=== PATIENT | male | born 1960 | race Caucasian/White ===

== ENCOUNTER 2021-06-09 07:08 | Inpatient (IN) | payer MEDICAID, SELFPAY ==
[2021-06-09] VITALS (34 sets, daily range): BP systolic 72–125; BP diastolic 47–75; PULSE 75–133; RESP 9–24; TEMP 36.6–37.2; O2SAT 88–100
--- NOTE | 2021-06-09 07:25 | ED_ITS ---
HPI - Neuro Symptoms/Deficit General: Chief Complaint: Fall Stated Complaint: FALL/ WEAKNESS Time Seen by Provider: 06/09/21 07:10 History of Present Illness: HPI Narrative: 61-year-old male presents emergency room with complaints of having fallen and having slurred speech. He has a history of a previous stroke with left-sided paralysis with contractures. states she thinks he fell off the couch around 3 AM was not found until 6 this morning and EMS was called. That report is from EMS there is no family at the bedside at this time the monitor is reading heart rate in 130s and 40s however appears to be doubling the actual heart rate on EKG initially arrived his heart rate is actually 67. He is difficult to get any specific history from him. He does have slurred speech. Onset (ago): unknown History of same: Yes Severity: moderate Quality: weak Relieving factors: none Exacerbating factors: none Associated symptoms: Deny chest pain, cough, diaphoresis, fevers/chills, headache(s), anorexia, malaise, nausea, seizures, short of breath, syncope, tingling, vertigo, vomiting or weakness Treatments Prior to Arrival: none Review of Systems Const: Denies: malaise or diaphoresis ENMT: Denies: throat pain, ear or mastoid pain, nasal discharge or nasal congestion Card: Denies: chest pain or syncope Resp: Denies: dyspnea, productive cough or non-productive cough GI: Denies: nausea or vomiting : Denies: flank pain, dysuria, urinary frequency or urinary urgency Skin/Breast: Denies: rash or pruritus Neuro: Denies: headache(s) or vertigo PFS ED PFSH: Medical History (Updated 06/10/21 @ 06:55 by Jordan Pardo DO) Chronic kidney disease Chronic pain History of CVA (cerebrovascular accident) History of seizure History of upper gastrointestinal bleeding Hyperlipidemia Hypertension Neuropathy Type 2 diabetes mellitus Social History (Updated 06/09/21 @ 11:41 by Trung Velasquez MD) Smoking and tobacco status: current every day smoker Alcohol intake: never Physical Exam HENMT: COMMON NORMALS: normocephalic and atraumatic HEAD & SCALP: normocephalic and atraumatic Neck/C-Spine: COMMON NORMALS: full ROM, no lymphadenopathy and supple Resp: COMMON NORMALS: normal respiratory effort, No retractions, No use of accessory muscles and clear to auscultation bilaterally AUSCULTATION: clear to auscultation bilaterally Cardio: COMMON NORMALS: regular rate, regular rhythm and No murmurs present (Cardio) RATE: regular rate RHYTHM: regular rhythm GI: COMMON NORMALS: Soft to palpation and No hepatosplenomegaly present AUSCULTATION: Yes normoactive bowel sounds PALPATION: Yes Soft to palpation, No Tenderness to palpation present (GI), No Guarding due to palpation present (GI) and Yes No hepatosplenomegaly present Extremity: COMMON NORMALS: normal to inspection, capillary refill normal, no clubbing, cyanosis or edema, no calf tenderness and no pedal edema NARRATIVE EXTREMITY EXAM: Contractures on the left arm and leg from previous stroke. Skin: COMMON NORMALS: no rashes or lesions noted GENERAL SKIN EXAM: no rashes or lesions noted Procedures Central Line Placement Right SC: Time Out Performed: Yes Patient Placed on Monitor/Pulse Ox: Yes MD Prep: mask, gown and gloves Central Line Prep: Chlorhexidine scrub Local Anesthetic: lidocaine 1% Amount of anesthesia used (mL): 3 Ultrasound Used for Placement: Yes Central Line Lumen Inserted: triple Post Procedure: sutured in place, good blood return, all ports aspirated, flushed, capped and sterile dressing applied Post Procedure X-Ray: tip of catheter in good position and no pneumothorax seen Patient Tolerated Procedure: well and no complications Complications: none Course Vital Signs: Vital signs: Vital Signs Temperature 101.7 F H 06/10/21 04:00 Pulse Rate 84 06/10/21 06:15 Respiratory Rate 18 06/10/21 06:15 Blood Pressure 99/60 06/10/21 06:15 Pulse Oximetry 95 06/10/21 06:15 MDM - Neuro Symptoms/Deficit MDM Narrative: Medical decision making narrative: Patient is septic. Started on antibiotics we placed a Millan and has significant urinary output. Treated his acute hypokalemia with calcium gluconate sodium bicarb and insulin. Central line placed for access because of difficulty with poor access. Discussed with hospitalist and with nephrology. Orders are written. Also discussed with the family they want patient to be a no code this common-law and the son agreed no CPR no intubation but they were okay with medical resuscitation and they were okay with placement of central line and dialysis I relayed that to the hospitalist and nephrology. Lab Data: Labs: Lab Results 06/09/21 06/09/21 06/09/21 07:28 07:45 08:02 WBC RBC Hgb Hct MCV MCH MCHC RDW Plt Count MPV Neut % (Auto) Lymph % (Auto) [place] % (Auto) Eos % (Auto) Baso % (Auto) Neut # (Auto) Lymph # (Auto) [place] # (Auto) Eos # (Auto) Baso # (Auto) Nucleated RBC % (a uto) Nucleated RBCs # PT INR APTT Specimen Type Arterial Sample Site Brachial, right ABG pH 7.24 L (7.35-7.45) ABG pCO2 26.4 mmHg L mmHg (35-45) ABG pO2 108.0 mmHg H mmHg (80.0-100.0) ABG HCO3 11.4 mmol/L L mmo l/L (22-26) ABG O2 Saturation 97.7 ABG Base Excess -14.5 mmol/L L mm ol/L (-2.0-2.0) Saad Test Pos A-a O2 Gradient Not Reportable Hematocrit 30.4 % L % (42-52) Hgb O2 Saturation 95.3 % % (95-100) Carboxyhemoglobin 1.1 %THgb %THgb (0.4-20.1) Methemoglobin 1.3 % % (0.4-1.5) Total Hemoglobin 9.9 g/dL L g/dL (14-18) Sodium 129.0 mmol/L L mm ol/L (131-143) Potassium 7.9 mmol/L H mmol /L (3.5-5.0) Glucose 223.0 mg/dL H mg/ dL (70-115) Ionized Calcium 1.1 mmol/L mmol/L (1.1-1.4) O2 Delivery Device Nc FiO2 40.0 % % Senior Process Control Tech ID [place] Chloride Carbon Dioxide Anion Gap BUN Creatinine GFR Calculation POC Glucose 195 mg/dL H mg/dL (70-110) Calculated Osmolal ity Lactic Acid Calcium Total Bilirubin AST ALT Alkaline Phosphata se Creatine Kinase CK-MB (CK-2) CK-MB (CK-2) Rel I ndex Troponin T Baselin e Total Protein Albumin Globulin Urine Color Urine Appearance Urine pH Ur Specific Gravit y Urine Protein Urine Glucose (UA) Urine Ketones Urine Blood Urine Nitrate Urine Bilirubin Urine Urobilinogen Ur Leukocyte Krisitn ase Urine RBC Urine WBC Ur Squamous Epith Cells Amorphous Sediment Urine Bacteria Urine Mucus Ur Random Sodium Ur Random Potassiu m Ur Random Chloride Urine Opiates Scre en Ur Barbiturates Sc reen Ur Phencyclidine S crn Ur Amphetamines Sc reen U Benzodiazepines Scrn Urine Cocaine Scre en U Marijuana (THC) Screen Hep Bs Antigen Hep Bs Antibody Hepatitis C Antibo dy SARS-CoV-2 Ag (Rap id) Negative (Negative) 06/09/21 06/09/21 06/09/21 09:02 09:02 09:02 WBC 25.7 10^3/uL H 10 ^3/uL (4.0-10.0) RBC 3.52 10^6/uL L 10 ^6/uL (4.1-5.3) Hgb 10.4 g/dL L g/dL (11.7-16.6) Hct 31.8 % L % (42.0-52.0) MCV 90.3 fl fl (80-94) MCH 29.5 pg pg (28.0-34.0) MCHC 32.7 g/dL g/dL (30.0-36.0) RDW 16.7 % H % (12.1-15.1) Plt Count 336 10^3/cmm 10^3 /cmm (130-400) MPV 11.6 fL H fL (7.4-10.4) Neut % (Auto) 82.3 % % Lymph % (Auto) 6.1 % % [place] % (Auto) 7.9 % % Eos % (Auto) 0.7 % % Baso % (Auto) 0.5 % % Neut # (Auto) 21.18 10^3/uL H 1 0^3/uL (1.8-7.7) Lymph # (Auto) 1.6 10^3/uL 10^3/ uL (0.8-4.8) [place] # (Auto) 2.0 10^3/uL H 10^ 3/uL (0.2-0.9) Eos # (Auto) 0.2 10^3/uL 10^3/ uL (0.0-0.8) Baso # (Auto) 0.1 10^3/uL 10^3/ uL (0.0-0.1) Nucleated RBC % (a uto) 0 % % Nucleated RBCs # 0.0 /100WBC /100W BC PT 16.90 SECONDS H S ECONDS (12.1-14.9) INR 1.33 H (0.8-1.2) APTT 31.9 SECONDS SECO NDS (23.9-36.7) Specimen Type Sample Site ABG pH ABG pCO2 ABG pO2 ABG HCO3 ABG O2 Saturation ABG Base Excess Saad Test A-a O2 Gradient Hematocrit Hgb O2 Saturation Carboxyhemoglobin Methemoglobin Total Hemoglobin Sodium 129 mmol/L L mmol /L (136-145) Potassium 8.2 mmol/L H* mmo l/L (3.5-5.1) Glucose 223 mg/dL H mg/dL (65-115) Ionized Calcium O2 Delivery Device FiO2 Senior Process Control Tech ID Chloride 98 mmol/L mmol/L (98-107) Carbon Dioxide 10 mmol/L L mmol/ L (22-29) Anion Gap 29.2 H (5-19) BUN 81 mg/dL H mg/dL (8-23) Creatinine 5.8 mg/dL H* mg/d L (0.7-1.2) GFR Calculation 10.0 mL/min L mL/ min (90-130) POC Glucose Calculated Osmolal ity 299 mOsm/kg H mOs m/kg (285-295) Lactic Acid Calcium 7.5 mg/dL L mg/dL (8.5-10.5) Total Bilirubin 0.3 mg/dL mg/dL (0.15-1.2) AST 13 U/L U/L (0-40) ALT 12 U/L U/L (0-41) Alkaline Phosphata se 86 IU/L IU/L (40-130) Creatine Kinase 1064 U/L H* U/L (39-308) CK-MB (CK-2) 19.9 ng/mL H ng/m L (0-10.4) CK-MB (CK-2) Rel I ndex 1.8 % % (0.0-5.3) Troponin T Baselin e Total Protein 5.7 g/dL L g/dL (6.6-8.7) Albumin 3.3 g/dL L g/dL (3.5-5.2) Globulin 2.4 g/dL g/dL (1.3-4.6) Urine Color Urine Appearance Urine pH Ur Specific Gravit y Urine Protein Urine Glucose (UA) Urine Ketones Urine Blood Urine Nitrate Urine Bilirubin Urine Urobilinogen Ur Leukocyte Kristin ase Urine RBC Urine WBC Ur Squamous Epith Cells Amorphous Sediment Urine Bacteria Urine Mucus Ur Random Sodium Ur Random Potassiu m Ur Random Chloride Urine Opiates Scre en Ur Barbiturates Sc reen Ur Phencyclidine S crn Ur Amphetamines Sc reen U Benzodiazepines Scrn Urine Cocaine Scre en U Marijuana (THC) Screen Hep Bs Antigen Hep Bs Antibody Hepatitis C Antibo dy SARS-CoV-2 Ag (Rap id) 06/09/21 06/09/21 06/09/21 09:02 09:02 09:05 WBC RBC Hgb Hct MCV MCH MCHC RDW Plt Count MPV Neut % (Auto) Lymph % (Auto) [place] % (Auto) Eos % (Auto) Baso % (Auto) Neut # (Auto) Lymph # (Auto) [place] # (Auto) Eos # (Auto) Baso # (Auto) Nucleated RBC % (a uto) Nucleated RBCs # PT INR APTT Specimen Type Sample Site ABG pH ABG pCO2 ABG pO2 ABG HCO3 ABG O2 Saturation ABG Base Excess Saad Test A-a O2 Gradient Hematocrit Hgb O2 Saturation Carboxyhemoglobin Methemoglobin Total Hemoglobin Sodium Potassium Glucose Ionized Calcium O2 Delivery Device FiO2 Senior Process Control Tech ID Chloride Carbon Dioxide Anion Gap BUN Creatinine GFR Calculation POC Glucose Calculated Osmolal ity Lactic Acid 2.1 mmol/L mmol/L (0.5-2.2) Calcium Total Bilirubin AST ALT Alkaline Phosphata se Creatine Kinase CK-MB (CK-2) CK-MB (CK-2) Rel I ndex Troponin T Baselin e 113 ng/L H* ng/L (0-15) Total Protein Albumin Globulin Urine Color Urine Appearance Urine pH Ur Specific Gravit y Urine Protein Urine Glucose (UA) Urine Ketones Urine Blood Urine Nitrate Urine Bilirubin Urine Urobilinogen Ur Leukocyte Kristin ase Urine RBC Urine WBC Ur Squamous Epith Cells Amorphous Sediment Urine Bacteria Urine Mucus Ur Random Sodium Ur Random Potassiu m Ur Random Chloride Urine Opiates Scre en Ur Barbiturates Sc reen Ur Phencyclidine S crn Ur Amphetamines Sc reen U Benzodiazepines Scrn Urine Cocaine Scre en U Marijuana (THC) Screen Hep Bs Antigen Non-reactive (Nonreactive) Hep Bs Antibody 3.5 L (11.5-1000) Hepatitis C Antibo dy Non-reactive (Nonreactive) SARS-CoV-2 Ag (Rap id) 06/09/21 06/09/21 06/09/21 10:02 10:05 10:05 WBC RBC Hgb Hct MCV MCH MCHC RDW Plt Count MPV Neut % (Auto) Lymph % (Auto) [place] % (Auto) Eos % (Auto) Baso % (Auto) Neut # (Auto) Lymph # (Auto) [place] # (Auto) Eos # (Auto) Baso # (Auto) Nucleated RBC % (a uto) Nucleated RBCs # PT INR APTT Specimen Type Sample Site ABG pH ABG pCO2 ABG pO2 ABG HCO3 ABG O2 Saturation ABG Base Excess Saad Test A-a O2 Gradient Hematocrit Hgb O2 Saturation Carboxyhemoglobin Methemoglobin Total Hemoglobin Sodium Potassium Glucose Ionized Calcium O2 Delivery Device FiO2 Senior Process Control Tech ID Chloride Carbon Dioxide Anion Gap BUN Creatinine GFR Calculation POC Glucose 211 mg/dL H mg/dL (70-110) Calculated Osmolal ity Lactic Acid Calcium Total Bilirubin AST ALT Alkaline Phosphata se Creatine Kinase CK-MB (CK-2) CK-MB (CK-2) Rel I ndex Troponin T Baselin e Total Protein Albumin Globulin Urine Color Yellow (Yellow) Urine Appearance Hazy A (CLEAR) Urine pH 5 (5-7) Ur Specific Gravit y 1.015 (1.005-1.030) Urine Protein Trace (Negative) Urine Glucose (UA) 2+ H (Normal) Urine Ketones Negative (Negative) Urine Blood 3+ H (Negative) Urine Nitrate Negative (Negative) Urine Bilirubin Neg (Negative) Urine Urobilinogen Norm mg/dL mg/dL (Negative) Ur Leukocyte Kristin ase Negative (Negative) Urine RBC 0-4 /hpf H /hpf (0-2) Urine WBC 0-4 /hpf H /hpf (0-5) Ur Squamous Epith Cells 0-4 /hpf H /hpf (0-5) Amorphous Sediment Not Reportable Urine Bacteria Trace /hpf /hpf (NONE) Urine Mucus 1+ /hpf /hpf Ur Random Sodium Ur Random Potassiu m Ur Random Chloride Urine Opiates Scre en Positive ng/mL H ng/mL (Negative) Ur Barbiturates Sc reen Negative ng/mL ng /mL (Negative) Ur Phencyclidine S crn Negative ng/mL ng /mL (Negative) Ur Amphetamines Sc reen Negative ng/mL ng /mL (Negative) U Benzodiazepines Scrn Positive ng/mL H ng/mL (Negative) Urine Cocaine Scre en Negative ng/mL ng /mL (Negative) U Marijuana (THC) Screen Negative ng/mL ng /mL (Negative) Hep Bs Antigen Hep Bs Antibody Hepatitis C Antibo dy SARS-CoV-2 Ag (Rap id) 06/09/21 10:05 WBC RBC Hgb Hct MCV MCH MCHC RDW Plt Count MPV Neut % (Auto) Lymph % (Auto) [place] % (Auto) Eos % (Auto) Baso % (Auto) Neut # (Auto) Lymph # (Auto) [place] # (Auto) Eos # (Auto) Baso # (Auto) Nucleated RBC % (a uto) Nucleated RBCs # PT INR APTT Specimen Type Sample Site ABG pH ABG pCO2 ABG pO2 ABG HCO3 ABG O2 Saturation ABG Base Excess Saad Test A-a O2 Gradient Hematocrit Hgb O2 Saturation Carboxyhemoglobin Methemoglobin Total Hemoglobin Sodium Potassium Glucose Ionized Calcium O2 Delivery Device FiO2 Senior Process Control Tech ID Chloride Carbon Dioxide Anion Gap BUN Creatinine GFR Calculation POC Glucose Calculated Osmolal ity Lactic Acid Calcium Total Bilirubin AST ALT Alkaline Phosphata se Creatine Kinase CK-MB (CK-2) CK-MB (CK-2) Rel I ndex Troponin T Baselin e Total Protein Albumin Globulin Urine Color Urine Appearance Urine pH Ur Specific Gravit y Urine Protein Urine Glucose (UA) Urine Ketones Urine Blood Urine Nitrate Urine Bilirubin Urine Urobilinogen Ur Leukocyte Kristin ase Urine RBC Urine WBC Ur Squamous Epith Cells Amorphous Sediment Urine Bacteria Urine Mucus Ur Random Sodium 89 mmol/L mmol/L Ur Random Potassiu m 34 mmol/L mmol/L Ur Random Chloride 58 mmol/L mmol/L Urine Opiates Scre en Ur Barbiturates Sc reen Ur Phencyclidine S crn Ur Amphetamines Sc reen U Benzodiazepines Scrn Urine Cocaine Scre en U Marijuana (THC) Screen Hep Bs Antigen Hep Bs Antibody Hepatitis C Antibo dy SARS-CoV-2 Ag (Rap id) Critical Care Time Critical Care Time: Critical Care Time: Yes Total Critical Care Time: 30 Attestation: This case had a high probability of a clinically significant, sudden, or life threatening deterioration of this patient's condition which required my full and direct attention, intervention and personal management. Does not include other documented procedures Discharge Plan Discharge Patient Disposition: Admitted As Inpatient Admit Provider: Trung Velasquez Clinical Impression: Sepsis, Acute kidney injury, Hyperkalemia, Hypotension, Rhabdomyolysis, Anemia, Metabolic acidosis, Elevated troponin, Urinary retention, Type 2 diabetes mellitus, History of CVA (cerebrovascular accident) Condition: Stable Coding Level of Care Code ED Abnormal Psychology Teacher for Chg Fwd Exam Detailed
--- NOTE | 2021-06-09 07:26 | XR_ITS ---
WS: [id number] Exam: XR chest 1V portable [id number] Date/Time of Exam: 06/09/2021 7:35 AM Reason For Exam: dyspnea No priors. The lungs are clear and fully expanded. Normal-appearing cardiomediastinal silhouette and regional [place] elements. A right subclavian central line is in place ending in the region of the right atrium. No pleural effusions. XR/XR chest 1V portable [id number] IMPRESSION: 1. No acute cardiopulmonary finding.
--- NOTE | 2021-06-09 07:26 | CT_ITS ---
WS: [id number] CT HEAD NONCONTRAST HISTORY: Symptoms of Acute Stroke TECHNIQUE: Contiguous axial imaging performed through the brain in 2.5 mm imaging. Bone and soft tiss ue windows. Sagittal and coronal reformats reviewed. All CT scans at [facility] use at least one of these dose optimization techniques: automated exposure control; mA and/or kV adjustment per pa tient size (includes targeted exams where dose is matched to clinical indication); or iterative recon struction. DLP: 1138.63 mGy.cm COMPARISON: None available. Severe prior RIGHT middle cerebral artery territory infarct. There is ex vacuole dilatation of the RI GHT lateral ventricle due to the volume loss in the RIGHT MCA territory. No acute hemorrhage. No acut e area of sulcal effacement or edema evident. Moderate atrophy within the LEFT cerebrum. Ventricles: Extensive dilatation of the RIGHT lateral ventricle. Mild dilatation of the LEFT ventric le due to atrophy. Paranasal sinuses: As visualized are clear. Mastoid air cells: Well pneumatized. Calvarium and scalp: Moderate atherosclerotic plaque within the intracranial carotid arteries. CT/CT head wo con* [id number] IMPRESSION: 1. No acute intracranial hemorrhage or edema. 2. Large remote RIGHT MCA territory infarct with encephalomalacia.
--- NOTE | 2021-06-09 07:26 | ECG_ITS ---
[facility] Test Date: 2021-06-09 Pat Name: Tucker Tyler Department: Room: Gender: Male Lead Front Desk Agent: : 1960 Requested By: Jordan Perez Order Number: [id number] Brittany MD: LORRAINE HERNANDEZ Measurements Intervals [place] Rate: 67 P: [place]: QRS: 72 QRSD: 148 T: 19 QT: 405 QTc: 429 Interpretive Statements SINUS RHYTHM RIGHT BUNDLE BRANCH BLOCK [120+ ms QRS DURATION, UPRIGHT V1, 40+ ms S IN I/aVL/V4/V5/V6] No previous ECG available for comparison Electronically Signed On 06-09-2021 20:01:16 MANAGER DRILLING by LORRAINE HERNANDEZ [id number] f
--- NOTE | 2021-06-09 07:27 | ECG_ITS ---
[facility] Test Date: 2021-06-09 Pat Name: Tucker Tyler Department: Room: Gender: Male Bulldozer Press Operator: : 1960 Requested By: Jordan Perez Order Number: [id number] Reading MD: LORRAINE HERNANDEZ Measurements Intervals [place] Rate: 66 P: [place]: QRS: 59 QRSD: 154 T: 8 QT: 415 QTc: 437 Interpretive Statements JUNCTIONAL RHYTHM RIGHT BUNDLE BRANCH BLOCK [120+ ms QRS DURATION, UPRIGHT V1, 40+ ms S IN I/aVL/V4/V5/V6] No previous ECG available for comparison Electronically Signed On 06-09-2021 20:00:05 CONTRACT ENGINEER by LORRAINE HERNANDEZ [id number] f
--- NOTE | 2021-06-09 07:27 | XR_ITS ---
WS: [id number] Exam: XR hip LT 2-3V wo/w pel* [id number] Date/Time of Exam: 06/09/2021 7:35 AM Reason For Exam: pain No fracture or dislocation. Mild to moderate DJD. Normal soft tissues. XR/XR hip LT 2-3V wo/w pel* [id number] IMPRESSION: 1. Degenerative change. No fracture or dislocation.
[2021-06-09 07:31] LABS: Glucose Point of Care 195 mg/dL (70-110)
--- NOTE | 2021-06-09 07:38 | PC.NURSE ---
Attempted to notify HUGO Pardo of pt's BP, not in office. it consulting manager Ashley at bedside.
--- NOTE | 2021-06-09 07:39 | PC.NURSE ---
HUGO Pardo notified of pt's BP at this time.
[2021-06-09] MEDS: sodium chloride 0.9% 1,000 ML 999 ML IV ×2 (07:57→09:27)
[2021-06-09 08:16] LABS: ABG PCO2 26.4 mmHg (35-45); ABG PH Result 7.24 (7.35-7.45); HCO3 ABG 11.4 mmol/L (22-26)
[2021-06-09 08:17] LABS: Base Excess ABG -14.5 mmol/L (-2.0-2.0); Blood Gas Allen Test POS; Blood Gas Operator Identificat MONRO; Oxygen Device NC; Oxygen Saturation ABG 97.7; Potassium Level - ABG 7.9 mmol/L (3.5-5.0)
[2021-06-09 08:18] LABS: Arterial Blood Gas Hematocrit 30.4 % (42-52); Blood Gas Sample Type ARTERIAL; Carboxyhemoglobin 1.1 %THgb (0.4-20.1); HGB O2 Sat 95.3 % (95-100); Ionized Calcium Level - ABG 1.1 mmol/L (1.1-1.4); Methemoglobin 1.3 % (0.4-1.5); Total Hemoglobin 9.9 g/dL (14-18)
[2021-06-09] MEDS: calcium gluconate 0.1 gm/mL 10% SDV 10mL 2 GM IVP (08:56)
[2021-06-09] MEDS: levofloxacin-dextrose 5 % 750 MG/150 ML PREMIX 100 MG IV (08:57)
[2021-06-09] MEDS: sodium bicarbonate 8.4% 1 mEq/mL 50mL Syr 100 MEQ IVP (08:57)
[2021-06-09 09:13] LABS: Basophils # 0.1 10^3/uL (0.0-0.1); Basophils % 0.5 %; Eosinophils # 0.2 10^3/uL (0.0-0.8); Eosinophils % 0.7 %; Hematocrit 31.8 % (42.0-52.0); Hemoglobin 10.4 g/dL (11.7-16.6); Lymphocytes # 1.6 10^3/uL (0.8-4.8); Lymphocytes % 6.1 %; Mean Corpuscular HGB Conc 32.7 g/dL (30.0-36.0); Mean Corpuscular Hemoglobin 29.5 pg (28.0-34.0); Mean Corpuscular Volume 90.3 fl (80-94); Mean Platelet Volume 11.6 fL (7.4-10.4); Monocytes % 7.9 %; Neutrophils # 21.18 10^3/uL (1.8-7.7); Neutrophils % 82.3 %; Nucleated Red Blood Cells % 0 %; Platelet Count 336 10^3/cmm (130-400); Red Blood Count 3.52 10^6/uL (4.1-5.3); Red Cell Distribution Width 16.7 % (12.1-15.1); White Blood Count 25.7 10^3/uL (4.0-10.0)
[2021-06-09] MEDS: insulin regular-human 100 units/1 mL 10 UNIT IVP (09:18)
[2021-06-09 09:27] LABS: INR 1.33 (0.8-1.2)
--- NOTE | 2021-06-09 09:27 | ECG_ITS ---
[facility] Test Date: 2021-06-09 Pat Name: Tucker Tyler Department: Room: Gender: Male Claim Manager: : 1960 Requested By: Jordan Perez Order Number: [id number] Reading MD: LORRAINE HERNANDEZ Measurements Intervals [place] Rate: 97 P: 43 MA: 183 QRS: 21 QRSD: 93 T: 64 QT: 342 QTc: 436 Interpretive Statements SINUS RHYTHM NONSPECIFIC ST & T-WAVE ABNORMALITY Compared to ECG 06/09/2021 07:24:19 T-wave abnormality now present Right bundle-branch block no longer present Electronically Signed On 06-09-2021 20:09:49 MEDICAL GENETICS DIRECTOR by LORRAINE HERNANDEZ [id number]
[2021-06-09 09:28] LABS: Partial Thromboplastin Time 31.9 SECONDS (23.9-36.7)
[2021-06-09 09:31] LABS: Alanine Aminotransferase 12 U/L (0-41); Albumin Level 3.3 g/dL (3.5-5.2); Alkaline Phosphatase 86 IU/L (40-130); Anion Gap 29.2 (5-19); Aspartate Amino Transferase 13 U/L (0-40); Calcium 7.5 mg/dL (8.5-10.5); Carbon Dioxide 10 mmol/L (22-29); Chloride 98 mmol/L (98-107); Globulin 2.4 g/dL (1.3-4.6); Glucose 223 mg/dL (65-115); Osmolality Calculated 299 mOsm/kg (285-295); Sodium 129 mmol/L (136-145); Total Bilirubin 0.3 mg/dL (0.15-1.2); Total Protein 5.7 g/dL (6.6-8.7)
--- NOTE | 2021-06-09 09:31 | PC.NURSE ---
Pt alert and oriented to name and birthday only. States that current year is 1959 and unable to state who the president of the [place] is.
--- NOTE | 2021-06-09 09:33 | PC.NURSE ---
Pt has left sided deficits from a previous stroke stated by EMS.
[2021-06-09 09:38] LABS: Lactic Sepsis W/Reflex 2.1 mmol/L (0.5-2.2)
[2021-06-09 09:41] LABS: Blood Urea Nitrogen 81 mg/dL (8-23); Potassium 8.2 mmol/L (3.5-5.1); Troponin(5th) Baseline 113 ng/L (0-15)
[2021-06-09 09:42] LABS: Creatine Phosphokinase 1064 U/L (39-308)
[2021-06-09 09:42] LABS: SARS Covid-2 Antigen Negative (Negative)
[2021-06-09 09:58] LABS: CKMB 19.9 ng/mL (0-10.4); CKMB Relative Index 1.8 % (0.0-5.3)
[2021-06-09 10:05] LABS: Glucose Point of Care 211 mg/dL (70-110)
--- NOTE | 2021-06-09 10:25 | PC.PHAR ---
PT UNABLE TO VERIFY MEDICATIONS-PTS LIFE PARTNER AUNG VERIFIED THE PTS MEDICATIONS-STATES SHE GIVES THE PT HIS INSULIN STATES THE PT WONT LET HER TEST HIS BLOOD ALL THE TIME SO SHE JUST GIVES HIM A SHOT STATES SHE GIVES 20 UNITS TID PRN-RX FILLED ON 05/15/21 25D/S FOR 20 UNITS BID MAX OF 40 UNITS A DAY-NOTES ARE MADE IN THE PHARMACY COMMENTS
[2021-06-09] MEDS: piperacillin-tazobactam 3.375 GM in sodium chloride 0.9% (plus) 50 ML IV ×2 (10:28→21:52)
[2021-06-09] MEDS: vancomycin 1,000 MG in sodium chloride 0.9% 250 ML 250 MG IV (10:51)
--- NOTE | 2021-06-09 10:57 | PM.CONSULT ---
Providers/Reason For Consult Consulting Physician/Specialty*: олег nunez md/ telenephrology Reason for Consult*: GINA, hyperkalemia, met acidosis Requesting Physician: Dr. Colette Velasquez Primary Care Provider: Leonel Jolley History of Present Illness History of Present Illness Tucker Tyler is a 61 year old male h/o tob use, CVA. pt here w/ AMS and fall. found him down, unsure for how long- she though that he had a CVA and brought him to ER. Pt had wide complex QRS on admission, k 8.2, bicarb 10, cr 5.8, trop 113, pH 7.24, pco2 26, ic8=436. pt given abx, ivf, ca, d50. shea placed- is urinating. renal called for emergency consult. Review of Systems General: Reports: ROS unobtainable due to mental status Meds/Allergies Home Medications and Allergies Home Medications Medication Instructions Recorded Confirmed Last Taken Type acetaminophen [Tylenol] 650 mg PO Q4H PRN 06/09/21 06/09/21 Unknown History atorvastatin 80 mg PO DAILY 06/09/21 06/09/21 Unknown History calcium carbonate [Tums] 500 mg PO PRN 06/09/21 06/09/21 Unknown History citalopram 20 mg PO DAILY 06/09/21 06/09/21 Unknown History clonazepam 0.5 mg PO BID PRN 06/09/21 06/09/21 Unknown History cyclobenzaprine 10 mg PO TID PRN 06/09/21 06/09/21 Unknown History diphenhydramine HCl [Benadryl] 50 mg PO BID PRN 06/09/21 06/09/21 Unknown History gabapentin 400 mg PO TID 06/09/21 06/09/21 Unknown History hydrocodone-acetaminophen 1 tab PO Q6H PRN 06/09/21 06/09/21 Unknown History ibuprofen 400 - 800 mg PO Q6H 06/09/21 06/09/21 Unknown History insulin NPH and regular human 20 unit SUBCUT TID PRN 06/09/21 06/09/21 Unknown History [Novolin 70/30 U-100 Insulin] lisinopril 20 mg PO DAILY 06/09/21 06/09/21 Unknown History Allergies Allergy/AdvReac Type Severity Reaction Status Date / Time Unable to Assess Allergy Unverified 06/09/21 09:35 Current Medications Current Medications Generic Name Dose Route Start Last Admin Trade Name Aby PRN Reason Stop Dose Admin Norepinephrine Bitartrate 4 mg 254 mls @ 0 mls/hr 06/09/21 07:45 06/09/21 07:56 / Dextrose IV 8 mcg/min .Q0M KEN 30.48 mls/hr Administration Protocol Per Protocol Vitals/I&O/Wt Last Vital Signs Temp 99.0 F 06/09/21 07:10 Pulse 105 H 06/09/21 09:28 Resp 22 H 06/09/21 09:28 BP 125/69 06/09/21 09:28 Pulse Ox 98 06/09/21 09:28 06/08/21 06/09/21 06/09/21 22:59 06:59 14:59 Intake Total 1000 / 1000 Balance 1000 / 1000 Weight last 48 hrs Weight 99.79 kg Physical Exam Narrative: EXAM NARRATIVE: exam by RN- telehealth visit weak in bed, saturating well vs noted heent- nc/at, eomi, anicteric neck- no jvp lung wheezing b/l heart- reg, no rub abd soft, nt, nd, + bs ext no edema neuro- moans, confused Data Micro: Micro: Microbiology 06/09/21 09:02 Blood Culture - Pr eliminary Blood SPECIMEN [facility] A&P Additional A&P Information 61 yr old man 1. Sepsis- as per medicine- pressers requirement improving 2. GINA- please get old labs -pt was on nsaid, lisinopril at home- risk for GINA -u/a pending -check urine lytes -check renal us -had 1200 ml uop w/ shea -monitor labs q 4 hrs- if no improvement may need dialysis soon 2b. pt on miko-i and has DM, htn- Q if has CKD 3. hyponatremia- likely dry- check ur na -check tsh and cortisol levles -monitor w/ ivf 4. hyperkalemia- rx medically -from GINA -if no improvement then HD 5. inc AGMA- likely renal failure -normal lactate -Q from a toxin -check ethylene glycol -good resp compensation 6. ck 1064- likely from fall 7. likely dm- Q if CKD seen and examined w/ RN- telehealth visit time spent 55 min discussed w/ Dr. Maggie Velasquez Consult Attestations Medical Necessity Statement: gina, septic shock, met acidosis, hyperkalemia- critical condition Time Spent in Patient Care: Greater than 35 minutes (>than 50% of time spent in counselling and/or direct pt care on unit). Coding Level of Care Code Acute Casualty Insurance Claim Adjuster for Paty Mancia
[2021-06-09 11:06] LABS: Reflex Lactate Order REFLEX LACTIC ORDERD
--- NOTE | 2021-06-09 11:16 | PM.HP ---
Providers/Chief Complaint Primary Care Provider: Leonel Jolley Chief Complaint: FALL/ WEAKNESS History of Present Illness Tucker Tyler is a 61 year old male with history of CVA who was brought into the emergency department with history of fall, slurred speech. From the emergency department records believes he fell off the couch around 3 AM and was not found till 6 AM this morning. It was initially hard to get any response from him at all. In my discussion with the patient's he has been doing okay. He does have some chronic urinary issues, and from her understanding some chronic renal failure. He occasionally has difficulty starting a stream or urinating even though he feels the need to. He has been taking some anti-inflammatories lately. He is also been fairly depressed lately, with his chronic pain and chronic disability. She reports a lot of pills were around the area where he was on the couch. She reports there was no alcohol or any other substances. He has not been ill lately with any fever, cough. He is not vaccinated for Covid, nor has he had the disease. No known exposures. In the emergency department he received some insulin and glucose, calcium gluconate, bicarbonate, norepinephrine, Levaquin, Zosyn, and vancomycin. Review of Systems General: Reports: ROS unobtainable due to mental status (Patient lethargic currently) Medications/Allergies Home Medications Medication Instructions Recorded Confirmed Last Taken Type acetaminophen [Tylenol] 650 mg PO Q4H PRN 06/09/21 06/09/21 Unknown History atorvastatin 80 mg PO DAILY 06/09/21 06/09/21 Unknown History calcium carbonate [Tums] 500 mg PO PRN 06/09/21 06/09/21 Unknown History citalopram 20 mg PO DAILY 06/09/21 06/09/21 Unknown History clonazepam 0.5 mg PO BID PRN 06/09/21 06/09/21 Unknown History cyclobenzaprine 10 mg PO TID PRN 06/09/21 06/09/21 Unknown History diphenhydramine HCl [Benadryl] 50 mg PO BID PRN 06/09/21 06/09/21 Unknown History gabapentin 400 mg PO TID 06/09/21 06/09/21 Unknown History hydrocodone-acetaminophen 1 tab PO Q6H PRN 06/09/21 06/09/21 Unknown History ibuprofen 400 - 800 mg PO Q6H PRN 06/09/21 06/09/21 Unknown History insulin NPH and regular human 20 unit SUBCUT TID PRN 06/09/21 06/09/21 Unknown History [Novolin 70/30 U-100 Insulin] lisinopril 20 mg PO DAILY 06/09/21 06/09/21 Unknown History Allergies Allergy/AdvReac Type Severity Reaction Status Date / Time Unable to Assess Allergy Unverified 06/09/21 09:35 PFSH Acute PFSH: Medical History (Updated 06/09/21 @ 11:47 by Trung Velasquez MD) Chronic kidney disease Chronic pain History of CVA (cerebrovascular accident) History of seizure History of upper gastrointestinal bleeding Hyperlipidemia Hypertension Neuropathy Type 2 diabetes mellitus Social History (Updated 06/09/21 @ 11:41 by Trung Velasquez MD) Smoking and tobacco status: current every day smoker Alcohol intake: never Supplemental PFSH Information: Family history of pulmonary embolism Vitals/I&O/Wt Last Vital Signs Temp 99.0 F 06/09/21 07:10 Pulse 97 06/09/21 11:00 Resp 20 H 06/09/21 11:00 BP 99/65 06/09/21 11:00 Pulse Ox 95 06/09/21 11:00 06/08/21 06/09/21 06/09/21 22:59 06:59 14:59 Intake Total 1000 / 1000 Balance 1000 / 1000 Weight last 48 hrs Weight 99.79 kg Physical Exam Narrative: EXAM NARRATIVE: General exam is a lethargic white male, slurring some of his words but becoming more more alert. He asked for chocolate pudding. HEENT: Atraumatic, normocephalic. Pupils equally round. Oropharynx clear. Mucous membranes dry. Neck is supple no lymphadenopathy or thyromegaly Cardiovascular regular rate and rhythm, no murmur Lungs clear no wheezing or crackles Abdomen is soft nontender with positive bowel sounds. No obvious organomegaly Back demonstrates no obvious lesions or sores exam demonstrates Millan with 1200 cc of urine noted Extremities no cyanosis clubbing or edema, cap refill around 2 seconds. Extremities cool. Skin no rash Neuro: Somewhat sleepy. Left hemiparesis noted. From my understanding this is chronic. Urinary Catheter Management^: Millan: Cath Placed During This Visit: yes Urinary Catheter Date of Insertion: 06/09/21 Data : 06/09/21 09:02 06/09/21 11:22 Micro: Microbiology 06/09/21 09:02 Blood Culture - Preliminary Blood SPECIMEN COLLECTED Other data: INR 1.33 ABG demonstrates pH 7.24, PCO2 26, PO2 108 Calcium 7.5 CK 1064 Troponin I 13 Lactic acid 2.1 LFTs normal Urinalysis 0-4 red blood cells, 0-4 white blood cells Urine drug screen positive for benzodiazepines and opiates Rapid Covid negative, PCR pending I have ordered Tylenol and salicylate levels CT head demonstrates remote large right MCA territory CVA. No acute changes. Chest x-ray no infiltrate Hip and pelvis no fracture Abdominal pelvis CT demonstrates a lobulated soft tissue mass left upper abdomen, difficult to delineate. Mucosal thickening moderate a sending and transverse colon A&P Assessment and plan (1) Sepsis: Etiology unknown. Blood cultures were obtained Broad-spectrum antibiotics currently consisting of vancomycin and Zosyn Received a large amount of IV antibiotics Although lactate was not elevated he had marked hypotension requiring pressors, encephalopathy, tachycardia, elevated lactic acid on second check, etc. He has received appropriate fluid in the emergency department. Status: Acute (2) Acute kidney injury: Severe acute kidney injury with marked hyperkalemia. He received calcium gluconate, insulin and glucose Potassium appears to be improving. Continue hydration. Note that patient was taking anti-inflammatories at home, and had significant residual amount of urine consistent with bladder outlet obstruction after Millan was placed. Has underlying chronic kidney disease with a baseline creatinine of 1.47. Status: Acute (3) Hyperkalemia: Improving, see treatment above Bicarbonate drip was initiated by nephrology. Status: Acute (4) Hypotension: Currently on norepinephrine. Titrate as tolerated Status: Acute (5) Anemia: Continue to follow closely. Pepcid IV for GI prophylaxis. No evidence of current bleeding Status: Acute (6) Rhabdomyolysis: Mild, check CK tomorrow. Continue hydration Status: Acute (7) Metabolic acidosis: Severe. Presumably secondary to renal failure. Bicarbonate drip was initiated by nephrology. Status: Acute (8) Elevated troponin: Type II elevation Status: Acute (9) Urinary retention: Continue Millan, suspect bladder outlet obstruction CT abdomen and pelvis demonstrated no obvious hydronephrosis Status: Acute (10) History of CVA (cerebrovascular accident): Status: Acute (11) Type 2 diabetes mellitus: Sliding scale insulin Status: Acute Additional A&P Information Acute metabolic encephalopathy, secondary to renal failure, sepsis. Monitor closely for improvement. Depression. Will discuss with patient once he becomes more alert. Multiple other medical problems as outlined in past medical history Limited code. No CPR or intubation per . Would allow and or other interventions, possibly including dialysis, and certainly ICU treatment. Heparin for DVT prophylaxis Attestations Medical Necessity Statement*: 2 midnight stay secondary to sepsis, hypotension, renal failure Critical Care Time: Critical Care Time (min): 57 Other Attestations: The high probability of a clinically significant, sudden or life threatening deterioration of the patient's [renal, vascular, infectious disease] system(s) required my full and direct attention, intervention and personal management. The critical care time is as shown. This time is in addition to time spent performing any reported procedures but includes the following: [x] Data and vital sign review and interpretation [x] Patient assessment, examination and intervention [x] Documentation [x] Medication orders and management Coding Level of Care Code Acute Peach Grower for [facility] Fwd Diagnoses Sepsis A41.9 Acute kidney injury N17.9 Hyperkalemia E87.5 Hypotension I95.9 Anemia D64.9 Rhabdomyolysis M62.82 Metabolic acidosis E87.2 Elevated troponin R77.8 Urinary retention R33.9 History of CVA (cerebrovascular accident) Z86.73 Type 2 diabetes mellitus E11.9
[2021-06-09 11:22] LABS: Add Urine Microscopic? YES; Bilirubin Urine Neg (Negative); Blood Urine 3+ (Negative); Glucose Urine UA 2+ (Normal); Ketones Urine Negative (Negative); Leukocyte Esterase Urine Negative (Negative); Nitrate Urine Negative (Negative); Protein Urine Trace (Negative); RBC Urine 0-4 /hpf (0-2); Specific Gravity, Urine 1.015 (1.005-1.030); Squamous Epithelial Cell Urine 0-4 /hpf (0-5); Urine Appearance Hazy (CLEAR); Urine Color Yellow (Yellow); Urobilinogen Urine Norm (Negative); WBC Urine 0-4 /hpf (0-5); pH Urine 5 (5-7)
[2021-06-09 11:23] LABS: Add Urine Culture? No; Bacteria Urine TRACE /hpf; Mucus Urine 1+ /hpf
[2021-06-09 11:24] LABS: Amphetamines Screen Urine Negative (Negative); Barbiturates Screen Urine Negative (Negative); Benzodiazepines Screen Urine Positive (Negative); Cocaine Screen Urine Negative (Negative); Opiate Screen Urine Positive (Negative); PCP Screen Urine Negative (Negative); THC Screen Urine Negative (Negative)
--- NOTE | 2021-06-09 11:48 | CT_ITS ---
WS: [id number] CT ABDOMEN AND PELVIS NONCONTRAST HISTORY: renal failure, sepsis TECHNIQUE: Imaging performed through the abdomen and pelvis. Coronal and sagittal reformats are submi tted. All CT scans at [facility] use at least one of these dose optimization techniques: auto mated exposure control; mA and/or kV adjustment per patient size (includes targeted exams where dose is matched to clinical indication); or iterative reconstruction. DLP: 1719.24 mGy.cm COMPARISON: None available. Lower thorax: Dependent changes at the lung bases. No pneumonia. Normal size heart. Liver: Diffuse low attenuation within the liver from hepatic steatosis. There are multiple low-attenu ation areas within the liver which are probably cysts. The largest in the LEFT lobe measures 3.2 x 3. 2 cm. There are additional smaller hypodensities which are too small to characterize. No bile duct di latation. Gallbladder: Mildly contracted gallbladder. No adjacent inflammation. Pancreas: Pancreas is normal size for age. No bile duct dilatation. There is a lobulated soft tissue mass inseparable from the pancreatic tail and near the splenic hilum. Mass extends over length of 4.4 cm x 4.5 x 3.2 cm. Mass is also inseparable from the lateral limb of the LEFT adrenal gland, posteri or stomach and from the LEFT kidney. Mass is of variable density and the center may be necrotic. Spleen: Normal. Adrenal glands: Normal RIGHT adrenal gland. Mildly lobulated LEFT adrenal gland. Lateral images insep arable from the mass in the LEFT upper quadrant. Right kidney: Perinephric stranding. No obstruction. Left kidney: Perinephric stranding with no obstruction. Mass in the LEFT upper abdomen is inseparable from the superior kidney. Aorta: Extensive atherosclerosis. No aneurysm. There is a very small amount of fluid along the RIGHT paracolic gutter. GI tract: Stomach is distended with air and fluid. There is increased density within the dependent po rtion of the stomach. Favor this is probably mid distal internal and less likely acute blood. No GI t ract obstruction. There is moderate thickening involving majority of the colon but greatest involving the ascending and transverse colon. No mass identified. There is some increased density also within the distal colon probably from prior mid additional ingestion. No small bowel dilatation. Normal appe ndix. Abdominal wall: Fat-containing umbilical hernia. Pelvis: Millan catheter in a nondistended urinary bladder. Osseous structures: Osteopenia and degenerative changes. No osteoblastic or osteolytic process identi fied. CT/CT kidney stone [id number] IMPRESSION: 1. Moderate mucosal thickening involving the ascending and transverse colon an d to a lesser extent the descending colon and sigmoid. Consider etiologies of i schemia or infection. No obstruction. 2. No free air or pneumatosis. 3. Lobulated soft tissue mass in the LEFT upper abdomen measures 4.4 x 4.5 x 3 .2 cm. Due to its large size this mass is inseparable from multiple organs of t he LEFT upper abdomen including the tail of the pancreas, posterior stomach, LE FT adrenal gland, superior kidney and spleen. Differential includes pancreatic neoplasm, GIST tumor, exophytic renal neoplasm and lymphoma/mesenteric deposits . For further evaluation CT evaluation with IV and oral contrast will be necess joselyn. This can be performed on an outpatient basis. 4. Low-attenuation lesions within the liver probably cysts cysts. Some of thes e are too small to characterize.
[2021-06-09 11:49] LABS: Lactic Acid level (Lactate) 3.3 mmol/L (0.5-2.2)
[2021-06-09] MEDS: sodium bicarbonate 150 MEQ in dextrose 5% 1,000 ML 125 MEQ IV ×2 (11:55→21:06)
[2021-06-09] MEDS: sodium polystyrene sulfonate 15 gm/60 mL Btl 30 GM PO (11:56)
[2021-06-09 12:03] LABS: Troponin 5 2HR 111.8 ng/L (0-15); Troponin 5 2HR Delta -1.2 ABS# (0-10)
[2021-06-09 12:12] LABS: Acetaminophen 8.2 ug/mL (10-30); Alanine Aminotransferase 17 U/L (0-41); Alkaline Phosphatase 86 IU/L (40-130); Anion Gap 26.9 (5-19); Aspartate Amino Transferase 18 U/L (0-40); Blood Urea Nitrogen 68 mg/dL (8-23); Calcium 7.9 mg/dL (8.5-10.5); Carbon Dioxide 12 mmol/L (22-29); Chloride 100 mmol/L (98-107); Globulin 2.3 g/dL (1.3-4.6); Glomerular Filtration Rate 11.3 mL/min (90-130); Glucose 183 mg/dL (65-115); Osmolality Calculated 300 mOsm/kg (285-295); Potassium 5.9 mmol/L (3.5-5.1); Sodium 133 mmol/L (136-145); Total Bilirubin 0.2 mg/dL (0.15-1.2); Total Protein 5.3 g/dL (6.6-8.7); Uric Acid 6.8 mg/dL (3.4-7.0)
[2021-06-09 12:14] LABS: Salicylate < 0.3 mg/dL (3-10)
[2021-06-09 12:46] LABS: Hepatitis B Surface AB 3.5 (11.5-1000); Hepatitis B Surface Antigen Non-Reactive (Nonreactive); Hepatitis C Virus Antibody Non-Reactive (Nonreactive)
--- NOTE | 2021-06-09 13:27 | ECG_ITS ---
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
--- NOTE | 2021-06-09 13:57 | PC.NURSE ---
Pneumatic compression not available in the ER
[2021-06-09] MEDS: heparin 5,000 unit/mL INJ 1 mL 5000 UNIT SUBCUT (14:01)
[2021-06-09] MEDS: famotidine 20 mg/2 mL INJ IVP (14:02)
[2021-06-09 14:26] LABS: Potassium, Radom Urine 34 mmol/L; Urine Random Chloride 58 mmol/L; Urine Random Sodium 89 mmol/L
[2021-06-09 16:00] LABS: Troponin 5 6HR Delta 3.8 ng/L (0-12)
--- NOTE | 2021-06-09 16:00 | PC.NURSE ---
Report given to DAYANNA Brown.
[2021-06-09 16:04] LABS: Troponin 5 6HR 116.8 ng/L (0-15)
--- NOTE | 2021-06-09 16:07 | PC.NURSE ---
ICU now refusing pt stating that they need to reassign room.
[2021-06-09] MEDS: morphine 4 mg/mL SDV 1 mL 2 MG IVP (17:46)
--- NOTE | 2021-06-09 18:13 | PC.NURSE ---
No belongings with patient.
[2021-06-09 18:45] LABS: Glucose Point of Care 261 mg/dL (70-110)
[2021-06-09] MEDS: insulin lispro 100 unit/1 mL SUBCUT ×2 (18:45→21:52)
--- NOTE | 2021-06-09 18:56 | PC.NURSE ---
Admit Note Patient admitted to ICU 7 from ER via bed at 1728. Covering service notified. Patient does not have belongings with him. Orders reviewed. Patient and/or premium representative oriented to environment, equipment, and informed of the following as found in the admission booklet: patient rights & responsibilities, visitor policy, hand and respiratory hygiene practice. Other education includes: room orientation, reason for admin, care plan, diet order, medications, and lab results. Patient verbalized understanding. Patient oriented to person and situation. Patient unable to orient to time and place. Nurse educated patient to time and place. Patient has left side weakness. Patient states that within the last 30 days he was hospitalized at [facility] for falling and weakness. Patient expresses a desire to eat. Patient rates pain at a 10, see MAR for pain management. Report given to night nurse.
[2021-06-09 19:05] LABS: Anion Gap 22.4 (5-19); Blood Urea Nitrogen 66 mg/dL (8-23); Calcium 7.5 mg/dL (8.5-10.5); Carbon Dioxide 17 mmol/L (22-29); Chloride 100 mmol/L (98-107); Glomerular Filtration Rate 13.3 mL/min (90-130); Glucose 254 mg/dL (65-115); Osmolality Calculated 306 mOsm/kg (285-295); Potassium 5.4 mmol/L (3.5-5.1); Sodium 134 mmol/L (136-145)
--- NOTE | 2021-06-09 19:14 | PC.NURSE ---
Patient had IV fluids going when admin from ER. Levophed going at 4 mcg/min. Sodium bicarbonate at 125 mls/hr.
[2021-06-09 21:57] LABS: Glucose Point of Care 197 mg/dL (70-110)
[2021-06-10] VITALS (54 sets, daily range): BP systolic 88–163; BP diastolic 46–80; PULSE 81–102; RESP 8–26; TEMP 36.9–38.7; O2SAT 86–98
[2021-06-10] MEDS: heparin 5,000 unit/mL INJ 1 mL 5000 UNIT SUBCUT ×3 (00:03→23:56)
[2021-06-10] MEDS: famotidine 20 mg/2 mL INJ IVP ×3 (00:03→23:57)
[2021-06-10] MEDS: lactated ringers 1,000 ML 100 ML IV ×3 (01:25→21:27)
[2021-06-10] MEDS: acetaminophen 650 mg Supp PR (04:39)
[2021-06-10 05:13] LABS: Basophils % 0.5 %; Eosinophils # 0.1 10^3/uL (0.0-0.8); Eosinophils % 1.3 %; Hematocrit 26.7 % (42.0-52.0); Hemoglobin 8.8 g/dL (11.7-16.6); Lymphocytes # 0.7 10^3/uL (0.8-4.8); Lymphocytes % 7.7 %; Mean Corpuscular Hemoglobin 28.9 pg (28.0-34.0); Mean Corpuscular Volume 87.5 fl (80-94); Mean Platelet Volume 11.7 fL (7.4-10.4); Monocytes # 0.8 10^3/uL (0.2-0.9); Monocytes % 9.3 %; Neutrophils # 6.46 10^3/uL (1.8-7.7); Neutrophils % 76.7 %; Nucleated Red Blood Cells % 0 %; Platelet Count 176 10^3/cmm (130-400); Red Blood Count 3.05 10^6/uL (4.1-5.3); White Blood Count 8.4 10^3/uL (4.0-10.0)
--- NOTE | 2021-06-10 05:15 | NUR.SHIFT ---
Shift Summary: Patient hallucinating through the shift- waving bats away, talking to Homero , states pass me that pot roast, give me my chocolate milk thats right there Patient pointing at sink. Patient confused, can only tell me his name in orientation questions. Patient can follow commands. Levophed titrated down to 2mcg/min. Patient attempting to get out of bed, pulling at shea, pulled IV out, taking nasal cannula off. Patient reoriented and reassured of safety. Had 2 bowel movements this AM. Spoke to Dewayneoff-patient updates and current Potassium level, urine output.
[2021-06-10 05:40] LABS: Alanine Aminotransferase 14 U/L (0-41); Albumin Level 2.6 g/dL (3.5-5.2); Alkaline Phosphatase 70 IU/L (40-130); Anion Gap 21.6 (5-19); Aspartate Amino Transferase 12 U/L (0-40); Blood Urea Nitrogen 56 mg/dL (8-23); Calcium 7.6 mg/dL (8.5-10.5); Carbon Dioxide 18 mmol/L (22-29); Chloride 104 mmol/L (98-107); Creatine Phosphokinase 717 U/L (39-308); Globulin 2.6 g/dL (1.3-4.6); Glomerular Filtration Rate 17.8 mL/min (90-130); Glucose 166 mg/dL (65-115); Osmolality Calculated 307 mOsm/kg (285-295); Potassium 4.6 mmol/L (3.5-5.1); Sodium 139 mmol/L (136-145); Total Bilirubin 0.2 mg/dL (0.15-1.2); Total Protein 5.2 g/dL (6.6-8.7)
[2021-06-10 05:41] LABS: Calcium 7.6 mg/dL (8.5-10.5); Magnesium 1.5 mg/dL (1.7-2.3)
[2021-06-10 05:42] LABS: Parathyroid Hormone 184.7 pg/mL (15-65)
[2021-06-10 05:59] LABS: Slide Review Slide Review Perform
--- NOTE | 2021-06-10 07:40 | PM.PN ---
Subjective Subjective: Interval history: confused in bed, NARD, no sob or cp Medications: Reviewed: Yes Medication Review Details: Current Medications Acetaminophen (Acetaminophen 650 Mg Supp) 650 mg MD Q6H PRN PRN Reason: FEVER Last Admin: 06/10/21 04:39 Dose: 650 mg Documented by: Dextrose (Dextrose 50% Syringe 50 Ml) 25 ml IVP ONCE PRN; Protocol PRN Reason: hypoglycemia protocol Dextrose (Dextrose 50% Syringe 50 Ml) 50 ml IVP PRN PRN; Protocol PRN Reason: hypoglycemia protocol Famotidine (Famotidine 20 Mg/2 Ml Inj) 20 mg IVP Q12H KEN Last Admin: 06/10/21 00:03 Dose: 20 mg Documented by: Glucagon (Glucagon 1 Mg/Ml Inj 1 Ml) 1 mg IM ONCE PRN; Protocol PRN Reason: Adult Acute Hypoglycemia Prot. Heparin Sodium (Porcine) (Heparin 5,000 Unit/Ml Inj 1 Ml) 5,000 unit SUBCUT Q12H KEN Last Admin: 06/10/21 00:03 Dose: 5,000 unit Documented by: Norepinephrine Bitartrate 4 mg (/ Dextrose) 254 mls @ 0 mls/hr IV .Q0M KEN; Protocol Last Titration: 06/10/21 05:30 Dose: 2 mcg/min, 7.62 mls/hr Documented by: Piperacillin Sod/Tazobactam (Sod 3.375 gm/ Sodium Chloride) 50 mls @ 12.5 mls/hr IV Q12H KEN; Protocol Last Infusion: 06/10/21 01:53 Dose: Infused Documented by: Vancomycin/PEG/NADA/Lysine/Water (Vancocin) 1,500 mg in 300 mls @ 200 mls/hr IV Q48H KEN Dextrose (D5w) 500 mls @ 100 mls/hr IV ONCE PRN; Protocol PRN Reason: Adult Acute Hypoglycemia Prot Lactated Ringer's (Lactated Ringers) 1,000 mls @ 100 mls/hr IV .Q10H KEN Last Admin: 06/10/21 01:25 Dose: 100 mls/hr Documented by: Magnesium Sulfate (Magnesium Sulfate Premix) 2 gm in 50 mls @ 50 mls/hr IV ONCE ONE Stop: 06/10/21 08:31 Insulin Human Lispro (Insulin Lispro 100 Unit/1 Ml) 0 unit SUBCUT WM&BEDTIME KEN; Protocol Last Admin: 06/09/21 21:52 Dose: 4 unit Documented by: Lorazepam (Lorazepam 2 Mg/Ml Inj 1 Ml) 0.5 mg IVP Q6H PRN PRN Reason: ANXIETY Morphine Sulfate (Morphine 4 Mg/Ml Sdv 1 Ml) 2 mg IVP Q4H PRN PRN Reason: SEVERE PAIN Last Admin: 06/09/21 17:46 Dose: 2 mg Documented by: Ondansetron HCl (Ondansetron 2 Mg/Ml Sdv 2 Ml) 4 mg IVP Q6H PRN PRN Reason: NAUSEA AND VOMITING Vitals/I&O/Wt Last Vital Signs Temp 101.7 F H 06/10/21 04:00 Pulse 84 06/10/21 06:15 Resp 18 06/10/21 06:15 BP 99/60 06/10/21 06:15 Pulse Ox 95 06/10/21 06:15 06/09/21 06/10/21 06/10/21 22:59 06:59 14:59 Intake Total 5854 / 6854 665.437 / 7519.437 Output Total 725 / 725 1100 / 1825 Balance 5129 / 6129 -434.563 / 5694.437 Weight last 48 hrs Weight 79.435 kg Weight 99.79 kg Weight 99.79 kg Physical Exam Narrative: EXAM NARRATIVE: exam by RN- telehealth visit In bed, levo @2, 2 l nc02 vs noted heent- nc/at, eomi, anicteric neck- no jvp lung CTA b/l heart- reg, no rub abd soft, nt, nd, + bs ext no edema neuro- more awake, a, o x 1-2 Urinary Catheter Management^: Millan: Cath Placed During This Visit: yes Reason for Continuing Indwelling Catheter: Accurate Measurement of Urinary Output in Critically Ill Patients Urinary Catheter Date of Insertion: 06/09/21 Data : 06/10/21 04:15 06/10/21 04:15 Micro: Microbiology 06/09/21 11:22 Blood Culture - Preliminary Blood SPECIMEN COLLECTED 06/09/21 09:02 Blood Culture - Preliminary Blood SPECIMEN COLLECTED A&P Additional A&P Information 61 yr old man 1. Sepsis- as per medicine- pressers requirement improving -wbc improving 2. GINA- please get old labs. Q if has CKD -pt was on nsaid, lisinopril at home- risk for GINA -u/a w/ gluc and blood -high ur na noted -abd ct Right kidney: Perinephric stranding. No obstruction. Left kidney: Perinephric stranding with no obstruction. Mass in the LEFT upper abdomen is inseparable from the superior kidney -perinephric stranding- Q UTI- but ua not c/w UTI -monitor labs daily -dec ivf as recieved 7.5 l 3. abd mass on ct scan- mass as per emdicine There is a lobulated soft tissue mass inseparable from the pancreatic tail and near the splenic hilum. Mass extends over length of 4.4 cm x 4.5 x 3.2 cm. Mass is also inseparable from the lateral limb of the LEFT adrenal gland, posterior stomach and from the LEFT kidney. Mass is of variable density and the center may be necrotic. 4. hyperkalemia- improved 5. inc AGMA- likely renal failure -normal lactate -improving 6. ck slowly improving 1064- likely from fall 7. likely dm- Q if CKD 8. anemia per medicine 9. replace magnesium 10. pth 185- repeat in 4 weeks. await vit d levels seen and examined w/ RN- telehealth visit time spent 30 min discussed w/ RN Attestations Medical Necessity Statement*: gina, sepsis Time Spent in Patient Care: 16 - 35 minutes (>than 50% of time spent in counselling and/or direct pt care on unit). Coding Level of Care Code Acute Auto Rental Clerk for Paty Mancia
[2021-06-10 08:17] LABS: Glucose Point of Care 203 mg/dL (70-110)
[2021-06-10] MEDS: insulin lispro 100 unit/1 mL SUBCUT ×3 (09:20→20:27)
[2021-06-10] MEDS: magnesium sulfate premix 2 GM/50 ML PIGGYBACK IV (09:20)
--- NOTE | 2021-06-10 10:28 | PM.PN ---
Subjective Subjective: Interval history: Tucker is alert, and reports he is doing okay but tired. He denies any headache, or neck pain. Denies any overdose, suicide attempt or anything of that nature. Medications: Reviewed: Yes Vitals/I&O/Wt Last Vital Signs Temp 98.5 F 06/10/21 08:00 Pulse 86 06/10/21 09:30 Resp 13 06/10/21 08:30 BP 126/64 06/10/21 09:30 Pulse Ox 90 06/10/21 09:30 06/09/21 06/10/21 06/10/21 22:59 06:59 14:59 Intake Total 5854 / 6854 665.437 / 7519.437 0 / 0 Output Total 725 / 725 1100 / 1825 Balance 5129 / 6129 -434.563 / 5694.437 0 / 0 Weight last 48 hrs Weight 79.435 kg Weight 99.79 kg Weight 99.79 kg Physical Exam Narrative: EXAM NARRATIVE: General exam is a white male who comes alert quickly. Some slurring of words which she reports this is baseline. HEENT: Extremely poor dentition noted Neck is supple no lymphadenopathy or thyromegaly Cardiovascular regular rate and rhythm, no murmur Lungs clear no wheezing or crackles Abdomen is soft nontender with positive bowel sounds. No obvious organomegaly. I Back demonstrates no obvious lesions or sores exam demonstrates Millan Extremities no cyanosis clubbing or edema, cap refill brisk. Neuro: Somewhat sleepy. Left hemiparesis noted. This is chronic. Patient reports no new neurologic symptoms Urinary Catheter Management^: Millan: Cath Placed During This Visit: yes Reason for Continuing Indwelling Catheter: Accurate Measurement of Urinary Output in Critically Ill Patients Urinary Catheter Date of Insertion: 06/09/21 Data : 06/10/21 04:15 06/10/21 04:15 Micro: Microbiology 06/09/21 09:02 Blood Culture - Preliminary Blood NEGATIVE TO DATE 06/09/21 11:22 Blood Culture - Preliminary Blood SPECIMEN COLLECTED A&P Assessment and plan (1) Sepsis: Etiology unknown. Blood cultures were obtained Broad-spectrum antibiotics currently consisting of vancomycin and Zosyn Although lactate was not elevated he had marked hypotension requiring pressors, encephalopathy, tachycardia, elevated lactic acid on second check, etc. He has received appropriate fluid in the emergency department. Cultures are negative to date Abdominal pelvis CT did not demonstrate any obvious infection although a mass was present on the left abdomen that will need to be explored further during this hospital stay or as an outpatient. Status: Acute (2) Acute kidney injury: Severe acute kidney injury with marked hyperkalemia. This is improving significantly He received calcium gluconate, insulin and glucose Continue hydration. Currently on low LR Note that patient was taking anti-inflammatories at home, and had significant residual amount of urine consistent with bladder outlet obstruction after Millan was placed. Has underlying chronic kidney disease with a baseline creatinine of 1.47, as noted on his last laboratory by his primary care provider Status: Acute (3) Hyperkalemia: Improving, see treatment above Bicarbonate drip was initiated by nephrology. Status: Acute (4) Hypotension: Currently on norepinephrine. Titrate norepinephrine off Status: Acute (5) Anemia: Continue to follow closely. Pepcid IV for GI prophylaxis. No evidence of current bleeding Status: Acute (6) Rhabdomyolysis: Mild, CK on recheck improved Status: Acute (7) Metabolic acidosis: Severe. Presumably secondary to renal failure. Today this is improved significantly Status: Acute (8) Elevated troponin: Type II elevation Status: Acute (9) Urinary retention: Continue Millan, suspect bladder outlet obstruction CT abdomen and pelvis demonstrated no obvious hydronephrosis Probably start Flomax tomorrow. Will need to keep Millan in at discharge and follow-up with urology as an outpatient Status: Acute (10) History of CVA (cerebrovascular accident): Status: Acute (11) Type 2 diabetes mellitus: Sliding scale insulin Status: Acute Additional A&P Information Acute metabolic encephalopathy, secondary to renal failure, sepsis. Improved but still present. Low magnesium. Supplement. Depression. Will discuss with patient once he becomes more alert. Multiple other medical problems as outlined in past medical history Limited code. No CPR or intubation per . Would allow and or other interventions, possibly including dialysis, and certainly ICU treatment. Heparin for DVT prophylaxis Attestations Medical Necessity Statement*: Needs continued hospitalization secondary to severe renal failure and acidosis Critical Care Time: The high probability of a clinically significant, sudden or life threatening deterioration of the patient's [neurologic, renal, metabolic] system(s) required my full and direct attention, intervention and personal management. The critical care time is as shown. This time is in addition to time spent performing any reported procedures but includes the following: [x] Data and vital sign review and interpretation [x] Patient assessment, examination and intervention [x] Documentation [x] Medication orders and management Critical Care Time (min): 31 Coding Level of Care Code Acute Campus Recruiting Intern for g Fwd Diagnoses Sepsis A41.9 Acute kidney injury N17.9 Hyperkalemia E87.5 Hypotension I95.9 Anemia D64.9 Rhabdomyolysis M62.82 Metabolic acidosis E87.2 Elevated troponin R77.8 Urinary retention R33.9 History of CVA (cerebrovascular accident) Z86.73 Type 2 diabetes mellitus E11.9
--- NOTE | 2021-06-10 10:38 | PC.CHAP ---
Pastoral Care Encounter/Spiritual Assessment Type of Contact [] Declined aquarium specialist visit [] Patient/Family/Request visit [] Outpatient visit [] Follow-up visit [] Physician referral [] Code/Alert [x] Routine visit [] Staff referral [] Actively dying [] Patient sleeping [] Family support [] [] Out of room [] Palliative care [] [] Receiving care in room [] Pre-surgical visit [] Trauma [] Long length of stay [x] ICU visit [] Other: Relational/Emotional Strength [] Patient feels connected with others/family/visitors/staff [] Distress [] Loneliness/isolation [] Abandonment Spirituality of Patient [] Person of Belen [] Attends Gnosticist of their Belen [] Believes in Prayer [] Reads Bible or Hindu materials [] There are Spiritual issues to be addressed High Rigger Interventions [x] Prayer [] Active listening [] Non-anxious presence [] Spiritual/emotional support [] Crisis/trauma care [] Spiritual counseling [] Bereavement support [] Provided bereavement packet [] Provided Bible/devotional materials [] Provided toy/stuffed animal, coloring book to patient or family member [] Provided Communion [] Anointing/[place] [] Salvation [x] Completed spiritual assessment [] Other: Impact on Illness or Injury [] Angry [] Fearful [] Anxious [] Often cries [] Exhaustion [] Unable to work [] Unable to attend yazdanism [] Unable to walk/stand [] Unable to read [] Unable to drive [] Unable to eat/drink [] Unable to sleep [] Unable to be with family [] Patient intubated [] Other: Summary Time spent with patient
[2021-06-10] MEDS: piperacillin-tazobactam 3.375 GM in sodium chloride 0.9% (plus) 50 ML IV ×2 (11:00→18:22)
[2021-06-10 11:55] LABS: Glucose Point of Care 169 mg/dL (70-110)
[2021-06-10 15:12] LABS: Coronavirus Test Green County Not Detected
--- NOTE | 2021-06-10 15:25 | PC.NURSE ---
Attempted to contact and notified son of negative COVID results. Voicemail left.
[2021-06-10 17:25] LABS: Glucose Point of Care 129 mg/dL (70-110)
[2021-06-10 20:09] LABS: Glucose Point of Care 299 mg/dL (70-110)
[2021-06-10] MEDS: morphine 4 mg/mL SDV 1 mL 2 MG IVP (20:29)
[2021-06-11] VITALS (14 sets, daily range): BP systolic 112–173; BP diastolic 71–105; PULSE 82–94; RESP 14–23; TEMP 36.6–36.8; O2SAT 94–100
[2021-06-11] MEDS: morphine 4 mg/mL SDV 1 mL 2 MG IVP (02:25)
[2021-06-11] MEDS: piperacillin-tazobactam 3.375 GM in sodium chloride 0.9% (plus) 50 ML IV ×3 (02:27→18:01)
[2021-06-11] MEDS: vancomycin 1,500 MG/300 ML PIGGYBACK 200 MG IV (04:35)
--- NOTE | 2021-06-11 04:46 | PC.NURSE ---
Patient refused second shea catheter care.
[2021-06-11 05:02] LABS: Basophils % 0.3 %; Eosinophils # 0.2 10^3/uL (0.0-0.8); Eosinophils % 1.7 %; Hematocrit 26.4 % (42.0-52.0); Hemoglobin 8.5 g/dL (11.7-16.6); Lymphocytes # 0.9 10^3/uL (0.8-4.8); Lymphocytes % 8.8 %; Mean Corpuscular HGB Conc 32.2 g/dL (30.0-36.0); Mean Corpuscular Hemoglobin 29.1 pg (28.0-34.0); Mean Corpuscular Volume 90.4 fl (80-94); Mean Platelet Volume 11.1 fL (7.4-10.4); Monocytes # 0.7 10^3/uL (0.2-0.9); Monocytes % 7.4 %; Neutrophils # 8.09 10^3/uL (1.8-7.7); Neutrophils % 81.3 %; Nucleated Red Blood Cells % 0 %; Platelet Count 154 10^3/cmm (130-400); Red Blood Count 2.92 10^6/uL (4.1-5.3); Red Cell Distribution Width 16.1 % (12.1-15.1)
[2021-06-11 05:29] LABS: Alanine Aminotransferase 10 U/L (0-41); Albumin Level 2.8 g/dL (3.5-5.2); Alkaline Phosphatase 84 IU/L (40-130); Anion Gap 17.5 (5-19); Aspartate Amino Transferase 9 U/L (0-40); Blood Urea Nitrogen 32 mg/dL (8-23); Calcium 7.9 mg/dL (8.5-10.5); Carbon Dioxide 18 mmol/L (22-29); Chloride 109 mmol/L (98-107); Globulin 2.4 g/dL (1.3-4.6); Glomerular Filtration Rate 32.2 mL/min (90-130); Glucose 152 mg/dL (65-115); Osmolality Calculated 300 mOsm/kg (285-295); Potassium 4.5 mmol/L (3.5-5.1); Sodium 140 mmol/L (136-145); Total Bilirubin 0.2 mg/dL (0.15-1.2); Total Protein 5.2 g/dL (6.6-8.7)
[2021-06-11 05:34] LABS: Magnesium 1.6 mg/dL (1.7-2.3); Phosphorus 1.9 mg/dL (2.5-4.5)
--- NOTE | 2021-06-11 06:45 | PC.NURSE ---
Meter Maker at bedside via telemed. Updated on patient condition, no new orders at this time. Patient has no questions at this time.
--- NOTE | 2021-06-11 06:52 | PM.PN ---
Subjective Subjective: Interval history: more awake, feels better. no n/v/f/d/huitron/cp/sob. MS improved Medications: Reviewed: Yes Medication Review Details: Current Medications Acetaminophen (Acetaminophen 650 Mg Supp) 650 mg GA Q6H PRN PRN Reason: FEVER Last Admin: 06/10/21 04:39 Dose: 650 mg Documented by: Aspirin (Aspirin 81 Mg Ec Tablet) 81 mg PO DAILY KEN Citalopram Hydrobromide (Citalopram 20 Mg Tablet) 20 mg PO DAILY KEN Dextrose (Dextrose 50% Syringe 50 Ml) 25 ml IVP ONCE PRN; Protocol PRN Reason: hypoglycemia protocol Dextrose (Dextrose 50% Syringe 50 Ml) 50 ml IVP PRN PRN; Protocol PRN Reason: hypoglycemia protocol Famotidine (Famotidine 20 Mg/2 Ml Inj) 20 mg IVP Q12H [facility] Last Admin: 06/10/21 23:57 Dose: 20 mg Documented by: Glucagon (Glucagon 1 Mg/Ml Inj 1 Ml) 1 mg IM ONCE PRN; Protocol PRN Reason: Adult Acute Hypoglycemia Prot. Heparin Sodium (Porcine) (Heparin 5,000 Unit/Ml Inj 1 Ml) 5,000 unit SUBCUT Q12H [facility] Last Admin: 06/10/21 23:56 Dose: 5,000 unit Documented by: Vancomycin/PEG/NADA/Lysine/Water (Vancocin) 1,500 mg in 300 mls @ 200 mls/hr IV Q48H [facility] Last Admin: 06/11/21 04:35 Dose: 200 mls/hr Documented by: Dextrose (D5w) 500 mls @ 100 mls/hr IV ONCE PRN; Protocol PRN Reason: Adult Acute Hypoglycemia Prot Lactated Ringer's (Lactated Ringers) 1,000 mls @ 50 mls/hr IV .Q20H KEN Last Admin: 06/10/21 21:27 Dose: 100 mls/hr Documented by: Piperacillin Sod/Tazobactam (Sod 3.375 gm/ Sodium Chloride) 50 mls @ 12.5 mls/hr IV Q8H [facility]; Protocol Last Admin: 06/11/21 02:27 Dose: 12.5 mls/hr Documented by: Insulin Human Lispro (Insulin Lispro 100 Unit/1 Ml) 0 unit SUBCUT WM&BEDTIME KEN; Protocol Last Admin: 06/10/21 20:27 Dose: 6 unit Documented by: Lorazepam (Lorazepam 2 Mg/Ml Inj 1 Ml) 0.5 mg IVP Q6H PRN PRN Reason: ANXIETY Morphine Sulfate (Morphine 4 Mg/Ml Sdv 1 Ml) 2 mg IVP Q4H PRN PRN Reason: SEVERE PAIN Last Admin: 06/11/21 02:25 Dose: 2 mg Documented by: Ondansetron HCl (Ondansetron 2 Mg/Ml Sdv 2 Ml) 4 mg IVP Q6H PRN PRN Reason: NAUSEA AND VOMITING Vitals/I&O/Wt Last Vital Signs Temp 98.2 F 06/11/21 00:00 Pulse 82 06/11/21 06:00 Resp 16 06/11/21 04:00 BP 156/88 06/11/21 04:00 Pulse Ox 100 06/11/21 04:00 06/10/21 06/10/21 06/11/21 14:59 22:59 06:59 Intake Total 1104.737 / 8202.920 0521.667 / 2431.404 Output Total 1200 / 1200 1625 / 2825 Balance 1104.737 / 1104.737 126.667 / 1231.404 -1625 / -393.596 Weight last 48 hrs Weight 79.6 kg Weight 79.435 kg Weight 99.79 kg Weight 99.79 kg Physical Exam Narrative: EXAM NARRATIVE: exam by RN- telehealth visit In bed comfortable, NARD, no pressers vs noted heent- nc/at, eomi, anicteric neck- no jvp lung CTA b/l heart- reg, no rub abd soft, nt, nd, + bs ext no edema neuro- more awake, a, o x 3 Urinary Catheter Management^: Shea: Cath Placed During This Visit: yes Reason for Continuing Indwelling Catheter: Acute Urinary Retention or Obstruction Urinary Catheter Date of Insertion: 06/09/21 Data : 06/10/21 04:15 06/11/21 04:32 Micro: Microbiology 06/09/21 11:22 Blood Culture - Preliminary Blood NEGATIVE TO DATE 06/09/21 09:02 Blood Culture - Preliminary Blood NEGATIVE TO DATE A&P Additional A&P Information 61 yr old man 1. Sepsis- as per medicine- pressers requirement improving -wbc improving 2. GINA- please get old labs. Q if has CKD -renal fxn improving -pt was on nsaid, lisinopril at home- risk for GINA -u/a w/ gluc and blood -high ur na noted -abd ct Right kidney: Perinephric stranding. No obstruction. Left kidney: Perinephric stranding with no obstruction. Mass in the LEFT upper abdomen is inseparable from the superior kidney -perinephric stranding- Q UTI- but ua not c/w UTI -monitor labs daily -dc ivf -if remove shea, monitor uop and PVR. i am concerned that he had some degree of urinary obstruction on admission 3. abd mass on ct scan- mass as per emdicine There is a lobulated soft tissue mass inseparable from the pancreatic tail and near the splenic hilum. Mass extends over length of 4.4 cm x 4.5 x 3.2 cm. Mass is also inseparable from the lateral limb of the LEFT adrenal gland, posterior stomach and from the LEFT kidney. Mass is of variable density and the center may be necrotic. 4. hyperkalemia- improved 5. inc AGMA- likely renal failure -normal lactate -stable 6.he denies underlying known dm and CKD 7. replace k and magnesium 8. anemia per medicine 9. pth 185- repeat in 4 weeks. await vit d levels seen and examined w/ RN- telehealth visit time spent 30 min discussed w/ recyclable products sorter will see prn Attestations Medical Necessity Statement*: per medicine Time Spent in Patient Care: 16 - 35 minutes (>than 50% of time spent in counselling and/or direct pt care on unit). Coding Level of Care Code Acute Rental Clerk for Paty Mancia
[2021-06-11 07:06] LABS: Slide Review Slide Review Perform
[2021-06-11 07:51] LABS: Glucose Point of Care 159 mg/dL (70-110)
[2021-06-11] MEDS: aspirin 81 mg EC Tablet PO (08:01)
[2021-06-11] MEDS: citalopram 20 mg Tablet PO (08:01)
[2021-06-11] MEDS: insulin lispro 100 unit/1 mL SUBCUT ×4 (08:01→20:29)
[2021-06-11] MEDS: tamsulosin 0.4 mg Capsule PO (08:02)
[2021-06-11] MEDS: famotidine 20 mg Tablet PO ×2 (08:02→17:21)
[2021-06-11 08:45] LABS: Vancomycin Random 40.1 ug/mL (20.0-40.0)
[2021-06-11] MEDS: CLONazepam 0.5 mg Tablet PO ×2 (10:34→20:30)
[2021-06-11 11:11] LABS: Glucose Point of Care 222 mg/dL (70-110)
[2021-06-11] MEDS: heparin 5,000 unit/mL INJ 1 mL 5000 UNIT SUBCUT (11:27)
--- NOTE | 2021-06-11 12:18 | P.PN_ITS ---
Subjective Subjective: Interval history: Tucker reports he is doing okay today. He was wondering if he can have some of that IV medicine that helped with pain. He then wanted to talk about Amor Mascorro, which she could extensively. Medications: Reviewed: Yes Vitals/I&O/Wt Last Vital Signs Temp 98.2 F 06/11/21 00:00 Pulse 82 06/11/21 06:00 Resp 16 06/11/21 04:00 BP 156/88 06/11/21 04:00 Pulse Ox 100 06/11/21 04:00 06/10/21 06/11/21 06/11/21 22:59 06:59 14:59 Intake Total 1326.667 / 2431.404 1627 / 1627 Output Total 1200 / 1200 1625 / 2825 Balance 126.667 / 1231.404 -1625 / -522.579 4632 / 1627 Weight last 48 hrs Weight 79.6 kg Weight 79.435 kg Weight 99.79 kg Physical Exam Narrative: EXAM NARRATIVE: General exam conversant and alert with mild slurring HEENT: Extremely poor dentition noted Neck is supple no lymphadenopathy or thyromegaly Cardiovascular regular rate and rhythm, no murmur Lungs clear no wheezing or crackles Abdomen is soft nontender with positive bowel sounds. No obvious organomegaly. I Back demonstrates no obvious lesions or sores exam demonstrates Millan Extremities no cyanosis clubbing or edema, cap refill brisk. Urinary Catheter Management^: Millan: Cath Placed During This Visit: yes Reason for Continuing Indwelling Catheter: Acute Urinary Retention or Obstruction Urinary Catheter Date of Insertion: 06/09/21 Data : 06/11/21 04:32 06/11/21 04:32 Micro: Microbiology 06/09/21 11:22 Blood Culture - Preliminary Blood NEGATIVE TO DATE 06/09/21 09:02 Blood Culture - Preliminary Blood NEGATIVE TO DATE A&P Assessment and plan (1) Sepsis: Etiology unknown. Blood cultures were obtained Broad-spectrum antibiotics currently consisting of vancomycin and Zosyn. His cultures are still negative at 48 hours we'll discontinue vancomycin first. Although lactate was not elevated he had marked hypotension requiring pressors, encephalopathy, tachycardia, elevated lactic acid on second check, etc. Cultures are negative to date Abdominal pelvis CT did not demonstrate any obvious infection although a mass was present on the left abdomen that will need to be explored further during this hospital stay or as an outpatient. Status: Acute (2) Acute kidney injury: Severe acute kidney injury with marked hyperkalemia. This is improving significantly He received calcium gluconate, insulin and glucose Continue hydration. Currently on low LR Note that patient was taking anti-inflammatories at home, and had significant residual amount of urine consistent with bladder outlet obstruction after Millan was placed. Has underlying chronic kidney disease with a baseline creatinine of 1.47, as noted on his last laboratory by his primary care provider Considering history obtained from family regarding his difficulty with urinating, will initiate Flomax and would like to leave Millan in at discharge and have him follow-up with urology regarding its removal. Status: Acute (3) Hyperkalemia: Resolved Status: Acute (4) Hypotension: Resolved Status: Acute (5) Anemia: Stable. No evidence of active bleeding. Pepcid changed to p.o. Status: Acute (6) Rhabdomyolysis: Mild, CK on recheck improved Status: Acute (7) Metabolic acidosis: Resolved Status: Acute (8) Elevated troponin: Type II elevation Status: Acute (9) Urinary retention: Continue Millan, initiate Flomax, outpatient follow-up CT abdomen and pelvis demonstrated no obvious hydronephrosis Status: Acute (10) History of CVA (cerebrovascular accident): Status: Acute (11) Type 2 diabetes mellitus: Sliding scale insulin Status: Acute Additional A&P Information Acute metabolic encephalopathy, secondary to renal failure, sepsis. Resolved Low magnesium. Supplement. Depression. Will discuss with patient once he becomes more alert. Multiple other medical problems as outlined in past medical history Limited code. No CPR or intubation per . Would allow and or other interventions, possibly including dialysis, and certainly ICU treatment. Heparin for DVT prophylaxis Attestations Medical Necessity Statement*: Needs continued hospitalization for close follo w-up of acute renal failure. Coding Level of Care Code Acute Neuro Psych Sales Specialist for Chg Fwd Diagnoses Sepsis A41.9 Acute kidney injury N17.9 Hyperkalemia E87.5 Hypotension I95.9 Anemia D64.9 Rhabdomyolysis M62.82 Metabolic acidosis E87.2 Elevated troponin R77.8 Urinary retention R33.9 History of CVA (cerebrovascular accident) Z86.73 Type 2 diabetes mellitus E11.9
[2021-06-11] MEDS: HYDROcodone-acetaminophen 5-325 mg Tablet 1 TAB PO ×2 (13:52→20:30)
[2021-06-11 17:10] LABS: Glucose Point of Care 176 mg/dL (70-110)
--- NOTE | 2021-06-11 17:53 | PC.NURSE ---
Shift Note Frequent safety and comfort rounds continue. Orders and nursing care completed as indicated. Patient received two bed bath and linen changes today due to incontinence. Pt noted to be A&OX1 (SELF). Family visited today and included on plan of care for patient. Patient participated in physical therapy today- walked with walker and currently sitting up in chair for dinner. Patient monitored for response to intervention and treatments. Education provided includes new medications, importance of position changes, and plans for discharge later in the week (possibly tomorrow). Patient and family verbalized understanding. Will continue to monitor.
[2021-06-11 20:26] LABS: Glucose Point of Care 211 mg/dL (70-110)
--- NOTE | 2021-06-11 21:41 | PC.NURSE ---
Gave report to Lovely ALAN.
[2021-06-12] MEDS: heparin 5,000 unit/mL INJ 1 mL 5000 UNIT SUBCUT (00:29)
[2021-06-12 02:00] VITALS: BP 161/78; PULSE 88; RESP 20; TEMP 36.8; O2SAT 93
[2021-06-12] MEDS: piperacillin-tazobactam 3.375 GM in sodium chloride 0.9% (plus) 50 ML IV (03:09)
[2021-06-12 04:00] VITALS: BP 157/79; PULSE 84; RESP 19; TEMP 36.6; O2SAT 93
[2021-06-12 06:45] LABS: Basophils % 0.4 %; Eosinophils # 0.2 10^3/uL (0.0-0.8); Eosinophils % 2.5 %; Hematocrit 28.4 % (42.0-52.0); Hemoglobin 8.9 g/dL (11.7-16.6); Lymphocytes % 13.4 %; Mean Corpuscular HGB Conc 31.3 g/dL (30.0-36.0); Mean Corpuscular Hemoglobin 29.2 pg (28.0-34.0); Mean Corpuscular Volume 93.1 fl (80-94); Mean Platelet Volume 11.1 fL (7.4-10.4); Monocytes # 0.6 10^3/uL (0.2-0.9); Monocytes % 7.6 %; Neutrophils # 5.53 10^3/uL (1.8-7.7); Neutrophils % 75.4 %; Nucleated Red Blood Cells % 0 %; Platelet Count 169 10^3/cmm (130-400); Red Blood Count 3.05 10^6/uL (4.1-5.3); Red Cell Distribution Width 16.2 % (12.1-15.1); White Blood Count 7.3 10^3/uL (4.0-10.0)
[2021-06-12 07:08] LABS: Glucose Point of Care 189 mg/dL (70-110)
[2021-06-12 07:11] LABS: Magnesium 1.6 mg/dL (1.7-2.3)
[2021-06-12 07:43] LABS: Ethylene Glycol <10.0 mg/L (***)
[2021-06-12 07:49] LABS: Anion Gap 14.5 (5-19); Blood Urea Nitrogen 22 mg/dL (8-23); Calcium 8.3 mg/dL (8.5-10.5); Carbon Dioxide 18 mmol/L (22-29); Chloride 108 mmol/L (98-107); Glomerular Filtration Rate 51.4 mL/min (90-130); Glucose 151 mg/dL (65-115); Osmolality Calculated 288 mOsm/kg (285-295); Potassium 4.5 mmol/L (3.5-5.1); Sodium 136 mmol/L (136-145)
[2021-06-12 08:00] VITALS: PULSE 84; RESP 18; TEMP 36.9; O2SAT 96
[2021-06-12] MEDS: insulin lispro 100 unit/1 mL SUBCUT (09:00)
[2021-06-12] MEDS: aspirin 81 mg EC Tablet PO (09:00)
[2021-06-12] MEDS: citalopram 20 mg Tablet PO (09:00)
[2021-06-12] MEDS: famotidine 20 mg Tablet PO (09:00)
[2021-06-12] MEDS: tamsulosin 0.4 mg Capsule PO (09:00)
--- NOTE | 2021-06-12 10:17 | P.DS_ITS ---
Discharge Providers Date of Admission: 06/09/21 11:05 Date of Discharge: June 12, 2021 Attending Provider at Admission: Trung Velasquez MD Attending Provider at Discharge: Trung Velasquez MD Primary Care Provider: Leonel Jolley Diagnoses at Discharge Discharge Diagnosis (1) Sepsis: Status: Acute (2) Acute kidney injury: Status: Acute (3) Hyperkalemia: Status: Acute (4) Hypotension: Status: Acute (5) Anemia: Status: Acute (6) Rhabdomyolysis: Status: Acute (7) Metabolic acidosis: Status: Acute (8) Elevated troponin: Status: Acute (9) Urinary retention: Status: Acute (10) History of CVA (cerebrovascular accident): Status: Acute (11) Type 2 diabetes mellitus: Status: Acute Reason for Visit Reason for Visit: FALL/ WEAKNESS Hospital Course Hospital Course Mr. Tyler is a 61-year-old male who presented to the hospital on June 09 encephalopathic. He was found to be in severe renal failure, with severe hyperkalemia, acidosis. There was concern of sepsis. He was placed on broad- spectrum antibiotics, and a Millan catheter was placed. Nephrology was consulted, and a bicarbonate drip was initiated. Past history was significant for taking anti-inflammatories at home as well as being on an ANSHUL inhibitor. Fo sarah was placed and patient had [id number] cc of urine drained. These were both held, and he was transferred to the ICU for further care. In the ICU setting renal function and electrolytes were monitored closely and he had gradual reduction in potassium as well as improvement in his kidney function. Throughout his hospital stay his blood cultures remain negative. There was no source of infection ever found. He did have 1 elevated temperature of approximately 102 ?F. Chest x-ray did not show pneumonia, CT abdomen and pelvis did demonstrate possible mass left side involving adrenal gland, kidney, stomach and will need to be followed up with an outpatient oral and IV contrast CT if renal function continues to improve. By June 12 he had improved significantly and it was thought he could be discharged home, with close follow- up with his primary care provider as well as urology. Millan will be left in at discharge secondary to urinary retention. Flomax was started. He should return for any concerns. Discharge instructions, concerns on CT were addressed to patient as well as . Psychiatry saw the patient as well for depression, and medication changes were made based on their recommendations. Physical Exam Narrative: EXAM NARRATIVE: General exam no distress Neck is supple no lymphadenopathy or thyromegaly Cardiovascular regular rate and rhythm without murmur Lungs clear Abdomen is soft, positive bowel sounds Extremities no cyanosis clubbing or edema Urinary Catheter Management^: Millan: Cath Placed During This Visit: yes Reason for Continuing Indwelling Catheter: Other Urinary Catheter Date of Insertion: 06/09/21 Discharge Data Data Completed and Pending: Completed Studies During Hospitalization Category Date Time Status CT head wo con* 7 0450 Stat Cat Scan 06/09/21 07:[address] kidney stone 7 4176 Urgent Cat Scan 06/09/21 11:48 Completed XR chest 1V kimberly ble [id number] Stat Exams 06/09/21 07:26 Completed XR hip LT 2-3V wo /w pel* [id number] Stat Exams 06/09/21 07:27 Completed Pending at discharge Category Date Time Status Blood Culture Sta t Lab 06/09/21 11:22 Results Osmolality Serum Stat Lab 06/09/21 09:02 Received Osmolality Urine Stat Lab 06/09/21 10:05 Received Phosphorus AM LAB S Lab 06/13/21 04:00 Ordered Vitamin D 1,25 Di hydroxy Routine Lab 06/09/21 09:02 Received Labs from last 24 hours 06/12/21 06/12/21 06/12/21 06:56 05:24 05:24 WBC RBC Hgb Hct MCV MCH MCHC RDW Plt Count MPV Neut % (Auto) Lymph % (Auto) [place] % (Auto) Eos % (Auto) Baso % (Auto) Neut # (Auto) Lymph # (Auto) [place] # (Auto) Eos # (Auto) Baso # (Auto) Nucleated RBC % (a uto) Nucleated RBCs # Sodium 136 Potassium 4.5 Chloride 108 H Carbon Dioxide 18 L Anion Gap 14.5 BUN 22 Creatinine 1.4 H GFR Calculation 51.4 L Glucose 151 H POC Glucose 189 H Calculated Osmolal ity 288 Calcium 8.3 L Phosphorus 2.0 L Magnesium 1.6 L Ethylene Glycol 06/12/21 06/11/21 06/11/21 05:24 20:11 17:07 WBC 7.3 RBC 3.05 L Hgb 8.9 L Hct 28.4 L MCV 93.1 MCH 29.2 MCHC 31.3 RDW 16.2 H Plt Count 169 MPV 11.1 H Neut % (Auto) 75.4 Lymph % (Auto) 13.4 [place] % (Auto) 7.6 Eos % (Auto) 2.5 Baso % (Auto) 0.4 Neut # (Auto) 5.53 Lymph # (Auto) 1.0 [place] # (Auto) 0.6 Eos # (Auto) 0.2 Baso # (Auto) 0.0 Nucleated RBC % (a uto) 0 Nucleated RBCs # 0.0 Sodium Potassium Chloride Carbon Dioxide Anion Gap BUN Creatinine GFR Calculation Glucose POC Glucose 211 H 176 H Calculated Osmolal ity Calcium Phosphorus Magnesium Ethylene Glycol 06/11/21 06/09/21 11:09 09:02 WBC RBC Hgb Hct MCV MCH MCHC RDW Plt Count MPV Neut % (Auto) Lymph % (Auto) [place] % (Auto) Eos % (Auto) Baso % (Auto) Neut # (Auto) Lymph # (Auto) [place] # (Auto) Eos # (Auto) Baso # (Auto) Nucleated RBC % (a uto) Nucleated RBCs # Sodium Potassium Chloride Carbon Dioxide Anion Gap BUN Creatinine GFR Calculation Glucose POC Glucose 222 H Calculated Osmolal ity Calcium Phosphorus Magnesium Ethylene Glycol <10.0 Vitals: Last Vital Signs Temp 98.5 F 06/12/21 08:00 Pulse 84 06/12/21 08:00 Resp 18 06/12/21 08:00 BP 157/79 06/12/21 04:00 Pulse Ox 96 06/12/21 08:00 Discharge Plan Discharge Patient Disposition: Home Condition: Stable Prescriptions: New aspirin 81 mg Tablet,Delayed Release (Dr/Ec) 81 mg PO DAILY Qty: 30 RF: 0 citalopram 20 mg Tablet 40 mg PO DAILY Qty: 60 RF: 0 tamsulosin 0.4 mg Capsule 0.4 mg PO DAILY Qty: 30 RF: 0 buspirone 10 mg Tablet 15 mg PO BID Qty: 90 RF: 0 Augmentin 875-125 mg tablet 1 tab PO BID Qty: 14 RF: 0 Continued cyclobenzaprine 10 mg tablet 10 mg PO TID PRN (Reason: Muscle Spasm) RF: 0 atorvastatin 80 mg tablet 80 mg PO DAILY RF: 0 Tylenol 325 mg Tablet 650 mg PO Q4H PRN (Reason: Pain) RF: 0 clonazepam 0.5 mg tablet 0.5 mg PO BID PRN (Reason: Anxiety) RF: 0 gabapentin 400 mg capsule 400 mg PO TID RF: 0 Novolin 70/30 U-100 Insulin 100 unit/mL (70-30) suspension 20 unit SUBCUT TID PRN (Reason: RX FILLED FOR 20 UNITS BID MAX OF 40 U ON 05/15/21) RF: 0 hydrocodone-acetaminophen 10-325 mg tablet 1 tab PO Q6H PRN (Reason: Pain) RF: 0 Tums 200 mg calcium (500 mg) Tablet,Chewable 500 mg PO PRN RF: 0 Discontinued lisinopril 20 mg tablet 20 mg PO DAILY RF: 0 citalopram 20 mg tablet 20 mg PO DAILY RF: 0 diphenhydramine HCl [Benadryl] 25 mg Capsule 50 mg PO BID PRN (Reason: Allergy Symptoms) RF: 0 ibuprofen 200 mg Tablet 400 - 800 mg PO Q6H PRN (Reason: Pain) RF: 0 Discharge Orders: Discharge Order (Routine); Ordered 06/12/21 Ordered By: Trung Velasquez Referrals: Hong Hua MD [Physician] - 7-10 days (Urinary retention, Millan Left in) Leonel Jolley [Primary Care Provider] - 4-7 days (BMP, CBC on follow-up Consider obtaining CT of abdomen and pelvis on follow-up secondary to abnormality seen at hospital.) Discharge Diet: Diabetic Discharge Activity: Increase activity as tolerated Patient Instructions: Buspirone (By mouth), Aspirin (By mouth), Amoxicillin/Clavulanate Potassium (By mouth), Tamsulosin (By mouth), Citalopram (By mouth), Opioid Safety Activity Restrictions/Additional Instructions: Discharged with Millan. Instruct on appropriate emptying with this. Follow-up with urology next week Return for any concerns Discussed with your primary evaluation of left abdominal mass with contrast, oral and IV CT abdomen and pelvis if renal function continues to improve. Discharge Attestations Time Spent in Discharge Care*: greater than 30 min Quality Metrics Clinical Quality Measures During this hospital stay, did patient experience: None Coding Level of Care Code Acute g [facility] note Diagnoses Sepsis A41.9 Acute kidney injury N17.9 Hyperkalemia E87.5 Hypotension I95.9 Anemia D64.9 Rhabdomyolysis M62.82 Metabolic acidosis E87.2 Elevated troponin R77.8 Urinary retention R33.9 History of CVA (cerebrovascular accident) Z86.73 Type 2 diabetes mellitus E11.9
[2021-06-12 12:15] LABS: Glucose Point of Care 190 mg/dL (70-110)
[2021-06-12] MEDS: magnesium sulfate premix 2 GM/50 ML PIGGYBACK IV (13:28)
--- NOTE | 2021-06-12 13:59 | PC.CHAP ---
Pastoral Care Encounter/Spiritual Assessment Type of Contact [] Declined diesel electrician visit [] Patient/Family/Request visit [] Outpatient visit [] Follow-up visit [] Physician referral [] Code/Alert [] Routine visit [] Staff referral [] Actively dying [] Patient sleeping [] Family support [] [] Out of room [] Palliative care [] [] Receiving care in room [] Pre-surgical visit [] Trauma [] Long length of stay [] ICU visit [xx] Other: Isolated Relational/Emotional Strength [] Patient feels connected with others/family/visitors/staff [] Distress [] Loneliness/isolation [] Abandonment Spirituality of Patient [] Person of Belen [] Attends Orthodoxy of their Belen [] Believes in Prayer [] Reads Bible or Nondenominational materials [] There are Spiritual issues to be addressed Flatbed Stitcher Interventions [] Prayer [] Active listening [] Non-anxious presence [] Spiritual/emotional support [] Crisis/trauma care [] Spiritual counseling [] Bereavement support [] Provided bereavement packet [] Provided Bible/devotional materials [] Provided toy/stuffed animal, coloring book to patient or family member [] Provided Communion [] Anointing/[place] [] Salvation [] Completed spiritual assessment [] Other: Impact on Illness or Injury [] Angry [] Fearful [] Anxious [] Often cries [] Exhaustion [] Unable to work [] Unable to attend tenriism [] Unable to walk/stand [] Unable to read [] Unable to drive [] Unable to eat/drink [] Unable to sleep [] Unable to be with family [] Patient intubated [] Other: Summary Time spent with patient
[2021-06-12] MEDS: HYDROcodone-acetaminophen 5-325 mg Tablet 1 TAB PO (15:31)
[2021-06-12 15:32] LABS: Osmolality Serum 319 mOsm/kg (278-305)
--- NOTE | 2021-06-12 17:12 | PC.NURSE ---
subclavian central line removed, occuclusive dressing placed, pt tolerated well
[2021-06-13 12:17] LABS: Osmolality Urine 355 mOsm/kg (50-1200)
[2021-06-16 08:51] LABS: Vit D 1,25 (Oh)2, Total <8 pg/mL (18-72); Vit D2 1,25 (Oh)2 <8 pg/mL; Vit D3 1,25 (Oh)2 <8 pg/mL
== END 2021-06-12 18:17 | disposition home or self-care (01) | DRG 871 ==
LOC: ER 14:18 → ICU 14:48 → MEDSURG 06-11 22:07
PROVIDERS: Internal Medicine Nephrology; Admitting Provider Internal Medicine; Emergency Provider Family Medicine; PCP Family Medicine; Visit Provider Internal Medicine
DX: A41.9 Sepsis, unspecified organism (principal); G93.41 Metabolic encephalopathy; N17.9 Acute kidney failure, unspecified; M62.82 Rhabdomyolysis; E87.2 Acidosis; E87.1 Hypo-osmolality and hyponatremia; E87.5 Hyperkalemia; I95.9 Hypotension, unspecified; G89.29 Other chronic pain; F32.A Depression, unspecified; R77.8 Other specified abnormalities of plasma proteins; R33.9 Retention of urine, unspecified; E11.22 Type 2 diabetes mellitus with diabetic chronic kidney disease; I12.9 Hypertensive chronic kidney disease with stage 1 through stage 4 chronic kidney disease, or unspecified chronic kidney disease; N18.9 Chronic kidney disease, unspecified; D63.1 Anemia in chronic kidney disease; E11.40 Type 2 diabetes mellitus with diabetic neuropathy, unspecified; R47.81 Slurred speech; E78.5 Hyperlipidemia, unspecified; R19.02 Left upper quadrant abdominal swelling, mass and lump; R39.198 Other difficulties with micturition; F17.200 Nicotine dependence, unspecified, uncomplicated; Z86.73 Personal history of transient ischemic attack (TIA), and cerebral infarction without residual deficits; Z91.81 History of falling; Z79.891 Long term (current) use of opiate analgesic; Z79.4 Long term (current) use of insulin; Z87.19 Personal history of other diseases of the digestive system
CPT/HCPCS: 36415; 36416; 36556; 36592; 36600; 51702; 70450; 71045; 73502; 74176; 80048; 80051; 80053; 80202; 80306; 80307; 81001; 82310; 82330; 82436; 82550; 82553; 82652; 82693; 82805; 82962; 83605; 83735; 83930; 83935; 83970; 84100; 84133; 84300; 84484; 84550; 85025; 85610; 85730; 86706; 86803; 87040; 87340; 87426; 87635; 93005; 96365; 96366; 96367; 96372; 96375; 97110; 97161; 97530; 99285; 99291; 99292; J0610; J1644; J1815; J1956; J2270; J2543; J3370; J3475; J3490; J7030; J7050; Q3014

== ENCOUNTER 2021-07-02 14:23 | Inpatient (IN) | payer BC, MEDICAID, SELFPAY ==
[2021-07-02 14:25] VITALS: BP 145/89; PULSE 112; RESP 22; TEMP 36.8; O2SAT 85; BMI 25.0
--- NOTE | 2021-07-02 14:31 | XR_ITS ---
WS: [id number] Portable AP upright chest, 07/02/2021 Clinical Data: dyspnea/cough Comparison: Portable chest, 06/09/2021. Findings: No nodules, masses or effusions are seen. The heart is normal. The pulmonary vascularity is not increased. No pneumonia or pneumothorax is seen. XR/XR chest 1V portable [id number] Impression: Negative chest.
--- NOTE | 2021-07-02 14:31 | CT_ITS ---
WS: [id number] CT HEAD TECHNIQUE: Noncontrast CT of the head obtained from the skullbase to the vertex. CLINICAL INFORMATION: AMS COMPARISON: CT June 09, 2021 DLP: 901.[address] scans at [facility] use at least one of these dose optimization techniques: automated e xposure control; mA and/or kV adjustment per patient size (includes targeted exams where dose is matc hed to clinical indication); or iterative reconstruction. FINDINGS: No evidence of intracranial hemorrhage or mass effect. Ventricular system and basal cisterns are stark nt. Moderate small vessel changes with moderate parenchymal volume loss. Chronic encephalomalacia inv olving the right MCA territory compatible with prior large right MCA territory infarct. Ex vacuo dila tation right lateral ventricle. This is unchanged in appearance since the prior examination. No extra -axial fluid collections. Intracranial vascular calcification. 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 Mild mucosal thickening in the ethmoid air cells. Mastoid air cells are well aera alessio. CT/CT head wo con* [id number] IMPRESSION: 1. No evidence of intracranial hemorrhage or mass effect. 2. Chronic large right MCA territory infarct with encephalomalacia unchanged f rom previous. 3. Moderate small vessel changes with moderate parenchymal volume loss. 4. No new intracranial findings.
--- NOTE | 2021-07-02 14:32 | ECG_ITS ---
[facility] Test Date: 2021-07-02 Pat Name: Tucker Tyler Department: Room: Gender: Male Order Dispatcher Chief: : [id number] Requested By: Jordan Perez Order Number: [id number] Brittany MD: Vicente Monroy M.D. Measurements Intervals [place] Rate: 106 P: 39 ND: 144 QRS: 38 QRSD: 97 T: 74 QT: 348 QTc: 464 Interpretive Statements SINUS TACHYCARDIA NONSPECIFIC T-WAVE ABNORMALITY ABNORMAL RHYTHM ECG Compared to ECG 06/09/2021 15:31:34 Sinus rhythm no longer present T-wave abnormality still present Electronically Signed On 07-02-2021 21:59:31 MANAGER BILINGUAL by Vicente Monroy M.D. [id number] f
--- NOTE | 2021-07-02 14:36 | W.ED.ABDPA2 ---
HPI - Abdominal Pain General: Chief Complaint: Shortness of Breath/Dyspnea Stated Complaint: ABD PAIN, SOB Time Seen by Provider: 07/02/21 14:30 History of Present Illness: HPI narrative: 61-year-old male presents to the emergency room complaining of abdominal pain. Patient has altered mental status he is requesting Dr. Zurita (evidently from [facility]) and keeps referring to a nurse Loren. He pulls his oxygen off he is refusing blood draws initially stating that IV starts make him have seizures. He is able to converse with me he has very discolored urine and a Millan that is been present for evidently over a month urine is reddish bile-like color he has been taking large doses of Azo's recently. He states he is has a bladder infection and feels like he has bladder spasms but the Azo's has not been helping. No nausea or vomiting he has previously had a CVA has contractures of his left side particularly his left upper extremity. Patient has a history of diabetes mellitus, seizure disorder hypertension and chronic kidney disease. Is difficult to get him to focus on a particular complaint but when I do he references suprapubic cramping as his main reason for coming in. MD elicited complaint: abdominal pain Pertinent past history: none Onset (ago): unknown Location: Suprapubic Quality: cramping Radiation: none Migration to: no migration Exacerbating factors: nothing Relieving factors: nothing Associated Symptoms: Reports GI cramping, nausea and poor appetite; Denies anorexia, belching, bloating, change in bowel habits, change in stool character, chills, coffee ground emesis, constipation, diarrhea, dyspepsia, dysuria, excessive flatus, fever(s), heartburn, hematochezia, hematuria, hematemesis, fecal incontinence, loose stools, melena, syncope and vomiting Review of Systems Const: Denies: fever(s) or chills ENMT: Denies: throat pain, ear or mastoid pain, nasal discharge or nasal congestion Card: Denies: syncope Resp: Denies: dyspnea, productive cough or non-productive cough GI: Reports: nausea and GI cramping; Denies: vomiting, hematemesis, coffee ground emesis, heartburn, diarrhea, constipation, bloating, belching, excessive flatus, fecal incontinence, change in bowel habits, change in stool character, hematochezia or melena : Denies: dysuria or hematuria Skin/Breast: Denies: rash or pruritus PFSH ED PFSH: Medical History Acute kidney injury Chronic kidney disease Chronic pain History of CVA (cerebrovascular accident) History of seizure History of upper gastrointestinal bleeding Hyperlipidemia Hypertension Left upper quadrant abdominal mass Neuropathy Type 2 diabetes mellitus Family History Father , AT AGE 66 Aneurysm Mother , AT AGE 84 Natural Social History Smoking and tobacco status: current every day smoker Alcohol intake: never Marital status: Life Partner Current occupational status: disabled History of recent travel: No Physical Exam Const: GENERAL APPEARANCE: cooperative and comfortable HENMT: COMMON NORMALS: normocephalic, atraumatic and hearing grossly normal bilaterally HEAD & SCALP: normocephalic and atraumatic Neck/C-Spine: COMMON NORMALS: no JVD Resp: AUSCULTATION: rhonchi, wheezes and diminished lung sounds Cardio: COMMON NORMALS: no JVD, regular rate, regular rhythm and No murmurs present (Cardio) RATE: regular rate RHYTHM: regular rhythm GI: COMMON NORMALS: Soft to palpation and No hepatosplenomegaly present AUSCULTATION: Yes normoactive bowel sounds PALPATION: Yes Soft to palpation, No Tenderness to palpation present (GI), No Guarding due to palpation present (GI) and Yes No hepatosplenomegaly present Extremity: COMMON NORMALS: normal to inspection, capillary refill normal, no clubbing, cyanosis or edema, no calf tenderness and no pedal edema Skin: COMMON NORMALS: no rashes or lesions noted GENERAL SKIN EXAM: no rashes or lesions noted Course Vital Signs: Vital signs: Vital Signs Temperature 98.2 F 07/02/21 15:00 Pulse Rate 108 H 07/02/21 15:00 Respiratory Rate 26 H 07/02/21 15:58 Blood Pressure 102/52 07/02/21 15:00 Pulse Oximetry 91 07/02/21 15:58 MDM - Abdominal Pain MDM Narrative: Medical decision making narrative: Patient's been quite difficult. He is having delirium due to his acute infection. He has an elevated white count and is septic with lactic acidosis that is initially 4 and then increase. He is getting antibiotics unfortunately we are not able to get a new urine sample from him he has significant discoloration of his urine from the Azo as he is been taking the Millan had been changed out in over a month when we took it out we are unable to get the Millan back in even though we tried to replace it immediately after removing it multiple nurses tried then we contacted Dr. Hua but the patient refuses to let Dr. Hua place it. We will culture the original urine that was in the Millan bag when he came in he is got blood cultures we started him on IV antibiotics have discussed with the hospitalist orders are written. Lab Data: Labs: Lab Results 07/02/21 07/02/21 07/02/21 14:33 14:40 14:40 WBC 16.7 10^3/uL H 10 ^3/uL (4.0-10.0) RBC 3.81 10^6/uL L 10 ^6/uL (4.1-5.3) Hgb 10.7 g/dL L g/dL (11.7-16.6) Hct 34.6 % L % (42.0-52.0) MCV 90.8 fl fl (80-94) MCH 28.1 pg pg (28.0-34.0) MCHC 30.9 g/dL g/dL (30.0-36.0) RDW 16.1 % H % (12.1-15.1) Plt Count 572 10^3/cmm H 10 ^3/cmm (130-400) MPV 10.1 fL fL (7.4-10.4) Neut % (Auto) 69.5 % % Lymph % (Auto) 16.8 % % [place] % (Auto) 9.9 % % Eos % (Auto) 1.3 % % Baso % (Auto) 1.1 % % Neut # (Auto) 11.61 10^3/uL H 1 0^3/uL (1.8-7.7) Lymph # (Auto) 2.8 10^3/uL 10^3/ uL (0.8-4.8) [place] # (Auto) 1.7 10^3/uL H 10^ 3/uL (0.2-0.9) Eos # (Auto) 0.2 10^3/uL 10^3/ uL (0.0-0.8) Baso # (Auto) 0.2 10^3/uL H 10^ 3/uL (0.0-0.1) Nucleated RBC % (a uto) 0 % % Nucleated RBCs # 0.0 /100WBC /100W BC Specimen Type Arterial Sample Site Radial, right ABG pH 7.34 L (7.35-7.45) ABG pCO2 26.6 mmHg L mmHg (35-45) ABG pO2 128.0 mmHg H mmHg (80.0-100.0) ABG HCO3 14.5 mmol/L L mmo l/L (22-26) ABG O2 Saturation 95.9 ABG Base Excess -9.9 mmol/L L mmo l/L (-2.0-2.0) Saad Test Pos A-a O2 Gradient 4.4 mmHg L mmHg (5-10) Hematocrit 32.7 % L % (42-52) Hgb O2 Saturation 77.9 % L % (95-100) Carboxyhemoglobin 0.6 %THgb %THgb (0.4-20.1) Methemoglobin 18.2 % H % (0.4-1.5) Total Hemoglobin 10.7 g/dL L g/dL (14-18) Sodium 135.0 mmol/L mmol /L 135 mmol/L L mmol /L (131-143) (136-145) Potassium 4.2 mmol/L mmol/L 4.8 mmol/L mmol/L (3.5-5.0) (3.5-5.1) Glucose 176.0 mg/dL H mg/ dL 166 mg/dL H mg/dL (70-115) (65-115) Ionized Calcium 1.4 mmol/L mmol/L (1.1-1.4) O2 Delivery Device Nc O2 Liters/Min 2.0 % % FiO2 28.0 % % Breakfast Manager ID Amh Chloride 103 mmol/L mmol/L (98-107) Carbon Dioxide 14 mmol/L L mmol/ L (22-29) Anion Gap 22.8 H (5-19) BUN 26 mg/dL H mg/dL (8-23) Creatinine 1.5 mg/dL H mg/dL (0.7-1.2) GFR Calculation 47.4 mL/min L mL/ min (90-130) Calculated Osmolal ity 289 mOsm/kg mOsm/ kg (285-295) Lactic Acid Lactic Acid (Sepsi s) Calcium 9.6 mg/dL mg/dL (8.5-10.5) Magnesium 1.6 mg/dL L mg/dL (1.7-2.3) Total Bilirubin 0.2 mg/dL mg/dL (0.15-1.2) AST 7 U/L U/L (0-40) ALT < 5 U/L U/L (0-41) Alkaline Phosphata se 88 IU/L IU/L (40-130) Creatine Kinase 41 U/L U/L (39-308) Troponin T Baselin e Troponin T 120 Min [place] Delta Troponin T Total Protein 6.9 g/dL g/dL (6.6-8.7) Albumin 4.0 g/dL g/dL (3.5-5.2) Globulin 2.9 g/dL g/dL (1.3-4.6) Lipase 48 U/L U/L (13-60) Serum Ketones 07/02/21 07/02/21 07/02/21 14:40 14:40 14:40 WBC RBC Hgb Hct MCV MCH MCHC RDW Plt Count MPV Neut % (Auto) Lymph % (Auto) [place] % (Auto) Eos % (Auto) Baso % (Auto) Neut # (Auto) Lymph # (Auto) [place] # (Auto) Eos # (Auto) Baso # (Auto) Nucleated RBC % (a uto) Nucleated RBCs # Specimen Type Sample Site ABG pH ABG pCO2 ABG pO2 ABG HCO3 ABG O2 Saturation ABG Base Excess Saad Test A-a O2 Gradient Hematocrit Hgb O2 Saturation Carboxyhemoglobin Methemoglobin Total Hemoglobin Sodium Potassium Glucose Ionized Calcium O2 Delivery Device O2 Liters/Min FiO2 Breakfast Manager ID Chloride Carbon Dioxide Anion Gap BUN Creatinine GFR Calculation Calculated Osmolal ity Lactic Acid 4.1 mmol/L H* mmo l/L (0.5-2.2) Lactic Acid (Sepsi s) Calcium Magnesium Total Bilirubin AST ALT Alkaline Phosphata se Creatine Kinase Troponin T Baselin e 41 ng/L H ng/L (0-15) Troponin T 120 Min [place] Delta Troponin T Total Protein Albumin Globulin Lipase Serum Ketones Negative (Negative) 07/02/21 07/02/21 07/02/21 16:10 17:30 17:30 WBC RBC Hgb Hct MCV MCH MCHC RDW Plt Count MPV Neut % (Auto) Lymph % (Auto) [place] % (Auto) Eos % (Auto) Baso % (Auto) Neut # (Auto) Lymph # (Auto) [place] # (Auto) Eos # (Auto) Baso # (Auto) Nucleated RBC % (a uto) Nucleated RBCs # Specimen Type Arterial Sample Site Radial, right ABG pH 7.34 L (7.35-7.45) ABG pCO2 28.4 mmHg L mmHg (35-45) ABG pO2 294.0 mmHg H mmHg (80.0-100.0) ABG HCO3 15.3 mmol/L L mmo l/L (22-26) ABG O2 Saturation 97.7 ABG Base Excess -9.4 mmol/L L mmo l/L (-2.0-2.0) Saad Test Pos A-a O2 Gradient 48.0 mmHg H mmHg (5-10) Hematocrit 28.0 % L % (42-52) Hgb O2 Saturation 83.0 % L % (95-100) Carboxyhemoglobin < 0.0 %THgb L %TH gb (0.4-20.1) Methemoglobin 15.7 % H % (0.4-1.5) Total Hemoglobin 9.1 g/dL L g/dL (14-18) Sodium 137.0 mmol/L mmol /L (131-143) Potassium 4.2 mmol/L mmol/L (3.5-5.0) Glucose 149.0 mg/dL H mg/ dL (70-115) Ionized Calcium 1.3 mmol/L mmol/L (1.1-1.4) O2 Delivery Device Nrb O2 Liters/Min 15.0 % % FiO2 100.0 % % Breakfast Manager ID Gd Chloride Carbon Dioxide Anion Gap BUN Creatinine GFR Calculation Calculated Osmolal ity Lactic Acid Lactic Acid (Sepsi s) 7.0 mmol/L H* mmo l/L (0.5-2.2) Calcium Magnesium Total Bilirubin AST ALT Alkaline Phosphata se Creatine Kinase Troponin T Baselin e Troponin T 120 Min [place] 41.61 ng/L H ng/L (0-15) Delta Troponin T 0.61 ABS# ABS# (0-10) Total Protein Albumin Globulin Lipase Serum Ketones Discharge Plan Discharge Patient Disposition: Admitted As Inpatient Clinical Impression: Sepsis, Cystitis, Urinary retention, Acute exacerbation of chronic obstructive airways disease, Hypoxia Condition: Stable Coding Level of Care Code ED Licensed Aircraft Maintenance Engineer for Chg Fwd Exam Comprehensive
[2021-07-02 14:53] LABS: Basophils # 0.2 10^3/uL (0.0-0.1); Basophils % 1.1 %; Eosinophils # 0.2 10^3/uL (0.0-0.8); Eosinophils % 1.3 %; Hematocrit 34.6 % (42.0-52.0); Hemoglobin 10.7 g/dL (11.7-16.6); Lymphocytes # 2.8 10^3/uL (0.8-4.8); Lymphocytes % 16.8 %; Mean Corpuscular HGB Conc 30.9 g/dL (30.0-36.0); Mean Corpuscular Hemoglobin 28.1 pg (28.0-34.0); Mean Corpuscular Volume 90.8 fl (80-94); Mean Platelet Volume 10.1 fL (7.4-10.4); Monocytes # 1.7 10^3/uL (0.2-0.9); Monocytes % 9.9 %; Neutrophils # 11.61 10^3/uL (1.8-7.7); Neutrophils % 69.5 %; Nucleated Red Blood Cells % 0 %; Platelet Count 572 10^3/cmm (130-400); Red Blood Count 3.81 10^6/uL (4.1-5.3); Red Cell Distribution Width 16.1 % (12.1-15.1); White Blood Count 16.7 10^3/uL (4.0-10.0)
[2021-07-02 15:00] VITALS: BP 102/52; PULSE 104; PULSE 108; RESP 25; TEMP 36.8; O2SAT 88
[2021-07-02 15:04] LABS: Ketone (Acetest) Serum Negative (Negative)
--- NOTE | 2021-07-02 15:14 | PC.PHAR ---
pts sonam verified the pts medications and sent some of the pts medication bottles-
[2021-07-02 15:15] LABS: Troponin(5th) Baseline 41 ng/L (0-15)
[2021-07-02 15:19] LABS: Alanine Aminotransferase < 5 U/L (0-41); Alkaline Phosphatase 88 IU/L (40-130); Anion Gap 22.8 (5-19); Aspartate Amino Transferase 7 U/L (0-40); Blood Urea Nitrogen 26 mg/dL (8-23); Calcium 9.6 mg/dL (8.5-10.5); Carbon Dioxide 14 mmol/L (22-29); Chloride 103 mmol/L (98-107); Creatine Phosphokinase 41 U/L (39-308); Globulin 2.9 g/dL (1.3-4.6); Glomerular Filtration Rate 47.4 mL/min (90-130); Glucose 166 mg/dL (65-115); Lipase 48 U/L (13-60); Magnesium 1.6 mg/dL (1.7-2.3); Osmolality Calculated 289 mOsm/kg (285-295); Potassium 4.8 mmol/L (3.5-5.1); Sodium 135 mmol/L (136-145); Total Bilirubin 0.2 mg/dL (0.15-1.2); Total Protein 6.9 g/dL (6.6-8.7)
[2021-07-02] MEDS: sodium chloride 0.9% 1,000 ML 999 ML IV (15:19)
[2021-07-02] MEDS: ondansetron 2 mg/ML SDV 2 mL 4 MG IVP (15:19)
[2021-07-02 15:22] LABS: Lactic Sepsis W/Reflex 4.1 mmol/L (0.5-2.2)
--- NOTE | 2021-07-02 15:37 | CTR_ITS ---
PROCEDURE INFORMATION: Exam: CTA Chest With Contrast Exam date and time: 07/02/2021 3:37 PM Age: 61 years old Clinical indication: Shortness of breath; Additional info: Hypoxia TECHNIQUE: Imaging protocol: Computed tomographic angiography of the chest with contrast. 3D rendering (Not supervised by radiologist): MIP and/or 3D reconstructed images were created by the technologist. Radiation optimization: All CT scans at this facility use at least one of these dose optimization techniques: automated exposure control; mA and/or kV adjustment per patient size (includes targeted exams where dose is matched to clinical indication); or iterative reconstruction. Contrast material: VISI 320; Contrast volume: 83 ml; Contrast route: INTRAVENOUS (IV); COMPARISON: 1. CR XR chest 1V portable [id number] 07/02/2021 2:[address] kidney stone [id number] 1:04 PM RADIATION DOSE METRICS: Total DLP (mGy-cm): 552.93 FINDINGS: Pulmonary arteries: The pulmonary arteries are adequately opacified for evaluation to the subsegmental level. There is no filling defect to suggest embolism. Aorta: There is mild aortic atherosclerotic disease. 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 The contrast filled portion of the aneurysm sac measures 4.1 x 2.8 cm. Lungs: There is subsegmental atelectasis in the lung bases. There is no consolidation. Pleural spaces: Unremarkable. No pneumothorax. No pleural effusion. Heart: Heart size is normal. There is no pericardial effusion. There is moderate coronary artery calcification. Lymph nodes: There is no mediastinal or hilar lymphadenopathy. Liver: Simple liver cysts are present. Bones/joints: Bones are unremarkable. Soft tissues: The extrathoracic soft tissues are unremarkable. CT/CT angio chest PE protcl [id number] IMPRESSION: 1. No pulmonary embolism. 2. 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 This finding corresponds to a mass described on the prior noncontrast CT.
[2021-07-02 15:51] LABS: ABG PCO2 26.6 mmHg (35-45); ABG PH Result 7.34 (7.35-7.45); Alveolar-Arterial Oxygen Gradi 4.4 mmHg (5-10); Arterial Blood Gas Hematocrit 32.7 % (42-52); Base Excess ABG -9.9 mmol/L (-2.0-2.0); Blood Gas Allen Test Pos; Blood Gas Operator Identificat AMH; Blood Gas Sample Site Radial, right; Blood Gas Sample Type Arterial; Carboxyhemoglobin 0.6 %THgb (0.4-20.1); HCO3 ABG 14.5 mmol/L (22-26); HGB O2 Sat 77.9 % (95-100); Ionized Calcium Level - ABG 1.4 mmol/L (1.1-1.4); Methemoglobin 18.2 % (0.4-1.5); Oxygen Device NC; Oxygen Saturation ABG 95.9; Potassium Level - ABG 4.2 mmol/L (3.5-5.0); Total Hemoglobin 10.7 g/dL (14-18)
--- NOTE | 2021-07-02 15:52 | PC.NURSE ---
Pt refusing to allow this RN to remove current shea cath and replace a new shea cath x4. Dr. Pardo advised and has spoken to pt.
[2021-07-02 15:58] VITALS: RESP 26; O2SAT 91
[2021-07-02] MEDS: morphine 4 mg/mL SDV 1 mL 2 MG IVP (15:58)
[2021-07-02] MEDS: LORazepam 2 mg/mL INJ 1 mL IVP (15:59)
[2021-07-02] MEDS: levofloxacin-dextrose 5 % 750 MG/150 ML PREMIX 100 MG IV (16:02)
--- NOTE | 2021-07-02 16:13 | PC.NURSE ---
Pt arrived from home via EMS where he lives with his . EMS states pt had a shea cath placed 2 weeks ago and had issues with the removal of the last shea . Pt c/o bladder spasms and abdominal pain with a burning sensation and hallucinations over the past few days. EMS reports pt is refusing all cares, including any breathing treatments or IV start. Pt requesting shea be changed because it is causing all these issues , pt is repeatedly refusing to allow this RN to remove the shea and replace a new shea cath. Pt A/O x3, vs taken, pt arrived on Non Rebreather @ 15L, per EMS pt SATs at 84% RA when they arrived on scene. Blood glucose 198.
[2021-07-02 16:30] LABS: ABG PCO2 28.4 mmHg (35-45); ABG PH Result 7.34 (7.35-7.45); Base Excess ABG -9.4 mmol/L (-2.0-2.0); Blood Gas Allen Test Pos; Blood Gas Sample Type Arterial; Carboxyhemoglobin < 0.0 %THgb (0.4-20.1); HCO3 ABG 15.3 mmol/L (22-26); Ionized Calcium Level - ABG 1.3 mmol/L (1.1-1.4); Methemoglobin 15.7 % (0.4-1.5); Oxygen Saturation ABG 97.7; Potassium Level - ABG 4.2 mmol/L (3.5-5.0); Total Hemoglobin 9.1 g/dL (14-18)
[2021-07-02 16:31] LABS: Blood Gas Operator Identificat GD; Blood Gas Sample Site Radial, right; Oxygen Device NRB
[2021-07-02] MEDS: iodixanol 320 mg/mL 100mL Btl IV (16:31)
--- NOTE | 2021-07-02 16:32 | ECG_ITS ---
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 Measurements Intervals [place] Rate: 111 P: 46 AL: 136 QRS: 54 QRSD: 101 T: 76 QT: 341 QTc: 464 Interpretive Statements SINUS TACHYCARDIA NONSPECIFIC T-WAVE ABNORMALITY Compared to ECG 07/02/2021 15:05:09 No significant changes Electronically Signed On 07-02-2021 22:05:52 WIRE BOUND BOX MACHINE HELPER by Vicente Monroy M.D. [id number]
[2021-07-02 16:34] LABS: Reflex Lactate Order REFLEX LACTIC ORDERD
--- NOTE | 2021-07-02 16:51 | PM.HP ---
Providers/Chief Complaint Primary Care Provider: Leonel Jolley Chief Complaint: ABD PAIN, SOB History of Present Illness Tucker Tyler is a 61 year old male with past medical history of urinary retention, indwelling Millan catheter, BPH, diabetes, CVA with left-sided weakness, dyslipidemia, hypertension who presents with complaints of nausea vomiting, weakness, urine discoloration. He was in the hospital to 3 weeks ago for acute kidney injury. At that time he was found to have left abdominal large mass suspicious for cancer probably attached to left kidney/adrenal mass, stomach and pancreas. Since the discharge the patient reports not doing very well, reports increasing nausea and vomiting, reports abdominal cramps, urine discoloration, possible fever, dehydration. In emergency room he is found to have acute kidney injury with acute anion gap metabolic acidosis. Urine is cloudy and very dark. Possibly having hematuria as well. The patient also was found to have hypoxia. He was started on nonrebreather. His oxygenation improved and currently he is switched to nasal cannula oxygen. He denies any shortness of breath, chest pain, palpitations. Denies diarrhea or rectal blood. No hemoptysis. No hematemesis. Denies any similar episodes in the past. Review of Systems General: Reports: 10 or more systems reviewed and unremarkable except in HPI and below Medications/Allergies Home Medications Medication Instructions Recorded Confirmed Last Taken Type Novolin 70/30 U-100 Insulin 20 - 25 unit SUBCUT .BID BEFORE 06/09/21 07/02/21 07/02/21 11:00 History MEALS 25 units atorvastatin 80 mg PO DAILY 06/09/21 07/02/21 Unknown History calcium carbonate [Tums] 500 mg PO PRN 06/09/21 07/02/21 Unknown History clonazepam 0.5 mg PO BID PRN 06/09/21 07/02/21 Unknown History cyclobenzaprine 10 mg PO TID PRN 06/09/21 07/02/21 Unknown History gabapentin 400 mg PO TID 06/09/21 07/02/21 Unknown History hydrocodone-acetaminophen 1 tab PO Q6H PRN 06/09/21 07/02/21 Unknown History aspirin 81 mg PO DAILY #30 tab 06/12/21 07/02/21 Unknown Rx buspirone 15 mg PO BID #90 tab 06/12/21 07/02/21 Unknown Rx citalopram 40 mg PO DAILY #60 tab 06/12/21 07/02/21 Unknown Rx tamsulosin 0.4 mg PO DAILY #30 cap 06/12/21 07/02/21 Unknown Rx phenazopyridine 99.5 mg tablet 99.5 mg PO TID PRN 06/22/21 07/02/21 07/02/21 11:00 History acetaminophen [Tylenol Ex Str 500 - 1,000 mg PO Q4H PRN 07/02/21 07/02/21 Unknown History Rapid Release] Allergies Allergy/AdvReac Type Severity Reaction Status Date / Time No Known Allergies Allergy Verified 06/22/21 07:46 PFSH Acute PFSH: Medical History Acute kidney injury Chronic kidney disease Chronic pain History of CVA (cerebrovascular accident) History of seizure History of upper gastrointestinal bleeding Hyperlipidemia Hypertension Left upper quadrant abdominal mass Neuropathy Type 2 diabetes mellitus Family History Father , AT AGE 66 Aneurysm Mother , AT AGE 84 Natural Social History Smoking and tobacco status: current every day smoker Alcohol intake: never Marital status: Life Partner Current occupational status: disabled History of recent travel: No Vitals/I&O/Wt Last Vital Signs Temp 98.2 F 07/02/21 15:00 Pulse 108 H 07/02/21 15:00 Resp 26 H 07/02/21 15:58 BP 102/52 07/02/21 15:00 Pulse Ox 91 07/02/21 15:58 Weight last 48 hrs Weight 72.575 kg Physical Exam Narrative: EXAM NARRATIVE: The patient is awake alert and oriented. No acute distress. Mood and affect are appropriate. Responses are adequate. Skin is warm and dry. Dry mucous membranes. Eyes PERRL, extraocular muscles are intact Neck supple. No JVD Lungs are clear bilaterally. No wheezes or crackles. No respiratory distress Heart S1, S2, regular Abdomen soft, nontender, bowel sounds are present Extremities bilateral pedal edema. No cyanosis or calf tenderness bilaterally. Normal speech. Cranial nerves II through XII are grossly intact. Contractures and left upper extremity weakness. Data : 07/02/21 14:40 07/02/21 14:40 Other Labs: Laboratory Results WBC 16.7 10^3/uL (4.0-10.0) H 07/02/21 14:40 RBC 3.81 10^6/uL (4.1-5.3) L 07/02/21 14:40 Hgb 10.7 g/dL (11.7-16.6) L 07/02/21 14:40 Hct 34.6 % (42.0-52.0) L 07/02/21 14:40 MCV 90.8 fl (80-94) 07/02/21 14:40 MCH 28.1 pg (28.0-34.0) 07/02/21 14:40 MCHC 30.9 g/dL (30.0-36.0) 07/02/21 14:40 RDW 16.1 % (12.1-15.1) H 07/02/21 14:40 Plt Count 572 10^3/cmm (130-400) H 07/02/21 14:40 MPV 10.1 fL (7.4-10.4) 07/02/21 14:40 Neut % (Auto) 69.5 % 07/02/21 14:40 Lymph % (Auto) 16.8 % 07/02/21 14:40 Dickens % (Auto) 9.9 % 07/02/21 14:40 Eos % (Auto) 1.3 % 07/02/21 14:40 Baso % (Auto) 1.1 % 07/02/21 14:40 Neut # (Auto) 11.61 10^3/uL (1.8-7.7) H 07/02/21 14:40 Lymph # (Auto) 2.8 10^3/uL (0.8-4.8) 07/02/21 14:40 Dickens # (Auto) 1.7 10^3/uL (0.2-0.9) H 07/02/21 14:40 Eos # (Auto) 0.2 10^3/uL (0.0-0.8) 07/02/21 14:40 Baso # (Auto) 0.2 10^3/uL (0.0-0.1) H 07/02/21 14:40 Nucleated RBC % (auto) 0 % 07/02/21 14:40 Nucleated RBCs # 0.0 /100WBC 07/02/21 14:40 Specimen Type Arterial 07/02/21 16:10 Sample Site Radial, right 07/02/21 16:10 ABG pH 7.34 (7.35-7.45) L 07/02/21 16:10 ABG pCO2 28.4 mmHg (35-45) L 07/02/21 16:10 ABG pO2 294.0 mmHg (80.0-100.0) H 07/02/21 16:10 ABG HCO3 15.3 mmol/L (22-26) L 07/02/21 16:10 ABG O2 Saturation 97.7 07/02/21 16:10 ABG Base Excess -9.4 mmol/L (-2.0-2.0) L 07/02/21 16:10 Saad Test Pos 07/02/21 16:10 A-a O2 Gradient 48.0 mmHg (5-10) H 07/02/21 16:10 Hematocrit 28.0 % (42-52) L 07/02/21 16:10 Hgb O2 Saturation 83.0 % (95-100) L 07/02/21 16:10 Carboxyhemoglobin < 0.0 %THgb (0.4-20.1) L 07/02/21 16:10 Methemoglobin 15.7 % (0.4-1.5) H 07/02/21 16:10 Total Hemoglobin 9.1 g/dL (14-18) L 07/02/21 16:10 Sodium 137.0 mmol/L (131-143) 07/02/21 16:10 Potassium 4.2 mmol/L (3.5-5.0) 07/02/21 16:10 Glucose 149.0 mg/dL (70-115) H 07/02/21 16:10 Ionized Calcium 1.3 mmol/L (1.1-1.4) 07/02/21 16:10 O2 Delivery Device Nrb 07/02/21 16:10 O2 Liters/Min 15.0 % 07/02/21 16:10 FiO2 100.0 % 07/02/21 16:10 Land Management Forester ID Gd 07/02/21 16:10 Sodium 135 mmol/L (136-145) L 07/02/21 14:40 Potassium 4.8 mmol/L (3.5-5.1) 07/02/21 14:40 Chloride 103 mmol/L (98-107) 07/02/21 14:40 Carbon Dioxide 14 mmol/L (22-29) L 07/02/21 14:40 Anion Gap 22.8 (5-19) H 07/02/21 14:40 BUN 26 mg/dL (8-23) H 07/02/21 14:40 Creatinine 1.5 mg/dL (0.7-1.2) H 07/02/21 14:40 GFR Calculation 47.4 mL/min (90-130) L 07/02/21 14:40 Glucose 166 mg/dL (65-115) H 07/02/21 14:40 Calculated Osmolality 289 mOsm/kg (285-295) 07/02/21 14:40 Lactic Acid 4.1 mmol/L (0.5-2.2) H* 07/02/21 14:40 Calcium 9.6 mg/dL (8.5-10.5) 07/02/21 14:40 Magnesium 1.6 mg/dL (1.7-2.3) L 07/02/21 14:40 Total Bilirubin 0.2 mg/dL (0.15-1.2) 07/02/21 14:40 AST 7 U/L (0-40) 07/02/21 14:40 ALT < 5 U/L (0-41) 07/02/21 14:40 Alkaline Phosphatase 88 IU/L (40-130) 07/02/21 14:40 Creatine Kinase 41 U/L (39-308) 07/02/21 14:40 Troponin T Baseline 41 ng/L (0-15) H 07/02/21 14:40 Total Protein 6.9 g/dL (6.6-8.7) 07/02/21 14:40 Albumin 4.0 g/dL (3.5-5.2) 07/02/21 14:40 Globulin 2.9 g/dL (1.3-4.6) 07/02/21 14:40 Lipase 48 U/L (13-60) 07/02/21 14:40 Serum Ketones Negative (Negative) 07/02/21 14:40 Impressions Chest X-Ray 07/02/21 14:31 Impression: Negative chest. Head CT 07/02/21 14:31 IMPRESSION: 1. No evidence of intracranial hemorrhage or mass effect. 2. Chronic large right MCA territory infarct with encephalomalacia unchanged from previous. 3. Moderate small vessel changes with moderate parenchymal volume loss. 4. No new intracranial findings. Micro: Microbiology 07/02/21 14:40 Blood Culture - Preliminary Blood SPECIMEN COLLECTED A&P Additional A&P Information Tucker Tyler is a 61 year old male with past medical history of urinary retention, indwelling Millan catheter, BPH, diabetes, CVA with left-sided weakness, dyslipidemia, hypertension who presents with complaints of nausea vomiting, weakness, urine discoloration. He was in the hospital to 3 weeks ago for acute kidney injury. At that time he was found to have left abdominal large mass suspicious for cancer probably attached to left kidney/adrenal mass, stomach and pancreas. Since the discharge the patient reports not doing very well, reports increasing nausea and vomiting, reports abdominal cramps, urine discoloration, possible fever, dehydration. Acute hypoxia. X-ray was unremarkable. I do not have any clear explanation for this hypoxia. I asked Dr. Philip to order CT angio chest to rule out PE which is currently pending. Please follow-up the results. Suspected urinary tract infection. UA is ordered but not reported yet. I am not sure if the sample was collected yet. However the urine looks cloudy and very dark. Hematuria is possible. We will start the patient on Zosyn. We will hydrate him with IV fluids. Hematuria. This could be secondary to UTI, prostate problems or more likely due to kidney tumor. Will wait for the UA. It is hard to say, discoloration could be due to. DM as well. Possible severe sepsis and or severe dehydration with associated acute metabolic acidosis and acute kidney injury. We will continue antibiotics, hydration. Will wait for the urine test results. We will recheck lactic acid level. If remains elevated will give him additional bolus of IV fluids. Acute kidney injury. Additional testing might be necessary. Will wait for UA first. We will monitor kidney function. Left abdominal mass involving pancreas/stomach/left kidney and adrenal. I am curious to see patient's CT report. Probably tomorrow we will need to repeat CT abdomen and pelvis. I do not want to order the test today to minimize the use of contrast in the light of acute kidney injury. Needs heme-onc referral, inpatient or outpatient depending on new imaging study reports. Diabetes. We will hold his home insulin and cover him with insulin sliding scale. Acute metabolic encephalopathy. Reportedly the patient was slightly confused on presentation. Now it has resolved with the hydration. CODE STATUS. The patient wants to be DNR/DNI. He understands what this entails. The plan of care was discussed with the patient. He verbalized understanding and agreement. Attestations Medical Necessity Statement*: History my assessment of patient's current condition, findings and diagnosis I expect that the patient will spend more than 2 midnights in the hospital. Coding Level of Care Code Acute Registered Representative for Paty Mancia
[2021-07-02 18:08] LABS: Troponin 5 2HR 41.61 ng/L (0-15); Troponin 5 2HR Delta 0.61 ABS# (0-10)
--- NOTE | 2021-07-02 18:24 | PC.NURSE ---
07/02/21 18:20 - Nurse Note by Faye Cortez RN Acct Num: [id number] : 05/29/1974 Patient Age: 47 This Rn spoke with Dr. Pardo about pt refusing to allow a shea to be placed, Dr. Pardo still wants shea placed. This RN requested Dr. Pardo place the new shea, Dr. Pardo unable to do so at this time. This Rn spoke with Renard Biswas and Susan, electroslag welding machine operator to advise. This Rn requesting the Urologist come place shea, Zulay advised she will talk with Dr. Pardo Initialized on 07/02/21 18:20 - END OF NOTE
--- NOTE | 2021-07-02 18:40 | PC.NURSE ---
Pt pulled IV out while this RN was looking for a pump. Still unable to find a pump, Renard Hinton called to request she look for some
[2021-07-02 18:41] LABS: Add Urine Microscopic? YES; Bilirubin Urine 3+ (Negative); Blood Urine 2+ (Negative); Glucose Urine UA 2+ (Normal); Ketones Urine Negative (Negative); Leukocyte Esterase Urine Negative (Negative); Nitrate Urine Positive (Negative); Protein Urine 3+ (Negative); Urine Appearance Cloudy (CLEAR); Urine Color Brown (Yellow); Urobilinogen Urine 4+ mg/dL (Negative); pH Urine 6.5 (5-7)
[2021-07-02 18:42] LABS: Add Urine Culture? No; Calcium Oxalate Crystals Urine 0-4 /hpf; WBC Urine 0-4 /hpf (0-5)
--- NOTE | 2021-07-02 18:53 | PC.NURSE ---
Report called to floor, given to DAYANNA Davis
[2021-07-02 19:52] VITALS: BP 96/65; PULSE 105; RESP 20; TEMP 37.1; O2SAT 90
[2021-07-02 20:19] LABS: Glucose Point of Care 115 mg/dL (70-110)
[2021-07-02] MEDS: CLONazepam 0.5 mg Tablet PO (20:27)
--- NOTE | 2021-07-02 20:32 | ECG_ITS ---
[facility] Test Date: 2021-07-02 Pat Name: Tucker Tyler Department: Room: 251 Gender: Male People Manager: : 1960 Requested By: Jordan Perez Order Number: [id number] Brittany MD: Vicente Monroy M.D. Measurements Intervals [place] Rate: 99 P: 49 MD: 180 QRS: 29 QRSD: 86 T: 51 QT: 322 QTc: 415 Interpretive Statements SINUS RHYTHM NONSPECIFIC T-WAVE ABNORMALITY Compared to ECG 07/02/2021 17:55:16 Sinus tachycardia no longer present T-wave abnormality still present Electronically Signed On 07-02-2021 22:04:23 LAP CUTTER TRUER OPERATOR by Vicente Monroy M.D. [id number]
[2021-07-02] MEDS: HYDROcodone-acetaminophen 10-325 mg Tablet 1 TAB PO (22:53)
[2021-07-02 23:47] VITALS: BP 92/60; PULSE 97; RESP 19; TEMP 36.7; O2SAT 90
[2021-07-03] VITALS (8 sets, daily range): BP systolic 96–132; BP diastolic 63–74; PULSE 73–101; RESP 16–18; TEMP 36.4–36.9; O2SAT 90–98
[2021-07-03] MEDS: piperacillin-tazobactam 3.375 GM in sodium chloride 0.9% (plus) 50 ML IV ×3 (01:52→15:49)
[2021-07-03] MEDS: dextrose 5%-sod chloride 0.9% 1,000 ML 125 ML IV ×3 (01:52→15:50)
[2021-07-03] MEDS: morphine 4 mg/mL SDV 1 mL 2 MG IVP ×4 (01:53→18:42)
[2021-07-03] MEDS: HYDROcodone-acetaminophen 10-325 mg Tablet 1 TAB PO ×2 (05:59→15:50)
--- NOTE | 2021-07-03 06:28 | PC.NURSE ---
AT [address] Win, patient refusing lab work again this morning. No new orders at this time.
[2021-07-03] MEDS: insulin lispro 100 unit/1 mL SUBCUT ×2 (07:39→17:15)
[2021-07-03] MEDS: tamsulosin 0.4 mg Capsule PO (07:39)
[2021-07-03 08:38] LABS: Glucose Point of Care 154 mg/dL (70-110)
--- NOTE | 2021-07-03 10:28 | PC.NURSE ---
Lab notified this nurse of patient refusing to have blood drawn. Dr. Brooke notified at this time. No new orders received.
[2021-07-03 11:23] LABS: Glucose Point of Care 152 mg/dL (70-110)
--- NOTE | 2021-07-03 12:23 | PC.OT ---
OT EVALUATION HELD PER DOCTOR REQUEST AT THIS TIME. WILL ATTEMPT AGAIN TOMORROW.
--- NOTE | 2021-07-03 13:02 | P.PN_ITS ---
Subjective Subjective: Interval history: Patient seen this morning. 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 Patient states he would like to see an oncologist and would like work-up done to get an answer as to what is going on with him. He also complained of some epigastric pain and pointed to the epigastric region. He also states that he has a lot of anxiety and would like his Klonopin which is his home dose. I did assure him that it was already ordered for him. I also offered a GI cocktail which she refused at this time. He did say that he had some heartburn and takes Tums at home. Shortly thereafter patient started talking about being abducted by aliens and going through a series of testing and implants with them. He also stated that he has hardware put into his body against as well that was also done by [facility]. He stated he loved riding helicopters and would like to go on a helicopter another hospital if that is what we are going to do. He did know it was year 2020 and it was new years ton. He also reported some dysphagia to solids as well. Patient also has been refusing blood draws. He took out his Millan catheter and is not letting nurses place another one. The last labs I have are from yesterday. Last lactic acid I saw was 4.0. Blood pressure and heart rate seem to be stable right now. Patient is currently on Zosyn. I did attempt to contact his who I could not get a hold off. Then I did talk with patient's son. They will be here shortly at bedside. Family present bedside. They state that he has been having hallucinations for the last 4 years. 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 They are aware that patient refuses test and labs. We will try to convince him to get testing and treatment done. Patient also is refusing Millan catheter placement. I did discuss with the family regarding potential for dialysis and worsening kidney function with use of contrast for CT abdomen pelvis that I am going to order to assess a splenic artery aneurysm. Mere sided Dr. Castaneda from general surgery regarding splenic artery aneurysm results. He will need CT abdomen pelvis with contrast to further assess. Vitals/I&O/Wt Last Vital Signs Temp 98.1 F 07/03/21 11:08 Pulse 83 07/03/21 11:08 Resp 18 07/03/21 11:16 BP 128/71 07/03/21 11:08 Pulse Ox 95 07/03/21 11:08 07/02/21 07/03/21 07/03/21 22:59 06:59 14:59 Intake Total 1240 / 1240 410 / 1650 888.75 / 888.75 Balance 1240 / 1240 410 / 1650 888.75 / 888.75 Weight last 48 hrs Weight 72.575 kg Physical Exam Narrative: EXAM NARRATIVE: General: Alert oriented to place and self and time but is hallucinating and talking about being abducted by aliens. Unsure if he is mentally sound at this time., patient seen sitting up in bed appearing comfortable in no acute respiratory distress. On 2 L nasal cannula. HEENT: Normocephalic, atraumatic, EOMI, Cardio: Regular rate rhythm, normal S1-S2, no murmurs rubs gallops, Respiratory: Good bilateral air entry, no wheezes no rhonchi appreciated GI: Abdomen soft, mildly tender to palpation at epigastric region, nondistended, bowel sounds + no guarding no tenderness present. Behavior: Not very cooperative. refusing testing. Did not let me complete physical exam. Extremities: no edema, no cyanosis Data : 07/03/21 14:48 07/03/21 14:48 Micro: Microbiology 07/02/21 17:30 Blood Culture - Preliminary Blood SPECIMEN COLLECTED 07/02/21 14:40 Blood Culture - Preliminary Blood SPECIMEN COLLECTED A&P Assessment and plan (1) Sepsis: Status: Acute (2) Urinary retention: Status: Acute (3) Acute exacerbation of chronic obstructive airways disease: Status: Acute (4) Left upper quadrant abdominal mass: Status: Acute (5) Type 2 diabetes mellitus: Status: Acute (6) History of CVA (cerebrovascular accident): Status: Acute (7) Anemia: Status: Acute Additional A&P Information Tucker Tyler is a 61 year old male with past medical history of urinary retention, indwelling Millan catheter, BPH, diabetes, CVA with left-sided weakness, dyslipidemia, hypertension who presents with complaints of nausea vomiting, weakness, urine discoloration. He was in the hospital to 3 weeks ago for acute kidney injury. At that time he was found to have left abdominal large mass suspicious for cancer probably attached to left kidney/adrenal mass, stomach and pancreas. Since the discharge the patient reports not doing very well, reports increasing nausea and vomiting, reports abdominal cramps, urine discoloration, possible fever, dehydration. CTA chest done which rule out PE but does show possible splenic artery aneurysm which is 5 cm in size. Unsure if this is a mass from prior study versus an actual aneurysm versus pseudoaneurysm. Discussed with Dr. Castaneda general surgery and we will need CT abdomen pelvis with contrast to assess further. If patient truly has a splenic artery aneurysm he will need a splenectomy. Patient has also been refusing labs and also pulled out his Millan catheter that was placed last hospital admission for urinary re tention. Family came in and after family discussion patient agreed to have labs drawn. Will assess results and proceed further with management. UTI suspected and he is currently on Zosyn for that. We will continue. Possible sepsis secondary to severe?hydration with associated acute metabolic acidosis and acute kidney injury. Repeat labs are pending. Patient will need heme-onc referral at some point. Please see subjective portion of this note for further details. 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 Patient's son and are fully aware the patient has not been compliant to treatment and recommendations and is refusing work-up in the hospital. He is also refusing Millan catheter. I did tell them the possibility of developing a worsening acute kidney injury with possible need for dialysis since he will be given contrast today for CT abdomen pelvis to rule out splenic artery aneurysm for sure. Today's plan 07/03/2021 ?CT abdomen pelvis with oral and IV contrast to rule out abdominal pathology and splenic artery aneurysm ?If he truly has an aneurysm will involve general surgery. Dr. Castaneda already aware of patient but has not been officially consulted yet. ?He will need to have a Millan catheter placed but he is currently refusing. We can try ask him again later. ?We will put him on normal saline 75 cc an hour to prevent GINA. We might need to get nephrology involved as well depending on how creatinine does. ?Continue insulin sliding scale for diabetes ?I will put in a psychiatry consult due to patient's current situation and as per request of the family. ?Patient will also need heme-onc referral possibly as an outpatient versus inpatient depending on what the results show. ?For acute urinary retention with chronic Millan I did recommend to the patient to have his Millan catheter replaced but he is refusing. We will try to do bladder scan if we believe he is retaining. We will monitor urine output through urinal for now. He has been seen by Dr. Hua in the past. DVT prophylaxis: SCDs for now. CODE STATUS. The patient wants to be DNR/DNI. He told us this admission and understands what this means. He also said the same in front of his family today. The plan of care was discussed with the patient, his son and his . They all verbalized understanding and agreement. Depending on results of modified barium swallow, further work-up and after discussion with general surgery after CT abdomen pelvis we might make a consideration of transferring the patient to higher level of care or gastroenterology is available however I did call [place] and [place] and [place] and currently there is no bed available. I have informed the family of this. Attestations Medical Necessity Statement*: Greater than 48 hours. 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
--- NOTE | 2021-07-03 13:13 | PC.CHAP ---
Pastoral Care Encounter/Spiritual Assessment Type of Contact [] Declined billet bed operator visit [] Patient/Family/Request visit [] Outpatient visit [] Follow-up visit [] Physician referral [] Code/Alert [] Routine visit [] Staff referral [] Actively dying [] Patient sleeping [] Family support [] [] Out of room [] Palliative care [] [] Receiving care in room [] Pre-surgical visit [] Trauma [] Long length of stay [] ICU visit [xx] Other: Isolation Relational/Emotional Strength [] Patient feels connected with others/family/visitors/staff [] Distress [] Loneliness/isolation [] Abandonment Spirituality of Patient [] Person of Belen [] Attends Mandaeism of their Belen [] Believes in Prayer [] Reads Bible or Buddhism materials [] There are Spiritual issues to be addressed Visitor Information Assistant Interventions [] Prayer [] Active listening [] Non-anxious presence [] Spiritual/emotional support [] Crisis/trauma care [] Spiritual counseling [] Bereavement support [] Provided bereavement packet [] Provided Bible/devotional materials [] Provided toy/stuffed animal, coloring book to patient or family member [] Provided Communion [] Anointing/[place] [] Salvation [] Completed spiritual assessment [] Other: Impact on Illness or Injury [] Angry [] Fearful [] Anxious [] Often cries [] Exhaustion [] Unable to work [] Unable to attend jainism [] Unable to walk/stand [] Unable to read [] Unable to drive [] Unable to eat/drink [] Unable to sleep [] Unable to be with family [] Patient intubated [] Other: Summary Time spent with patient
[2021-07-03 14:59] LABS: Basophils # 0.1 10^3/uL (0.0-0.1); Basophils % 0.8 %; Eosinophils # 0.3 10^3/uL (0.0-0.8); Eosinophils % 2.2 %; Hematocrit 29.2 % (42.0-52.0); Hemoglobin 9.1 g/dL (11.7-16.6); Lymphocytes # 1.9 10^3/uL (0.8-4.8); Lymphocytes % 16.1 %; Mean Corpuscular HGB Conc 31.2 g/dL (30.0-36.0); Mean Corpuscular Hemoglobin 28.3 pg (28.0-34.0); Mean Platelet Volume 9.8 fL (7.4-10.4); Monocytes % 8.2 %; Neutrophils # 8.27 10^3/uL (1.8-7.7); Neutrophils % 71.7 %; Nucleated Red Blood Cells % 0 %; Platelet Count 401 10^3/cmm (130-400); Red Blood Count 3.21 10^6/uL (4.1-5.3); White Blood Count 11.5 10^3/uL (4.0-10.0)
[2021-07-03 15:16] LABS: Lactate (Lactic Acid level) 1.1 mmol/L (0.5-2.2)
[2021-07-03 15:17] LABS: Alanine Aminotransferase < 5 U/L (0-41); Albumin Level 3.5 g/dL (3.5-5.2); Alkaline Phosphatase 67 IU/L (40-130); Anion Gap 14.3 (5-19); Aspartate Amino Transferase 5 U/L (0-40); Blood Urea Nitrogen 19 mg/dL (8-23); Calcium 8.4 mg/dL (8.5-10.5); Carbon Dioxide 18 mmol/L (22-29); Chloride 107 mmol/L (98-107); Globulin 2.3 g/dL (1.3-4.6); Glomerular Filtration Rate 51.4 mL/min (90-130); Glucose 207 mg/dL (65-115); Magnesium 1.6 mg/dL (1.7-2.3); Osmolality Calculated 288 mOsm/kg (285-295); Potassium 4.3 mmol/L (3.5-5.1); Sodium 135 mmol/L (136-145); Total Bilirubin 0.2 mg/dL (0.15-1.2); Total Protein 5.8 g/dL (6.6-8.7)
--- NOTE | 2021-07-03 15:27 | CTR_ITS ---
PROCEDURE INFORMATION: Exam: CT Abdomen And Pelvis With Contrast Exam date and time: 07/03/2021 3:27 PM Age: 61 years old Clinical indication: Abdominal tenderness; Additional info: Splenic artery aneurysm, abdominal pain, if PT refuses, call physician. Discussed with PT in presence TECHNIQUE: Imaging protocol: Computed tomography of the abdomen and pelvis with contrast. Radiation optimization: All CT scans at this facility use at least one of these dose optimization techniques: automated exposure control; mA and/or kV adjustment per patient size (includes targeted exams where dose is matched to clinical indication); or iterative reconstruction. Contrast material: VISIPAQUE 320; Contrast volume: 95 ml; Contrast route: INTRAVENOUS (IV); COMPARISON: CR XR hip LT 2-3V wo/w pel* [id number] 06/09/2021 8:33 AM RADIATION DOSE METRICS: Total DLP (mGy-cm): 1691.16 FINDINGS: Liver: Multiple simple cysts in the liver. Gallbladder and bile ducts: Vicarious excretion of contrast in the gallbladder lumen. No inflammatory gallbladder wall thickening. Negative for biliary system dilation. Pancreas: Normal. No ductal dilation. Spleen: No splenic mass. No splenomegaly. Adrenal glands: Normal. No mass. Kidneys and ureters: Cortical atrophy kidneys. No renal mass. No hydronephrosis. Subcentimeter simple left renal cortical cyst. No dedicated imaging follow-up for this finding recommended. No renal stones. Stomach and bowel: Unremarkable. No obstruction. No mucosal thickening. Appendix: No evidence of appendicitis. Intraperitoneal space: Unremarkable. No free air. No significant fluid collection. Vasculature: Diffuse atherosclerosis of abdominal aorta. Negative for abdominal aortic aneurysm. No acute vascular occlusion. Large distal splenic artery aneurysm with some thrombus noted on the posterior wall. Bilobed appearance. No rupture. No fat stranding around the aneurysm. Size dimensions are 5.1 cm transverse by 4.6 cm AP x 3.6 cm craniocaudad height. Lymph nodes: Unremarkable. No enlarged lymph nodes. Urinary bladder: Unremarkable as visualized. Reproductive: Unremarkable as visualized. Bones/joints: Unremarkable. No acute fracture. Soft tissues: Unremarkable. CT/CT abdomen pelvis w con* [id number] IMPRESSION: 1. Large patent splenic artery aneurysm. Given the size, this artery at significant risk of spontaneous rupture. Interventional radiology consultation is recommended. 2. Negative for acute abdominopelvic pathology. COMMENTS: Consistent with the [employer]'s Incidental Findings Committee white paper (J Am Aristides Radiol 2018): Any incidental renal lesion less than 1 cm or classified as too small to characterize, or any incidental cystic renal lesion characterized as simple-appearing, is likely benign. No follow-up imaging is recommended for these lesions per consensus recommendations based on imaging criteria.
[2021-07-03 15:37] LABS: Hepatitis B Surface Antigen Non-Reactive (Nonreactive)
[2021-07-03] MEDS: pantoprazole 40 mg SDV IVP (15:50)
[2021-07-03 16:00] LABS: Hepatitis A Antibody IgM Non-Reactive (Nonreactive); Hepatitis B Core AB, Total Non-Reactive (Nonreactive); Hepatitis C Virus Antibody Non-Reactive (Nonreactive)
[2021-07-03 16:01] LABS: Hepatitis B Surface AB < 3.5 (11.5-1000)
[2021-07-03 17:01] LABS: Glucose Point of Care 183 mg/dL (70-110)
[2021-07-03] MEDS: CLONazepam 0.5 mg Tablet PO (17:15)
--- NOTE | 2021-07-03 17:23 | PC.PT ---
Patient physician request hold physical therapy today.
[2021-07-03] MEDS: iodixanol 320 mg/mL 100mL Btl IV (17:57)
[2021-07-03] MEDS: iohexol 300 mg/mL 50 mL Btl PO (18:03)
[2021-07-03] MEDS: sodium chloride 0.9% 1,000 ML 75 ML IV (18:42)
--- NOTE | 2021-07-03 19:22 | PM.EVENT ---
Event Note Event Note: CT Abd pelvis is back. Pt has large splenic artery aneurysm at risk of spontaneous rupture. Earlier today, i called several hospitals for potential transfer but they are at capacity. Family is aware. Consulted General Surgery for potential spleen removal vs. further recommendations. Dr. Castaneda consulted. Pt currently vitally stable. I called family and updated them with CT results and surgery consult. Son will be here first thing in AM.
--- NOTE | 2021-07-03 19:51 | PM.CONSULT ---
Providers/Reason For Consult Consulting Physician/Specialty*: General Surgery Dr. Castaneda Reason for Consult*: splenic artery aneurysm Attending Physician: Diane Brooke MD Primary Care Provider: Leonel Jolley History of Present Illness History of Present Illness Tucker Tyler is a 61 year old maleWho was initially admitted on 07/02/2021 with nausea, vomiting and weakness. He had previously been admitted for acute kidney injury and had never really recovered from his prior hospitalization. At present he denies any abdominal pain, nausea, vomiting. Denies any history of peripheral vascular intervention or vascular surgery. No prior abdominal surgeries. Review of Systems General: Reports: 10 or more systems reviewed and unremarkable except in HPI and below Meds/Allergies Home Medications and Allergies Home Medications Medication Instructions Recorded Confirmed Last Taken Type Novolin 70/30 U-100 Insulin 20 - 25 unit SUBCUT .BID BEFORE 06/09/21 07/02/21 07/02/21 11:00 History MEALS 25 units atorvastatin 80 mg PO DAILY 06/09/21 07/02/21 Unknown History calcium carbonate [Tums] 500 mg PO PRN 06/09/21 07/02/21 Unknown History clonazepam 0.5 mg PO BID PRN 06/09/21 07/02/21 Unknown History cyclobenzaprine 10 mg PO TID PRN 06/09/21 07/02/21 Unknown History gabapentin 400 mg PO TID 06/09/21 07/02/21 Unknown History hydrocodone-acetaminophen 1 tab PO Q6H PRN 06/09/21 07/02/21 Unknown History aspirin 81 mg PO DAILY #30 tab 06/12/21 07/02/21 Unknown Rx buspirone 15 mg PO BID #90 tab 06/12/21 07/02/21 Unknown Rx citalopram 40 mg PO DAILY #60 tab 06/12/21 07/02/21 Unknown Rx tamsulosin 0.4 mg PO DAILY #30 cap 06/12/21 07/02/21 Unknown Rx phenazopyridine 99.5 mg tablet 99.5 mg PO TID PRN 06/22/21 07/02/21 07/02/21 11:00 History acetaminophen [Tylenol Ex Str 500 - 1,000 mg PO Q4H PRN 07/02/21 07/02/21 Unknown History Rapid Release] Allergies Allergy/AdvReac Type Severity Reaction Status Date / Time No Known Allergies Allergy Verified 06/22/21 07:46 Current Medications Current Medications Generic Name Dose Route Start Last Admin Trade Name Freq PRN Reason Stop Dose Admin Hydrocodone Bitart/Acetaminophen 1 tab 07/02/21 16:49 07/03/21 15:50 Hydrocodone-Acetaminophen 10-325 Mg Tablet PO 1 tab Q6H PRN Administration Pain Clonazepam 0.5 mg 07/02/21 16:49 07/03/21 17:15 Clonazepam 0.5 Mg Tablet PO 0.5 mg BID PRN Administration Anxiety Dextrose/Sodium Chloride 1,000 mls @ 125 mls/hr 07/02/21 16:45 07/03/21 15:50 Dextrose 5%-Sod Chloride 0.9% IV 125 mls/hr .Q8H KEN Administration Piperacillin Sod/Tazobactam 50 mls @ 12.5 mls/hr 07/02/21 16:45 07/03/21 15:49 Sod 3.375 gm/ Sodium Chloride IV 12.5 mls/hr Q8H KEN Administration Protocol Sodium Chloride 1,000 mls @ 75 mls/hr 07/03/21 15:30 07/03/21 18:42 Sodium Chloride 0.9% IV 75 mls/hr .[id number] KEN Administration Insulin Human Lispro 0 unit 07/02/21 18:00 07/03/21 17:15 Insulin Lispro 100 Unit/1 Ml SUBCUT 4 unit WM&BEDTIME KEN Administration Protocol Morphine Sulfate 2 mg 07/02/21 16:43 07/03/21 18:42 Morphine 4 Mg/Ml Sdv 1 Ml IVP 2 mg Q4H PRN Administration SEVERE PAIN Pantoprazole Sodium 40 mg 07/02/21 16:45 07/03/21 15:50 Pantoprazole 40 Mg Sdv IVP 40 mg Q24H KEN Administration Tamsulosin HCl 0.4 mg 07/03/21 09:00 07/03/21 07:39 Tamsulosin 0.4 Mg Capsule PO 0.4 mg DAILY KEN Administration PFSH Acute PFSH: Medical History Acute kidney injury Chronic kidney disease Chronic pain History of CVA (cerebrovascular accident) History of seizure History of upper gastrointestinal bleeding Hyperlipidemia Hypertension Left upper quadrant abdominal mass Neuropathy Splenic artery aneurysm Type 2 diabetes mellitus Family History Father , AT AGE 66 Aneurysm Mother , AT AGE 84 Natural Social History Smoking and tobacco status: current every day smoker Alcohol intake: never Marital status: Life Partner Current occupational status: disabled History of recent travel: No Vitals/I&O/Wt Last Vital Signs Temp 98.4 F 07/03/21 16:00 Pulse 75 07/03/21 16:00 Resp 16 07/03/21 16:00 BP 132/74 07/03/21 16:00 Pulse Ox 98 07/03/21 16:00 07/03/21 07/03/21 07/03/21 06:59 14:59 22:59 Intake Total 410 / 1650 1368.75 / 2368.75 1000 / 2368.75 Balance 410 / 1650 1368.75 / 2368.75 1000 / 2368.75 Weight last 48 hrs Weight 160 lb Physical Exam Narrative: EXAM NARRATIVE: HEENT: Normocephalic Eye: Sclera /conjunctiva normal Respiratory and chest: Bilateral clear breath sounds on auscultation Cardiovascular: Normal S1 and S2 heart sounds Abdomen: Soft to palpation. non tender, non distended Neurological: Oriented to place person and time Skin: Intact, no lesions appreciated on gross exam Data Micro: Micro: Microbiology 07/02/21 17:30 Blood Culture - Pr eliminary Blood NEGATIVE TO DEBORAH E 07/02/21 14:40 Blood Culture - Pr eliminary Blood NEGATIVE TO DEBORAH E A&P Assessment and plan (1) Splenic artery aneurysm: 61-year-old male who was noted on routine imaging studies to have a 5cm splenic artery aneurysm. Patient is asymptomatic. Discussed the relevance of the findings with the patient. At this point, while patient appears lucid at times he also says things that are confusing. He is being evaluated by psych regarding his mental status and ability to make a decision. At this point patient does not want any surgery. Discussed with the patient the risk of from splenic artery rupture and that usually repair is recommended if the aneurysm measures more than 2 cm. I will wait to hear from him though there is a risk of emergency surgery if he has a aneurysm rupture in the hospital. Status: Acute Consult Attestations Medical Necessity Statement: As per attending physician Coding Level of Care Code Acute Chief Analytics Officer for Chg Fwd Diagnoses Splenic artery aneurysm I72.8
--- NOTE | 2021-07-03 20:23 | PC.NURSE ---
Reported to Dr. Reyes that patient is refusing all lab work including type and screen. Dr. Reyes instructed me to add it to the morning labs and try again. Called [facility] in lab to have type and screen rescheduled.
[2021-07-03] MEDS: LORazepam 2 mg/mL INJ 1 mL 0.25 MG IVP (20:30)
[2021-07-03 20:42] LABS: Glucose Point of Care 76 mg/dL (70-110)
[2021-07-04] VITALS (7 sets, daily range): BP systolic 101–166; BP diastolic 67–97; PULSE 63–104; RESP 16–36; TEMP 36.4–37.2; O2SAT 90–96
[2021-07-04] MEDS: HYDROcodone-acetaminophen 10-325 mg Tablet 1 TAB PO ×4 (00:22→20:39)
[2021-07-04] MEDS: piperacillin-tazobactam 3.375 GM in sodium chloride 0.9% (plus) 50 ML IV ×2 (00:22→09:12)
[2021-07-04 06:40] LABS: Glucose Point of Care 117 mg/dL (70-110)
[2021-07-04] MEDS: tamsulosin 0.4 mg Capsule PO (09:07)
--- NOTE | 2021-07-04 09:27 | PC.OT ---
OT ORDERS RECEIVED. UPON READING PATIENT'S CHART AND POSSIBILITY OF SPLEENIC RUPTURE AND AWAITING SURGERY CONSULT; WILL HOLD AT THIS TIME UNTIL FURTHER TREATMENT IS ARRANGED.
[2021-07-04 11:29] LABS: Glucose Point of Care 135 mg/dL (70-110)
[2021-07-04] MEDS: CLONazepam 0.5 mg Tablet PO (12:00)
--- NOTE | 2021-07-04 12:38 | PM.PN ---
Subjective Subjective: Interval history: Seen and examined this morning. Patient refused labs this morning. He was also seen by Dr. Castaneda yesterday for potential surgery. He was made n.p.o. overnight. As per nursing staff this morning patient has refused to go for surgery as well. Family is not here yet. Patient is requesting for anxiety medication. Urine output 200 cc. Intake was 3 L. Patient most likely has urinary retention but he will not let us BladderScan or put a straight cath or Millan catheter. Vitals/I&O/Wt Last Vital Signs Temp 98.3 F 07/04/21 07:29 Pulse 74 07/04/21 07:29 Resp 16 07/04/21 07:29 BP 106/69 07/04/21 07:29 Pulse Ox 93 07/04/21 07:29 07/03/21 07/04/21 07/04/21 22:59 06:59 14:59 Intake Total 1370 / 2738.75 1050 / 3788.75 1000 / 1000 Output Total 200 / 200 Balance 1370 / 2738.75 850 / 3588.75 1000 / 1000 Weight last 48 hrs Weight 72.575 kg Physical Exam Narrative: EXAM NARRATIVE: General: Alert oriented x3. patient seen sitting up in bed appearing comfortable in no acute respiratory distress. On 2 L nasal cannula. HEENT: Normocephalic, atraumatic, EOMI, Cardio: Regular rate rhythm, normal S1-S2, no murmurs rubs gallops, Respiratory: Good bilateral air entry, no wheezes no rhonchi appreciated GI: Abdomen soft, non tender, nondistended, bowel sounds + no guarding no tenderness present. Behavior: Not very cooperative. refusing testing.. Extremities: no edema, no cyanosis Data : 07/03/21 14:48 07/03/21 14:48 Micro: Microbiology 07/02/21 17:30 Blood Culture - Preliminary Blood NEGATIVE TO DATE 07/02/21 14:40 Blood Culture - Preliminary Blood NEGATIVE TO DATE A&P Assessment and plan (1) Sepsis: Status: Acute (2) Urinary retention: Status: Acute (3) Acute exacerbation of chronic obstructive airways disease: Status: Acute (4) Left upper quadrant abdominal mass: Status: Acute (5) Type 2 diabetes mellitus: Status: Acute (6) History of CVA (cerebrovascular accident): Status: Acute (7) Anemia: Status: Acute Additional A&P Information Tucker Tyler is a 61 year old male with past medical history of urinary retention, indwelling Millan catheter, BPH, diabetes, CVA with left-sided weakness, dyslipidemia, hypertension who presents with complaints of nausea vomiting, weakness, urine discoloration. He was in the hospital to 3 weeks ago for acute kidney injury. At that time he was found to have left abdominal large mass suspicious for cancer probably attached to left kidney/adrenal mass, stomach and pancreas. Since the discharge the patient reports not doing very well, reports increasing nausea and vomiting, reports abdominal cramps, urine discoloration, possible fever, dehydration. CTA chest done which rule out PE but does show possible splenic artery aneurysm which is 5 cm in size. Unsure if this is a mass from prior study versus an actual aneurysm versus pseudoaneurysm. Discussed with Dr. Castaneda general surgery and we will need CT abdomen pelvis with contrast to assess further. If patient truly has a splenic artery aneurysm he will need a splenectomy. Patient has also been refusing labs and also pulled out his Millan catheter that was placed last hospital admission for urinary retention. Family came in and after family discussion patient agreed to have labs drawn. Will assess results and proceed further with management. UTI suspected and he is currently on Zosyn for that. We will continue. Possible sepsis secondary to severe?hydration with associated acute metabolic acidosis and acute kidney injury. Repeat labs are pending. Patient will need heme-onc referral at some point. Please see subjective portion of this note for further details. 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 Patient's son and are fully aware the patient has not been compliant to treatment and recommendations and is refusing work-up in the hospital. He is also refusing Millan catheter. I did tell them the possibility of developing a worsening acute kidney injury with possible need for dialysis since he will be given contrast today for CT abdomen pelvis to rule out splenic artery aneurysm for sure. Today's plan 07/04/2021 ?CT abdomen pelvis with oral and IV contrast to rule out abdominal pathology and splenic artery aneurysm ?Patient is refusing Millan catheter or straight catheter bladder scan at this time. Urine output only 200 since admission. He also received contrast twice to his hospital stay. Family aware of risk of contrast-induced nephropathy and acute kidney injury given patient's history and assuming the risks and benefits we went ahead with a CT abdomen pelvis to evaluate for splenic aneurysm yesterday. 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 General surgery consulted. Final recommendations pending. Patient was made n.p.o. overnight however for possible splenectomy. Patient this morning has refused surgery as per nursing staff. Family is supposed to be coming in today but they are not here yet. I did update the son as well yesterday over the phone regarding the CT findings. -Patient also refused labs again this morning. -I will continue normal saline 75 cc an hour mainly for potential development of GINA. However with very minimal urine output and no Millan catheter it will be hard to manage. I tried to reason with the patient but he is refusing. ?Continue insulin sliding scale for diabetes ?Psychiatry consulted. Dr. Mcguire aware of patient. Will await for his evaluation and final recommendation. ?Patient will also need heme-onc referral possibly as an outpatient versus inpatient depending on what the results show. ?For acute urinary retention with chronic Millan I did recommend to the patient to have his Millan catheter replaced but he is refusing. We will try to do bladder scan if we believe he is retaining. We will monitor urine output through urinal for now. He has been seen by Dr. Hua in the past. DVT prophylaxis: SCDs for now. CODE STATUS. The patient wants to be DNR/DNI. He told us this admission and understands what this means. He also said the same in front of his family 07/03/2021 The plan of care was discussed with the patient, his son and his . They all verbalized understanding and agreement. Family updated in person 07/03/2021 and over the phone in evening around 7.15 pm. 07/03/2021: Depending on results of modified barium swallow, further work-up and after discussion with general surgery after CT abdomen pelvis we might make a consideration of transferring the patient to higher level of care or gastroenterology is available howrver I did call [facility] and currently there is no bed available. I have informed the family of this. Patient repeatedly refusing care. Attestations Medical Necessity Statement*: > 24 hour stay. Coding Level of Care Code Acute Application Development Director for [facility] Fwd Diagnoses Sepsis A41.9 Urinary retention R33.9 Acute exacerbation of chronic obstructive airways disease J44.1 Left upper quadrant abdominal mass R19.02 Type 2 diabetes mellitus E11.9 History of CVA (cerebrovascular accident) Z86.73 Anemia D64.9
--- NOTE | 2021-07-04 15:31 | P.NPUCON_ITS ---
Providers/Reason for Consult Consulting Physican/Specialty*: Kevin Alexander MD. Psychiatry. Reason for Consult*: Psychiatric assessment. Attending Physician: Diane Brooke MD Primary Care Provider: Leonel Jolley Psych Consult HPI History of Present Illness Tucker Tyler is a 61 year old male who presented to the emergency department with the following report: Chief Complaint: Shortness of Breath/Dyspnea Stated Complaint: ABD PAIN, SOB Time Seen by Provider: 07/02/21 14:30 History of Present Illness: HPI narrative: 61-year-old male presents to the emergency room complaining of abdominal pain. Patient has altered mental status he is requesting Dr. Zurita (evidently from [facility]) and keeps referring to a nurse Loren. He pulls his oxygen off he is refusing blood draws initially stating that IV starts make him have seizures. He is able to converse with me he has very discolored urine and a Millan that is been present for evidently over a month urine is reddish bile-like color he has been taking large doses of Azo's recently. He states he is has a bladder infection and feels like he has bladder spasms but the Azo's has not been helping. No nausea or vomiting he has previously had a CVA has contractures of his left side particularly his left upper extremity. Patient has a history of diabetes mellitus, seizure disorder hypertension and chronic kidney disease. Is difficult to get him to focus on a particular complaint but when I do he references suprapubic cramping as his main reason for coming in. MD elicited complaint: abdominal pain Pertinent past history: none Onset (ago): unknown Location: Suprapubic Quality: cramping Radiation: none Migration to: no migration Exacerbating factors: nothing Relieving factors: nothing Associated Symptoms: Reports GI cramping, nausea and poor appetite; Denies anorexia, belching, bloating, change in bowel habits, change in stool character, chills, coffee ground emesis, constipation, diarrhea, dyspepsia, dysuria, excessive flatus, fever(s), heartburn, hematochezia, hematuria, hematemesis, fecal incontinence, loose stools, melena, syncope and vomiting. He was admitted to [facility] for definitive treatment of those issues. He had appropriate consultations as well psychiatric consult was requested to identify if there were ways that it was impacting his willingness to engage in treatment. He presents today reporting that he has not had inpatient hospitalization or active outpatient services. He initially denied history of medication but someone had been prescribed him Celexa and BuSpar. He reports that this was likely his primary care doctor he reports that life have been fine until several years ago when he had some strokes. Reports the strokes really reduce his efficacy as a person. He denied any active issues with addiction. He denied any psychosis however I asked him about reports that I heard about aliens in him. Without any problem he went on to explain to be that he has been adopted by aliens but significant experimentation on him. 1 experiment included introducing her creating bones in his rib cage to protect his heart because they were good to have him be a warrior in the wars that are coming. Discussions about his age and appropriateness for grant [email or web address] which was real according to did not hurt his belief in their authenticity. Additionally he reported they had made some alterations in his genes and wanted him to mate with as many humans as possible though he acknowledges his lack of success in this category. He denies contributory family history, developmental history or psychosocial history. 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 We discussed with benefits alternatives of continuing his current medication and adding Abilify 10 mg p.o. every morning and he understood agreed proceed as documented in his note. Meds Current Medications: Current Medications Generic Name Dose Route Start Last Admin Trade Name Freq PRN Reason Stop Dose Admin Hydrocodone Bitart /Acetaminophen 1 tab 07/02/21 16:49 07/04/21 20:39 Hydrocodone-Acet aminophen 10-325 M g Tablet PO 1 tab Q6H PRN Administration Pain Aripiprazole 10 mg 07/04/21 21:00 07/04/21 20:39 Aripiprazole 10 Mg Tablet PO 10 mg BEDTIME KEN Administration Citalopram Hydrobr omide 40 mg 07/04/21 21:00 07/04/21 20:39 Citalopram 20 Mg Tablet PO 40 mg BEDTIME KEN Administration Clonazepam 0.5 mg 07/02/21 16:49 07/04/21 12:00 Clonazepam 0.5 M g Tablet PO 0.5 mg BID PRN Administration Anxiety Dextrose/Sodium Ch loride 1,000 mls @ 125 m ls/hr 07/02/21 16:45 01/02/22 00:13 Dextrose 5%-Sod Chloride 0.9% IV Not Given .Q8H KEN Piperacillin Sod/T azobactam 50 mls @ 12.5 mls /hr 07/02/21 16:45 07/05/21 04:11 Sod 3.375 gm/ So dium Chloride IV Not Given Q8H KEN Protocol Sodium Chloride 1,000 mls @ 75 ml s/hr 07/03/21 15:30 07/04/21 20:40 Sodium Chloride 0.9% IV Not Given .[id number] KEN Insulin Human Lisp ro 0 unit 07/02/21 18:00 07/04/21 21:16 Insulin Lispro 1 00 Unit/1 Ml SUBCUT Not Given WM&BEDTIME KEN Protocol Lorazepam 0.25 mg 07/03/21 15:29 07/03/21 20:30 Lorazepam 2 Mg/M l Inj 1 Ml IVP 0.25 mg Q6H PRN Administration ANXIETY Morphine Sulfate 2 mg 07/02/21 16:43 07/05/21 01:43 Morphine 4 Mg/Ml Sdv 1 Ml IVP 2 mg Q4H PRN Administration SEVERE PAIN Pantoprazole Sodiu m 40 mg 07/02/21 16:45 07/04/21 17:51 Pantoprazole 40 Mg Sdv IVP 40 mg Q24H KEN Administration Tamsulosin HCl 0.4 mg 07/03/21 09:00 07/04/21 09:07 Tamsulosin 0.4 M g Capsule PO 0.4 mg DAILY KEN Administration PFSH NPU PFSH: Medical History Acute kidney injury Chronic kidney disease Chronic pain History of CVA (cerebrovascular accident) History of seizure History of upper gastrointestinal bleeding Hyperlipidemia Hypertension Left upper quadrant abdominal mass Neuropathy Type 2 diabetes mellitus Family History Father , AT AGE 66 Aneurysm Mother , AT AGE 84 Natural Social History Smoking and tobacco status: current every day smoker Alcohol intake: never Marital status: Life Partner Current occupational status: disabled History of recent travel: No Mental Status Exam MSE Comments: This is a well-nourished, well-developed older white male looking older than his stated age with limited dress, grooming but adequate eye contact. No abnormal movements except for mild psychomotor retardation. C ooperative with exam in mild distress. Speech was decreased rate. Mood described as okay, affect slightly subdued. Thought process organized. Thought content: Patient denied suicidal or homicidal ideations, there were no delusions reported but a bizarre alien driven delusions of [place] creatures being real existed, he denied current auditory or visual hallucinations. Attention and concentration were intact and memory was unreliable but none were formally tested. He alert and oriented x3. Insight and judgment are limited, impulse control is limited. Vitals/I&O/Wt Last Vital Signs Temp 98 F 07/04/21 14:00 Pulse 77 07/04/21 14:00 Resp 20 H 07/04/21 14:00 BP 129/75 07/04/21 14:00 Pulse Ox 95 07/04/21 14:00 07/04/21 14:59 Intake Total 1150 / 1150 Output Total 200 / 200 Balance 950 / 950 A&P Assessment and plan (1) Sepsis: Status: Acute (2) Cystitis: Status: Acute (3) Urinary retention: Status: Acute (4) Acute exacerbation of chronic obstructive airways disease: Status: Acute (5) Hypoxia: Status: Acute (6) Neuropathy: Status: Acute (7) Left upper quadrant abdominal mass: Status: Acute (8) Type 2 diabetes mellitus: Status: Acute (9) History of CVA (cerebrovascular accident): Status: Acute (10) Urinary retention: Status: Acute (11) Anemia: Status: Acute (12) Psychosis: Status: Acute (13) 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 1. Continue current medication. Except start Abilify 10 mg p.o. every morning. 2. We will continue to follow. Attestations NPU Medical Necessity Statement*: N/A. Please see primary team note for medical necessity details. 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
[2021-07-04 17:47] LABS: Glucose Point of Care 153 mg/dL (70-110)
[2021-07-04] MEDS: pantoprazole 40 mg SDV IVP (17:51)
[2021-07-04] MEDS: morphine 4 mg/mL SDV 1 mL 2 MG IVP (19:13)
--- NOTE | 2021-07-04 19:38 | PC.NURSE ---
PT HAS REFUSED SOME MEDS, IV FLUIDS, LAB DRAWS. 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 SINGLETON BECAUSE HE WAS GOING TO HAVE A SEIZURE AND THAT SHE NEEDED TO BE IN THE ROOM TO WATCH. DINNER TRAYS WERE PASSED PT GOT A TRAY THAT DID NOT BELONG TO HIM AND HE REFUSED TO GIVE IT TO STAFF WHEN ASKED. PROCEEDED TO CONSUME IT EVEN THOUGH HE WAS NPO. PTS FAMILY ( AND SON) REPORTED TO AUTO FORMER MACHINE OPERATOR THAT PT IS VERY DEMANDING OF PAIN MEDS WHEN AT HOME. DR. SINGLETON NOTIFIED.
--- NOTE | 2021-07-04 19:44 | PC.NURSE ---
1914 patient asks when ambulance will pick him up to go home because he is not having that damn surgery . Explained to him that he would have to discuss that with the doctor in the morning to which he agreed.
[2021-07-04] MEDS: ARIPiprazole 10 mg Tablet PO (20:39)
[2021-07-04] MEDS: citalopram 20 mg Tablet 40 MG PO (20:39)
[2021-07-04 21:12] LABS: Glucose Point of Care 167 mg/dL (70-110)
[2021-07-05] VITALS (8 sets, daily range): BP systolic 101–151; BP diastolic 70–89; PULSE 74–94; RESP 16–21; TEMP 36.4–37; O2SAT 90–95
[2021-07-05] MEDS: morphine 4 mg/mL SDV 1 mL 2 MG IVP ×4 (01:43→20:06)
[2021-07-05 06:31] LABS: Glucose Point of Care 148 mg/dL (70-110)
[2021-07-05] MEDS: tamsulosin 0.4 mg Capsule PO (08:00)
[2021-07-05] MEDS: HYDROcodone-acetaminophen 10-325 mg Tablet 1 TAB PO ×2 (10:35→17:25)
--- NOTE | 2021-07-05 11:03 | PC.OT ---
DISCHARGE OT ORDER UNTIL SURGERY COMPLETED AND PATIENT APPROPRIATE FOR SKILLED OT TREATMENT.
[2021-07-05 11:19] LABS: Glucose Point of Care 137 mg/dL (70-110)
--- NOTE | 2021-07-05 12:27 | PC.PT ---
Physical therapy on hold until further orders received per discussion with Dr. Brooke, due to patient having fragile splenic aneurysm.
--- NOTE | 2021-07-05 13:53 | PM.PN ---
Subjective Subjective: Interval history: Patient seen this morning. He states he does not want surgery. He is requesting for more Ativan this morning. I did tell him it was ordered for him in the computer but he did not seem to believe me. Patient also denies having heartburn today. He did take the GI cocktail yesterday and he felt better. Currently is on a clear liquid diet. We will make him n.p.o. tonight for barium swallow tomorrow morning. He was seen by Dr. Alexander yesterday. Dr. Alexander will be seeing him again today. I had a long discussion with Dr. Alexander and he will making further recommendations. Patient continues to refuse Millan catheter, bladder scan and labs Vitals/I&O/Wt Last Vital Signs Temp 98.5 F 07/05/21 12:31 Pulse 74 07/05/21 12:31 Resp 18 07/05/21 12:31 BP 117/70 07/05/21 12:31 Pulse Ox 91 07/05/21 12:31 07/04/21 07/05/21 07/05/21 22:59 06:59 14:59 Intake Total 200 / 1350 Output Total 300 / 500 550 / 1050 Balance -300 / 650 -350 / 300 Physical Exam Narrative: EXAM NARRATIVE: General: Alert oriented x3. patient seen sitting up in bed appearing comfortable in no acute respiratory distress. On 2 L nasal cannula. HEENT: Normocephalic, atraumatic, EOMI, Cardio: Regular rate rhythm, normal S1-S2, no murmurs rubs gallops, Respiratory: Good bilateral air entry, no wheezes no rhonchi appreciated GI: Abdomen soft, non tender, nondistended, bowel sounds + no guarding no tenderness present. Patient continues to refuse testing. Extremities: no edema, no cyanosis Data : 07/03/21 14:48 07/03/21 14:48 Micro: Microbiology 07/03/21 20:10 Urine Culture - Preliminary Urine,Voided A&P Assessment and plan (1) Sepsis: Status: Acute (2) Urinary retention: Status: Acute (3) Acute exacerbation of chronic obstructive airways disease: Status: Acute (4) Left upper quadrant abdominal mass: Status: Acute (5) Type 2 diabetes mellitus: Status: Acute (6) History of CVA (cerebrovascular accident): Status: Acute (7) Anemia: Status: Acute Additional A&P Information Tucker Tyler is a 61 year old male with past medical history of urinary retention, indwelling Millan catheter, BPH, diabetes, CVA with left-sided weakness, dyslipidemia, hypertension who presents with complaints of nausea vomiting, weakness, urine discoloration. He was in the hospital to 3 weeks ago for acute kidney injury. At that time he was found to have left abdominal large mass suspicious for cancer probably attached to left kidney/adrenal mass, stomach and pancreas. Since the discharge the patient reports not doing very well, reports increasing nausea and vomiting, reports abdominal cramps, urine discoloration, possible fever, dehydration. CTA chest done which rule out PE but does show possible splenic artery aneurysm which is 5 cm in size. Unsure if this is a mass from prior study versus an actual aneurysm versus pseudoaneurysm. Chest abdomen pelvis with contrast was done and it revealed a 5 cm splenic artery aneurysm. Dr. Castaneda from general surgery was consulted who recommended splenectomy. Patient has been refusing surgery. He has also been refusing labs and pulled out his Millan catheter that was placed last hospital admission for urinary retention. Prior to doing the CT abdomen with contrast there was a discussion done with family regarding potential acute kidney injury and contrast-induced nephropathy due to patient's history of GINA. It was decided to proceed further with CT abdomen. Patient was also seen by psychiatry and further recommendations are pending at this point. Patient has had psychotic patient during hospital stay where he believes he was affected by aliens and have placed heartburn to him. He also states he is ready to and appears depressed. At this point patient is refusing surgery repeatedly, he is DNR/DNI and is pending a complete psych eval and recommendations. Him and his family do understand that not proceeding with splenectomy can potentially cause if the spleen ruptures. As per radiology report spleen is at risk of spontaneous rupture due to its size. It is possible if patient continues to refuse medical management of his acute issues we might transfer him to NPU and remain as consult if patient would allow. We will wait for Dr. Alexander further recommendations. #Acute urinary retention #Large patent splenic artery aneurysm 5 cm #Acute on chronic psychosis #Chronic indwelling Millan catheter secondary to BPH?patient has pulled out Millan at this admission #CVA with left-sided weakness?prior diagnosis #Dyslipidemia #Hypertension #Possible acute kidney injury versus contrast-induced injury?do not have any labs to prove but have high suspicion since patient got contrast twice and has a history of GINA. Today's plan 07/05/2021 ?CT abdomen pelvis with oral and IV contrast showed splenic artery aneurysm ?Patient is refusing labs, bladder scan, Millan catheter, straight cath. Urine output since admission only 200 cc. He has received contrast twice during this hospital stay and family is aware of risk of contrast-induced nephropathy and GINA. But without labs or further management for this patient is at risk for deterioration. He was placed on IV fluids as well but since urine output is low because of urinary retention most likely I have discontinued his IV fluids. -Continue insulin sliding scale for diabetes ?Continue patient on clear liquids. He is also complained of dysphagia and is set up to go for modified barium swallow tomorrow morning. He will be made n.p.o. at midnight for that. Unsure if patient will actually let us do the study. I have discussed with the patient what the study entails and the reason of doing it. -Awaiting further recommendations from psych. They will also assess for capacity. ?CT with oral and IV contrast did not show a mass or any other pathology besides a splenic artery aneurysm so I do not think he will need oncology referral at discharge as previously discussed in previous progress notes. -Most likely there is acute urinary retention but patient is refusing further management. DVT prophylaxis: SCDs for now. CODE STATUS. DNR/DNI Family has been updated extensively in detail regarding patient's refusal of care. Patient repeatedly refusing care. Attestations Medical Necessity Statement*: Greater than 24 to 48 hours. Coding Level of Care Code Acute Customer Solutions Coordinator for [facility] Fwd Diagnoses Sepsis A41.9 Urinary retention R33.9 Acute exacerbation of chronic obstructive airways disease J44.1 Left upper quadrant abdominal mass R19.02 Type 2 diabetes mellitus E11.9 History of CVA (cerebrovascular accident) Z86.73 Anemia D64.9
--- NOTE | 2021-07-05 15:31 | W.PM.NPUPNS ---
Subjective NPU Subjective: Interval history: Patient presents today reporting that he is not wanting to get the surgery. He continued to report a belief that he was abducted by aliens and they did experiments on him. He reported that he wished that the treatment team would slow down and they are interested in surgery. We a long discussion about the limitations on his desire to have an urgent or emergent situation slowed down. We discussed his understanding of his condition both in regards to his urine output and his spleen which had some limitations. He was able to express his desire not to have a catheter and to have the laparoscopic approach instead of a open surgery. We discussed the fact that there are limitations on options available to treat certain situations and that rational decision making lands on on the right procedure. That reasoning that is founded on phobic behavior is problematic. Mental Status Exam MSE Comments: This is a well-nourished, well-developed older white male looking older than his stated age with limited dress, grooming but adequate eye contact. No abnormal movements except for mild psychomotor retardation. Cooperative with exam in mild distress. Speech was decreased rate and volume. Mood described as okay, affect slightly subdued. Thought process organized. Thought content: Patient denied suicidal or homicidal ideations, there were no delusions reported but a bizarre alien driven delusions of Klingon creatures being real existed, he denied current auditory or visual hallucinations. Attention and concentration were intact and memory was unreliable but none were formally tested. He alert and oriented x3. Insight and judgment are limited, impulse control is limited. Vitals/I&O/Wt Last Vital Signs Temp 97.6 F 07/05/21 15:10 Pulse 94 07/05/21 15:10 Resp 16 07/05/21 15:10 BP 134/75 07/05/21 15:10 Pulse Ox 95 07/05/21 15:10 07/05/21 07/05/21 07/05/21 06:59 14:59 22:59 Intake Total 200 / 1350 Output Total 550 / 1050 Balance -350 / 300 Data NPU : 07/03/21 14:48 07/03/21 14:48 Micro: Microbiology 07/03/21 20:10 Urine Culture - Preliminary Urine,Voided Microbiology 07/03/21 20:10 Urine,Voided Urine Culture - Preliminary A&P Additional A&P Information (1) Sepsis: (2) Cystitis: (3) Urinary retention: (4) Acute exacerbation of chronic obstructive airways disease: (5) Hypoxia: (6) Neuropathy: (7) Left upper quadrant abdominal mass: (8) Type 2 diabetes mellitus: (9) History of CVA (cerebrovascular accident): (10) Urinary retention: (11) Anemia: (12) Psychosis: (13) 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 1. Continue current medication. Make sure his home medications have been restarted. 2. Significant concerns exist regarding his capacity for decision-making. He is able to express a choice, but his ability to demonstrate understanding, appreciate the consequences of the decision but most importantly demonstrate reasoning in his decision-making process that is rational is of great concern. One could argue very naturally that if he believes that there are Klingons that are real and have gone experiments on him and asked him to spread his seed with human women that it would be impossible to know that his thinking is not impacted in his concerns about treatment team's intentions or plans though he denied some of that on the requesting. His depression and psychosis as well as some likely phobic fears of having a catheter appear to be impacting his ability to make decisions. 3. However given the invasive nature of the treatments, prior to moving forward, we should discuss the situation with his family as well as consult with the ethics committee or get an ethics consult. 4. We will continue to follow. Attestations NPU Medical Necessity Statement*: N/A. Please see primary team note for medical necessity details. Coding Level of Care Code Acute Bean Snipper for Paty Mancia
[2021-07-05] MEDS: CLONazepam 0.5 mg Tablet PO (15:51)
[2021-07-05 17:05] LABS: Glucose Point of Care 311 mg/dL (70-110)
[2021-07-05] MEDS: pantoprazole 40 mg SDV IVP (17:25)
[2021-07-05] MEDS: insulin lispro 100 unit/1 mL SUBCUT (17:26)
[2021-07-05] MEDS: citalopram 20 mg Tablet 40 MG PO (20:02)
[2021-07-05] MEDS: piperacillin-tazobactam 3.375 GM in sodium chloride 0.9% (plus) 50 ML IV (20:02)
[2021-07-05] MEDS: ARIPiprazole 10 mg Tablet PO (20:02)
[2021-07-05] MEDS: LORazepam 2 mg/mL INJ 1 mL 0.25 MG IVP (20:05)
[2021-07-05 21:16] LABS: Glucose Point of Care 109 mg/dL (70-110)
[2021-07-06] MEDS: HYDROcodone-acetaminophen 10-325 mg Tablet 1 TAB PO ×3 (03:18→16:25)
[2021-07-06 04:00] VITALS: BP 123/79; PULSE 67; RESP 18; TEMP 36.9; O2SAT 93
[2021-07-06] MEDS: piperacillin-tazobactam 3.375 GM in sodium chloride 0.9% (plus) 50 ML IV (04:15)
[2021-07-06] MEDS: CLONazepam 0.5 mg Tablet PO ×2 (04:16→13:50)
[2021-07-06 06:26] LABS: Basophils # 0.1 10^3/uL (0.0-0.1); Basophils % 1.1 %; Eosinophils # 0.4 10^3/uL (0.0-0.8); Eosinophils % 4.5 %; Hematocrit 31.3 % (42.0-52.0); Hemoglobin 9.3 g/dL (11.7-16.6); Lymphocytes # 1.5 10^3/uL (0.8-4.8); Lymphocytes % 19.2 %; Mean Corpuscular HGB Conc 29.7 g/dL (30.0-36.0); Mean Corpuscular Hemoglobin 28.3 pg (28.0-34.0); Mean Corpuscular Volume 95.1 fl (80-94); Mean Platelet Volume 9.9 fL (7.4-10.4); Monocytes # 0.7 10^3/uL (0.2-0.9); Monocytes % 9.3 %; Neutrophils # 5.19 10^3/uL (1.8-7.7); Nucleated Red Blood Cells % 0 %; Platelet Count 364 10^3/cmm (130-400); Red Blood Count 3.29 10^6/uL (4.1-5.3)
[2021-07-06 06:36] VITALS: RESP 16
[2021-07-06] MEDS: morphine 4 mg/mL SDV 1 mL 2 MG IVP ×3 (06:36→13:50)
[2021-07-06 06:47] LABS: Glucose Point of Care 163 mg/dL (70-110)
[2021-07-06 06:50] LABS: Anion Gap 15.1 (5-19); Blood Urea Nitrogen 7 mg/dL (8-23); Calcium 8.7 mg/dL (8.5-10.5); Carbon Dioxide 16 mmol/L (22-29); Chloride 107 mmol/L (98-107); Creatinine Clr Calc Pharmacy 74.4142; Glomerular Filtration Rate 75.7 mL/min (90-130); Glucose 136 mg/dL (65-115); Magnesium 1.5 mg/dL (1.7-2.3); Osmolality Calculated 278 mOsm/kg (285-295); Potassium 4.1 mmol/L (3.5-5.1); Sodium 134 mmol/L (136-145)
[2021-07-06 07:09] VITALS: BP 100/63; PULSE 78; RESP 18; TEMP 36.6; O2SAT 91
[2021-07-06] MEDS: tamsulosin 0.4 mg Capsule PO (08:05)
[2021-07-06] MEDS: insulin lispro 100 unit/1 mL SUBCUT ×4 (08:05→21:10)
[2021-07-06 11:40] LABS: Glucose Point of Care 186 mg/dL (70-110)
[2021-07-06 11:45] VITALS: BP 131/83; PULSE 82; RESP 16; TEMP 37.1; O2SAT 90
--- NOTE | 2021-07-06 12:52 | PM.PN ---
Subjective Subjective: Interval history: Seen this morning. Labs reviewed this morning. Vitals/I&O/Wt Last Vital Signs Temp 98.8 F 07/06/21 11:45 Pulse 82 07/06/21 11:45 Resp 16 07/06/21 11:45 BP 131/83 07/06/21 11:45 Pulse Ox 90 07/06/21 11:45 07/05/21 07/06/21 07/06/21 22:59 06:59 14:59 Intake Total 240 / 240 450 / 690 50 / 50 Output Total 1000 / 1000 365 / 1365 200 / 200 Balance -760 / -760 85 / -675 -150 / -150 Physical Exam Narrative: EXAM NARRATIVE: General: Alert oriented x3. patient seen laying up in bed appearing comfortable in no acute respiratory distress. On 2 L nasal cannula. HEENT: Normocephalic, atraumatic, EOMI, Cardio: Regular rate rhythm, normal S1-S2, no murmurs rubs gallops, Respiratory: Good bilateral air entry, no wheezes no rhonchi appreciated GI: Abdomen soft, non tender, nondistended, bowel sounds + no guarding no tenderness present. Extremities: no edema, no cyanosis Data : 07/06/21 06:00 07/06/21 06:00 Micro: Microbiology 07/03/21 20:10 Urine Culture - Final Urine,Voided A&P Assessment and plan (1) Sepsis: Status: Acute (2) Urinary retention: Status: Acute (3) Acute exacerbation of chronic obstructive airways disease: Status: Acute (4) Left upper quadrant abdominal mass: Status: Acute (5) Type 2 diabetes mellitus: Status: Acute (6) History of CVA (cerebrovascular accident): Status: Acute (7) Anemia: Status: Acute Additional A&P Information Tucker Tyler is a 61 year old male with past medical history of urinary retention, indwelling Millan catheter, BPH, diabetes, CVA with left-sided weakness, dyslipidemia, hypertension who presents with complaints of nausea vomiting, weakness, urine discoloration. He was in the hospital to 3 weeks ago for acute kidney injury. At that time he was found to have left abdominal large mass suspicious for cancer probably attached to left kidney/adrenal mass, stomach and pancreas. Since the discharge the patient reports not doing very well, reports increasing nausea and vomiting, reports abdominal cramps, urine discoloration, possible fever, dehydration. CTA chest done which rule out PE but does show possible splenic artery aneurysm which is 5 cm in size. Unsure if this is a mass from prior study versus an actual aneurysm versus pseudoaneurysm. Chest abdomen pelvis with contrast was done and it revealed a 5 cm splenic artery aneurysm. Dr. Castaneda from general surgery was consulted who recommended splenectomy. Patient has been refusing surgery. He has also been refusing labs and pulled out his Millan catheter that was placed last hospital admission for urinary retention. Prior to doing the CT abdomen with contrast there was a discussion done with family regarding potential acute kidney injury and contrast-induced nephropathy due to patient's history of GINA. It was decided to proceed further with CT abdomen. Patient was also seen by psychiatry and further recommendations are pending at this point. Patient has had psychotic patient during hospital stay where he believes he was affected by aliens and have placed heartburn to him. He also states he is ready to and appears depressed. At this point patient is refusing surgery repeatedly, he is DNR/DNI and is pending a complete psych eval and recommendations. Him and his family do understand that not proceeding with splenectomy can potentially cause if the spleen ruptures. As per radiology report spleen is at risk of spontaneous rupture due to its size. It is possible if patient continues to refuse medical management of his acute issues we might transfer him to NPU and remain as consult if patient would allow. We will wait for Dr. Alexander further recommendations. 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 Urine output 1795 in last 24 hours. -Continue insulin sliding scale for diabetes ?Dysphagia ruled out. Modfied barium swallow ok. Seen by speech. Now on regular diet. - Seen by psych. Unsure entirely if pt has capacity but it seems he does have capacity after extensive discussion with Dr. Alexander. He advised to get ethics comittee involved. Talked to ethics committee and discussed in detail. Pt cannot be forced for treatment as it seems he does somewhat understand what is going on. - Consideration being made for pt to transfer to NPU. I have discussed this with family. They will get back to me with a decision. DVT prophylaxis: SCDs for now. CODE STATUS. DNR/DNI Family updated today. Patient repeatedly refusing care intermittently Attestations Medical Necessity Statement*: > 24 hour stay Coding Level of Care Code Acute Solar Installer Pv for Chg Fwd Diagnoses Sepsis A41.9 Urinary retention R33.9 Acute exacerbation of chronic obstructive airways disease J44.1 Left upper quadrant abdominal mass R19.02 Type 2 diabetes mellitus E11.9 History of CVA (cerebrovascular accident) Z86.73 Anemia D64.9
--- NOTE | 2021-07-06 15:29 | FL_ITS ---
WS: [id number] MODIFIED BARIUM SWALLOW HISTORY: Pharyngeal dysphagia FLUOROSCOPY TIME: 2.6 minutes. Modified barium swallow was performed by the speech pathologist. Fluoroscopy was provided with the pa tient in a lateral projection. Multiple food consistencies were provided. Patient was able to follow all food consistencies without difficulty. No aspiration or laryngeal pene tration. Several episodes of premature spillage from the vallecula to the piriform sinuses during thi s examination. Patient was able to swallow the barium tablet with no difficulty. FL/FL barium swallow modifd [id number] IMPRESSION: 1. Mild early spillage from the vallecula to the piriform sinuses. 2. No aspiration or laryngeal penetration. Please see speech therapist report also for recommendations.
[2021-07-06 15:37] VITALS: BP 122/83; PULSE 106; RESP 18; TEMP 37.2; O2SAT 90
[2021-07-06 17:06] LABS: Glucose Point of Care 182 mg/dL (70-110)
--- NOTE | 2021-07-06 18:03 | P.NPUPN_ITS ---
Subjective NPU Subjective: Interval history: Patient presents today continuing to take his medication as prescribed but still endorsing that the psychosis that he is obviously experiencing is in fact reality. He actually got somewhat irritated with this residential mortgage underwriter when he fell at I did not believe that Klingons were real. We had begun a discussion about comic cons and how people go dressed as Star Trek characters and we began a conversation about whether any of those people knew that they were real and he stated that it was nothing to joke about. Otherwise there were no changes. Mental Status Exam MSE Comments: This is a well-nourished, well-developed older white male looking older than his stated age with limited dress, grooming but adequate eye contact. No abnormal movements except for mild psychomotor retardation. Cooperative with exam in mild distress. Speech was decreased rate and volume. Mood described as fair, affect slightly subdued. Thought process organized. Thought content: Patient denied suicidal or homicidal ideations, there were no delusions reported but a bizarre alien driven delusions of Klingon creatures being real existed, he denied current auditory or visual hallucinations. Attention and concentration were intact and memory was unreliable but none were formally tested. He alert and oriented x3. Insight and judgment are limited, impulse control is limited. Vitals/I&O/Wt Last Vital Signs Temp 97.5 F L 07/06/21 19:15 Pulse 95 07/06/21 19:15 Resp 17 07/06/21 19:15 BP 106/69 07/06/21 19:15 Pulse Ox 90 07/06/21 19:15 07/06/21 22:59 Intake Total Output Total 250 / 450 Balance -250 / -40 Data NPU : 07/06/21 06:00 07/06/21 06:00 Micro: Microbiology 07/03/21 20:10 Urine Culture - Final Urine,Voided Microbiology 07/03/21 20:10 Urine,Voided Urine Culture - Final A&P Additional A&P Information (1) Sepsis: (2) Cystitis: (3) Urinary retention: (4) Acute exacerbation of chronic obstructive airways disease: (5) Hypoxia: (6) Neuropathy: (7) Left upper quadrant abdominal mass: (8) Type 2 diabetes mellitus: (9) History of CVA (cerebrovascular accident): (10) Urinary retention: (11) Anemia: (12) Psychosis: (13) 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 1. Continue current medication. 2. Significant concerns exist regarding his capacity for decision-making. He is able to express a choice, but his ability to demonstrate understanding, appreciate the consequences of the decision but most importantly demonstrate reasoning in his decision-making process that is rational is of great concern. One could argue very naturally that if he believes that there are Klingons that are real and have gone experiments on him and asked him to spread his seed with human women that it would be impossible to know that his thinking is not impacted in his concerns about treatment team's intentions or plans though he denied some of that on the requesting. His depression and psychosis as well as some likely phobic fears of having a catheter appear to be impacting his ability to make decisions. 3. However given the invasive nature of the treatments, prior to moving forward, we should discuss the situation with his family as well as consult with the ethics committee or get an ethics consult. 4. It would be reasonable to consider transfer to the neuropsychiatric unit if he is stable and able to manage himself independently to see if we can resolve the psychosis and if he is more agreeable to interventions after his psychosis clears. 5. We will continue to follow. Attestations NPU Medical Necessity Statement*: N/A. Please see primary team note for medical necessity details. Coding Level of Care Code Acute Shop Coordinator for Paty Mancia
[2021-07-06 19:15] VITALS: BP 106/69; PULSE 95; RESP 17; TEMP 36.4; O2SAT 90
--- NOTE | 2021-07-06 19:15 | PC.NURSE ---
i reported low temp 97.5 to nurse
[2021-07-06] MEDS: HYDROcodone-acetaminophen 5-325 mg Tablet 1 TAB PO (20:18)
[2021-07-06] MEDS: citalopram 20 mg Tablet 40 MG PO (20:18)
[2021-07-06] MEDS: ARIPiprazole 10 mg Tablet PO (20:18)
[2021-07-06] MEDS: LORazepam 0.5 mg Tablet 0.25 MG PO (21:10)
[2021-07-06 21:26] LABS: Glucose Point of Care 155 mg/dL (70-110)
[2021-07-07] VITALS (7 sets, daily range): BP systolic 115–145; BP diastolic 65–79; PULSE 75–90; RESP 16–18; TEMP 36.3–36.8; O2SAT 91–97
[2021-07-07] MEDS: HYDROcodone-acetaminophen 5-325 mg Tablet 1 TAB PO ×6 (00:36→22:29)
--- NOTE | 2021-07-07 04:12 | PC.NURSE ---
For the past couple of days the patient has been refusing his IV fluids and IV ABX, this nurse was able to get patient to take his ABX 07/06/21 but no fluids, however this nurse was not able to give him his ABX this shift d/t him refusing. This nurse educated patient on the importance of the ABX's.
[2021-07-07] MEDS: LORazepam 0.5 mg Tablet 0.25 MG PO ×3 (04:50→20:42)
[2021-07-07 06:45] LABS: Glucose Point of Care 160 mg/dL (70-110)
[2021-07-07] MEDS: tamsulosin 0.4 mg Capsule PO (08:41)
[2021-07-07] MEDS: pantoprazole DR 40 mg Tablet PO (08:41)
[2021-07-07] MEDS: insulin lispro 100 unit/1 mL SUBCUT ×3 (08:41→17:23)
--- NOTE | 2021-07-07 10:15 | PC.CHAP ---
Pastoral Care Encounter/Spiritual Assessment Type of Contact [] Declined electrical engineering professor visit [] Patient/Family/Request visit [] Outpatient visit [] Follow-up visit [] Physician referral [] Code/Alert [x] Routine visit [] Staff referral [] Actively dying [] Patient sleeping [] Family support [] [] Out of room [] Palliative care [] [] Receiving care in room [] Pre-surgical visit [] Trauma [] Long length of stay [] ICU visit [] Other: Relational/Emotional Strength [x] Patient feels connected with others/family/visitors/staff [] Distress [] Loneliness/isolation [] Abandonment Spirituality of Patient [x] Person of Belen [x] Attends Temple of their Belen [x] Believes in Prayer [x] Reads Bible or Tenriism materials [] There are Spiritual issues to be addressed Tin Cutter Interventions [x] Prayer [x] Active listening [x] Non-anxious presence [x] Spiritual/emotional support [] Crisis/trauma care [] Spiritual counseling [] Bereavement support [] Provided bereavement packet [] Provided Bible/devotional materials [] Provided toy/stuffed animal, coloring book to patient or family member [] Provided Communion [] Anointing/[place] [] Salvation [x] Completed spiritual assessment [] Other: Impact on Illness or Injury [] Angry [] Fearful [] Anxious [] Often cries [] Exhaustion [] Unable to work [] Unable to attend congregational [] Unable to walk/stand [] Unable to read [] Unable to drive [] Unable to eat/drink [] Unable to sleep [] Unable to be with family [] Patient intubated [] Other: Summary Pt indicated the doctor is still trying to determine what is wrong. Pt was glad to see electrical engineering professor and have a visit. Pt is and has not been able to visit much since she lives in [facility] and is not in the best of health either. She had a hip replaced after breaking it, but now the hip is coming apart and more work will need to be done. Pt. asked for prayer for his 27 year old daughter who has became hooked on drugs. He also has a son who has over came his addiction. Pt had stroke several years ago and until then was very active and working two jobs. 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 Pt and do not currently attend a formal uatsdin service, but a prayer group comes to the apartment where they live. Time spent with patient 15 m
[2021-07-07 11:00] LABS: Glucose Point of Care 171 mg/dL (70-110)
--- NOTE | 2021-07-07 11:35 | PM.PN ---
Subjective Subjective: Interval history: Refused to be examined today and refused labs again. He is also requesting for morphine for his pain. When asked where his pain is he is unable to tell me what is hurting. He just does not have pain. He is getting hydrocodone and Ativan as per nursing staff. He also complains of having bladder spasms. Vitals/I&O/Wt Last Vital Signs Temp 97.4 F L 07/07/21 07:21 Pulse 81 07/07/21 07:21 Resp 18 07/07/21 07:21 BP 138/67 07/07/21 07:21 Pulse Ox 96 07/07/21 07:21 07/06/21 07/07/21 07/07/21 22:59 06:59 14:59 Intake Total 600 / 1010 240 / 240 Output Total 250 / 450 150 / 600 100 / 100 Balance -250 / -40 450 / 410 140 / 140 Physical Exam Narrative: EXAM NARRATIVE: He refused to be examined today unless I gave him morphine. Patient was not examined. No acute distress noted. Patient looks very comfortable in bed. Data : 07/06/21 06:00 07/06/21 06:00 Micro: Microbiology 07/03/21 20:10 Urine Culture - Final Urine,Voided A&P Assessment and plan (1) Sepsis: Status: Acute (2) Urinary retention: Status: Acute (3) Acute exacerbation of chronic obstructive airways disease: Status: Acute (4) Left upper quadrant abdominal mass: Status: Acute (5) Type 2 diabetes mellitus: Status: Acute (6) History of CVA (cerebrovascular accident): Status: Acute (7) Anemia: Status: Acute Additional A&P Information Tucker Tyler is a 61 year old male with past medical history of urinary retention, indwelling Millan catheter, BPH, diabetes, CVA with left-sided weakness, dyslipidemia, hypertension who presents with complaints of nausea vomiting, weakness, urine discoloration. He was in the hospital to 3 weeks ago for acute kidney injury. At that time he was found to have left abdominal large mass suspicious for cancer probably attached to left kidney/adrenal mass, stomach and pancreas. Since the discharge the patient reports not doing very well, reports increasing nausea and vomiting, reports abdominal cramps, urine discoloration, possible fever, dehydration. CTA chest done which rule out PE but does show possible splenic artery aneurysm which is 5 cm in size. Unsure if this is a mass from prior study versus an actual aneurysm versus pseudoaneurysm. Chest abdomen pelvis with contrast was done and it revealed a 5 cm splenic artery aneurysm. Dr. Castaneda from general surgery was consulted who recommended splenectomy. Patient has been refusing surgery. He has also been refusing labs and pulled out his Millan catheter that was placed last hospital admission for urinary retention. Prior to doing the CT abdomen with contrast there was a discussion done with family regarding potential acute kidney injury and contrast-induced nephropathy due to patient's history of GINA. It was decided to proceed further with CT abdomen. Patient was also seen by psychiatry and further recommendations are pending at this point. Patient has had psychotic patient during hospital stay where he believes he was affected by aliens and have placed heartburn to him. He also states he is ready to and appears depressed. At this point patient is refusing surgery repeatedly, he is DNR/DNI and is pending a complete psych eval and recommendations. Him and his family do understand that not proceeding with splenectomy can potentially cause if the spleen ruptures. As per radiology report spleen is at risk of spontaneous rupture due to its size. It is possible if patient continues to refuse medical management of his acute issues we might transfer him to NPU and remain as consult if patient would allow. Discussed with Dr. Alexander regarding transfer to NPU. Dr. Alexander is willing to accept him. Will be discussing with family today. 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 Urine output 1795 in last 24 hours. -Continue insulin sliding scale for diabetes ?Dysphagia ruled out. Modfied barium swallow ok. Seen by speech. Now on regular diet. - Seen by psych. Unsure entirely if pt has capacity but it seems he does have capacity after extensive discussion with Dr. Alexander. He advised to get ethics comittee involved. Talked to ethics committee and discussed in detail. Pt cannot be forced for treatment as it seems he does somewhat understand what is going on. - Consideration being made for pt to transfer to NPU. I have discussed this with family. Family agreeable to transfer to NPU. Dr. Alexander also to accept him. Will need to complete paperwork with case management and then transfer patient. DVT prophylaxis: SCDs for now. CODE STATUS. DNR/DNI Family updated 07/06 Patient repeatedly refusing care intermittently Attestations Medical Necessity Statement*: >24 hrs Coding Level of Care Code Acute Managed Services Sales Consultant for g Fwd Diagnoses Sepsis A41.9 Urinary retention R33.9 Acute exacerbation of chronic obstructive airways disease J44.1 Left upper quadrant abdominal mass R19.02 Type 2 diabetes mellitus E11.9 History of CVA (cerebrovascular accident) Z86.73 Anemia D64.9
--- NOTE | 2021-07-07 12:16 | PC.NURSE ---
this nurse was alerted to a bed alarm sounding, came to the room to check on mr mckeon and turn off alarm. this nurse inquired as to the needs of the pt d/t his attempt to get out of the bed. pt asked if this nurse had found her , upon further questioning and discussion the her pt was referring to was his nurse Helen Nance LPN. the pt was wanting to know if his nurse had spoken with the Dr about his meds (hydrocodone, xanax, and morphine) and how he was wanting them. this nurse informed the pt that they would tell his nurse of his needs and request, and as this nurse was turning to leave the room the pt stated he was getting tired of waiting. he stated if it doesn't get taken care of soon I'm leaving, and it might be out this window in reference to the window beside his bed in his room. this nurse cautioned him again such a statement, that his nurse would be found and needs addressed. this nurse found his nurse promptly, informed her of what had transpired, no meds were able to be given since it was too soon for next administration, and pts dr was made aware of statements that the pt had made.
[2021-07-07] MEDS: oxybutynin 5 mg Tablet PO ×2 (13:13→17:23)
--- NOTE | 2021-07-07 16:07 | W.PM.NPUPNS ---
Subjective NPU Subjective: Interval history: Patient presents today initially stating that he is upset with this procedure writer secondary to the 96-hour hold. However we had a good discussion about the fact that this procedure writer has documented our conversations without bias. We discussed the concerns about his mental reasoning for not getting the catheter or the surgery. We also discussed the concerns about Klingons. 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 Mental Status Exam MSE Comments: This is a well-nourished, well-developed older white male looking older than his stated age with limited dress, grooming but adequate eye contact. No abnormal movements except for mild psychomotor retardation. Cooperative with exam in no acute distress. Speech was decreased rate and volume. Mood described as upset, affect slightly subdued. Thought process organized. Thought content: Patient denied suicidal or homicidal ideations, there were no delusions reported but a bizarre alien driven delusions of Lucieningon creatures being real existed, he denied current auditory or visual hallucinations. Attention and concentration were intact and memory was unreliable but none were formally tested. He alert and oriented x3. Insight and judgment are limited, impulse control is limited. Vitals/I&O/Wt Last Vital Signs Temp 98.2 F L 07/07/21 12:00 Pulse 84 07/07/21 15:45 Resp 18 07/07/21 15:45 BP 145/76 07/07/21 15:45 Pulse Ox 92 07/07/21 15:45 07/07/21 14:59 Intake Total 600 / 600 Output Total 100 / 100 Balance 500 / 500 Data NPU : 07/06/21 06:00 07/06/21 06:00 Micro: Microbiology 07/02/21 17:30 Blood Culture - Final Blood NO GROWTH AFTER 5 DAYS 07/02/21 14:40 Blood Culture - Final Blood NO GROWTH AFTER 5 DAYS Microbiology 07/02/21 17:30 Blood Blood Culture - Final NO GROWTH AFTER 5 DAYS 07/02/21 14:40 Blood Blood Culture - Final NO GROWTH AFTER 5 DAYS A&P Additional A&P Information (1) Sepsis: (2) Cystitis: (3) Urinary retention: (4) Acute exacerbation of chronic obstructive airways disease: (5) Hypoxia: (6) Neuropathy: (7) Left upper quadrant abdominal mass: (8) Type 2 diabetes mellitus: (9) History of CVA (cerebrovascular accident): (10) Urinary retention: (11) Anemia: (12) Psychosis: (13) 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 1. Continue current medication. We will consider increase in Abilify tomorrow. 2. Significant concerns exist regarding his capacity for decision-making. He is able to express a choice, but his ability to demonstrate understanding, appreciate the consequences of the decision but most importantly demonstrate reasoning in his decision-making process that is rational is of great concern. One could argue very naturally that if he believes that there are Klingons that are real and have gone experiments on him and asked him to spread his seed with human women that it would be impossible to know that his thinking is not impacted in his concerns about treatment team's intentions or plans though he denied some of that on the requesting. His depression and psychosis as well as some likely phobic fears of having a catheter appear to be impacting his ability to make decisions. 3. Transfer to neuropsychiatric unit currently not possible secondary to staffing and inability to meet his physical needs of assistance to the bathroom and ambulation etc. 4. We will continue to treat his psychosis in hopes of helping it clear that he can make informed consent. Attestations NPU Medical Necessity Statement*: Inpatient hospitalization is medically necessary and the clinically appropriate intervention at this time. We will monitor medication to make changes as indicated. Patient will be in the hospital for over two midnights. Likely length of stay 3 to 5 days. Coding Level of Care Code Acute Rim Turning Finisher for Paty Mancia
[2021-07-07] MEDS: haloperidol inj 5 mg/mL INJ 1 mL 2 MG IM (16:16)
[2021-07-07 17:16] LABS: Glucose Point of Care 156 mg/dL (70-110)
--- NOTE | 2021-07-07 17:16 | PC.NURSE ---
THIS NURSE AND DR. AVELAR WALKED INTO PATIENT'S ROOM. PATIENT STATED THAT HE WOULD JUMP THROUGH THE WINDOW HEAD FIRST. THAT HE HAS MADE PEACE WITH THIS WORLD . 96 HOUR HOLD PLACED. PAPERS FILLED OUT AND PLACED IN CHART.
[2021-07-07] MEDS: haloperidol inj 5 mg/mL INJ 1 mL 3 MG IM (17:22)
--- NOTE | 2021-07-07 18:08 | P.EN_ITS ---
Event Note Event Note: Called by Dr. Brooke regarding need for affidavit, 96-hour hold. I went in the room with nurse. The patient told me he would like to go out the window headfirst and . He reported he had reconciled with his maker and had no concerns regarding . Nurses were present for this discussion. A 96- hour hold application was initiated. Secondary to patient's agitation he received 3 more milligrams of Haldol following this interaction.
--- NOTE | 2021-07-07 19:31 | PC.NURSE ---
ROUNDING SHIFT CHANGE ROUNDING Was up to BSC at shift change and had a soft BM. Is unsteady. Weakness in left leg from previous CVA. Left foot is turned inwards.Says he can't move leg well. Left arm is contracted and unable to use after same CVA. Is cooperative at present. Is oriented to person & place otherwise is confused. Forgets things you just told him and wll ask again in conversation. c/o abd pain. Abd soft with c/o tenderness. Tells me he has been having bladder spasms toay 1:1 sitter at bedside fos shift
--- NOTE | 2021-07-07 19:42 | PC.NURSE ---
HOME MEDS Home meds were found on window ledge. Were removed and placed in Pyxis
--- NOTE | 2021-07-07 20:21 | PC.NURSE ---
i reported low low temp 97.5 to nurse
[2021-07-07] MEDS: citalopram 20 mg Tablet 40 MG PO (20:42)
[2021-07-07] MEDS: ARIPiprazole 10 mg Tablet PO (20:42)
[2021-07-07 21:07] LABS: Glucose Point of Care 195 mg/dL (70-110)
[2021-07-08] MEDS: HYDROcodone-acetaminophen 5-325 mg Tablet 1 TAB PO ×6 (02:22→23:59)
[2021-07-08] MEDS: LORazepam 0.5 mg Tablet 0.25 MG PO ×3 (02:23→19:39)
[2021-07-08 03:09] VITALS: BP 110/56; PULSE 71; RESP 16; TEMP 36.2; O2SAT 97
--- NOTE | 2021-07-08 05:25 | PC.NURSE ---
SHIFT SUMMARY Has rested well for intervals tonight. Has confusion as to day, date, time and situation but is oriented to self and place. Is quite forgetful and tells me he has had this problem since his stroke. Does ask for pain pills often and forgets what time he had it and when is due again. Has not been agitated even when told is not time for pain med. Has also received po Ativan X2. Has been pleasant, calls me Miss Carpio and always thanks me for my help. Needs assist to use urinal and is quite unsteady when stands at side of bed to urinate also due to disability from stroke. Has c/o being hungry and has had snacks and likes milk to drink. Has talked to me about his several times tonight. Says she takes care of him at home. Has not expressed any suicidal ideations this shift. This nurse has been 1:1 sitter/nurse through shift except for the first hour or so when had a te 1:1 with pt
[2021-07-08 06:43] LABS: Glucose Point of Care 170 mg/dL (70-110)
[2021-07-08 07:11] VITALS: BP 121/76; PULSE 78; RESP 16; TEMP 36.7; O2SAT 90
[2021-07-08] MEDS: oxybutynin 5 mg Tablet PO ×2 (07:58→17:46)
[2021-07-08] MEDS: tamsulosin 0.4 mg Capsule PO (07:58)
[2021-07-08] MEDS: pantoprazole DR 40 mg Tablet PO (07:58)
[2021-07-08 11:39] LABS: Glucose Point of Care 214 mg/dL (70-110)
[2021-07-08 12:00] VITALS: BP 128/72; PULSE 86; RESP 18; O2SAT 94
[2021-07-08 15:56] VITALS: BP 134/75; PULSE 78; RESP 16; TEMP 36.7; O2SAT 95
[2021-07-08 16:52] LABS: Glucose Point of Care 270 mg/dL (70-110)
--- NOTE | 2021-07-08 17:42 | P.NPUPN_ITS ---
Subjective NPU Subjective: Interval history: Patient presents today reportedly having more positive attitude but still having some moments of inappropriate interactions with female staff. He continues to endorse that Star Trek alien creatures are real however he may be having some lessening in the intensity of his belief. We will continue the conversation about the possibility of increasing his Abilify and put that off till tomorrow. Continue to encourage him to get out of bed and move around. Which appears to be happening more often now. Mental Status Exam MSE Comments: This is a well-nourished, well-developed older white male looking older than his stated age with hospital gown on with improved grooming and eye contact. No abnormal movements except for mild psychomotor retardation. Cooperative with exam in no acute distress. Speech was more normal rate and volume. Mood described as okay, affect congruent. Thought process organized. Thought content: Patient denied suicidal or homicidal ideations, there were no delusions reported but a bizarre alien driven delusions of Klingon creatures being real existed, he denied current auditory or visual hallucinations. Attention and concentration were intact and memory was unreliable but none were formally tested. He alert and oriented x3. Insight and judgment are limited, impulse control is limited. Vitals/I&O/Wt Last Vital Signs Temp 98.1 F 07/08/21 15:56 Pulse 78 07/08/21 15:56 Resp 16 07/08/21 15:56 BP 134/75 07/08/21 15:56 Pulse Ox 95 07/08/21 15:56 07/08/21 07/08/21 07/09/21 14:59 22:59 06:59 Intake Total 720 / 720 720 / 1440 360 / 1800 Output Total 525 / 525 1600 / 2125 875 / 3000 Balance 195 / 195 -880 / -685 -515 / -1200 Data NPU : 07/06/21 06:00 07/06/21 06:00 A&P Additional A&P Information (1) Sepsis: (2) Cystitis: (3) Urinary retention: (4) Acute exacerbation of chronic obstructive airways disease: (5) Hypoxia: (6) Neuropathy: (7) Left upper quadrant abdominal mass: (8) Type 2 diabetes mellitus: (9) History of CVA (cerebrovascular accident): (10) Urinary retention: (11) Anemia: (12) Psychosis: (13) 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 1. Continue current medication. We will consider increase in Abilify tomorrow. 2. Significant concerns exist regarding his capacity for decision-making. He is able to express a choice, but his ability to demonstrate understanding, appreciate the consequences of the decision but most importantly demonstrate reasoning in his decision-making process that is rational is of great concern. One could argue very naturally that if he believes that there are Klingons that are real and have gone experiments on him and asked him to spread his seed with human women that it would be impossible to know that his thinking is not impacted in his concerns about treatment team's intentions or plans though he denied some of that on the requesting. His depression and psychosis as well as some likely phobic fears of having a catheter appear to be impacting his ability to make decisions. 3. Transfer to neuropsychiatric unit currently not possible secondary to staffing and inability to meet his physical needs of assistance to the bathroom and ambulation etc. 4. We will continue to treat his psychosis in hopes of helping it clear that he can make informed consent. Attestations NPU Medical Necessity Statement*: Inpatient hospitalization is medically necessary and the clinically appropriate intervention at this time. We will monitor medication to make changes as indicated. Likely length of stay 2-4 days. Coding Level of Care Code Acute Cranberry Farm Supervisor for Paty Mancia
[2021-07-08] MEDS: insulin lispro 100 unit/1 mL SUBCUT (17:46)
[2021-07-08 19:16] VITALS: BP 162/83; PULSE 78; RESP 16; TEMP 36.6; O2SAT 94
[2021-07-08] MEDS: citalopram 20 mg Tablet 40 MG PO (20:12)
[2021-07-08] MEDS: ARIPiprazole 10 mg Tablet PO (20:12)
--- NOTE | 2021-07-08 22:27 | PC.NURSE ---
PATIENT COMMENT Was talking with pt when he suddenly commented that Dr Grullon who he says is Dr Alexander is a werewolf and I needed to be very careful around him because he would rip your throat open making a slashing motion across his throat. No more said about this and proceeded to talk with nurse
[2021-07-08 23:10] VITALS: BP 138/78; PULSE 69; RESP 18; TEMP 37.1; O2SAT 94
[2021-07-09] MEDS: LORazepam 0.5 mg Tablet 0.25 MG PO ×4 (01:38→22:08)
[2021-07-09 04:02] VITALS: BP 135/72; PULSE 86; RESP 18; TEMP 37; O2SAT 94
[2021-07-09] MEDS: HYDROcodone-acetaminophen 5-325 mg Tablet 1 TAB PO ×5 (04:03→20:21)
--- NOTE | 2021-07-09 05:44 | PC.NURSE ---
SHIFT SUMMARY Has had a restless night. Slept very little. Lays down for few minutes then back up to sit on side of bed. Watches TV for few minutes then turns TV off never finishing a show. Pleasant and cooperative. Oriented to person and place. Has very poor memory and after given a pain pill he will shortly start asking when he can get it again. Same with the po Ativan. Looks at the clock and says it's time for a pill right even though time for next dose is written on pt board and told time he can have it several times. c/o abdominal pain & burning as well as c/o headache tonight. Is cooperative with VS and taking meds but has refused Accuchecks tonight. States is tired of having his fingers stuck and does not want them done. Up to bedside numerous times to use urinal. Urinates anywhere from 100-250ml at a time. c/o occ bladder spasm Requests snacks and milk. This nurse 1:1 stter with pt through shift
[2021-07-09 07:17] VITALS: BP 131/81; PULSE 71; RESP 18; TEMP 36.4; O2SAT 93
[2021-07-09] MEDS: pantoprazole DR 40 mg Tablet PO (08:00)
[2021-07-09] MEDS: tamsulosin 0.4 mg Capsule PO (08:00)
[2021-07-09] MEDS: oxybutynin 5 mg Tablet PO ×2 (08:00→17:01)
[2021-07-09 10:57] VITALS: BP 127/81; PULSE 66; RESP 16; TEMP 36.6; O2SAT 88
--- NOTE | 2021-07-09 10:57 | PC.NURSE ---
patient refused th accu check today
[2021-07-09 15:04] VITALS: BP 127/79; PULSE 79; RESP 16; TEMP 36.6; O2SAT 92
--- NOTE | 2021-07-09 15:50 | P.NPUPN_ITS ---
Subjective NPU Subjective: Interval history: Patient presenting to the strange beliefs of Star Trek aliens being real. However he has started turning it more towards it being a joke but at times he cannot pull away from the joint. He continues to endorse feeling better and he is to be more active on the unit. He continues though to be resistant to surgery or interventions. Continuing to endorse a desire mostly to the home. We discussed the improvement that seems apparent and the risk of and alternatives of increasing Abilify to 15 and he appeared to understand and agreed to proceed as is documented in his note. Mental Status Exam MSE Comments: This is a well-nourished, well-developed older white male looking older than his stated age with hospital gown on with improved grooming and eye contact. No abnormal movements except for mild psychomotor retardation. Cooperative with exam in no acute distress. Speech was more normal rate and volume. Mood described as feeling better, affect congruent. Thought process organized. Thought content: Patient denied suicidal or homicidal ideations, there were no delusions reported but a bizarre alien driven delusions of Klingon creatures being real existed, he denied current auditory or visual hallucinations. Attention and concentration were intact and memory was unreliable but none were formally tested. He alert and oriented x3. Insight and judgment are limited, impulse control is limited. Vitals/I&O/Wt Last Vital Signs Temp 97.8 F 07/09/21 15:04 Pulse 79 07/09/21 15:04 Resp 16 07/09/21 15:04 BP 127/79 07/09/21 15:04 Pulse Ox 92 07/09/21 15:04 07/09/21 14:59 Intake Total 840 / 840 Output Total 450 / 450 Balance 390 / 390 Data NPU : 07/06/21 06:00 07/06/21 06:00 A&P Additional A&P Information (1) Sepsis: (2) Cystitis: (3) Urinary retention: (4) Acute exacerbation of chronic obstructive airways disease: (5) Hypoxia: (6) Neuropathy: (7) Left upper quadrant abdominal mass: (8) Type 2 diabetes mellitus: (9) History of CVA (cerebrovascular accident): (10) Urinary retention: (11) Anemia: (12) Psychosis: (13) 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 1. Continue current medication. We will increase Abilify to 15 mg daily tomorrow. 2. Significant concerns exist regarding his capacity for decision-making. He is able to express a choice, but his ability to demonstrate understanding, appreciate the consequences of the decision but most importantly demonstrate reasoning in his decision-making process that is rational is of great concern. One could argue very naturally that if he believes that there are Klingons that are real and have gone experiments on him and asked him to spread his seed with human women that it would be impossible to know that his thinking is not impacted in his concerns about treatment team's intentions or plans though he denied some of that on the requesting. His depression and psychosis as well as some likely phobic fears of having a catheter appear to be impacting his ability to make decisions. 3. Transfer to neuropsychiatric unit currently not possible secondary to staffing and inability to meet his physical needs of assistance to the bathroom and ambulation etc. 4. We will continue to treat his psychosis in hopes of helping it clear that he can make informed consent. Attestations NPU Medical Necessity Statement*: Inpatient hospitalization is medically necessary and the clinically appropriate intervention at this time. We will monitor medication to make changes as indicated. Likely length of stay 2-4 days. Coding Level of Care Code Acute Computer Aided Drafter for Paty Mancia
[2021-07-09 19:07] VITALS: BP 134/80; PULSE 83; RESP 18; TEMP 36.6; O2SAT 94
[2021-07-09] MEDS: ARIPiprazole 10 mg Tablet PO (20:21)
[2021-07-09] MEDS: citalopram 20 mg Tablet 40 MG PO (20:22)
[2021-07-10] MEDS: HYDROcodone-acetaminophen 5-325 mg Tablet 1 TAB PO ×4 (03:36→20:21)
[2021-07-10 03:47] VITALS: BP 146/79; PULSE 71; RESP 17; TEMP 36.5; O2SAT 91
[2021-07-10] MEDS: LORazepam 0.5 mg Tablet 0.25 MG PO ×2 (06:19→21:32)
[2021-07-10 07:50] VITALS: BP 142/75; PULSE 69; RESP 18; O2SAT 94
[2021-07-10] MEDS: oxybutynin 5 mg Tablet PO ×2 (08:27→17:49)
[2021-07-10] MEDS: tamsulosin 0.4 mg Capsule PO (08:27)
[2021-07-10] MEDS: pantoprazole DR 40 mg Tablet PO (08:27)
[2021-07-10 10:49] LABS: Glucose Point of Care 262 mg/dL (70-110)
[2021-07-10 11:05] VITALS: BP 115/75; PULSE 110; RESP 18; TEMP 36.7; O2SAT 91
[2021-07-10] MEDS: insulin lispro 100 unit/1 mL SUBCUT ×2 (11:31→17:48)
--- NOTE | 2021-07-10 13:43 | PC.CHAP ---
Pastoral Care Encounter/Spiritual Assessment Type of Contact [] Declined central station operator visit [] Patient/Family/Request visit [] Outpatient visit [xx] Follow-up visit [] Physician referral [] Code/Alert [] Routine visit [] Staff referral [] Actively dying [] Patient sleeping [] Family support [] [] Out of room [] Palliative care [] [xx] Receiving care in room [] Pre-surgical visit [] Trauma [xx] Long length of stay [] ICU visit [] Other: Relational/Emotional Strength [] Patient feels connected with others/family/visitors/staff [] Distress [] Loneliness/isolation [] Abandonment Spirituality of Patient [] Person of Belen [] Attends Presybeterian of their Belen [] Believes in Prayer [] Reads Bible or Presybeterian materials [] There are Spiritual issues to be addressed Supervisor Gate Services Interventions [] Prayer [] Active listening [] Non-anxious presence [] Spiritual/emotional support [] Crisis/trauma care [] Spiritual counseling [] Bereavement support [] Provided bereavement packet [] Provided Bible/devotional materials [] Provided toy/stuffed animal, coloring book to patient or family member [] Provided Communion [] Anointing/[place] [] Salvation [] Completed spiritual assessment [] Other: Impact on Illness or Injury [] Angry [] Fearful [] Anxious [] Often cries [] Exhaustion [] Unable to work [] Unable to attend jew [] Unable to walk/stand [] Unable to read [] Unable to drive [] Unable to eat/drink [] Unable to sleep [] Unable to be with family [] Patient intubated [] Other: Summary This was a follow up visit but patient had medical staff with him in his room. Try follow up later. Time spent with patient
--- NOTE | 2021-07-10 13:49 | P.NPUPN_ITS ---
Subjective NPU Subjective: Interval history: Patient presents today continuing to show improvement in his activity level and continuing to be more open to conversation. He continues to occasionally use the he has been talking to doctors about this joke about Star Trek for a long time but clearly he struggles with using the joke terminology. We continue to talk about the possibility of him getting the surgery or allowing them to deal with his bladder situation but he continues to be resistant to that idea. He continues to report he wants to go home we discussed the possibility of me connecting with his family to consider where to go from here. We discussed the increase in the Abilify s cheduled. Mental Status Exam MSE Comments: This is a well-nourished, well-developed older white male look ing older than his stated age with hospital gown on with improved grooming and eye contact. No abnormal movements except for mild psychomotor retardation. Cooperative with exam in no acute distress. Speech was more normal rate and volume. Mood described as better, affect congruent. Thought process organized. Thought content: Patient denied suicidal or homicidal ideations, there were no delusions reported but a bizarre alien driven delusions of [place] creatures being real existed, he denied current auditory or visual hallucinations. Attention and concentration were intact and memory was unreliable but none were formally tested. He alert and oriented x3. Insight and judgment are limited, impulse control is limited. Vitals/I&O/Wt Last Vital Signs Temp 98.1 F 07/10/21 11:05 Pulse 110 H 07/10/21 11:05 Resp 18 07/10/21 11:05 BP 115/75 07/10/21 11:05 Pulse Ox 91 07/10/21 11:05 07/09/21 07/10/21 07/10/21 22:59 06:59 14:59 Intake Total 860 / 1700 800 / 2500 360 / 360 Output Total 420 / 870 600 / 600 Balance 860 / 1250 380 / 1630 -240 / -240 Data NPU : 07/06/21 06:00 07/06/21 06:00 A&P Additional A&P Information (1) Sepsis: (2) Cystitis: (3) Urinary retention: (4) Acute exacerbation of chronic obstructive airways disease: (5) Hypoxia: (6) Neuropathy: (7) Left upper quadrant abdominal mass: (8) Type 2 diabetes mellitus: (9) History of CVA (cerebrovascular accident): (10) Urinary retention: (11) Anemia: (12) Psychosis: (13) 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 1. Continue current medication. We will increase Abilify to 15 mg daily tomorrow. 2. Significant concerns exist regarding his capacity for decision-making. He is able to express a choice, but his ability to demonstrate understanding, appreciate the consequences of the decision but most importantly demonstrate reasoning in his decision-making process that is rational is of great concern. One could argue very naturally that if he believes that there are Klingons that are real and have gone experiments on him and asked him to spread his seed with human women that it would be impossible to know that his thinking is not impacted in his concerns about treatment team's intentions or plans though he denied some of that on the requesting. His depression and psychosis as well as some likely phobic fears of having a catheter appear to be impacting his ability to make decisions. 3. Transfer to neuropsychiatric unit currently not possible secondary to staffing and inability to meet his physical needs of assistance to the bathroom and ambulation etc. 4. We will continue to treat his psychosis in hopes of helping it clear that he can make informed consent. Attestations NPU Medical Necessity Statement*: Inpatient hospitalization is medically necessary and the clinically appropriate intervention at this time. We will monitor medication to make changes as indicated. Likely length of stay 2-4 days. Coding Level of Care Code Acute Flower Buncher Or Picker for Paty Mancia
[2021-07-10 15:26] VITALS: BP 110/65; PULSE 89; RESP 18; TEMP 36.4; O2SAT 96
[2021-07-10 17:00] LABS: Glucose Point of Care 204 mg/dL (70-110)
[2021-07-10 20:00] VITALS: BP 131/70; PULSE 84; RESP 18; TEMP 36.6; O2SAT 94
[2021-07-10] MEDS: citalopram 20 mg Tablet 40 MG PO (20:21)
[2021-07-10] MEDS: ARIPiprazole 10 mg Tablet 15 MG PO (20:21)
[2021-07-10 23:54] VITALS: BP 136/74; PULSE 87; RESP 17; TEMP 36.5; O2SAT 94
[2021-07-11] MEDS: HYDROcodone-acetaminophen 5-325 mg Tablet 1 TAB PO ×6 (00:34→22:26)
[2021-07-11] MEDS: LORazepam 0.5 mg Tablet 0.25 MG PO ×5 (05:30→22:25)
[2021-07-11 08:00] VITALS: BP 110/76; PULSE 68; RESP 16; O2SAT 92
[2021-07-11] MEDS: pantoprazole DR 40 mg Tablet PO (09:55)
[2021-07-11] MEDS: tamsulosin 0.4 mg Capsule PO (09:55)
[2021-07-11] MEDS: oxybutynin 5 mg Tablet PO ×2 (09:55→18:24)
[2021-07-11 11:25] VITALS: BP 133/82; PULSE 89; RESP 16; TEMP 36.6; O2SAT 90
--- NOTE | 2021-07-11 13:36 | W.PM.NPUPNS ---
Subjective NPU Subjective: Interval history: Patient presents today continuing to be a bit more active and less lethargic. We discussed this scientific writer speaking with his and/or son to get some sense about history and his current functioning. We discussed the surgery again and he was still resistant to talking about it but reported that maybe after talking his we could have a different conversation. He reports that he still does believe in the aliens. He mostly focused on wanting to go home. Mental Status Exam MSE Comments: This is a well-nourished, well-developed older white male looking older than his stated age with hospital gown on with improved grooming and eye contact. No abnormal movements except for mild psychomotor retardation. Cooperative with exam in no acute distress. Speech was more normal rate and volume. Mood described as I am fine, I want go home, affect congruent. Thought process organized. Thought content: Patient denied suicidal or homicidal ideations, there were no delusions reported but a bizarre alien driven delusions of Klingon creatures being real existed, he denied current auditory or visual hallucinations. Attention and concentration were intact and memory was unreliable but none were formally tested. He alert and oriented x3. Insight and judgment are limited, impulse control is limited. Vitals/I&O/Wt Last Vital Signs Temp 98 F 07/11/21 11:25 Pulse 89 07/11/21 11:25 Resp 16 07/11/21 11:25 BP 133/82 07/11/21 11:25 Pulse Ox 90 07/11/21 11:25 07/10/21 22:59 Intake Total 720 / 1560 Output Total 650 / 1250 Balance 70 / 310 Data NPU : 07/06/21 06:00 07/06/21 06:00 Micro: Microbiology 07/09/21 11:04 Urine Culture - Preliminary Urine,Voided Microbiology 07/09/21 11:04 Urine,Voided Urine Culture - Preliminary A&P Additional A&P Information (1) Sepsis: (2) Cystitis: (3) Urinary retention: (4) Acute exacerbation of chronic obstructive airways disease: (5) Hypoxia: (6) Neuropathy: (7) Left upper quadrant abdominal mass: (8) Type 2 diabetes mellitus: (9) History of CVA (cerebrovascular accident): (10) Urinary retention: (11) Anemia: (12) Psychosis: (13) 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 1. Continue current medication. Increased Abilify to 15 mg daily. 2. Significant concerns exist regarding his capacity for decision-making. He is able to express a choice, but his ability to demonstrate understanding, appreciate the consequences of the decision but most importantly demonstrate reasoning in his decision-making process that is rational is of great concern. One could argue very naturally that if he believes that there are Klingons that are real and have gone experiments on him and asked him to spread his seed with human women that it would be impossible to know that his thinking is not impacted in his concerns about treatment team's intentions or plans though he denied some of that on the requesting. His depression and psychosis as well as some likely phobic fears of having a catheter appear to be impacting his ability to make decisions. 3. Transfer to neuropsychiatric unit currently not possible secondary to staffing and inability to meet his physical needs of assistance to the bathroom and ambulation etc. 4. We will continue to treat his psychosis in hopes of helping it clear that he can make informed consent. 5. We will speak to family today. Attestations NPU Medical Necessity Statement*: Inpatient hospitalization is medically necessary and the clinically appropriate intervention at this time. We will monitor medication to make changes as indicated. Likely length of stay 2-4 days. Coding Level of Care Code Acute Escalator Service Mechanic for Paty Mancia
[2021-07-11 16:30] VITALS: BP 124/69; PULSE 77; RESP 16; TEMP 37.1; O2SAT 90
[2021-07-11 20:00] VITALS: BP 131/75; PULSE 97; RESP 17; TEMP 36.9; O2SAT 91
[2021-07-11] MEDS: citalopram 20 mg Tablet 40 MG PO (20:27)
[2021-07-11] MEDS: ARIPiprazole 10 mg Tablet 15 MG PO (20:27)
[2021-07-12] VITALS: BP 134/73; PULSE 79; RESP 16; TEMP 37.3; O2SAT 93
[2021-07-12] MEDS: HYDROcodone-acetaminophen 5-325 mg Tablet 1 TAB PO ×5 (03:07→21:08)
[2021-07-12] MEDS: LORazepam 0.5 mg Tablet 0.25 MG PO (03:07)
[2021-07-12 04:00] VITALS: BP 116/71; PULSE 73; RESP 17; TEMP 36.9; O2SAT 92
[2021-07-12 08:17] VITALS: BP 116/75; PULSE 72; RESP 15; TEMP 36.9; O2SAT 92
[2021-07-12 08:17] LABS: Glucose Point of Care 241 mg/dL (70-110)
[2021-07-12] MEDS: oxybutynin 5 mg Tablet PO ×2 (08:28→17:00)
[2021-07-12] MEDS: tamsulosin 0.4 mg Capsule PO (08:29)
[2021-07-12] MEDS: pantoprazole DR 40 mg Tablet PO (08:29)
--- NOTE | 2021-07-12 08:30 | PC.NURSE ---
pt c/o pain in L hip, prn norco administered to pt at request. pt had refused blood sugar check this AM as reported during shift change. this nurse approached pt to ask if it could be taken at this time, pt agreed. BG was 241. this nurse returned with humalog to administer according to sliding scale. pt requested administration after he was done with breakfast. nurse complied.
[2021-07-12] MEDS: insulin lispro 100 unit/1 mL SUBCUT (09:31)
--- NOTE | 2021-07-12 09:57 | P.NPUPN_ITS ---
Subjective NPU Subjective: Interval history: Patient presents today reporting that he is wanting to go home. We discussed the conversation that I had with his significant other this morning with information about his son having Covid and decreasing the flexibility and being able to pick him up. His significant other Debbie said that she would try to contact him to see how he has been doing with the Abilify. He denied any new or pressing issues and was looking forward to her coming. He continues his belief system about aliens. had no explanation for why the psychosis that she reports is been around for maybe as many as 6 years has not been addressed to medication. Additionally he was focused on pain medication reportedly getting 40 mg of hydrocodone in divided doses daily when he is home. Mental Status Exam MSE Comments: This is a well-nourished, well-developed older white male lo oking older than his stated age with hospital gown on with improved grooming and eye contact. No abnormal movements except for mild psychomotor retardation. Cooperative with exam in no acute distress. Speech was more normal rate and volume. Mood described as better by was home, affect mostly euthymic. Thought process organized. Thought content: Patient denied suicidal or homicidal ideations, there were no delusions reported but a bizarre alien driven delusions of Klingon creatures being real existed, he denied current auditory or visual hallucinations. Attention and concentration were intact and memory was unreliable but none were formally tested. He alert and oriented x3. Insight a nd judgment are limited, impulse control is limited. Vitals/I&O/Wt Last Vital Signs Temp 98.4 F 07/12/21 08:17 Pulse 72 07/12/21 08:17 Resp 15 07/12/21 08:17 BP 116/75 07/12/21 08:17 Pulse Ox 92 07/12/21 08:17 07/11/21 07/12/21 07/12/21 22:59 06:59 14:59 Intake Total 720 / 1220 480 / 1700 240 / 240 Output Total 1739 / 2289 750 / 3039 Balance -1019 / -1069 -270 / -1339 240 / 240 Data NPU : 07/06/21 06:00 07/06/21 06:00 Micro: Microbiology 07/09/21 11:04 Urine Culture - Final Urine,Voided Microbiology 07/09/21 11:04 Urine,Voided Urine Culture - Final A&P Additional A&P Information (1) Sepsis: (2) Cystitis: (3) Urinary retention: (4) Acute exacerbation of chronic obstructive airways disease: (5) Hypoxia: (6) Neuropathy: (7) Left upper quadrant abdominal mass: (8) Type 2 diabetes mellitus: (9) History of CVA (cerebrovascular accident): (10) Urinary retention: (11) Anemia: (12) Psychosis: (13) 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): (14) Anxiety: Additional A&P Information This is a 61-year-old white male with mechanical issues who presents with re portedly new onset psychosis a several days ago after a CVA reportedly open to a trial of medication. 1. Continue current medication. Increased Abilify to 15 mg daily. 2. Significant concerns exist regarding his capacity for decision-making. He is able to express a choice, but his ability to demonstrate understanding, appreciate the consequences of the decision but most importantly demonstrate reasoning in his decision-making process that is rational is of great concern. One could argue very naturally that if he believes that there are Klingons that are real and have gone experiments on him and asked him to spread his seed with human women that it would be impossible to know that his thinking is not impacted in his concerns about treatment team's intentions or plans though he denied some of that on the requesting. His depression and psychosis as well as some likely phobic fears of having a catheter appear to be impacting his ability to make decisions. 3. Transfer to neuropsychiatric unit currently not possible secondary to staffing and inability to meet his physical needs of assistance to the bathroom and ambulation etc. 4. We will continue to treat his psychosis in hopes of helping it clear that he can make informed consent. 5. We will check back with his significant other to see how there conversation went about treatment for his spleen etc. Attestations NPU Medical Necessity Statement*: Inpatient hospitalization is medically necessary and the clinically appropriate intervention at this time. We will monitor medication to make changes as indicated. Likely length of stay 1-3 days. Coding Level of Care Code Acute Spline Rolling Machine Job Setter for Paty Mancia
--- NOTE | 2021-07-12 12:00 | PC.NURSE ---
pt refused blood sugar check and administration of insulin for lunch time. pt was educated on importance of blood sugar monitoring and control. pt verbalized understanding and still did not want checked.
[2021-07-12 12:29] VITALS: BP 105/67; PULSE 73; RESP 17; TEMP 36.8; O2SAT 92
--- NOTE | 2021-07-12 12:41 | PC.NURSE ---
Addendum entered by Ashley Monae LPN 07/12/21 13:49: nurse administered norco at 1241 per pt request. Original Note: pt c/o pain in L hip and bladder, requested norco.
--- NOTE | 2021-07-12 13:33 | PC.NURSE ---
telephone order received from Dr Alexander to restart pt home medication flexeril for spasms of the bladder.
[2021-07-12] MEDS: cyclobenzaprine 10 mg Tablet PO ×2 (14:41→21:09)
--- NOTE | 2021-07-12 14:44 | PC.NURSE ---
pt c/o bladder spasms, flexeril administered to pt at 1241, pt also asked for pain pill, this nurse informed him that it wasn't due until 1640. pt was not pleased with this information but verbalized understanding. will continue to monitor
[2021-07-12 16:06] VITALS: BP 111/73; PULSE 93; RESP 16; TEMP 36.6; O2SAT 90
--- NOTE | 2021-07-12 16:42 | PC.NURSE ---
Patient refused 1700 blood sugar check.
--- NOTE | 2021-07-12 17:02 | PC.NURSE ---
pt refusing blood sugar check for dinner. states he is tired of his fingers hurting. this nurse tried to educate pt again on importance for glucose control and pt interrupted conversation with the statement that i dont wanna hear the lecture, now just give me my pain pill so you can get out of here norco 5-325 was given to pt d/t c/o pain in L hip and bladder. pt is labile emotionally. his irritability left as soon as this nurse administered norco to the pt and was pleasant in conversation.
--- NOTE | 2021-07-12 19:48 | PC.NURSE ---
Shift report received from Ashley Alvares LPN. Patient sitting on side of bed. 1:1 sitter for safety/prevention of falls. Patient requesting pain medication/ education provided PRN available at 2100. No other needs voiced at this time.
[2021-07-12 20:00] VITALS: BP 124/71; PULSE 79; RESP 17; TEMP 37.4; O2SAT 93
[2021-07-12] MEDS: ARIPiprazole 10 mg Tablet 15 MG PO (21:07)
[2021-07-12] MEDS: citalopram 20 mg Tablet 40 MG PO (21:08)
[2021-07-13] VITALS: BP 120/75; PULSE 74; RESP 17; TEMP 37; O2SAT 96
[2021-07-13] MEDS: HYDROcodone-acetaminophen 5-325 mg Tablet 1 TAB PO ×6 (00:58→21:46)
[2021-07-13 04:00] VITALS: BP 129/77; PULSE 62; RESP 17; TEMP 36.9; O2SAT 93
[2021-07-13] MEDS: LORazepam 0.5 mg Tablet 0.25 MG PO ×5 (04:01→21:46)
[2021-07-13 06:44] LABS: Glucose Point of Care 303 mg/dL (70-110)
[2021-07-13 08:00] VITALS: BP 119/74; PULSE 68; RESP 18; TEMP 36.4; O2SAT 95
[2021-07-13] MEDS: tamsulosin 0.4 mg Capsule PO (08:42)
[2021-07-13] MEDS: cyclobenzaprine 10 mg Tablet PO ×2 (08:44→20:16)
[2021-07-13] MEDS: oxybutynin 5 mg Tablet PO ×2 (08:44→17:47)
[2021-07-13] MEDS: pantoprazole DR 40 mg Tablet PO (08:44)
[2021-07-13 12:00] VITALS: BP 121/74; PULSE 75; RESP 18; TEMP 37; O2SAT 96
--- NOTE | 2021-07-13 15:55 | W.PM.NPUPNS ---
Subjective NPU Subjective: Interval history: Patient presents today continuing to report some psychosis in the belief system about aliens with his significant other reporting that there are other perceptual issues that he has had but she not seen him since the Abilify was started. He certainly does not seem to be holding the belief system of the same veracity often reported as more of a joking thing then something that would upset him initially when he talked about it. He continues to be resistant to the medical interventions but his family does not seem to be interested in forcing him to consider differently and is hoping that he will change his mind. His significant other suggest that she might want to talk to the surgeon to understand it and we will attempt to arrange that. Likely discharge in 48 hours. Mental Status Exam MSE Comments: This is a well-nourished, well-developed older white male looking older than his stated age with hospital gown on with improved grooming and eye contact. No abnormal movements except for mild psychomotor retardation. Cooperative with exam in no acute distress. Speech was more normal rate and volume. Mood described as better but wanting to be home, affect mostly euthymic. Thought process organized. Thought content: Patient denied suicidal or homicidal ideations, there were no delusions reported but a bizarre alien driven delusions of Klingon creatures being real existed, he denied current auditory or visual hallucinations. Attention and concentration were intact and memory was unreliable but none were formally tested. He alert and oriented x3. Insight and judgment are limited, impulse control is limited. Vitals/I&O/Wt Last Vital Signs Temp 98.6 F 07/13/21 12:00 Pulse 75 07/13/21 12:00 Resp 18 07/13/21 12:00 BP 121/74 07/13/21 12:00 Pulse Ox 96 07/13/21 12:00 07/13/21 07/13/21 07/13/21 06:59 14:59 22:59 Intake Total 360 / 360 Output Total 1350 / 1350 Balance -1350 / 520 360 / 360 Data NPU : 07/06/21 06:00 07/06/21 06:00 A&P Additional A&P Information (1) Sepsis: (2) Cystitis: (3) Urinary retention: (4) Acute exacerbation of chronic obstructive airways disease: (5) Hypoxia: (6) Neuropathy: (7) Left upper quadrant abdominal mass: (8) Type 2 diabetes mellitus: (9) History of CVA (cerebrovascular accident): (10) Urinary retention: (11) Anemia: (12) Psychosis: (13) 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 1. Continue current medication. Increased Abilify to 15 mg daily. 2. Significant concerns exist regarding his capacity for decision-making. He is able to express a choice, but his ability to demonstrate understanding, appreciate the consequences of the decision but most importantly demonstrate reasoning in his decision-making process that is rational is of great concern. One could argue very naturally that if he believes that there are Klingons that are real and have gone experiments on him and asked him to spread his seed with human women that it would be impossible to know that his thinking is not impacted in his concerns about treatment team's intentions or plans though he denied some of that on the requesting. His depression and psychosis as well as some likely phobic fears of having a catheter appear to be impacting his ability to make decisions. 3. Transfer to neuropsychiatric unit currently not possible secondary to staffing and inability to meet his physical needs of assistance to the bathroom and ambulation etc. 4. We will continue to treat his psychosis in hopes of helping it clear that he can make informed consent. 5. we will attempt to connect significant other with hospitalist or surgeon surrounding the surgical consideration so the fully understand the risk as we are considering discharge in the next 48 hours.. Attestations NPU Medical Necessity Statement*: Inpatient hospitalization is medically necessary and the clinically appropriate intervention at this time. We will monitor medication to make changes as indicated. Likely length of stay 1-3 days. Coding Level of Care Code Acute Truck Driver Flatbed for Paty Mancia
[2021-07-13 16:00] VITALS: BP 120/70; PULSE 73; RESP 18; TEMP 36.9; O2SAT 93
--- NOTE | 2021-07-13 19:14 | PC.NURSE ---
Shift report received from Sue ALAN. Patient in bed sleeping. No s/s of pain or discomfort. Sitter at bedside.
[2021-07-13 20:00] VITALS: BP 114/74; PULSE 81; RESP 16; TEMP 36.6; O2SAT 93
[2021-07-13] MEDS: citalopram 20 mg Tablet 40 MG PO (20:16)
[2021-07-13] MEDS: ARIPiprazole 10 mg Tablet 15 MG PO (20:16)
--- NOTE | 2021-07-13 22:33 | PC.NURSE ---
Transfer of patient care to [facility] at this time.
[2021-07-14] VITALS: BP 123/73; PULSE 59; RESP 18; TEMP 36.5; O2SAT 94
[2021-07-14] MEDS: LORazepam 0.5 mg Tablet 0.25 MG PO ×4 (01:56→17:44)
[2021-07-14] MEDS: HYDROcodone-acetaminophen 5-325 mg Tablet 1 TAB PO ×5 (01:56→22:00)
[2021-07-14 04:00] VITALS: BP 113/68; PULSE 71; RESP 18; TEMP 36.4; O2SAT 92
[2021-07-14 07:57] VITALS: BP 109/69; PULSE 66; RESP 16; TEMP 36.7; O2SAT 90
[2021-07-14] MEDS: tamsulosin 0.4 mg Capsule PO (08:23)
[2021-07-14] MEDS: pantoprazole DR 40 mg Tablet PO (08:23)
[2021-07-14] MEDS: oxybutynin 5 mg Tablet PO ×2 (08:23→17:44)
[2021-07-14 11:50] VITALS: BP 115/67; PULSE 70; RESP 18; O2SAT 91
[2021-07-14 15:33] VITALS: BP 120/76; PULSE 81; RESP 18; O2SAT 92
[2021-07-14 17:12] LABS: Glucose Point of Care 376 mg/dL (70-110)
[2021-07-14] MEDS: insulin lispro 100 unit/1 mL SUBCUT (17:44)
--- NOTE | 2021-07-14 18:09 | W.PM.NPUPNS ---
Subjective NPU Subjective: Interval history: Patient presents today with no significant changes. We continue to discuss the need for medical intervention which she still resistant to. I talked with significant other who reports and he confirmed that when she attempted to talk to him about it earlier today he hung up on her. At this point she is talking to his son and they are more or less excepting that there is nothing that can be done. Other than that he is a 5 patient is a as no areas of concern and denies any lethality. Mental Status Exam MSE Comments: This is a well-nourished, well-developed older white male looking older than his stated age with hospital gown on with improved grooming and eye contact. No abnormal movements except for mild psychomotor retardation. Cooperative with exam in no acute distress. Speech was more normal rate and volume. Mood described as better but wanting to be home, affect mostly euthymic. Thought process organized. Thought content: Patient denied suicidal or homicidal ideations, there were no delusions reported but a bizarre alien driven delusions of Sphe[place]on creatures being real existed, he denied current auditory or visual hallucinations. Attention and concentration were intact and memory was unreliable but none were formally tested. He alert and oriented x3. Insight and judgment are limited, impulse control is limited. Vitals/I&O/Wt Last Vital Signs Temp 98.1 F 07/14/21 07:57 Pulse 81 07/14/21 15:33 Resp 18 07/14/21 15:33 BP 120/76 07/14/21 15:33 Pulse Ox 92 07/14/21 15:33 Intake Total Output Total Balance Data NPU : 07/06/21 06:00 07/06/21 06:00 A&P Additional A&P Information (1) Sepsis: (2) Cystitis: (3) Urinary retention: (4) Acute exacerbation of chronic obstructive airways disease: (5) Hypoxia: (6) Neuropathy: (7) Left upper quadrant abdominal mass: (8) Type 2 diabetes mellitus: (9) History of CVA (cerebrovascular accident): (10) Urinary retention: (11) Anemia: (12) Psychosis: (13) 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 1. Continue current medication. Increased Abilify to 15 mg daily. 2. Significant concerns exist regarding his capacity for decision-making. He is able to express a choice, but his ability to demonstrate understanding, appreciate the consequences of the decision but most importantly demonstrate reasoning in his decision-making process that is rational is of great concern. One could argue very naturally that if he believes that there are Klingons that are real and have gone experiments on him and asked him to spread his seed with human women that it would be impossible to know that his thinking is not impacted in his concerns about treatment team's intentions or plans though he denied some of that on the requesting. His depression and psychosis as well as some likely phobic fears of having a catheter appear to be impacting his ability to make decisions. 3. 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 4. At this point with patient with his family we will plan to discharge tomorrow but have the hospitalist come by and once again make sure he understands the medical circumstances that he is facing. 5. Significant other says she will pick him up tomorrow as soon as she can get transportation up which she hopes will be the morning but could be very early afternoon.. Attestations NPU Medical Necessity Statement*: Inpatient hospitalization is medically necessary and the clinically appropriate intervention at this time. We will monitor medication to make changes as indicated. Plan discharge in the morning. Coding Level of Care Code Acute Floor Coverings Salesperson for Paty Mancia
[2021-07-14 20:00] VITALS: BP 119/78; PULSE 76; RESP 20; TEMP 37.2; O2SAT 95
[2021-07-14] MEDS: ARIPiprazole 10 mg Tablet 15 MG PO (20:52)
[2021-07-14] MEDS: citalopram 20 mg Tablet 40 MG PO (20:52)
[2021-07-14] MEDS: cyclobenzaprine 10 mg Tablet PO (20:52)
--- NOTE | 2021-07-14 21:16 | PC.NURSE ---
Patient found sitting on stool next to bed. States he fell and needs another pain pill. Recently medicated for spasms with Flexeril for reported muscle spasms. Assessment completed. No noted injuries. Assisted patient back to bed. Patient declined to lay down until he recieves additional pain pill. Patient states he hurt himself real bad when he fell and he needs another pain pill right now. Explained to patient again that it was too early but I would speak to the doctor for him. Dr. Alexander notified via telephone. Dr. Alexander states patient is fine and just needs to wait until next dose of pain medication is due. Ashley allred RN notified of situation.
[2021-07-15] VITALS: BP 154/82; PULSE 84; RESP 18; TEMP 36.8; O2SAT 95
[2021-07-15] MEDS: HYDROcodone-acetaminophen 5-325 mg Tablet 1 TAB PO ×4 (02:05→13:52)
[2021-07-15 04:00] VITALS: BP 154/76; PULSE 65; RESP 17; TEMP 36.6; O2SAT 97
[2021-07-15 07:55] VITALS: BP 130/72; PULSE 87; RESP 16; O2SAT 92
[2021-07-15] MEDS: tamsulosin 0.4 mg Capsule PO (08:05)
[2021-07-15] MEDS: pantoprazole DR 40 mg Tablet PO (08:05)
[2021-07-15] MEDS: oxybutynin 5 mg Tablet PO ×2 (08:06→17:22)
[2021-07-15] MEDS: cyclobenzaprine 10 mg Tablet PO ×2 (08:06→17:22)
--- NOTE | 2021-07-15 09:36 | PM.EVENT ---
Event Note Event Note: Came by to visit with patient briefly regarding his current frame of mind. He is calm, and collected. He reports he is not suicidal currently, and would not harm himself. He assures me he would seek help should he feel this way again. He should have follow-up with primary care provider 3 to 5 days after discharge. Psychiatry follow-up per their instructions.
[2021-07-15 12:00] VITALS: BP 118/73; PULSE 87; RESP 18; TEMP 36.7; O2SAT 94
--- NOTE | 2021-07-15 13:40 | P.NPUDS_ITS ---
Diagnoses at Discharge Discharge Diagnosis (1) Splenic artery aneurysm: Status: Acute Reason for Visit Reason for Visit: ABD PAIN, SOB Brief History: History of Present Illness Tucker Tyler is a 61 year old male who presented to the emergency department with the following report: Chief Complaint: Shortness of Breath/Dyspnea Stated Complaint: ABD PAIN, SOB Time Seen by Provider: 07/02/21 14:30 History of Present Illness:?? HPI narrative: 61-year-old male presents to the emergency room complaining of abdominal pain.? Patient has altered mental status he is requesting Dr. Zurita (evidently from [facility]) and keeps referring to a nurse Loren.? He pulls his oxygen off he is refusing blood draws initially stating that IV starts make him have seizures.? He is able to converse with me he has very discolored urine and a Millan that is been present for evidently over a month urine is reddish bile-like color he has been taking large doses of Azo's recently.? He states he is has a bladder infection and feels like he has bladder spasms but the Azo's has not been helping.? No nausea or vomiting he has previously had a CVA has contractures of his left side particularly his left upper extremity.? Patient has a history of diabetes mellitus, seizure disorder hypertension and chronic kidney disease.? Is difficult to get him to focus on a particular complaint but when I do he references suprapubic cramping as his main reason for coming in. MD elicited complaint: abdominal pain Pertinent past history: none Onset (ago): unknown Location: Suprapubic Quality: cramping Radiation: none Migration to: no migration Exacerbating factors: nothing Relieving factors: nothing Associated Symptoms: Reports GI cramping, nausea and poor appetite; Denies anorexia, belching, bloating, change in bowel habits, change in stool character, chills, coffee ground emesis, constipation, diarrhea, dyspepsia, dysuria, excessive flatus, fever(s), heartburn, hematochezia, hematuria, hematemesis, fecal incontinence, loose stools, melena, syncope and vomiting. He was admitted to [facility] for definitive treatment of those issues.? He had appropriate consultations as well psychiatric consult was requested to identify if there were ways that it was impacting his willingness to engage in treatment.? He presents today reporting that he has not had inpatient hospitalization or active outpatient services.? He initially denied history of medication but someone had been prescribed him Celexa and BuSpar.? He reports that this was likely his primary care doctor he reports that life have been fine until several years ago when he had some strokes.? Reports the strokes really reduce his efficacy as a person.? He denied any active issues with addiction.? He denied any psychosis however I asked him about reports that I heard about aliens in him.? Without any problem he went on to explain to be that he has been adopted by aliens but significant experimentation on him.? 1 experiment included introducing her creating bones in his rib cage to protect his heart because they were good to have him be a warrior in the wars that are coming.? Discussions about his age and appropriateness for grant in this [employer] which was real according to did not hurt his belief in their authenticity.? Additionally he reported they had made some alterations in his genes and wanted him to mate with as many humans as possible though he acknowledges his lack of success in this category.? He denies contributory family history, developmental history or psychosocial history.? 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 We discussed with benefits alternatives of continuing his current medication and adding Abilify 10 mg p.o. every morning and he understood agreed proceed as documented in his note. Hospital Course Hospital Course He slowly acclimated to the individual therapy and medication management provided. We started him on Abilify which was titrated to 15 mg with positive response. There are some question whether psychosis versus cluster a personality traits with a prominent feature. We attempted to assist him and better appreciating the medical issues that were present including that he was never able to move past his thought processes that hindered his ability to make informed consent. He was able to contract for safety outside the hospital prior to discharge. During the hospitalization, patient had routine laboratory studies which were within normal limits except for few outliers. Additionally there was a general medical evaluation which was also within normal limits and revealed no new acute processes except for those identified by the hospitalist but he had some resistance in treating some of those issues. Discharge Summary: At the time of discharge, he denied lethality but he still has some circumscrib ed areas of psychosis related to aliens etc. Mood and anxiety were well managed. Patient endorsed a plan to avoid all drugs of abuse and follow-up with the aftercare recommendations of the treatment team. Patient was evaluated and deemed to be absent credible lethality, and had achieved the maximum benefit from an inpatient hospitalization, so was discharged. Mental Status Exam MSE Comments: This is a well-nourished, well-developed older white male looking older than his stated age with hospital gown on with improved grooming and eye contact.? No abnormal movements except for mild psychomotor retardation.? Cooperative with exam in no acute distress.? Speech was more normal rate and volume.? Mood described as better but wanting to be home, affect mostly euthymic.? Thought process organized.? Thought content: Patient denied suicidal or homicidal ideations, there were no delusions reported but a bizarre alien driven delusions of [place] creatures being real existed, he denied current auditory or visual hallucinations.? Attention and concentration were intact and memory was unreliable but none were formally tested.? He alert and oriented x3.? Insight and judgment are limited, impulse control is limited. Discharge Data Data Completed and Pending: Completed Studies During Hospitalization Category Date Time Status CT abdomen pelvis w con* [id number] Stat Cat Scan 07/03/21 15:[address] angio chest PE protcl [id number] Stat Cat Scan 07/02/21 15:[address] head wo con* [id number] Stat Cat Scan 07/02/21 14:31 Completed [place] barium swallow modifd [id number] Urge nt Exams 07/06/21 15:29 Completed XR chest 1V kimberly ble [id number] Stat Exams 07/02/21 14:31 Completed Labs from last 24 hours 07/14/21 16:42 POC Glucose 376 H Vitals: Last Vital Signs Temp 98.1 F 07/15/21 12:00 Pulse 87 07/15/21 12:00 Resp 18 07/15/21 12:00 BP 118/73 07/15/21 12:00 Pulse Ox 94 07/15/21 12:00 Discharge Plan Discharge Patient Disposition: Home Condition: Stable Prescriptions: New aripiprazole 10 mg Tablet 15 mg PO BEDTIME 30 Days Qty: 30 1RF Continued phenazopyridine 99.5 mg tablet 99.5 mg PO TID PRN (Reason: Pain) 0RF cyclobenzaprine 10 mg tablet 10 mg PO TID PRN (Reason: Muscle Spasm) 0RF atorvastatin 80 mg tablet 80 mg PO DAILY 0RF clonazepam 0.5 mg tablet 0.5 mg PO BID PRN (Reason: Anxiety) 0RF gabapentin 400 mg capsule 400 mg PO TID 0RF Novolin 70/30 U-100 Insulin 100 unit/mL (70-30) suspension 20 - 25 unit SUBCUT .BID BEFORE MEALS 0RF hydrocodone-acetaminophen 10-325 mg tablet 1 tab PO Q6H PRN (Reason: Pain) 0RF calcium carbonate [Tums] 200 mg calcium (500 mg) Tablet,Chewable 500 mg PO PRN 0RF aspirin 81 mg Tablet,Delayed Release (Dr/Ec) 81 mg PO DAILY Qty: 30 0RF citalopram 20 mg Tablet 40 mg PO DAILY Qty: 60 0RF tamsulosin 0.4 mg Capsule 0.4 mg PO DAILY Qty: 30 0RF buspirone 10 mg Tablet 15 mg PO BID Qty: 90 0RF acetaminophen 500 mg Tablet 500 - 1,000 mg PO Q4H PRN (Reason: Pain) 0RF Discharge Orders: Discharge Order (Routine); Ordered 07/15/21 Ordered By: Kevin Alexander Referrals: Leonel Jolley [Primary Care Provider] - 07/21/21 3:45 pm (CBC, CMP on follow-up To discuss splenic artery aneurysm as well to see if patient will be agreeable to referral for possible surgery.) Discharge Diet: Usual diet Discharge Activity: Resume usual activity Patient Instructions: Aripiprazole (By mouth), Brief Psychotic Disorder (DC), Anxiety (DC), Opioid Safety Discharge Attestations NPU Time Spent in Discharge Care*: greater than 30 min Specific Discharge Activities: Specific discharge activities: educating patient, discussing with pcp/other providers, discussing with rifle case repairer/social workers/dc planners, documenting/other paperwork and evaluating patient/reviewing data Coding Level of Care Code Acute Chg FW DC note Diagnoses Splenic artery aneurysm I72.8
[2021-07-15 16:00] VITALS: BP 114/78; PULSE 91; RESP 17; TEMP 36.7; O2SAT 96
[2021-07-15 18:41] VITALS: BP 114/78; PULSE 91; RESP 17; TEMP 36.7; O2SAT 96
== END 2021-07-15 18:42 | disposition home or self-care (01) | DRG 872 ==
LOC: ER 18:22 → MEDSURG 18:46
PROVIDERS: Internal Medicine; Admitting Provider Internal Medicine; Emergency Provider Family Medicine; PCP Family Medicine; Visit Provider Psychiatry & Neurology Psychiatry
DX: A41.9 Sepsis, unspecified organism (principal); N17.9 Acute kidney failure, unspecified; I69.954 Hemiplegia and hemiparesis following unspecified cerebrovascular disease affecting left non-dominant side; F05 Delirium due to known physiological condition; N30.01 Acute cystitis with hematuria; J44.1 Chronic obstructive pulmonary disease with (acute) exacerbation; I24.8 Other forms of acute ischemic heart disease; R45.851 Suicidal ideations; F23 Brief psychotic disorder; E11.22 Type 2 diabetes mellitus with diabetic chronic kidney disease; I12.9 Hypertensive chronic kidney disease with stage 1 through stage 4 chronic kidney disease, or unspecified chronic kidney disease; N18.9 Chronic kidney disease, unspecified; E11.42 Type 2 diabetes mellitus with diabetic polyneuropathy; N14.1 Nephropathy induced by other drugs, medicaments and biological substances; T50.8X5A Adverse effect of diagnostic agents, initial encounter; G89.29 Other chronic pain; E78.5 Hyperlipidemia, unspecified; F17.210 Nicotine dependence, cigarettes, uncomplicated; N40.1 Benign prostatic hyperplasia with lower urinary tract symptoms; R33.8 Other retention of urine; Z66 Do not resuscitate; I72.8 Aneurysm of other specified arteries; F41.9 Anxiety disorder, unspecified; D64.9 Anemia, unspecified; Z79.891 Long term (current) use of opiate analgesic; Z79.4 Long term (current) use of insulin; F32.A Depression, unspecified
CPT/HCPCS: 36415; 36416; 36600; 70450; 71045; 71275; 74177; 74230; 80048; 80051; 80053; 81001; 82009; 82330; 82550; 82805; 82962; 83605; 83690; 83735; 83986; 84484; 85025; 86705; 86706; 86709; 86803; 87040; 87086; 87340; 92610; 92611; 93005; 96365; 96367; 96372; 96375; 99285; C9113; J1630; J1815; J1956; J2060; J2270; J2405; J2543; J7030; Q9967

== ENCOUNTER 2021-08-31 20:13 | Emergency (ER) | payer BC, MEDICAID, SELFPAY ==
[2021-08-31 20:28] LABS: Glucose Point of Care > 600 mg/dL (70-110)
--- NOTE | 2021-08-31 20:28 | W.ED.GENADLT ---
HPI - General Adult General: Chief complaint: General Medical Stated complaint: HYPERGLYCEMIA Time Seen by Provider: 08/31/21 20:16 Source: patient and EMS Mode of arrival: EMS Limitations: no limitations History of Present Illness: 61-year-old male who has a history of type 2 diabetes. Patient was recently admitted here discharge roughly a week ago patient states he does not like needles please not been taking any of his insulin at home he also has not been checking his blood sugar either. Patient significant other checked his blood sugar tonight and it read high so she called EMS he has no other complaints at this time no vomiting no diarrhea. Associated symptoms: Deny chest pain, dyspnea, headache(s), nausea, rash or vomiting Review of Systems Const: Denies: fever(s), chills, body aches or change in appetite Eyes: Denies: blurry vision or eye discomfort ENMT: Denies: throat pain or dental pain Card: Denies: chest pain Resp: Denies: dyspnea GI: Denies: abdominal pain, nausea, vomiting or diarrhea : Denies: dysuria Musc: Denies: neck pain or back pain Skin/Breast: Denies: rash Neuro: Denies: headache(s) Psych: Denies: depression Landry/Lymph: Denies: easy bruising All/Imm: Denies: urticaria PFSH ED PFSH: Medical History Acute kidney injury Chronic kidney disease Chronic pain History of CVA (cerebrovascular accident) History of seizure History of upper gastrointestinal bleeding Hyperlipidemia Hypertension Left upper quadrant abdominal mass Neuropathy Splenic artery aneurysm Type 2 diabetes mellitus Family History Father , AT AGE 66 Aneurysm Mother , AT AGE 84 Natural Social History Smoking and tobacco status: current every day smoker Alcohol intake: never Marital status: Life Partner Current occupational status: disabled History of recent travel: No Physical Exam Const: COMMON NORMALS: no acute distress, patient oriented x3 and healthy appearing HENMT: COMMON NORMALS: normocephalic and atraumatic HEAD & SCALP: normocephalic and atraumatic Eye: COMMON NORMALS: Equal, round and reactive pupils present and EOMs intact bilaterally PUPIL: Yes Equal, round and reactive pupils present Neck/C-Spine: COMMON NORMALS: full ROM and supple Chest: COMMONS NORMALS: normal inspection of the chest and normal palpation of entire chest wall Resp: COMMON NORMALS: normal respiratory effort, No retractions, No use of accessory muscles and clear to auscultation bilaterally AUSCULTATION: clear to auscultation bilaterally Cardio: COMMON NORMALS: regular rate, regular rhythm and No murmurs present (Cardio) RATE: regular rate RHYTHM: regular rhythm GI: COMMON NORMALS: Normal to inspection, nondistended, normoactive bowel sounds present, Soft to palpation, non-tender and no masses PALPATION: Yes Soft to palpation Extremity: COMMON NORMALS: normal to inspection and full ROM Neuro: COMMON NORMALS: patient oriented x3, moves all extremities and no focal motor deficits Psych: COMMON NORMALS: mental status grossly normal, Normal thought process present and cooperative THOUGHT PROCESS: Normal thought process present Skin: COMMON NORMALS: no rashes or lesions noted and no wounds GENERAL SKIN EXAM: no rashes or lesions noted Course Vital Signs: Vital signs: Vital Signs Temperature 96.9 F L 08/31/21 20:30 Pulse Rate 98 09/01/21 02:00 Respiratory Rate 20 H 08/31/21 20:30 Blood Pressure 132/80 09/01/21 02:00 Pulse Oximetry 97 09/01/21 02:00 [facility] - General Adult Medical Decision Making Patient presents here with hyperglycemia due to noncompliance his electrolytes here improved after insulin and fluids blood glucose is improved as well he has had no other complaints here he is stable for discharge and follow-up PCP and return if worsening. Lab Data : 08/31/21 20:28 09/01/21 00:30 Radiology Impressions Chest X-Ray 08/31/21 21:16 IMPRESSION: No change, lungs clear Laboratory Results WBC 10.3 10^3/uL (4.0-10.0) H 08/31/21 20: RBC 4.25 10^6/uL (4.1-5.3) 08/31/21 20:28 Hgb 12.1 g/dL (11.7-16.6) 08/31/21 20: Hct 39.2 % (42.0-52.0) L 08/31/21 20: MCV 92.2 fl (80-94) 08/31/21: MCH 28.5 pg (28.0-34.0) 08/31/21: MCHC 30.9 g/dL (30.0-36.0) 08/31/21: RDW 14.8 % (12.1-15.1) 08/31/21: Plt Count 336 10^3/cmm (130-400) 08/31/21: MPV 12.1 fL (7.4-10.4) H 08/31/21: Neut % (Auto) 71.9 % 08/31/21: Lymph % (Auto) 14.2 % 08/31/21: [place] % (Auto) 7.3 % 08/31/21: Eos % (Auto) 5.2 % 08/31/21 Baso % (Auto) 0.9 % 08/31/21 Neut # (Auto) 7.43 10^3/uL (1.8-7.7) 08/31/21: Lymph # (Auto) 1.5 10^3/uL (0.8-4.8) 08/31/21: [place] # (Auto) 0.8 10^3/uL (0.2-0.9) 08/31/21: Eos # (Auto) 0.5 10^3/uL (0.0-0.8) 08/31/21 Baso # (Auto) 0.1 10^3/uL (0.0-0.1) 08/31/21: Nucleated RBC % (auto) 0 % 08/31/21 Nucleated RBCs # 0.0 /100WBC 08/31/21: Sodium 138 mmol/L (136-145) 09/01/21 00:30 Potassium 3.8 mmol/L (3.5-5.1) 09/01/21 00:30 Chloride 105 mmol/L (98-107) 09/01/21 00:30 Carbon Dioxide 18 mmol/L (22-29) L 09/01/21 00:30 Anion Gap 18.8 (5-19) 09/01/21 00:30 BUN 57 mg/dL (8-23) H 09/01/21 00:30 Creatinine 1.5 mg/dL (0.7-1.2) H 09/01/21 00:30 GFR Calculation 47.4 mL/min (90-130) L 09/01/21 00:30 Glucose 439 mg/dL (65-115) H 09/01/21 00:30 POC Glucose 286 mg/dL (70-110) H 09/01/21 02:09 Calculated Osmolality 321 mOsm/kg (285-295) H 09/01/21 00:30 Calcium 11.7 mg/dL (8.5-10.5) H 09/01/21 00:30 Total Bilirubin 0.2 mg/dL (0.15-1.2) 08/31/21 20:28 AST 5 U/L (0-40) 08/31/21 20:28 ALT 8 U/L (0-41) 08/31/21 20:28 Alkaline Phosphatase 150 IU/L (40-130) H 08/31/21 20:28 Total Protein 8.7 g/dL (6.6-8.7) 08/31/21 20:28 Albumin 5.2 g/dL (3.5-5.2) 08/31/21 20:28 Globulin 3.5 g/dL (1.3-4.6) 08/31/21 20:28 Serum Ketones Negative (Negative) 08/31/21 20:28 EKG Data EKG 1: I personally reviewed and interpreted this EKG as follows: EKG interpretation date: 08/31/21 EKG interpretation time: 21:28 Interpretation: nsr hr [address] or t wave abnormalities qrs 90 qtc 372 Computer generated interpretation: Chest X-Ray 08/31/21 21:16 IMPRESSION: No change, lungs clear Discharge Plan Discharge Patient Disposition: Home Clinical Impression: Hyperglycemia Condition: Stable Prescriptions: No Action phenazopyridine 99.5 mg tablet 99.5 mg PO TID PRN (Reason: Pain) 0RF cyclobenzaprine 10 mg tablet 10 mg PO TID PRN (Reason: Muscle Spasm) 0RF atorvastatin 80 mg tablet 80 mg PO DAILY 0RF clonazepam 0.5 mg tablet 0.5 mg PO BID PRN (Reason: Anxiety) 0RF gabapentin 400 mg capsule 400 mg PO TID 0RF Novolin 70/30 U-100 Insulin 100 unit/mL (70-30) suspension 20 - 25 unit SUBCUT .BID BEFORE MEALS 0RF hydrocodone-acetaminophen 10-325 mg tablet 1 tab PO Q6H PRN (Reason: Pain) 0RF calcium carbonate [Tums] 200 mg calcium (500 mg) Tablet,Chewable 500 mg PO PRN 0RF aspirin 81 mg Tablet,Delayed Release (Dr/Ec) 81 mg PO DAILY Qty: 30 0RF citalopram 20 mg Tablet 40 mg PO DAILY Qty: 60 0RF tamsulosin 0.4 mg Capsule 0.4 mg PO DAILY Qty: 30 0RF buspirone 10 mg Tablet 15 mg PO BID Qty: 90 0RF acetaminophen 500 mg Tablet 500 - 1,000 mg PO Q4H PRN (Reason: Pain) 0RF aripiprazole 10 mg Tablet 15 mg PO BEDTIME 30 Days Qty: 30 1RF Discharge Orders: Discharge ED (Routine); Ordered 09/01/21 Ordered By: Anna Taylor Referrals: Leonel Jolley [Primary Care Provider] - 1-3 days Discharge Diet: Advance as tolerated Discharge Activity: Resume usual activity Patient Instructions: Diabetic Hyperglycemia (ED) Coding Level of Care Code ED Branch Logistics Supervisor for Chg Fwd Exam Comprehensive
[2021-08-31 20:30] VITALS: BP 136/106; PULSE 90; RESP 20; TEMP 36.1; O2SAT 93; BMI 25.0
[2021-08-31] MEDS: sodium chloride 0.9% 1,000 ML 999 ML IV (20:30)
[2021-08-31 20:42] LABS: Basophils # 0.1 10^3/uL (0.0-0.1); Basophils % 0.9 %; Eosinophils # 0.5 10^3/uL (0.0-0.8); Eosinophils % 5.2 %; Hematocrit 39.2 % (42.0-52.0); Hemoglobin 12.1 g/dL (11.7-16.6); Lymphocytes # 1.5 10^3/uL (0.8-4.8); Lymphocytes % 14.2 %; Mean Corpuscular HGB Conc 30.9 g/dL (30.0-36.0); Mean Corpuscular Hemoglobin 28.5 pg (28.0-34.0); Mean Corpuscular Volume 92.2 fl (80-94); Mean Platelet Volume 12.1 fL (7.4-10.4); Monocytes # 0.8 10^3/uL (0.2-0.9); Monocytes % 7.3 %; Neutrophils # 7.43 10^3/uL (1.8-7.7); Neutrophils % 71.9 %; Nucleated Red Blood Cells % 0 %; Platelet Count 336 10^3/cmm (130-400); Red Blood Count 4.25 10^6/uL (4.1-5.3); Red Cell Distribution Width 14.8 % (12.1-15.1); White Blood Count 10.3 10^3/uL (4.0-10.0)
[2021-08-31] MEDS: insulin regular-human 100 units/1 mL 10 UNIT IVP ×2 (20:44→23:15)
[2021-08-31 21:00] LABS: Ketone (Acetest) Serum Negative (Negative)
[2021-08-31 21:12] LABS: Alanine Aminotransferase 8 U/L (0-41); Albumin Level 5.2 g/dL (3.5-5.2); Alkaline Phosphatase 150 IU/L (40-130); Anion Gap 24.3 (5-19); Aspartate Amino Transferase 5 U/L (0-40); Blood Urea Nitrogen 65 mg/dL (8-23); Calcium 11.8 mg/dL (8.5-10.5); Carbon Dioxide 18 mmol/L (22-29); Chloride 92 mmol/L (98-107); Globulin 3.5 g/dL (1.3-4.6); Glomerular Filtration Rate 38.4 mL/min (90-130); Potassium 6.3 mmol/L (3.5-5.1); Sodium 128 mmol/L (136-145); Total Bilirubin 0.2 mg/dL (0.15-1.2); Total Protein 8.7 g/dL (6.6-8.7)
--- NOTE | 2021-08-31 21:16 | ECG_ITS ---
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 Measurements Intervals Couch Rate: 96 P: 55 NM: 194 QRS: 35 QRSD: 90 T: -31 QT: 318 QTc: 403 Interpretive Statements SINUS RHYTHM NONSPECIFIC ST & T-WAVE ABNORMALITY Compared to ECG 07/02/2021 20:50:34 No significant changes Electronically Signed On 09-02-2021 5:41:27 WHEEL BORER by Lorri Chiu M.D. [id number]
--- NOTE | 2021-08-31 21:16 | XRR_ITS ---
PROCEDURE INFORMATION: Exam: XR Chest Exam date and time: 08/31/2021 9:16 PM Age: 61 years old Clinical indication: Shortness of breath; Additional info: SOB TECHNIQUE: Imaging protocol: XR of the chest. Views: 1 view. COMPARISON: CR XR chest 1V portable [id number] 07/02/2021 2:38 PM FINDINGS: Lungs: Unremarkable. No consolidation. Pleural spaces: Unremarkable. No pleural effusion. No pneumothorax. Heart/Mediastinum: Unremarkable. No cardiomegaly. Bones/joints: Unremarkable. XR/XR chest 1V portable [id number] IMPRESSION: No change, lungs clear
[2021-08-31 21:21] LABS: Osmolality Calculated 330 mOsm/kg (285-295)
[2021-08-31 21:23] LABS: Glucose 909 mg/dL (65-115)
[2021-08-31] MEDS: insulin regular-human 100 units/1 mL 5 UNIT IVP ×2 (21:42→22:45)
[2021-08-31 22:05] LABS: Glucose Point of Care > 600 mg/dL (70-110)
[2021-08-31 22:34] VITALS: PULSE 97; O2SAT 96
[2021-08-31 22:59] LABS: Glucose Point of Care 551 mg/dL (70-110)
[2021-08-31 23:34] VITALS: BP 98/74
[2021-09-01] MEDS: insulin regular-human 100 units/1 mL 5 UNIT IVP (00:23)
[2021-09-01 00:24] VITALS: BP 110/69
[2021-09-01 01:00] VITALS: BP 110/73; PULSE 99; O2SAT 97
[2021-09-01 01:07] LABS: Anion Gap 18.8 (5-19); Blood Urea Nitrogen 57 mg/dL (8-23); Calcium 11.7 mg/dL (8.5-10.5); Carbon Dioxide 18 mmol/L (22-29); Chloride 105 mmol/L (98-107); Glomerular Filtration Rate 47.4 mL/min (90-130); Glucose 439 mg/dL (65-115); Osmolality Calculated 321 mOsm/kg (285-295); Potassium 3.8 mmol/L (3.5-5.1); Sodium 138 mmol/L (136-145)
[2021-09-01] MEDS: insulin regular-human 100 units/1 mL 10 UNIT IVP (01:15)
[2021-09-01] MEDS: sodium chloride 0.9% 1,000 ML 999 ML IV (01:20)
[2021-09-01 02:00] VITALS: BP 132/80; PULSE 98; O2SAT 97
[2021-09-01 02:09] LABS: Glucose Point of Care 458 mg/dL (70-110)
[2021-09-01 02:12] LABS: Glucose Point of Care 286 mg/dL (70-110)
--- NOTE | 2021-09-01 03:02 | PC.NURSE ---
discharge this nurse spoke with pt ; she stated she wasn't happy that we weren't doing anything about his aneurysm. this nurse explained to her that he wasn't complaining about anything related to that. pt stated she would try to find a ride for pt and call this nurse back. pt son then called and stated he was out a long distance and he would try to have his fiance come get him.
== END 2021-09-01 04:24 | disposition home or self-care (01) ==
PROVIDERS: Emergency Provider Emergency Medicine; PCP Family Medicine
DX: E11.65 Type 2 diabetes mellitus with hyperglycemia (principal); Z79.4 Long term (current) use of insulin; Z79.82 Long term (current) use of aspirin; Z86.73 Personal history of transient ischemic attack (TIA), and cerebral infarction without residual deficits; E78.5 Hyperlipidemia, unspecified; I10 Essential (primary) hypertension; F17.210 Nicotine dependence, cigarettes, uncomplicated; E11.40 Type 2 diabetes mellitus with diabetic neuropathy, unspecified
CPT/HCPCS: 36416; 71045; 80048; 80053; 82009; 82962; 85025; 93005; 96361; 96374; 96376; 99285; J1815; J7030

== ENCOUNTER 2021-09-12 11:47 | Inpatient (IN) | payer BC, SELFPAY ==
[2021-09-12] VITALS (20 sets, daily range): BP systolic 119–146; BP diastolic 68–89; PULSE 88–105; RESP 7–25; TEMP 33.4–36.8; O2SAT 96–100; BMI 18.8
--- NOTE | 2021-09-12 11:54 | ED_ITS ---
HPI - General Adult General: Chief complaint: Altered Mental Status Stated complaint: HIGH BLOOD SUGAR Time Seen by Provider: 09/12/21 11:48 History of Present Illness: 61-year-old male presents with some lethargy, generalized weakness and fall. Patient is a known diabetic. EMS reports that his blood sugar was reading high and the last time he was here per family it was in the 900s. Patient had a groans. He has some bruising over his bilateral knees and elbow. He has a smoking skin tear over his elbow. Patient does have some chronic difficulty ambulating, he does have an old left-sided stroke that is unchanged per EMS. Associated symptoms: Deny chest pain, nausea or palpitations Review of Systems General: Reports: Other (Limited due to mentation) Narrative: Lethargic Const: Denies: fever(s) or chills Card: Denies: chest pain or palpitations GI: Denies: abdominal pain or nausea Neuro: Reports: frequent falls PFSH ED PFSH: Medical History Acute kidney injury Chronic kidney disease Chronic pain History of CVA (cerebrovascular accident) History of seizure History of upper gastrointestinal bleeding Hyperlipidemia Hypertension Left upper quadrant abdominal mass Neuropathy Splenic artery aneurysm Type 2 diabetes mellitus Family History Father , AT AGE 66 Aneurysm Mother , AT AGE 84 Natural Social History Smoking and tobacco status: current every day smoker Alcohol intake: never Marital status: Life Partner Current occupational status: disabled History of recent travel: No Physical Exam Const: EXAM LIMITATIONS: altered mental status GENERAL APPEARANCE: disheveled and lethargic ORIENTATION/CONSCIOUSNESS: Yes lethargic Eye: GENERAL EYE: appearance normal, both eyes and all related structures Resp: COMMON NORMALS: normal respiratory effort, No retractions and No use of accessory muscles Cardio: COMMON NORMALS: regular rate and regular rhythm RATE: regular rate RHYTHM: regular rhythm GI: COMMON NORMALS: Soft to palpation and non-tender INSPECTION: Yes normal to inspection PALPATION: Yes Soft to palpation Neuro: SENSORIUM/ORIENTATION: Yes lethargic Skin: NARRATIVE SKIN EXAM: Skin tear left elbow, ecchymosis bilateral knees and elbow Procedures Central Line Placement Right IJ: Time Out Performed: Yes Patient Placed on Monitor/Pulse Ox: Yes MD Prep: mask, gown and gloves Central Line Prep: Povidone-Iodine 1%, Chlorhexidine scrub and sterile drapes applied Local Anesthetic: lidocaine 1% Amount of anesthesia used (mL): 5 Ultrasound Used for Placement: Yes Central Line Lumen Inserted: triple Post Procedure: sutured in place, good blood return, all ports aspirated, flushed, capped and sterile dressing applied Post Procedure X-Ray: tip of catheter in good position and no pneumothorax seen Patient Tolerated Procedure: well Course Vital Signs: Vital signs: Vital Signs Temperature 92.2 F L 09/12/21 11:57 Pulse Rate 88 09/12/21 13:23 Respiratory Rate 25 H 09/12/21 13:23 Blood Pressure 119/71 09/12/21 13:23 Pulse Oximetry 100 09/12/21 13:23 MDM - General Adult Medical Decision Making Patient is extremely sick with probable DKA along with sepsis of an unknown origin. Patient was started on insulin drip, given antibiotics and a central line was placed. Patient to be admitted to Dr. Griffin. Patient was stable but critical throughout his stay. Patient did remain lethargic but with no significant change in his mentation. Patient was admitted to the ICU. Lab Data : 09/12/21 12:22 09/12/21 15:20 Radiology Impressions Elbow X-Ray 09/12/21 12:02 IMPRESSION: 1. The examination is compromised by suboptimal positioning. 2. Possible nondisplaced fracture involving the proximal radial metaphysis. Recommend CT to better characterize. Chest X-Ray 09/12/21 15:11 IMPRESSION: Right IJ catheter tip over the distal SVC. Laboratory Results WBC 47.3 10^3/uL (4.0-10.0) H* 09/12/21 12:22 RBC 4.61 10^6/uL (4.1-5.3) 09/12/21 12:22 Hgb 13.3 g/dL (11.7-16.6) 09/12/21 12: Hct 43.5 % (42.0-52.0) 09/12/21 12: MCV 94.4 fl (80-94) H 09/12/21 12:22 MCH 28.9 pg (28.0-34.0) 09/12/21: MCHC 30.6 g/dL (30.0-36.0) 09/12/21: RDW 15.2 % (12.1-15.1) H 09/12/21 12: Plt Count 790 10^3/cmm (130-400) H 09/12/21: MPV 11.3 fL (7.4-10.4) H 09/12/21: Lymph % (Auto) Not Reportable 09/12/21: [place] % (Auto) Not Reportable 09/12/21: Lymph # (Auto) Not Reportable 09/12/21: [place] # (Auto) Not Reportable 09/12/21: Total Counted 100 (0-100) 09/12/21: Atypical Lymphs % 0.0 % (0-5) 09/12/21: Absolute Neutrophils 43.0 10^3/cmm (1.4-6.5) H 09/12/21: Segmented Neutrophils 82 % 09/12/21: Abs Segm Neuts (Man) 38.8 10/cmm (1.6-7.1) H 09/12/21: Band Neutrophils 9.0 % 09/12/21: Abs Band Neuts (Man) 4.3 10^3/cmm (0.0-1.2) H 09/12/21: Absolute Lymphocytes 1.4 10^3/cmm (1.2-3.4) 09/12/21: Lymphocytes (Manual) 3 % 09/12/21: Monocytes (Manual) 3.0 % 09/12/21: Absolute Monocytes 1.4 10^3/cmm (0.1-0.6) H 09/12/21: Eosinophils (Manual) 0 % 09/12/21: Absolute Eosinophils 0.0 10^3/cmm (0.0-0.7) 09/12/21: Basophils (Manual) 0.0 % 09/12/21: Absolute Basophils 0.0 10^3/cmm (0.0-0.2) 03/12/22 12:22 Metamyelocytes 1.0 % 09/12/21 12: Myelocytes 2.0 % 09/12/21 12:22 Hypersegmented Polys 1+ 09/12/21 12:22 Platelet Estimate Increased (Normal) 09/12/21 12:22 Specimen Type Arterial 09/12/21 11:51 Sample Site Radial, right 09/12/21 11:51 ABG pH 7.18 (7.35-7.45) L* 09/12/21 11:51 ABG pCO2 12.5 mmHg (35-45) L* 09/12/21 11:51 ABG pO2 128.0 mmHg (80.0-100.0) H 09/12/21 11:51 ABG HCO3 4.7 mmol/L (22-26) L 09/12/21 11:51 ABG Base Excess -21.2 mmol/L (-2.0-2.0) L 09/12/21 11:51 Saad Test Pos 09/12/21 11:51 Hematocrit 38.0 % (42-52) L 09/12/21 11:51 O2 Delivery Device Room air 09/12/21 11:51 FiO2 21.0 % 09/12/21 11:51 Sales Training Manager ID Ed 09/12/21 11:51 Sodium 127 mmol/L (136-145) L 09/12/21 12:22 Potassium 5.4 mmol/L (3.5-5.1) H 09/12/21 12:22 Chloride 86 mmol/L (98-107) L 09/12/21 12:22 Carbon Dioxide 6 mmol/L (22-29) L* 09/12/21 12:22 Anion Gap 40.4 (5-19) H 09/12/21 12:22 BUN 74 mg/dL (8-23) H 09/12/21 12:22 Creatinine 2.8 mg/dL (0.7-1.2) H 09/12/21 12:22 GFR Calculation 23.1 mL/min (90-130) L 09/12/21 12:22 Glucose 857 mg/dL (65-115) H* 09/12/21 12:22 POC Glucose > 600 mg/dL (70-110) H* 09/12/21 11:58 Estimat Average Glucose 358 09/12/21 12:22 Hemoglobin A1c 14.1 % (4.0-6.0) H 09/12/21 12:22 Calculated Osmolality 328 mOsm/kg (285-295) H 09/12/21 12: Lactate 3.5 mmol/L (0.5-2.2) H 09/12/21 12: Calcium 11.7 mg/dL (8.5-10.5) H 09/12/21 12: Magnesium 3.6 mg/dL (1.7-2.3) H 09/12/21 12:22 Total Bilirubin 0.2 mg/dL (0.15-1.2) 09/12/21 12: AST 14 U/L (0-40) 09/12/21: ALT 8 U/L (0-41) 09/12/21 12: Alkaline Phosphatase 161 IU/L (40-130) H 09/12/21 12: C-Reactive Protein 126.7 mg/L (0.0-4.9) H 09/12/21 12: NT-Pro-B Natriuret Pep 4392 pg/mL (0-125) H 09/12/21 12: Total Protein 8.3 g/dL (6.6-8.7) 09/12/21 12: Albumin 4.3 g/dL (3.5-5.2) 09/12/21 12: Globulin 4.0 g/dL (1.3-4.6) 09/12/21 12: Triglycerides 568 mg/dL (0-150) H 09/12/21 12: Cholesterol 280 mg/dL (0-200) H 09/12/21 12:22 LDL Cholesterol Direct TNP 09/12/21 12: LDL Cholesterol, Calc Not Reportable 09/12/21 12: HDL Cholesterol 32 mg/dL (60-100) L 09/12/21 12: LDL/HDL Ratio Not Reportable 09/12/21: Cholesterol/HDL Ratio 8.75 mg/dL (1.0-5.00) H 09/12/21 12:22 Lipase > 3325 U/L (13-60) H 09/12/21 12:22 Procalcitonin 0.69 ng/mL (0-0.5) H 09/12/21 12:22 TSH 0.57 uIU/mL (0.27-4.20) 09/12/21 12:22 Ethyl Alcohol < 10 mg/dL (0-10) 09/12/21 12:22 Serum Ketones Positive (Negative) H 09/12/21 12:22 EKG Data EKG 1: I personally reviewed and interpreted this EKG as follows: EKG interpretation date: 09/12/21 EKG interpretation time: 12:28 Ischemic changes: non-specific ST-T wave changes Interpretation: NSR, nonspecific t waves, rate 92, no acute changes Computer generated interpretation: Elbow X-Ray 09/12/21 12:02 IMPRESSION: 1. The examination is compromised by suboptimal positioning. 2. Possible nondisplaced fracture involving the proximal radial metaphysis. Recommend CT to better characterize. Chest X-Ray 09/12/21 15:11 IMPRESSION: Right IJ catheter tip over the distal SVC. NSR, moderate t wave abnormality Critical Care Time Critical Care Time: Critical Care Time: Yes Total Critical Care Time: 150 Attestation: This case had a high probability of a clinically significant, sudden, or life threatening deterioration of this patient's condition which required my full and direct attention, intervention and personal management. Discharge Plan Discharge Patient Disposition: Admitted As Inpatient Admit Provider: Aris Griffin Clinical Impression: DKA (diabetic ketoacidosis) Qualifiers: Diabetes mellitus type: type 2 Diabetes mellitus complication detail: without coma Qualified Code(s): E11.10 - Type 2 diabetes mellitus with ketoacidosis without coma Condition: Stable Coding Level of Care Code ED Program Services Planner for Chg Fwd Exam Detailed
[2021-09-12 12:02] LABS: Glucose Point of Care > 600 mg/dL (70-110)
[2021-09-12 12:02] LABS: Glucose Point of Care > 600 mg/dL (70-110)
--- NOTE | 2021-09-12 12:02 | XRR_ITS ---
PROCEDURE INFORMATION: Exam: XR Left Elbow Exam date and time: 09/12/2021 12:02 PM Age: 61 years old Clinical indication: Fall with trauma and laceration. Fall with skin tear. Unable to straighten arm. TECHNIQUE: Imaging protocol: XR Left elbow. Views: 1 or 2 views. COMPARISON: No relevant prior studies available. FINDINGS: Bones/joints: There is a possible nondisplaced fracture involving the proximal radial metaphysis. Soft tissues: No significant soft tissue swelling. Limitations: The lateral view is suboptimally positioned compromising assessment for effusion. No definite effusion is visualized. XR/XR elbow LT 2V [id number] IMPRESSION: 1. The examination is compromised by suboptimal positioning. 2. Possible nondisplaced fracture involving the proximal radial metaphysis. Recommend CT to better characterize.
--- NOTE | 2021-09-12 12:02 | XRR_ITS ---
PROCEDURE INFORMATION: Exam: XR Chest Exam date and time: 09/12/2021 12:02 PM Age: 61 years old Clinical indication: Lethargy TECHNIQUE: Imaging protocol: XR of the chest. Views: 1 view. COMPARISON: CR (CHEST, ) 08/31/2021 9:22 PM FINDINGS: Lungs: There is patchy peripheral opacity in the mid and lower right chest. Pleural spaces: No pleural effusion. No pneumothorax. Heart/Mediastinum: The cardiac silhouette is approximately unchanged given differences in patient positioning. No gross evidence of pneumomediastinum. Bones/joints: No gross fracture. XR/XR chest 1V portable [id number] IMPRESSION: Patchy peripheral opacity in the mid and lower right chest. Consider CT chest to better characterize.
--- NOTE | 2021-09-12 12:03 | ECG_ITS ---
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 Measurements Intervals [place] Rate: 92 P: -4 [place]: 140 QRS: 50 QRSD: 94 T: 94 QT: 362 QTc: 448 Interpretive Statements SINUS RHYTHM MODERATE T-WAVE ABNORMALITY, CONSIDER LATERAL ISCHEMIA [-0.1+ mV T-WAVE IN I/aVL/V5/V6] Compared to ECG 08/31/2021 21:28:02 Possible ischemia now present T-wave abnormality still present Electronically Signed On 09-13-2021 15:45:56 CDT by Vicente Monroy M.D. [id number]
[2021-09-12 12:29] LABS: Hematocrit 43.5 % (42.0-52.0); Hemoglobin 13.3 g/dL (11.7-16.6); Mean Corpuscular HGB Conc 30.6 g/dL (30.0-36.0); Mean Corpuscular Hemoglobin 28.9 pg (28.0-34.0); Mean Corpuscular Volume 94.4 fl (80-94); Mean Platelet Volume 11.3 fL (7.4-10.4); Platelet Count 790 10^3/cmm (130-400); Red Blood Count 4.61 10^6/uL (4.1-5.3); Red Cell Distribution Width 15.2 % (12.1-15.1)
[2021-09-12 12:32] LABS: Base Excess ABG -21.2 mmol/L (-2.0-2.0); Blood Gas Allen Test Pos; Blood Gas Operator Identificat ED; Blood Gas Sample Site Radial, right; Blood Gas Sample Type Arterial; HCO3 ABG 4.7 mmol/L (22-26); Oxygen Device ROOM AIR
[2021-09-12 12:33] LABS: ABG PCO2 12.5 mmHg (35-45); ABG PH Result 7.18 (7.35-7.45)
[2021-09-12 12:42] LABS: Lactate (Lactic Acid level) 3.5 mmol/L (0.5-2.2)
[2021-09-12 12:43] LABS: Ketone (Acetest) Serum Positive (Negative)
[2021-09-12] MEDS: sodium chloride 0.9% 1,000 ML 999 ML IV ×2 (12:46→15:32)
[2021-09-12 13:01] LABS: Alanine Aminotransferase 8 U/L (0-41); Albumin Level 4.3 g/dL (3.5-5.2); Alkaline Phosphatase 161 IU/L (40-130); Blood Urea Nitrogen 74 mg/dL (8-23); Calcium 11.7 mg/dL (8.5-10.5); Chloride 86 mmol/L (98-107); Glomerular Filtration Rate 23.1 mL/min (90-130); Magnesium 3.6 mg/dL (1.7-2.3); Sodium 127 mmol/L (136-145); Thyroid Stimulating Hormone 0.57 uIU/mL (0.27-4.20); Total Bilirubin 0.2 mg/dL (0.15-1.2); Total Protein 8.3 g/dL (6.6-8.7)
[2021-09-12 13:10] LABS: Osmolality Calculated 328 mOsm/kg (285-295)
[2021-09-12 13:14] LABS: Anion Gap 40.4 (5-19); Aspartate Amino Transferase 14 U/L (0-40); Carbon Dioxide 6 mmol/L (22-29); Glucose 857 mg/dL (65-115); Potassium 5.4 mmol/L (3.5-5.1)
[2021-09-12 13:16] LABS: Slide Review Slide Review Perform; White Blood Count 47.3 10^3/uL (4.0-10.0)
[2021-09-12 13:18] LABS: Absolute Segmented Neutrophil 38.8 10/cmm (1.6-7.1); Band Neutrophils Absolute 4.3 10^3/cmm (0.0-1.2); Lymphocytes 3 %; Monocytes Absolute 1.4 10^3/cmm (0.1-0.6); Segmented Neutrophils 82 %; Total Cells Counted 100 (0-100)
[2021-09-12 13:19] LABS: Eosinophils 0 %; Hypersegmented Polys 1+; Lymphocytes Absolute 1.4 10^3/cmm (1.2-3.4); Platelet Estimate Increased (Normal)
[2021-09-12 13:40] LABS: Lipase > 3325 U/L (13-60)
--- NOTE | 2021-09-12 13:44 | CTR_ITS ---
PROCEDURE INFORMATION: Exam: CT Chest Without Contrast; Diagnostic Exam date and time: 09/12/2021 1:44 PM Age: 61 years old Clinical indication: Abnormal findings; Abnormal lab test; Elevated wbc; Abnormal diagnostic tests; Abnormal ekg; Patient HX: Elev lipase and wbc's; Additional info: Elevated lipase TECHNIQUE: Imaging protocol: Diagnostic computed tomography of the chest without contrast. Radiation optimization: All CT scans at this facility use at least one of these dose optimization techniques: automated exposure control; mA and/or kV adjustment per patient size (includes targeted exams where dose is matched to clinical indication); or iterative reconstruction. COMPARISON: CT angio chest PE protcl [id number] 07/02/2021 4:29 PM RADIATION DOSE METRICS: Total DLP (mGy-cm): 1537.46 FINDINGS: Lungs: Bilateral dependent atelectasis versus minimal infiltrate. Emphysematous changes. Right middle lobe 8.3 mm pulmonary nodule. Pleural spaces: Unremarkable. No pneumothorax. No pleural effusion. Heart: Coronary artery atherosclerotic calcifications. Aorta: Unremarkable. No aortic aneurysm. Lymph nodes: Unremarkable. No enlarged lymph nodes. Bones/joints: Unremarkable. No acute fracture. Soft tissues: Unremarkable. risk patients, consider CT Chest at 3 months, PET/CT, or biopsy. (Reference: Abdoul) 4. Coronary artery atherosclerotic calcifications. REFERENCES: Abdoul Diamond et al. Guidelines for Management of Incidental Pulmonary Nodules Detected on CT Images: From the Fleischner Society 2017. Radiology. 2017;284(1):228-243. PROCEDURE INFORMATION: Exam: CT Abdomen And Pelvis Without Contrast Exam date and time: 09/12/2021 1:44 PM Age: 61 years old Clinical indication: Abnormal findings; Abnormal lab test; Elevated wbc; Abnormal diagnostic tests; Abnormal ekg; Patient HX: Elev lipase and wbc's; Additional info: Elevated lipase TECHNIQUE: Imaging protocol: Computed tomography of the abdomen and pelvis without contrast. Radiation optimization: All CT scans at this facility use at least one of these dose optimization techniques: automated exposure control; mA and/or kV adjustment per patient size (includes targeted exams where dose is matched to clinical indication); or iterative reconstruction. COMPARISON: CT angio chest PE protcl [id number] 07/02/2021 4:29 PM RADIATION DOSE METRICS: Total DLP (mGy-cm): 1537.46 FINDINGS: Liver: Scattered hepatic cysts. Gallbladder and bile ducts: Normal. No calcified stones. No ductal dilation. Pancreas: Mild peripancreatic edema suggestive of pancreatitis without focal fluid collection. Spleen: Heterogeneous appearance of the spleen, somewhat similar to prior exam. Adrenal glands: Normal. No mass. Kidneys and ureters: Normal. No hydronephrosis. Stomach and bowel: Constipation. Appendix: No evidence of appendicitis. Intraperitoneal space: Unremarkable. No free air. No significant fluid collection. Vasculature: Again seen is an apparent 4.4 cm splenic aneurysm, similar to prior exam. Lymph nodes: Unremarkable. No enlarged lymph nodes. Urinary bladder: Millan catheter in the urinary bladder with a small amount of air, likely iatrogenic. Reproductive: Unremarkable as visualized. Bones/joints: Unremarkable. No acute fracture. Soft tissues: Unremarkable. CT/CT chest abd pel wo con IMPRESSION: 1. Bilateral dependent atelectasis versus minimal infiltrate. 2. Emphysematous changes. 3. Right middle lobe 8.3 mm pulmonary nodule. For both low risk and high IMPRESSION: 1. Mild peripancreatic edema suggestive of pancreatitis without focal fluid collection. 2. Scattered hepatic cysts. 3. Heterogeneous appearance of the spleen, somewhat similar to prior exam. 4. Again seen is an apparent 4.4 cm splenic aneurysm, similar to prior exam. 5. Constipation. 6. Millan catheter in the urinary bladder with a small amount of air, likely iatrogenic.
--- NOTE | 2021-09-12 13:45 | ECG_ITS ---
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 Measurements Intervals [place] Rate: 89 P: 69 ME: 159 QRS: 54 QRSD: 97 T: 102 QT: 373 QTc: 454 Interpretive Statements SINUS RHYTHM NONSPECIFIC T-WAVE ABNORMALITY Compared to ECG 09/12/2021 12:25:59 Possible ischemia no longer present T-wave abnormality still present Electronically Signed On 09-13-2021 15:45:11 CDT by Vicente Monroy M.D. [id number]
[2021-09-12] MEDS: insulin regular-human 100 units/1 mL 10 UNIT IVP (14:04)
--- NOTE | 2021-09-12 14:09 | P.HP_ITS ---
Providers/Chief Complaint Primary Care Provider: Leonel Jolley Chief Complaint: HIGH BLOOD SUGAR History of Present Illness Tucker Tyler is a 61 year old male Review of Systems General: Reports: ROS unobtainable due to mental status Medications/Allergies Home Medications Medication Instructions Recorded Confirmed Last Taken Type atorvastatin 80 mg tablet 80 mg PO DAILY 06/09/21 09/12/21 Unknown History calcium carbonate 200 mg calcium 500 mg PO PRN 06/09/21 09/12/21 Unknown History (500 mg) chewable tablet (Tums) clonazepam 0.5 mg tablet 0.5 mg PO BID PRN 06/09/21 09/12/21 Unknown History cyclobenzaprine 10 mg tablet 10 mg PO TID PRN 06/09/21 09/12/21 Unknown History gabapentin 400 mg capsule 400 mg PO TID 06/09/21 09/12/21 Unknown History hydrocodone 10 mg-acetaminophen 1 tab PO Q6H PRN 06/09/21 09/12/21 Unknown History 325 mg tablet insulin human U-100 NPH-regulr 20 - 25 unit SUBCUT .BID BEFORE 06/09/21 09/12/21 07/02/21 11:00 History 70-30 mix 100 unit/mL subcutaneous MEALS 25 units susp (Novolin 70/30 U-100 Insulin) aspirin 81 mg tablet,delayed 81 mg PO DAILY #30 tab 06/12/21 09/12/21 Unknown Rx release buspirone 10 mg tablet 15 mg PO BID #90 tab 06/12/21 09/12/21 Unknown Rx citalopram 20 mg tablet 40 mg PO DAILY #60 tab 06/12/21 09/12/21 Unknown Rx tamsulosin 0.4 mg capsule 0.4 mg PO DAILY #30 cap 06/12/21 09/12/21 Unknown Rx phenazopyridine 99.5 mg tablet 99.5 mg PO TID PRN 06/22/21 09/12/21 07/02/21 11:00 History acetaminophen 500 mg tablet 500 - 1,000 mg PO Q4H PRN 07/02/21 09/12/21 Unknown History aripiprazole 10 mg tablet 15 mg PO BEDTIME 30 Days #30 tab 07/15/21 09/12/21 Unknown Rx albuterol sulfate 90 mcg/actuation 1 inh INHALATION Q6H PRN 09/12/21 09/12/21 Unknown History aerosol inhaler Allergies Allergy/AdvReac Type Severity Reaction Status Date / Time No Known Allergies Allergy Verified 09/12/21 11:54 PFSH Acute PFSH: Medical History Acute kidney injury Chronic kidney disease Chronic pain History of CVA (cerebrovascular accident) History of seizure History of upper gastrointestinal bleeding Hyperlipidemia Hypertension Left upper quadrant abdominal mass Neuropathy Splenic artery aneurysm Type 2 diabetes mellitus Family History Father , AT AGE 66 Aneurysm Mother , AT AGE 84 Natural Social History Smoking and tobacco status: current every day smoker Alcohol intake: never Marital status: Life Partner Current occupational status: disabled History of recent travel: No Vitals/I&O/Wt Last Vital Signs Temp 92.2 F L 09/12/21 11:57 Pulse 88 09/12/21 13:23 Resp 25 H 09/12/21 13:23 BP 119/71 09/12/21 13:23 Pulse Ox 100 09/12/21 13:23 Weight last 48 hrs Weight 54.431 kg Physical Exam Const: COMMON NORMALS: no acute distress EXAM LIMITATIONS: altered mental status GENERAL APPEARANCE: disheveled and frail appearing NUTRITIONAL APPEARANCE: thin ORIENTATION/CONSCIOUSNESS: Yes awake and Yes confused; not oriented to person, not oriented to place and not oriented to time HENMT: COMMON NORMALS: normocephalic HEAD & SCALP: normocephalic Eye: COMMON NORMALS: Equal, round and reactive pupils present Neck/C-Spine: COMMON NORMALS: no JVD Resp: COMMON NORMALS: normal respiratory effort, No retractions, No use of accessory muscles and clear to auscultation bilaterally AUSCULTATION: clear to auscultation bilaterally Cardio: COMMON NORMALS: regular rate, regular rhythm, S1 normal heart sound present and S2 normal heart sound present RATE: regular rate RHYTHM: regular rhythm HEART SOUNDS: S1 normal heart sound present and S2 normal heart sound present GI: COMMON NORMALS: Normal to inspection, nondistended, normoactive bowel sounds present, Soft to palpation, non-tender and no bruits PALPATION: Yes Soft to palpation and Yes No hepatosplenomegaly present Extremity: COMMON NORMALS: capillary refill normal, no clubbing, cyanosis or edema, no calf tenderness and no pedal edema NARRATIVE EXTREMITY EXAM: Flexion contracture of left upper extremity Skin: OTHER: Mottling bilateral lower extremities Data : 09/12/21 12:22 09/12/21 12:22 A&P Assessment and plan (1) DKA (diabetic ketoacidosis): Status: Acute Qualifiers: Diabetes mellitus complication detail: without coma Diabetes mellitus type: type 2 Qualified Code(s): E11.10 - Type 2 diabetes mellitus with ketoacidosis without coma (2) Splenic artery aneurysm: Status: Acute (3) 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): Status: Acute (4) Type 2 diabetes mellitus: Status: Acute (5) History of CVA (cerebrovascular accident): Status: Acute (6) Acute pancreatitis: Status: Acute (7) Metabolic acidosis: Status: Acute (8) Acute encephalopathy: Status: Acute (9) Acute renal failure: Status: Acute (10) Sepsis: Status: Acute (11) Pneumonia: Status: Acute (12) Hypothermia: Status: Acute (13) Nondisplaced fracture of right radial styloid process, sequela: Status: Acute Plan Acute encephalopathy -Secondary to pneumonia, diabetic ketoacidosis, alcohol intoxication? -Neurochecks, aspiration precautions, seizure precautions -CIWA score Diabetic ketoacidosis -Anion gap 40, ketones positive, blood sugar over 800, bicarb 6, potassium 5.4 -Start insulin drip protocol -1 amp of D50 -Normal saline with 40 KCl -BMP, mag, [place] every 4 hours -Hold insulin drip if potassium drops below 4.5 -Monitor anion gap, less than 12 can stop insulin drip -Monitor blood sugars if less than 200, can switch to D5 normal saline with 40 KCl -We will consider adding on a bicarb drip based upon following bicarb, and potassium levels on BMPs -Obtain BMP, troponin, CT chest, CT abdomen, -Lovenox for DVT prophylaxis -Full code -Patient is critically ill, status stable, prognosis guarded Sepsis -Secondary to pneumonia -Possible aspiration pneumonia -Currently not requiring pressors -Receiving fluid therapy -Sputum cultures, blood cultures, urine bacterial antigen -We will do CT of the chest -Broad-spectrum antibiotic therapy vancomycin and Zosyn -MRSA nares Elevated lipase, concerning for pancreatitis -Obtain triglyceride level hours, CT abdomen, blood alcohol level Left radial fracture nondisplaced -Conservatively managed for now Lactic acidosis, due to sepsis above Metabolic acidosis, combination of diabetic ketoacidosis, lactic acidosis Hyponatremia, likely pseudohyponatremia Hypothermia, secondary to pneumonia, sepsis, DKA, possible alcohol withdrawal History of 5 cm splenic artery aneurysm, patient refuses surgical intervention History of depression, monitor mentation, history of psychosis, monitor, Haldol as needed History of CVA, left upper extremity flexion contracture Attestations Medical Necessity Statement*: Patient requires hospitalization for diabetic ketoacidosis, lactic acidosis, pancreatitis, acute encephalopathy, pneumonia, acute renal failure, metabolic acidosis, requiring inpatient admission, ICU, greater than 2 midnights Critical Care Time: 55 Coding Level of Care Code Acute Team Primary Care Physician for [facility] Fwd Diagnoses DKA (diabetic ketoacidosis) E11.10 Diabetes mellitus complication detail: without coma Diabetes mellitus type: type 2 Splenic artery aneurysm I72.8 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) Type 2 diabetes mellitus E11.9 History of CVA (cerebrovascular accident) Z86.73 Acute pancreatitis K85.90 Metabolic acidosis E87.2 Acute encephalopathy G93.40 Acute renal failure N17.9 Sepsis A41.9 Pneumonia J18.9 Hypothermia T68.XXXA Nondisplaced fracture of right radial styloid process, sequela S52.514S Sepsis Event Note Evaluation Current stage of sepsis: severe sepsis Possible source: pulmonary and GI tract/intra-abdominal Focused Exam Vital Signs Temp Pulse Resp BP Pulse Ox 09/12/21 13:23 88 25 H 119/71 100 09/12/21 11:57 92.2 F L 92 12 119/71 100 Peripheral pulse strength: 1+ Faint Peripheral pulse location: Pedal Skin exam: mottling Date exam was performed: 09/12/21 Time exam was performed: 14:13 Problem List (1) DKA (diabetic ketoacidosis): Status: Acute (2) Splenic artery aneurysm: Status: Acute (3) 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): Status: Acute (4) Type 2 diabetes mellitus: Status: Acute (5) History of CVA (cerebrovascular accident): Status: Acute (6) Acute pancreatitis: Status: Acute (7) Metabolic acidosis: Status: Acute (8) Acute encephalopathy: Status: Acute (9) Acute renal failure: Status: Acute (10) Sepsis: Status: Acute (11) Pneumonia: Status: Acute (12) Hypothermia: Status: Acute (13) Nondisplaced fracture of right radial styloid process, sequela: Status: Acute Sepsis Evaluation Sepsis screening result: No Definite Risk Current stage of sepsis: severe sepsis Focused Exam Vital Signs Temp Pulse Resp BP Pulse Ox 09/12/21 13:23 88 25 H 119/71 100 09/12/21 11:57 92.2 F L 92 12 119/71 100 Date exam was performed: 09/12/21 Time exam was performed: 14:12
[2021-09-12 14:26] LABS: Estmated Average Glucose 358; Hemoglobin A1C 14.1 % (4.0-6.0)
[2021-09-12] MEDS: insulin regular-human 250 UNIT in sodium chloride 0.9% 250 ML 8 UNIT IV (14:26)
--- NOTE | 2021-09-12 14:28 | CTR_ITS ---
PROCEDURE INFORMATION: Exam: CT Head Without Contrast Exam date and time: 09/12/2021 2:28 PM Age: 61 years old Clinical indication: Altered mental status/memory loss; Confusion or disorientation; Patient HX: AMS TECHNIQUE: Imaging protocol: Computed tomography of the head without contrast. Radiation optimization: All CT scans at this facility use at least one of these dose optimization techniques: automated exposure control; mA and/or kV adjustment per patient size (includes targeted exams where dose is matched to clinical indication); or iterative reconstruction. COMPARISON: CT head wo con* [id number] 07/02/2021 2:52 PM RADIATION DOSE METRICS: Total DLP (mGy-cm): 788.68 FINDINGS: Brain: Chronic right middle cerebral artery infarct again seen similar to prior exam. Cerebral ventricles: No ventriculomegaly. Paranasal sinuses: Visualized sinuses are unremarkable. No fluid levels. Mastoid air cells: Visualized mastoid air cells are well aerated. Bones/joints: Unremarkable. No acute fracture. Soft tissues: Unremarkable. CT/CT head wo con* [id number] IMPRESSION: 1. Negative for intracranial hemorrhage. 2. Chronic right middle cerebral artery infarct again seen similar to prior exam.
--- NOTE | 2021-09-12 15:11 | XRR_ITS ---
PROCEDURE INFORMATION: Exam: XR Chest Exam date and time: 09/12/2021 3:11 PM Age: 61 years old Clinical indication: Device placement; Other: Central line placement; Additional info: Pan TECHNIQUE: Imaging protocol: XR of the chest. Views: 1 view. COMPARISON: CR (CHEST, ) 09/12/2021 12:45 PM FINDINGS: Tubes, catheters and devices: Right IJ catheter tip over the distal SVC. Lungs: Unremarkable. No consolidation. Pleural spaces: Unremarkable. No pleural effusion. No pneumothorax. Heart/Mediastinum: Unremarkable. No cardiomegaly. Bones/joints: Unremarkable. XR/XR chest 1V portable [id number] IMPRESSION: Right IJ catheter tip over the distal SVC.
[2021-09-12 15:15] LABS: NT Pro B Type Natriuretic Pept 4392 pg/mL (0-125); Procalcitonin 0.69 ng/mL (0-0.5)
[2021-09-12 15:26] LABS: C Reactive Protein 126.7 mg/L (0.0-4.9); Chol HDL Ratio 8.75 mg/dL (1.0-5.00); Cholesterol 280 mg/dL (0-200); HDL Cholesterol 32 mg/dL (60-100); Triglycerides 568 mg/dL (0-150)
[2021-09-12 15:27] LABS: Alcohol Level < 10 mg/dL (0-10)
[2021-09-12] MEDS: cefepime 2,000 MG in sodium chloride 0.9% (plus) 50 ML 100 MG IV (15:28)
[2021-09-12 15:34] LABS: Glucose Point of Care 496 mg/dL (70-110)
[2021-09-12 15:45] LABS: INR 1.15 (0.8-1.2)
--- NOTE | 2021-09-12 15:45 | ECG_ITS ---
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 Measurements Intervals [place] Rate: 93 P: 72 [place]: 157 QRS: 57 QRSD: 96 T: -73 QT: 380 QTc: 473 Interpretive Statements SINUS RHYTHM ST DEVIATION AND MODERATE T-WAVE ABNORMALITY, CONSIDER INFERIOR ISCHEMIA [-0.1+ mV T-WAVE IN II/aVF] Compared to ECG 09/12/2021 14:00:48 Possible ischemia now present T-wave abnormality still present Electronically Signed On 09-13-2021 15:54:36 CDT by Vicente Monroy M.D. [email or web address]
[2021-09-12] MEDS: sodium chlor 0.9% + KCl 40 mEq 40 MEQ/1,000 ML BAG 125 MEQ IV (15:48)
[2021-09-12] MEDS: pantoprazole 40 mg SDV IVP (15:54)
[2021-09-12 15:56] LABS: Anion Gap 27.3 (5-19); Blood Urea Nitrogen 73 mg/dL (8-23); Calcium 10.2 mg/dL (8.5-10.5); Carbon Dioxide 11 mmol/L (22-29); Chloride 97 mmol/L (98-107); Glomerular Filtration Rate 26.3 mL/min (90-130); Osmolality Calculated 320 mOsm/kg (285-295); Potassium 4.3 mmol/L (3.5-5.1); Sodium 131 mmol/L (136-145)
[2021-09-12 15:58] LABS: Glucose 576 mg/dL (65-115)
[2021-09-12] MEDS: sodium bicarbonate 8.4% 1 mEq/mL 50mL Syr 50 MEQ IVP (16:00)
[2021-09-12] MEDS: enoxaparin 30 mg/0.3 mL Syringe SUBCUT (16:05)
[2021-09-12 16:06] LABS: Troponin(5th) Baseline 92 ng/L (0-15)
[2021-09-12 16:45] LABS: Add Urine Microscopic? NO; Charge for UA Resulting for Rev
[2021-09-12 16:48] LABS: Bilirubin Urine Neg (Negative); Blood Urine Neg (Negative); Glucose Urine UA 4+ (Normal); Ketones Urine 2+ (Negative); Leukocyte Esterase Urine Negative (Negative); Nitrate Urine Negative (Negative); Protein Urine Neg (Negative); Specific Gravity, Urine 1.015 (1.005-1.030); Urine Appearance Clear (CLEAR); Urine Color Yellow (Yellow); Urobilinogen Urine Norm (Negative); pH Urine 5 (5-7)
[2021-09-12 16:56] LABS: Amphetamines Screen Urine Negative (Negative); Barbiturates Screen Urine Negative (Negative); Benzodiazepines Screen Urine Positive (Negative); Cocaine Screen Urine Negative (Negative); Opiate Screen Urine Positive (Negative); PCP Screen Urine Negative (Negative); THC Screen Urine Negative (Negative)
[2021-09-12 16:56] LABS: Magnesium 3.2 mg/dL (1.7-2.3)
--- NOTE | 2021-09-12 16:58 | PC.NURSE ---
This nurse provided critical care one-on-one with patient for approximately 4 hours.
[2021-09-12] MEDS: piperacillin-tazobactam 3.375 GM in sodium chloride 0.9% (plus) 50 ML IV ×2 (17:21→23:03)
[2021-09-12] MEDS: vancomycin 1,000 MG in sodium chloride 0.9% 250 ML 250 MG IV (17:22)
[2021-09-12] MEDS: lidocaine 1% 5 ML in potassium chloride premix 100 ML 50 ML IV (17:23)
[2021-09-12 17:56] LABS: Troponin 5 2HR 79.54 ng/L (0-15)
--- NOTE | 2021-09-12 19:00 | PC.NURSE ---
ASSUMING CARE Bedside report from DAYANNA Valdes. Patient resting in bed on room air. Patient alert to self only and replies yes occasionally when asked a question or makes moaning noise. Patient follows commands intermittently and could slightly squeeze nurses hand with his right hand. Patients left side contractured due to previous CVA. Patient currently turned to right side. Zosyn is running at 12.5 mL/hour, 20 mEq K-Abebe running, NS with 20KCL running at 125 mL/hour and insulin gtt running per protocol. Patient has right IJ CVL in place and 2 peripheral IV's to right AC and right upper arm. Millan catheter in place and draining. Patient has abrasion to bilateral elbows, dressed with optifoam. Patients heels both blanchable with some peeling skin. Heel protectors placed on patient and heels floated off of bed with pillow.
[2021-09-12 20:21] LABS: Anion Gap 16.5 (5-19); Blood Urea Nitrogen 70 mg/dL (8-23); Calcium 10.3 mg/dL (8.5-10.5); Carbon Dioxide 17 mmol/L (22-29); Chloride 112 mmol/L (98-107); Glomerular Filtration Rate 36.1 mL/min (90-130); Glucose 220 mg/dL (65-115); Magnesium 2.7 mg/dL (1.7-2.3); Osmolality Calculated 319 mOsm/kg (285-295); Potassium 4.5 mmol/L (3.5-5.1); Sodium 141 mmol/L (136-145)
[2021-09-12 20:22] LABS: Troponin 5 6HR 81.37 ng/L (0-15)
[2021-09-12 20:28] LABS: Troponin 5 6HR Delta -10.63 ng/L (0-12)
--- NOTE | 2021-09-12 20:40 | PC.NURSE ---
NEW ORDERS Orders from Dr. Win to continue with 100-250 glucose target. Since glucose is under 250, new orders to change fluids from NS with 20KCL to D5NS with 20KCL. MD asked nurse if patient could tolerate PO, patient is not able to follow commands well at this time and remains somewhat lethargic. Notified of 1999 BMP, gap closed, bicarb up to 17. MD orders to continue drip at this time since patient not able to tolerate PO. MD states if gap remains closed with next BMP, will discontinue drip and start sliding scale insulin.
[2021-09-12] MEDS: dextrose 5%-ns + KCl 20 20 MEQ/1,000 ML BAG 125 MEQ IV (21:10)
[2021-09-13] VITALS (41 sets, daily range): BP systolic 92–157; BP diastolic 51–93; PULSE 79–110; RESP 10–20; TEMP 36.4–36.9; O2SAT 64–100
[2021-09-13 00:41] LABS: Anion Gap 14.2 (5-19); Blood Urea Nitrogen 60 mg/dL (8-23); Calcium 9.4 mg/dL (8.5-10.5); Carbon Dioxide 17 mmol/L (22-29); Chloride 115 mmol/L (98-107); Creatinine Clr Calc Pharmacy 32.7594; Glomerular Filtration Rate 38.4 mL/min (90-130); Glucose 180 mg/dL (65-115); Magnesium 2.6 mg/dL (1.7-2.3); Osmolality Calculated 315 mOsm/kg (285-295); Potassium 4.2 mmol/L (3.5-5.1); Sodium 142 mmol/L (136-145)
[2021-09-13 03:07] LABS: Triglycerides 276 mg/dL (0-150)
[2021-09-13] MEDS: insulin lispro 100 unit/1 mL SUBCUT ×5 (03:58→21:12)
[2021-09-13 04:54] LABS: Anion Gap 12.2 (5-19); Blood Urea Nitrogen 59 mg/dL (8-23); Calcium 10.3 mg/dL (8.5-10.5); Carbon Dioxide 18 mmol/L (22-29); Chloride 120 mmol/L (98-107); Glucose 170 mg/dL (65-115); Magnesium 2.6 mg/dL (1.7-2.3); Osmolality Calculated 323 mOsm/kg (285-295); Phosphorus 1.2 mg/dL (2.5-4.5); Potassium 4.2 mmol/L (3.5-5.1); Sodium 146 mmol/L (136-145)
[2021-09-13 05:15] LABS: Glucose Point of Care 394 mg/dL (70-110)
[2021-09-13 05:15] LABS: Glucose Point of Care 382 mg/dL (70-110)
[2021-09-13 05:16] LABS: Glucose Point of Care 277 mg/dL (70-110)
[2021-09-13 05:16] LABS: Glucose Point of Care 148 mg/dL (70-110)
[2021-09-13 05:16] LABS: Glucose Point of Care 177 mg/dL (70-110)
[2021-09-13 05:16] LABS: Glucose Point of Care 177 mg/dL (70-110)
[2021-09-13 05:16] LABS: Glucose Point of Care 160 mg/dL (70-110)
[2021-09-13 05:16] LABS: Glucose Point of Care 175 mg/dL (70-110)
[2021-09-13 05:16] LABS: Glucose Point of Care 214 mg/dL (70-110)
[2021-09-13 05:16] LABS: Glucose Point of Care 146 mg/dL (70-110)
[2021-09-13 06:05] LABS: Glucose Point of Care 144 mg/dL (70-110)
[2021-09-13] MEDS: dextrose 5%-ns + KCl 20 20 MEQ/1,000 ML BAG 125 MEQ IV ×3 (06:24→22:29)
[2021-09-13] MEDS: piperacillin-tazobactam 3.375 GM in sodium chloride 0.9% (plus) 50 ML IV ×3 (06:25→22:21)
[2021-09-13] MEDS: insulin glargine 100 units/1 mL 10 UNIT SUBCUT (06:28)
[2021-09-13 08:19] LABS: Glucose Point of Care 221 mg/dL (70-110)
[2021-09-13 08:22] LABS: Hematocrit 28.5 % (42.0-52.0); Hemoglobin 9.4 g/dL (11.7-16.6); Mean Corpuscular Hemoglobin 28.4 pg (28.0-34.0); Mean Corpuscular Volume 86.1 fl (80-94); Mean Platelet Volume 10.8 fL (7.4-10.4); Platelet Count 592 10^3/cmm (130-400); Red Blood Count 3.31 10^6/uL (4.1-5.3); Red Cell Distribution Width 14.5 % (12.1-15.1)
[2021-09-13 08:23] LABS: Anion Gap 14.1 (5-19); Blood Urea Nitrogen 50 mg/dL (8-23); Calcium 9.2 mg/dL (8.5-10.5); Carbon Dioxide 16 mmol/L (22-29); Chloride 119 mmol/L (98-107); Glucose 232 mg/dL (65-115); Magnesium 2.5 mg/dL (1.7-2.3); Osmolality Calculated 321 mOsm/kg (285-295); Phosphorus 1.4 mg/dL (2.5-4.5); Potassium 4.1 mmol/L (3.5-5.1); Sodium 145 mmol/L (136-145)
[2021-09-13 08:43] LABS: White Blood Count 40.2 10^3/uL (4.0-10.0)
[2021-09-13 08:47] LABS: Band Neutrophils Absolute 0.8 10^3/cmm (0.0-1.2); Monocytes Absolute 0.4 10^3/cmm (0.1-0.6); Segmented Neutrophils 97 %; Total Cells Counted 100 (0-100)
[2021-09-13 08:48] LABS: Absolute Neutrophil 39.8 10^3/cmm (1.4-6.5); Eosinophils 0 %; Lymphocytes 0 %; Platelet Estimate Increased (Normal)
[2021-09-13 08:49] LABS: Hypersegmented Polys Trace
--- NOTE | 2021-09-13 11:19 | USCV_ITS ---
Tucker Tyler Age: 61 Gender: M : 1960 Exam Date: 09/13/2021 12:09 Ordering Phys: Aris Griffin MD Technologist: Pearl Guevara Exam Location: [facility] Indication: NSTEMI DM BP: 144 / 77 HR: 101 Rhythm: Sinus Technical Quality: Technically difficult study MEASUREMENTS (Male / Female) Normal Values 2D ECHO LV Diastolic Diameter PLAX 2.5 cm 4.2 - 5.9 / 3.9 - 5.3 cm LV Systolic Diameter PLAX 2.3 cm LV Chamber Size 2.8 cm IVS Diastolic Thickness 0.8 cm 0.6 - 1.0 / 0.6 - 0.9 cm IVS Systolic Thickness 1.8 cm LVPW Diastolic Thickness 2.3 cm 0.6 - 1.0 / 0.6 - 0.9 cm LVPW Systolic Thickness 2.0 cm RV Chamber Size 2.0 cm LVOT Diameter 1.9 cm LV Ejection Fraction 2D Teich 50.0 % LV Ejection Fraction MOD 2C 49.4 % LV Ejection Fraction 2C AL 48.6 % LA Diameter 3.5 cm LA Width 3.3 cm LA Height 3.9 cm RA Width 2.8 cm RA Height 2.9 cm Aorta at Sinotubular Diameter 3.0 cm M-MODE Aortic Annulus Diameter 2.3 cm LA Ao Ratio MM 0.8 MV E Point Septal Separation 0.3 cm DOPPLER AV Peak Velocity 126.0 cm/s LVOT Peak Velocity 90.0 cm/s AV Area Cont Eq vti 2.5 cm squared AV Area Cont Eq pk 2.1 cm squared MV Area PHT 8.1 cm squared Mitral E to A Ratio 0.6 MV E' Velocity 35.0 cm/s Mitral E to MV E' Ratio 4.6 Mitral E to LV E' Lateral Ratio 4.7 Mitral E to LV E' Septal Ratio 4.6 TR Peak Velocity 145.4 cm/s TR Peak Gradient 8.5 mmHg TR Mean Velocity 98.8 cm/s TR Mean Gradient 4.8 mmHg TR Velocity Time Integral 29.6 cm TV Peak E Velocity 58.0 cm/s Right Atrial Pressure 3.0 mmHg Pulmonary Artery Systolic Pressu 11.5 mmHg PV Peak Velocity 55.0 cm/s RV Acceleration Time 0.2 s RV Ejection Time 0.3 s RV AcT/ET 0.6 FINDINGS Left Ventricle Technically limited quality echocardiogram because of poor ultrasonic windows. Normal left ventricular size. LV systolic function is normal with EF 50 to 55%. Regional wall motion abnormalities cannot be accurately assessed because of imaging quality. Grade 1 diastolic dysfunction Right Ventricle The right ventricle is normal in size and function. Right Atrium The right atrium is normal in size. Left Atrium The left atrium is normal in size. Mitral Valve Grossly normal. Aortic Valve Grossly normal Tricuspid Valve Grossly normal Pulmonic Valve Not well visualized Pericardium Normal pericardium without effusion. Aorta Normal ascending aorta dimension. CONCLUSIONS Technically limited quality echocardiogram because of poor ultrasonic windows. LV systolic function is normal with EF of 50 to 55%. Regional wall motion normalities cannot be assessed accurately because of poor imaging quality. Grade 1 diastolic dysfunction Valves are not well visualized however grossly normal. No comparison studies are available Vicente Monroy MD (Electronically Signed) Final Date: 14 September 2021 10:58 S
--- NOTE | 2021-09-13 11:20 | P.PN_ITS ---
Subjective Subjective: Patient was seen this morning, he is alert to person, to place, not to time, he denies any alcohol consumption, does report abdominal pain, no nausea, no vomiting, no chest pain, shortness of breath, he does not remember what happened, he does not remember what brought him to the hospital, Vitals/I&O/Wt Last Vital Signs Temp 98.2 F 09/13/21 07:30 Pulse 100 09/13/21 08:00 Resp 17 09/13/21 08:00 BP 141/77 09/13/21 08:00 Pulse Ox 97 09/13/21 07:30 09/12/21 09/13/21 09/13/21 21:59 06:59 14:59 Intake Total Output Total Balance Weight last 48 hrs Weight 54.431 kg Weight 54.431 kg Physical Exam Const: COMMON NORMALS: no acute distress and patient oriented x3 ORIENTATION/CONSCIOUSNESS: Yes awake, Yes oriented to person and Yes oriented to place; not oriented to time Resp: COMMON NORMALS: normal respiratory effort, No retractions, No use of accessory muscles and clear to auscultation bilaterally AUSCULTATION: clear to auscultation bilaterally Cardio: COMMON NORMALS: regular rate, regular rhythm, S1 normal heart sound present and S2 normal heart sound present RATE: regular rate RHYTHM: regular rhythm HEART SOUNDS: S1 normal heart sound present and S2 normal heart sound present GI: COMMON NORMALS: Normal to inspection, nondistended, normoactive bowel sounds present, Soft to palpation, No hepatosplenomegaly present and no masses PALPATION: Yes Soft to palpation, Yes Tenderness to palpation present (GI) (Generalized) and Yes No hepatosplenomegaly present Extremity: COMMON NORMALS: no calf tenderness and no pedal edema Neuro: COMMON NORMALS: patient oriented x3 SENSORIUM/ORIENTATION: Yes oriented to person, Yes oriented to place and No oriented to time Psych: COMMON NORMALS: mental status grossly normal Urinary Catheter Management: Millan: Cath Placed During This Visit: yes Reason for Continuing Indwelling Catheter: Accurate Measurement of Urinary Output in Critically Ill Patients Urinary Catheter Date of Insertion: 09/12/21 Urinary Catheter Time of Insertion: 16:00 Data : 09/13/21 08:12 09/13/21 07:53 Micro: Microbiology 09/13/21 05:56 Bacterial Antigens - Final Urine,Clean Catch 09/12/21 13:57 Blood Culture - Preliminary Blood SPECIMEN COLLECTED 09/12/21 13:56 Blood Culture - Preliminary Blood SPECIMEN COLLECTED A&P Assessment and plan (1) DKA (diabetic ketoacidosis): Status: Acute Qualifiers: Diabetes mellitus complication detail: without coma Diabetes mellitus type: type 2 Qualified Code(s): E11.10 - Type 2 diabetes mellitus with ketoacidosis without coma (2) Splenic artery aneurysm: Status: Acute (3) 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): Status: Acute (4) Type 2 diabetes mellitus: Status: Acute (5) History of CVA (cerebrovascular accident): Status: Acute (6) Acute pancreatitis: Status: Acute (7) Metabolic acidosis: Status: Acute (8) Acute encephalopathy: Status: Acute (9) Acute renal failure: Status: Acute (10) Sepsis: Status: Acute (11) Pneumonia: Status: Acute (12) Hypothermia: Status: Acute (13) Nondisplaced fracture of right radial styloid process, sequela: Status: Acute Plan Acute encephalopathy -Secondary to pneumonia, diabetic ketoacidosis, alcohol intoxication? -Neurochecks, aspiration precautions, seizure precautions -CIWA score -Precedex Diabetic ketoacidosis -Anion gap 40, ketones positive, blood sugar over 800, bicarb 6, potassium 5.4 -Anion gap has closed, blood sugars reasonable, acidosis has improved - status post 1 amp of D50 -Switch to D5 normal saline -Potassium 4.1, bicarb 16, creatinine 1.6, blood sugars 221, -A1c 40.1, likely secondary to noncompliance -Low-dose sliding scale -Lantus 10 units at bedtime -Second acute pancreatitis, pneumonia -Lovenox for DVT prophylaxis -Full code -Patient is stable, prognosis guarded Leukocytosis secondary to DKA, neutrophilic, pancreatitis, pneumonia, sepsis Sepsis -Secondary to pneumonia -Possible aspiration pneumonia -Currently not requiring pressors -Receiving fluid therapy -Sputum cultures, blood cultures, urine bacterial antigen -CT of the chest shows bilateral dependent atelectasis versus minimal infiltrate -Broad-spectrum antibiotic therapy vancomycin and Zosyn -MRSA nares Elevated lipase, elevated lipase, CT evidence of pancreatitis -Keep n.p.o., sips and chips, continues to have diffuse abdominal pain Left radial fracture nondisplaced -Conservatively managed for now Lactic acidosis, due to sepsis above Metabolic acidosis, combination of diabetic ketoacidosis, lactic acidosis Hyponatremia, likely pseudohyponatremia, resolved Hypothermia, secondary to pneumonia, sepsis, DKA, possible alcohol withdrawal, resolving History of 5 cm splenic artery aneurysm, patient refuses surgical intervention, continue to monitor History of depression, monitor mentation, history of psychosis, monitor, Haldol as needed History of CVA, left upper extremity flexion contracture Attestations Medical Necessity Statement*: Patient requires hospitalization for acute pancreatitis, diabetic ketoacidosis, acute encephalopathy, NSTEMI, pneumonia, anemia, GINA, critical care time spent over 55 minutes Coding Level of Care Code Acute [employer] Consultant for g Fwd Diagnoses DKA (diabetic ketoacidosis) E11.10 Diabetes mellitus complication detail: without coma Diabetes mellitus type: type 2 Splenic artery aneurysm I72.8 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) Type 2 diabetes mellitus E11.9 History of CVA (cerebrovascular accident) Z86.73 Acute pancreatitis K85.90 Metabolic acidosis E87.2 Acute encephalopathy G93.40 Acute renal failure N17.9 Sepsis A41.9 Pneumonia J18.9 Hypothermia T68.XXXA Nondisplaced fracture of right radial styloid process, sequela S52.514S
--- NOTE | 2021-09-13 11:26 | CTR_ITS ---
PROCEDURE INFORMATION: Exam: CT Left Upper Extremity With Contrast, Elbow Exam date and time: 09/13/2021 11:26 AM Age: 61 years old Clinical indication: Blunt left elbow trauma. Fall. History of contracture. The TECHNIQUE: Imaging protocol: CT of the Left upper extremity with intravenous contrast was performed. Exam focused on the elbow. Radiation optimization: All CT scans at this facility use at least one of these dose optimization techniques: automated exposure control; mA and/or kV adjustment per patient size (includes targeted exams where dose is matched to clinical indication); or iterative reconstruction. Contrast material: VISI 320; Contrast volume: 75 ml; Contrast route: INTRAVENOUS (IV); COMPARISON: CR (UP EXM, ) 09/12/2021 12:45 PM RADIATION DOSE METRICS: Total DLP (mGy-cm): 1943.59 FINDINGS: Tubes, catheters and devices: The spleen is heterogeneous which likely relates to phase of the contrast administration. A large splenic artery aneurysm is incompletely visualized. Bones/joints: Small elbow joint effusion. No definite fracture is seen. Soft tissues: No significant soft tissue swelling. Limitations: Motion artifact compromises assessment. Bowel: There is prominence of the wall of the descending colon that may reflect a mild colitis. CT/CT elbow LT w con [id number] IMPRESSION: 1. Motion artifact compromises the examination. 2. There is a small elbow joint effusion; however, no definite fracture is seen. Consider MRI to further assess if clinically warranted. 3. Possible mild colitis. 4. A large splenic artery aneurysm is incompletely visualized.
--- NOTE | 2021-09-13 11:58 | PC.OT ---
RN and pt aggreeable to OT eval. Pt states he don't feel good multiple times, unable to give number for pain intensity, not alerted to time or place, answers uh huh to all questions. 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 Significant L UE contracture observed and unable to move any body parts on command. Pt gazes at ceiling throughout attempted OT evaluation. Will attempt OT eval tomorrow.
[2021-09-13 12:44] LABS: Glucose Point of Care 284 mg/dL (70-110)
[2021-09-13] MEDS: LORazepam 2 mg/mL INJ 1 mL 1 MG IVP (14:04)
[2021-09-13] MEDS: dexmedeTOMIDine 0.9 % NaCL 400 MCG/100 ML PREMIX IV (14:29)
[2021-09-13] MEDS: iodixanol 320 mg/mL 100mL Btl IV (14:30)
[2021-09-13] MEDS: pantoprazole 40 mg SDV IVP (14:34)
[2021-09-13] MEDS: enoxaparin 30 mg/0.3 mL Syringe SUBCUT (14:34)
[2021-09-13 15:12] LABS: Glucose Point of Care 290 mg/dL (70-110)
[2021-09-13 17:50] LABS: Glucose Point of Care 253 mg/dL (70-110)
[2021-09-13] MEDS: morphine 4 mg/mL SDV 1 mL 2 MG IVP ×2 (18:19→22:19)
[2021-09-13 21:00] LABS: Glucose Point of Care 233 mg/dL (70-110)
[2021-09-14] VITALS (51 sets, daily range): BP systolic 80–135; BP diastolic 46–84; PULSE 60–110; RESP 11–47; TEMP 35.9–36.6; O2SAT 95–100
[2021-09-14] MEDS: morphine 4 mg/mL SDV 1 mL 2 MG IVP ×2 (02:36→09:21)
[2021-09-14 04:06] LABS: Alanine Aminotransferase 7 U/L (0-41); Albumin Level 2.8 g/dL (3.5-5.2); Alkaline Phosphatase 91 IU/L (40-130); Anion Gap 11.5 (5-19); Aspartate Amino Transferase 9 U/L (0-40); Basophils # 0.1 10^3/uL (0.0-0.1); Basophils % 0.3 %; Blood Urea Nitrogen 29 mg/dL (8-23); C Reactive Protein 49.8 mg/L (0.0-4.9); Calcium 8.6 mg/dL (8.5-10.5); Carbon Dioxide 18 mmol/L (22-29); Chloride 128 mmol/L (98-107); Eosinophils % 0.1 %; Globulin 2.2 g/dL (1.3-4.6); Glomerular Filtration Rate 51.4 mL/min (90-130); Glucose 228 mg/dL (65-115); Hematocrit 25.1 % (42.0-52.0); Hemoglobin 8.1 g/dL (11.7-16.6); Lymphocytes # 1.5 10^3/uL (0.8-4.8); Lymphocytes % 4.4 %; Magnesium 2.1 mg/dL (1.7-2.3); Mean Corpuscular HGB Conc 32.3 g/dL (30.0-36.0); Mean Corpuscular Hemoglobin 28.6 pg (28.0-34.0); Mean Corpuscular Volume 88.7 fl (80-94); Mean Platelet Volume 10.5 fL (7.4-10.4); Monocytes # 1.9 10^3/uL (0.2-0.9); Monocytes % 5.6 %; Neutrophils # 29.68 10^3/uL (1.8-7.7); Neutrophils % 88.2 %; Nucleated Red Blood Cells % 0.1 %; Osmolality Calculated 331 mOsm/kg (285-295); Phosphorus 1.1 mg/dL (2.5-4.5); Platelet Count 497 10^3/cmm (130-400); Potassium 3.5 mmol/L (3.5-5.1); Red Blood Count 2.83 10^6/uL (4.1-5.3); Sodium 154 mmol/L (136-145); Total Bilirubin 0.2 mg/dL (0.15-1.2)
[2021-09-14 04:07] LABS: White Blood Count 33.6 10^3/uL (4.0-10.0)
[2021-09-14 04:15] LABS: NT Pro B Type Natriuretic Pept 4160 pg/mL (0-125); Procalcitonin 0.32 ng/mL (0-0.5)
[2021-09-14 04:26] LABS: Creatine Phosphokinase 37 U/L (39-308)
[2021-09-14] MEDS: insulin glargine 100 units/1 mL 10 UNIT SUBCUT ×2 (06:10→08:49)
[2021-09-14] MEDS: piperacillin-tazobactam 3.375 GM in sodium chloride 0.9% (plus) 50 ML IV ×3 (06:10→22:33)
[2021-09-14] MEDS: dextrose 5%-ns + KCl 20 20 MEQ/1,000 ML BAG 125 MEQ IV ×2 (06:38→17:12)
[2021-09-14 07:14] LABS: Glucose Point of Care 338 mg/dL (70-110)
[2021-09-14] MEDS: insulin lispro 100 unit/1 mL SUBCUT ×4 (07:22→20:10)
[2021-09-14] MEDS: aspirin 81 mg EC Tablet PO (08:26)
[2021-09-14] MEDS: multivitamin therapeutic Tablet 1 TAB PO (08:26)
[2021-09-14] MEDS: citalopram 20 mg Tablet 40 MG PO (08:26)
[2021-09-14] MEDS: BuSPIRONE 10 mg Tablet 15 MG PO ×2 (08:26→17:27)
[2021-09-14] MEDS: atorvastatin 40 mg Tablet 80 MG PO (08:27)
[2021-09-14] MEDS: gabapentin 400 mg Capsule PO ×3 (08:27→20:11)
[2021-09-14] MEDS: folic acid 1 mg Tablet PO (08:27)
[2021-09-14] MEDS: tamsulosin 0.4 mg Capsule PO (08:28)
[2021-09-14] MEDS: thiamine 100 mg Tablet PO (08:29)
[2021-09-14] MEDS: docusate sodium 10 mg/mL (5ml) Liq 100 MG PO ×2 (08:50→17:28)
[2021-09-14] MEDS: polyethylene glycol 3350 Pkt 17 gm PO (08:50)
[2021-09-14 09:04] LABS: Lipase 180 U/L (13-60)
[2021-09-14] MEDS: LORazepam 2 mg/mL INJ 1 mL 1 MG IVP (09:21)
[2021-09-14] MEDS: vancomycin 750 MG in sodium chloride 0.9% 250 ML 250 MG IV (10:19)
--- NOTE | 2021-09-14 10:42 | PC.CHAP ---
Pastoral Care Encounter/Spiritual Assessment Type of Contact [] Declined ship keeper visit [] Patient/Family/Request visit [] Outpatient visit [] Follow-up visit [] Physician referral [] Code/Alert [x] Routine visit [] Staff referral [] Actively dying [] Patient sleeping [] Family support [] [] Out of room [] Palliative care [] [] Receiving care in room [] Pre-surgical visit [] Trauma [] Long length of stay [x] ICU visit [] Other: Relational/Emotional Strength [] Patient feels connected with others/family/visitors/staff [] Distress [] Loneliness/isolation [] Abandonment Spirituality of Patient [] Person of Belen [] Attends Druze of their Belen [] Believes in Prayer [] Reads Bible or Catholic materials [] There are Spiritual issues to be addressed Camera Engineer Interventions [x] Prayer [x] Active listening [x] Non-anxious presence [x] Spiritual/emotional support [] Crisis/trauma care [] Spiritual counseling [] Bereavement support [] Provided bereavement packet [] Provided Bible/devotional materials [] Provided toy/stuffed animal, coloring book to patient or family member [] Provided Communion [] Anointing/[place] [] Salvation [x] Completed spiritual assessment [] Other: Impact on Illness or Injury [] Angry [] Fearful [] Anxious [] Often cries [] Exhaustion [] Unable to work [] Unable to attend taoism [] Unable to walk/stand [] Unable to read [] Unable to drive [] Unable to eat/drink [] Unable to sleep [] Unable to be with family [] Patient intubated [] Other: Summary awake-- not to alert Time spent with patient 5 min
--- NOTE | 2021-09-14 11:02 | PC.OT ---
OT EVALUATION ATTEMPTED; PER NURSING: PATIENT IS MINIMALLY RESPONSIVE AT THIS TIME AND REQUESTS TO HOLD. WILL ATTEMPT AGAIN TOMORROW.
[2021-09-14 11:21] LABS: Glucose Point of Care 256 mg/dL (70-110)
--- NOTE | 2021-09-14 11:55 | P.PN_ITS ---
Subjective Subjective: Patient was seen this morning, he has no complaints, he is alert to person, to place, not to time, he tells me that he is hungry would like to try something to eat, denies any abdominal pain, Vitals/I&O/Wt Last Vital Signs Temp 97.8 F 09/14/21 07:30 Pulse 96 09/14/21 09:00 Resp 14 09/14/21 09:21 BP 113/63 09/14/21 09:00 Pulse Ox 98 09/14/21 09:21 09/13/21 09/14/21 09/14/21 22:59 06:59 14:59 Intake Total 1064.394 / 2114.394 1050 / 3164.394 530 / 530 Output Total 1600 / 1600 Balance -535.606 / 722.423 2712 / 1564.394 530 / 530 Weight last 48 hrs Weight 54.431 kg Weight 54.431 kg Physical Exam Const: COMMON NORMALS: no acute distress and patient oriented x3 Resp: COMMON NORMALS: normal respiratory effort, No retractions, No use of accessory muscles and clear to auscultation bilaterally AUSCULTATION: clear to auscultation bilaterally Cardio: COMMON NORMALS: regular rate, regular rhythm, S1 normal heart sound present and S2 normal heart sound present RATE: regular rate RHYTHM: regular rhythm HEART SOUNDS: S1 normal heart sound present and S2 normal heart sound present GI: COMMON NORMALS: Normal to inspection, nondistended, normoactive bowel sounds present, Soft to palpation, non-tender and No hepatosplenomegaly present PALPATION: Yes Soft to palpation and Yes No hepatosplenomegaly present Extremity: COMMON NORMALS: no pedal edema Neuro: COMMON NORMALS: patient oriented x3 Psych: COMMON NORMALS: mental status grossly normal Urinary Catheter Management: Millan: Cath Placed During This Visit: yes Reason for Continuing Indwelling Catheter: Accurate Measurement of Urinary Output in Critically Ill Patients Urinary Catheter Date of Insertion: 09/12/21 Urinary Catheter Time of Insertion: 16:00 Data : 09/14/21 03:25 09/14/21 03:25 Micro: Microbiology 09/12/21 16:17 Urine Culture - Final Urine,Clean Catch 09/12/21 13:57 Blood Culture - Preliminary Blood NEGATIVE TO DATE 09/12/21 13:56 Blood Culture - Preliminary Blood NEGATIVE TO DATE 09/13/21 05:47 MRSA Culture - Final Nose 09/13/21 05:56 Bacterial Antigens - Final Urine,Clean Catch A&P Assessment and plan (1) DKA (diabetic ketoacidosis): Status: Acute Qualifiers: Diabetes mellitus complication detail: without coma Diabetes mellitus type: type 2 Qualified Code(s): E11.10 - Type 2 diabetes mellitus with ketoacidosis without coma (2) Splenic artery aneurysm: Status: Acute (3) 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 -Neurochecks, aspiration precautions, seizure precautions -CIWA score -Precedex Diabetic ketoacidosis -Anion gap 40, ketones positive, blood sugar over 800, bicarb 6, potassium 5.4 -Anion gap has closed, blood sugars reasonable, acidosis has improved - status post 1 amp of D50 -Switch to D5 normal saline -Potassium 4.1, bicarb 16, creatinine 1.6, blood sugars 221, -A1c 40.1, likely secondary to noncompliance -Low-dose sliding scale -Lantus 15 units twice daily -Second acute pancreatitis, pneumonia -Lovenox for DVT prophylaxis -Full code -Patient is stable, will moved to [facility] Leukocytosis secondary to DKA, neutrophilic, pancreatitis, pneumonia, sepsis Sepsis -Secondary to pneumonia -Possible aspiration pneumonia -Currently not requiring pressors -Receiving fluid therapy -Sputum cultures, blood cultures, urine bacterial antigen -CT of the chest shows bilateral dependent atelectasis versus minimal infiltrate -Broad-spectrum antibiotic therapy vancomycin and Zosyn -MRSA nares Elevated lipase, elevated lipase, CT evidence of pancreatitis -Minimal abdominal pain, advance to clears Left radial fracture nondisplaced -Conservatively managed for now Lactic acidosis, due to sepsis above Metabolic acidosis, combination of diabetic ketoacidosis, lactic acidosis Hyponatremia, likely pseudohyponatremia, resolved Hypothermia, secondary to pneumonia, sepsis, DKA, possible alcohol withdrawal, resolving History of 5 cm splenic artery aneurysm, patient refuses surgical intervention, continue to monitor History of depression, monitor mentation, history of psychosis, monitor, Haldol as needed History of CVA, left upper extremity flexion contracture Hyponatremia likely secondary to dehydration, clear liquid diet, increase IV fluids, recheck serum sodium Attestations Medical Necessity Statement*: Patient requires hospitalization for DKA, encephalopathy, pneumonia Coding Level of Care Code Acute 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
[2021-09-14] MEDS: sodium chloride 0.9% 500 ML 999 ML IV (13:40)
[2021-09-14] MEDS: enoxaparin 30 mg/0.3 mL Syringe SUBCUT (14:13)
[2021-09-14] MEDS: pantoprazole 40 mg SDV IVP (14:13)
[2021-09-14] MEDS: midodrine 5 mg TABLET 10 MG PO ×2 (14:13→22:34)
--- NOTE | 2021-09-14 15:08 | US_ITS ---
WS: [id number] Abdomen ultrasound limited, 09/14/2021 Clinical Data: splenic artery aneurysm, possible rupture, hypotension Comparison: None. Findings: The left kidney measures 4.11 x 5.38 x 7.93 cm. No ascites is seen. The abdominal aorta is normal in size.. The known splenic artery aneurysm is not imaged. The spleen measures 4.97 x 10.39 cm and there are no intrasplenic or capsular abnormalities. US/US abdomen limited [id number] Impression: 1. Known splenic artery aneurysm is not seen on this examination. 2. Negative for ascites.
[2021-09-14 15:59] LABS: Basophils # 0.1 10^3/uL (0.0-0.1); Basophils % 0.3 %; Eosinophils % 0.1 %; Hematocrit 25.6 % (42.0-52.0); Lymphocytes # 2.1 10^3/uL (0.8-4.8); Lymphocytes % 6.8 %; Mean Corpuscular HGB Conc 31.3 g/dL (30.0-36.0); Mean Corpuscular Hemoglobin 28.7 pg (28.0-34.0); Mean Corpuscular Volume 91.8 fl (80-94); Monocytes % 6.6 %; Neutrophils # 26.07 10^3/uL (1.8-7.7); Neutrophils % 84.7 %; Nucleated Red Blood Cells # 0.1 /100WBC; Nucleated Red Blood Cells % 0.2 %; Platelet Count 521 10^3/cmm (130-400); Red Blood Count 2.79 10^6/uL (4.1-5.3); Red Cell Distribution Width 15.5 % (12.1-15.1)
[2021-09-14 16:14] LABS: Glucose Point of Care 146 mg/dL (70-110)
[2021-09-14 16:18] LABS: Alanine Aminotransferase 7 U/L (0-41); Albumin Level 2.9 g/dL (3.5-5.2); Alkaline Phosphatase 95 IU/L (40-130); Anion Gap 12.8 (5-19); Aspartate Amino Transferase 9 U/L (0-40); Blood Urea Nitrogen 21 mg/dL (8-23); Calcium 8.3 mg/dL (8.5-10.5); Carbon Dioxide 15 mmol/L (22-29); Chloride 134 mmol/L (98-107); Creatinine Clr Calc Pharmacy 45.3592; Globulin 2.4 g/dL (1.3-4.6); Glomerular Filtration Rate 55.9 mL/min (90-130); Glucose 143 mg/dL (65-115); Magnesium 1.9 mg/dL (1.7-2.3); Osmolality Calculated 331 mOsm/kg (285-295); Potassium 3.8 mmol/L (3.5-5.1); Sodium 158 mmol/L (136-145); Total Bilirubin 0.2 mg/dL (0.15-1.2); Total Protein 5.3 g/dL (6.6-8.7)
[2021-09-14 16:19] LABS: Lactic Sepsis W/Reflex 2.2 mmol/L (0.5-2.2)
[2021-09-14 16:20] LABS: White Blood Count 30.8 10^3/uL (4.0-10.0)
[2021-09-14] MEDS: sucralfate 1 gm Tablet PO (17:12)
[2021-09-14 17:40] LABS: Reflex Lactate Order REFLEX LACTIC ORDERD
[2021-09-14 18:53] LABS: Glucose Point of Care 218 mg/dL (70-110)
[2021-09-14 19:08] LABS: Lactic Acid level (Lactate) 1.7 mmol/L (0.5-2.2)
[2021-09-14 19:33] LABS: Glucose Point of Care 259 mg/dL (70-110)
[2021-09-14 19:57] LABS: Glucose Point of Care 208 mg/dL (70-110)
[2021-09-14] MEDS: ARIPiprazole 10 mg Tablet 15 MG PO (20:11)
[2021-09-14] MEDS: insulin glargine 100 units/1 mL 15 UNIT SUBCUT (20:11)
[2021-09-15] VITALS (45 sets, daily range): BP systolic 97–151; BP diastolic 51–85; PULSE 61–99; RESP 12–23; TEMP 36.3–37; O2SAT 95–100
[2021-09-15 00:57] LABS: Glucose Point of Care 101 mg/dL (70-110)
[2021-09-15] MEDS: dextrose 5%-ns + KCl 20 20 MEQ/1,000 ML BAG 125 MEQ IV (01:20)
[2021-09-15] MEDS: pantoprazole 40 mg SDV IVP ×2 (01:21→12:40)
[2021-09-15] MEDS: morphine 4 mg/mL SDV 1 mL 2 MG IVP ×2 (02:14→20:28)
--- NOTE | 2021-09-15 05:26 | PC.NURSE ---
Shift Note Frequent safety and comfort rounds continue. Orders and/or nursing care completed as indicated. Patient monitored for response to intervention and treatment(s). Education provided includes medication and treatment plan. Patient needs reinforcement teaching. Patient had an uneventful shift, he remains on room air and had one report of pain overnight. PRN medication was administered. Remains confused at this time to place, surroundings, and time. Frequently reoriented patient to surroundings/time throughout shift. Millan catheter drained 800 mls of urine overnight. Levophed paused at this time, D5 NS with KCL is infusing per protocol. Will continue to monitor.
[2021-09-15 05:33] LABS: Basophils # 0.1 10^3/uL (0.0-0.1); Basophils % 0.3 %; Eosinophils # 0.1 10^3/uL (0.0-0.8); Eosinophils % 0.6 %; Hematocrit 22.9 % (42.0-52.0); Hemoglobin 7.3 g/dL (11.7-16.6); Lymphocytes # 2.8 10^3/uL (0.8-4.8); Lymphocytes % 12.1 %; Mean Corpuscular HGB Conc 31.9 g/dL (30.0-36.0); Mean Corpuscular Volume 90.9 fl (80-94); Monocytes # 1.7 10^3/uL (0.2-0.9); Monocytes % 7.2 %; Neutrophils # 17.94 10^3/uL (1.8-7.7); Neutrophils % 78.1 %; Nucleated Red Blood Cells % 0.1 %; Platelet Count 460 10^3/cmm (130-400); Red Blood Count 2.52 10^6/uL (4.1-5.3); Red Cell Distribution Width 15.9 % (12.1-15.1)
[2021-09-15 05:50] LABS: Alanine Aminotransferase 9 U/L (0-41); Albumin Level 2.7 g/dL (3.5-5.2); Alkaline Phosphatase 89 IU/L (40-130); Anion Gap 11.7 (5-19); Aspartate Amino Transferase 14 U/L (0-40); Blood Urea Nitrogen 13 mg/dL (8-23); C Reactive Protein 22.5 mg/L (0.0-4.9); Calcium 7.7 mg/dL (8.5-10.5); Carbon Dioxide 16 mmol/L (22-29); Chloride 129 mmol/L (98-107); Globulin 2.1 g/dL (1.3-4.6); Glomerular Filtration Rate 67.8 mL/min (90-130); Glucose 170 mg/dL (65-115); Magnesium 1.8 mg/dL (1.7-2.3); Osmolality Calculated 320 mOsm/kg (285-295); Phosphorus 1.6 mg/dL (2.5-4.5); Potassium 3.7 mmol/L (3.5-5.1); Sodium 153 mmol/L (136-145); Total Bilirubin 0.2 mg/dL (0.15-1.2); Total Protein 4.8 g/dL (6.6-8.7)
[2021-09-15 06:04] LABS: NT Pro B Type Natriuretic Pept 5511 pg/mL (0-125); Procalcitonin 0.13 ng/mL (0-0.5)
[2021-09-15] MEDS: piperacillin-tazobactam 3.375 GM in sodium chloride 0.9% (plus) 50 ML IV ×3 (06:10→22:25)
[2021-09-15] MEDS: midodrine 5 mg TABLET 10 MG PO ×3 (06:12→21:16)
[2021-09-15] MEDS: sucralfate 1 gm Tablet PO ×2 (06:13→17:27)
[2021-09-15 06:15] LABS: Creatine Phosphokinase 96 U/L (39-308)
[2021-09-15 07:59] LABS: Glucose Point of Care 208 mg/dL (70-110)
[2021-09-15] MEDS: BuSPIRONE 10 mg Tablet 15 MG PO ×2 (08:29→17:27)
[2021-09-15] MEDS: aspirin 81 mg EC Tablet PO (08:29)
[2021-09-15] MEDS: atorvastatin 40 mg Tablet 80 MG PO (08:29)
[2021-09-15] MEDS: citalopram 20 mg Tablet 40 MG PO (08:30)
[2021-09-15] MEDS: gabapentin 400 mg Capsule PO ×3 (08:30→21:16)
[2021-09-15] MEDS: folic acid 1 mg Tablet PO (08:30)
[2021-09-15] MEDS: multivitamin therapeutic Tablet 1 TAB PO (08:30)
[2021-09-15] MEDS: polyethylene glycol 3350 Pkt 17 gm PO (08:31)
[2021-09-15] MEDS: thiamine 100 mg Tablet PO (08:31)
[2021-09-15] MEDS: tamsulosin 0.4 mg Capsule PO (08:31)
[2021-09-15] MEDS: insulin lispro 100 unit/1 mL SUBCUT ×2 (08:32→12:41)
[2021-09-15] MEDS: insulin glargine 100 units/1 mL 15 UNIT SUBCUT ×2 (08:35→20:28)
[2021-09-15] MEDS: magnesium sulfate premix 2 GM/50 ML PIGGYBACK IV (08:41)
[2021-09-15] MEDS: sodium chloride 0.9% 1,000 ML 125 ML IV ×2 (09:11→19:08)
[2021-09-15] MEDS: docusate sodium 10 mg/mL (5ml) Liq 100 MG PO (09:14)
[2021-09-15 10:26] LABS: Ferritin 320 ng/mL (30-400); Iron 47 ug/dL (59-158); Percent Saturation 33.5 % (20-50); Sodium 149 mmol/L (136-145); Total Iron Binding Capacity 140 mcg/dl; Unsaturated Iron Binding 93 ug/dL (112-347)
[2021-09-15] MEDS: vancomycin 750 MG in sodium chloride 0.9% 250 ML 250 MG IV (10:39)
[2021-09-15] MEDS: sodium chloride 0.9% (100 ml) 100 ML (11:53)
[2021-09-15 12:34] LABS: Glucose Point of Care 241 mg/dL (70-110)
[2021-09-15] MEDS: acetaminophen 325 mg Tablet 650 MG PO (13:59)
[2021-09-15 17:19] LABS: Glucose Point of Care 106 mg/dL (70-110)
[2021-09-15 17:20] LABS: Sodium 150 mmol/L (136-145)
--- NOTE | 2021-09-15 18:15 | PM.PN ---
Subjective Subjective: Patient was seen this morning, speech therapy is at bedside, he is eating his breakfast, looks like biscuits and gravy, he tells me he enjoys it, no choking episodes, no coughing episodes, no abdominal pain, no shortness of breath, no abdominal pain, no lightheadedness, no dizziness, he is alert to person, to place, not to time, remains off Levophed, normotensive, afebrile, on room air Vitals/I&O/Wt Last Vital Signs Temp 97.6 F 09/15/21 11:49 Pulse 66 09/15/21 14:21 Resp 18 09/15/21 14:21 BP 112/71 09/15/21 14:21 Pulse Ox 97 09/15/21 14:21 09/15/21 09/15/21 09/15/21 06:59 14:59 22:59 Intake Total 1904.102 / 5168.5029 900 / 900 Output Total 800 / 2150 Balance 1104.102 / 3018.5029 900 / 900 Physical Exam Const: COMMON NORMALS: no acute distress OTHER: Alert to person, to place, not to time, follows commands Resp: COMMON NORMALS: normal respiratory effort, No retractions, No use of accessory muscles and clear to auscultation bilaterally AUSCULTATION: clear to auscultation bilaterally Cardio: COMMON NORMALS: regular rate, regular rhythm, S1 normal heart sound present and S2 normal heart sound present RATE: regular rate RHYTHM: regular rhythm HEART SOUNDS: S1 normal heart sound present and S2 normal heart sound present GI: COMMON NORMALS: Normal to inspection, nondistended, normoactive bowel sounds present, Soft to palpation, non-tender and No hepatosplenomegaly present PALPATION: Yes Soft to palpation and Yes No hepatosplenomegaly present Extremity: COMMON NORMALS: no pedal edema Psych: COMMON NORMALS: mental status grossly normal Urinary Catheter Management: Millan: Cath Placed During This Visit: yes Reason for Continuing Indwelling Catheter: Accurate Measurement of Urinary Output in Critically Ill Patients Urinary Catheter Date of Insertion: 09/12/21 Urinary Catheter Time of Insertion: 16:00 Data : 09/15/21 05:02 09/15/21 16:29 Micro: Microbiology 09/15/21 05:02 Stool Lactoferrin - Final Stool Enteric Pathogens (PCR) - Final Parasite Antigen Panel - Final C.difficile Toxin B Gene (PCR) - Final Occult Blood (FIT) - Final A&P Assessment and plan (1) DKA (diabetic ketoacidosis): Status: Acute Qualifiers: Diabetes mellitus complication detail: without coma Diabetes mellitus type: type 2 Qualified Code(s): E11.10 - Type 2 diabetes mellitus with ketoacidosis without coma (2) Splenic artery aneurysm: Status: Acute (3) 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 -Neurochecks, aspiration precautions, seizure precautions -CIWA score -Precedex off Diabetic ketoacidosis -Anion gap 40, ketones positive, blood sugar over 800, bicarb 6, potassium 5.4 -Anion gap has closed, blood sugars reasonable, acidosis has improved - status post 1 amp of D50 -Switch to D5 normal saline -Potassium 4.1, bicarb 16, creatinine 1.6, blood sugars 221, -A1c 40.1, likely secondary to noncompliance -Low-dose sliding scale -Lantus 15 units twice daily -Second acute pancreatitis, pneumonia -Lovenox for DVT prophylaxis currently on hold due to anemia -Full code -Patient is stable, will moved to general medical floors Leukocytosis, resolving secondary to DKA, neutrophilic, pancreatitis, pneumonia, sepsis Sepsis -Secondary to pneumonia -Possible aspiration pneumonia -Required pressors for 12 hours, currently off pressors -Receiving fluid therapy -Sputum cultures, blood cultures, urine bacterial antigen -CT of the chest shows bilateral dependent atelectasis versus minimal infiltrate -Broad-spectrum antibiotic therapy vancomycin and Zosyn -MRSA nares Elevated lipase, elevated lipase, CT evidence of pancreatitis -Minimal abdominal pain, advance diet as tolerated Left radial fracture nondisplaced -Not seen on CT, continue to monitor Lactic acidosis, due to sepsis above Metabolic acidosis, combination of diabetic ketoacidosis, lactic acidosis Hyponatremia, developed during DKA, management is quite controversial, for now we will encourage oral intake, IV fluids Acute anemia, hemoglobin 7.3, evidence of iron deficiency anemia -Hemoccult stool, Protonix, Carafate -Transfuse 1 unit PRBC, recheck hemoglobin at 6 PM -Ultrasound abdomen, splenic artery aneurysm, no evidence of rupture Hypothermia, secondary to pneumonia, sepsis, DKA, possible alcohol withdrawal, resolved History of 5 cm splenic artery aneurysm, patient refuses surgical intervention, continue to monitor History of depression, monitor mentation, history of psychosis, monitor, Haldol as needed History of CVA, left upper extremity flexion contracture PT OT Working on senior living placement Attestations Medical Necessity Statement*: Patient requires hospitalization for DKA, hypotension, iron deficiency, anemia, critical care time spent over 35 minutes Coding Level of Care Code 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
[2021-09-15 19:55] LABS: Basophils # 0.1 10^3/uL (0.0-0.1); Basophils % 0.4 %; Eosinophils # 0.3 10^3/uL (0.0-0.8); Eosinophils % 1.6 %; Hematocrit 25.4 % (42.0-52.0); Hemoglobin 8.1 g/dL (11.7-16.6); Lymphocytes # 2.4 10^3/uL (0.8-4.8); Lymphocytes % 14.4 %; Mean Corpuscular HGB Conc 31.9 g/dL (30.0-36.0); Mean Corpuscular Hemoglobin 29.1 pg (28.0-34.0); Mean Corpuscular Volume 91.4 fl (80-94); Monocytes # 1.3 10^3/uL (0.2-0.9); Monocytes % 7.9 %; Neutrophils # 12.33 10^3/uL (1.8-7.7); Neutrophils % 73.8 %; Nucleated Red Blood Cells % 0.2 %; Platelet Count 417 10^3/cmm (130-400); Red Blood Count 2.78 10^6/uL (4.1-5.3); Red Cell Distribution Width 15.6 % (12.1-15.1); White Blood Count 16.7 10^3/uL (4.0-10.0)
[2021-09-15 20:00] LABS: Sodium 148 mmol/L (136-145)
[2021-09-15] MEDS: ARIPiprazole 10 mg Tablet 15 MG PO (20:08)
[2021-09-15 20:48] LABS: Glucose Point of Care 126 mg/dL (70-110)
[2021-09-16] VITALS (15 sets, daily range): BP systolic 120–151; BP diastolic 65–99; PULSE 68–95; RESP 16–20; TEMP 36.4–37; O2SAT 91–97
[2021-09-16 00:08] LABS: Glucose Point of Care 192 mg/dL (70-110)
[2021-09-16 00:35] LABS: Sodium 145 mmol/L (136-145)
[2021-09-16] MEDS: pantoprazole 40 mg SDV IVP ×2 (00:35→12:48)
[2021-09-16] MEDS: morphine 4 mg/mL SDV 1 mL 2 MG IVP ×5 (03:12→21:08)
[2021-09-16 03:38] LABS: Basophils # 0.1 10^3/uL (0.0-0.1); Basophils % 0.4 %; Eosinophils # 0.4 10^3/uL (0.0-0.8); Eosinophils % 2.3 %; Hematocrit 25.5 % (42.0-52.0); Hemoglobin 8.1 g/dL (11.7-16.6); Lymphocytes # 2.6 10^3/uL (0.8-4.8); Lymphocytes % 16.7 %; Mean Corpuscular HGB Conc 31.8 g/dL (30.0-36.0); Mean Corpuscular Volume 91.4 fl (80-94); Mean Platelet Volume 10.8 fL (7.4-10.4); Monocytes # 1.1 10^3/uL (0.2-0.9); Neutrophils # 11.38 10^3/uL (1.8-7.7); Nucleated Red Blood Cells # 0.1 /100WBC; Nucleated Red Blood Cells % 0.4 %; Platelet Count 431 10^3/cmm (130-400); Red Blood Count 2.79 10^6/uL (4.1-5.3); Red Cell Distribution Width 15.6 % (12.1-15.1); White Blood Count 15.8 10^3/uL (4.0-10.0)
[2021-09-16 03:41] LABS: Alanine Aminotransferase 11 U/L (0-41); Albumin Level 2.6 g/dL (3.5-5.2); Alkaline Phosphatase 93 IU/L (40-130); Anion Gap 11.5 (5-19); Aspartate Amino Transferase 12 U/L (0-40); Blood Urea Nitrogen 9 mg/dL (8-23); C Reactive Protein 11.3 mg/L (0.0-4.9); Calcium 8.1 mg/dL (8.5-10.5); Carbon Dioxide 16 mmol/L (22-29); Chloride 119 mmol/L (98-107); Globulin 2.2 g/dL (1.3-4.6); Glomerular Filtration Rate 67.8 mL/min (90-130); Glucose 153 mg/dL (65-115); Magnesium 1.7 mg/dL (1.7-2.3); Osmolality Calculated 298 mOsm/kg (285-295); Phosphorus 2.3 mg/dL (2.5-4.5); Potassium 3.5 mmol/L (3.5-5.1); Sodium 143 mmol/L (136-145); Total Bilirubin 0.2 mg/dL (0.15-1.2); Total Protein 4.8 g/dL (6.6-8.7)
[2021-09-16] MEDS: sodium chloride 0.9% 1,000 ML 125 ML IV ×2 (03:45→12:58)
[2021-09-16 03:47] LABS: NT Pro B Type Natriuretic Pept 5988 pg/mL (0-125); Procalcitonin 0.08 ng/mL (0-0.5)
[2021-09-16 03:57] LABS: Creatine Phosphokinase 76 U/L (39-308)
[2021-09-16] MEDS: acetaminophen 325 mg Tablet 650 MG PO ×3 (05:20→20:17)
[2021-09-16] MEDS: midodrine 5 mg TABLET 10 MG PO ×2 (05:22→14:29)
[2021-09-16] MEDS: piperacillin-tazobactam 3.375 GM in sodium chloride 0.9% (plus) 50 ML IV ×3 (06:00→22:24)
[2021-09-16] MEDS: sucralfate 1 gm Tablet PO ×2 (06:00→17:41)
[2021-09-16 06:22] LABS: Glucose Point of Care 190 mg/dL (70-110)
[2021-09-16] MEDS: polyethylene glycol 3350 Pkt 17 gm PO (08:08)
[2021-09-16] MEDS: insulin lispro 100 unit/1 mL SUBCUT ×4 (08:09→20:57)
[2021-09-16] MEDS: atorvastatin 40 mg Tablet 80 MG PO (08:09)
[2021-09-16] MEDS: thiamine 100 mg Tablet PO (08:09)
[2021-09-16] MEDS: BuSPIRONE 10 mg Tablet 15 MG PO ×2 (08:09→17:41)
[2021-09-16] MEDS: multivitamin therapeutic Tablet 1 TAB PO (08:10)
[2021-09-16] MEDS: citalopram 20 mg Tablet 40 MG PO (08:10)
[2021-09-16] MEDS: gabapentin 400 mg Capsule PO ×3 (08:10→20:59)
[2021-09-16] MEDS: folic acid 1 mg Tablet PO (08:10)
[2021-09-16] MEDS: aspirin 81 mg EC Tablet PO (08:10)
[2021-09-16] MEDS: docusate sodium 10 mg/mL (5ml) Liq 100 MG PO (08:10)
[2021-09-16] MEDS: tamsulosin 0.4 mg Capsule PO (08:10)
[2021-09-16] MEDS: insulin glargine 100 units/1 mL 15 UNIT SUBCUT ×2 (08:34→20:57)
[2021-09-16 09:10] LABS: Sodium 142 mmol/L (136-145)
[2021-09-16] MEDS: cyclobenzaprine 10 mg Tablet PO (10:28)
[2021-09-16] MEDS: vancomycin 750 MG in sodium chloride 0.9% 250 ML 250 MG IV (10:28)
[2021-09-16 10:50] LABS: Glucose Point of Care 155 mg/dL (70-110)
--- NOTE | 2021-09-16 10:50 | P.PN_ITS ---
Subjective Subjective: Patient was seen and examined this morning currently much more alert awake oriented, currently he is tolerating diet well WBC count is improving, has remained afebrile. His other vitals and labs have been reviewed. Medications: Medication Review Details: Generic Name Dose Route Start Last Admin Trade Name Aby PRN Reason Stop Dose Admin Acetaminophen 650 mg 09/12/21 13:48 09/16/21 14:28 Acetaminophen 32 5 Mg Tablet PO 650 mg Q6H PRN Administration Mild/Mod Pain Or Temp >/= 101 Aripiprazole 15 mg 09/14/21 21:00 09/15/21 20:08 Aripiprazole 10 Mg Tablet PO 15 mg BEDTIME KEN Administration Aspirin 81 mg 09/14/21 09:00 09/16/21 08:10 Aspirin 81 Mg Ec Tablet PO 81 mg DAILY KEN Administration Atorvastatin Calci um 80 mg 09/14/21 09:00 09/16/21 08:09 Atorvastatin 40 Mg Tablet PO 80 mg DAILY KEN Administration Buspirone HCl 15 mg 09/14/21 09:00 09/16/21 17:41 Buspirone 10 Mg Tablet PO 15 mg BID KEN Administration Citalopram Hydrobr omide 40 mg 09/14/21 09:00 09/16/21 08:10 Citalopram 20 Mg Tablet PO 40 mg DAILY KEN Administration Cyclobenzaprine HC l 10 mg 09/14/21 08:00 09/16/21 10:28 Cyclobenzaprine 10 Mg Tablet PO 10 mg TID PRN Administration Muscle Spasm Enoxaparin Sodium 30 mg 09/12/21 14:30 09/14/21 14:13 Enoxaparin 30 Mg /0.3 Ml Syringe SUBCUT 30 mg Q24H KEN Administration Folic Acid 1 mg 09/14/21 09:00 09/16/21 08:10 Folic Acid 1 Mg Tablet PO 1 mg DAILY KEN Administration Gabapentin 400 mg 09/14/21 09:00 09/16/21 14:29 Gabapentin 400 M g Capsule PO 400 mg TID KEN Administration Piperacillin Sod/T azobactam 50 mls @ 12.5 mls /hr 09/12/21 15:00 09/16/21 14:28 Sod 3.375 gm/ So dium Chloride IV 12.5 mls/hr Q8H KEN Administration Protocol Vancomycin HCl 750 mg/ Sodium 250 mls @ 250 mls /hr 09/14/21 10:30 09/16/21 12:43 Chloride IV Infused Q24H KEN Infusion Protocol Insulin Glargine 15 unit 09/14/21 20:00 09/16/21 08:34 Insulin Glargine 100 Units/1 Ml SUBCUT 15 unit Q12H KEN Administration Insulin Human Lisp ro 0 unit 09/13/21 08:00 09/16/21 17:47 Insulin Lispro 1 00 Unit/1 Ml SUBCUT 6 unit WM&BEDTIME KEN Administration Protocol Morphine Sulfate 2 mg 09/12/21 13:48 09/16/21 17:46 Morphine 4 Mg/Ml Sdv 1 Ml IVP 2 mg Q4H PRN Administration SEVERE PAIN Multivitamins Ther apeutic 1 tab 09/14/21 09:00 09/16/21 08:10 Multivitamin The rapeutic Tablet PO 1 tab DAILY KEN Administration Pantoprazole Sodiu m 40 mg 09/16/21 18:00 09/16/21 17:[address] 40 Mg Tablet PO 40 mg BID KEN Administration Polyethylene Glyco l 17 gm 09/14/21 09:00 09/16/21 08:08 Polyethylene Gly col 3350 Pkt 17 Gm PO 17 gm DAILY KEN Administration Sucralfate 1 gm 09/14/21 17:00 09/16/21 17:41 Sucralfate 1 Gm Tablet PO 1 gm BIDAC KEN Administration Tamsulosin HCl 0.4 mg 09/14/21 09:00 09/16/21 08:10 Tamsulosin 0.4 M g Capsule PO 0.4 mg DAILY KEN Administration Thiamine Mononitra te 100 mg 09/14/21 09:00 09/16/21 08:09 Thiamine 100 Mg Tablet PO 100 mg DAILY KEN Administration Vitals/I&O/Wt Last Vital Signs Temp 97.9 F 09/16/21 08:00 Pulse 74 09/16/21 08:00 Resp 18 09/16/21 08:34 BP 135/73 09/16/21 08:00 Pulse Ox 93 09/16/21 08:00 09/15/21 09/16/21 09/16/21 22:59 06:59 14:59 Intake Total 2936.0909 / 3836.0909 1290 / 5126.0909 290 / 290 Output Total 550 / 550 Balance 2936.0909 / 3836.0909 740 / 4576.0909 290 / 290 Physical Exam Const: COMMON NORMALS: patient oriented x3 HENMT: COMMON NORMALS: normocephalic and atraumatic HEAD & SCALP: normocephalic and atraumatic Resp: COMMON NORMALS: normal respiratory effort, No retractions, No use of accessory muscles and clear to auscultation bilaterally EFFORT & INSPECTION: Yes symmetric chest movement AUSCULTATION: clear to auscultation bilaterally Cardio: COMMON NORMALS: regular rate, regular rhythm, S1 normal heart sound present, S2 normal heart sound present, No gallops present (Cardio), No murmurs present (Cardio), No rub (Cardio) and Peripheral pulses 2+ throughout RATE: regular rate RHYTHM: regular rhythm HEART SOUNDS: S1 normal heart sound present and S2 normal heart sound present PERIPHERAL PULSES: Peripheral pulses 2+ throughout GI: COMMON NORMALS: Normal to inspection, nondistended, normoactive bowel sounds present, Soft to palpation, non-tender, No hepatosplenomegaly present and no masses AUSCULTATION: Yes normoactive bowel sounds PALPATION: Yes Soft to palpation and Yes No hepatosplenomegaly present RECTAL EXAM: Yes deferred Extremity: COMMON NORMALS: no clubbing, cyanosis or edema and no pedal edema Neuro: COMMON NORMALS: patient oriented x3 Urinary Catheter Management: Millan: Cath Placed During This Visit: yes Reason for Continuing Indwelling Catheter: Accurate Measurement of Urinary Output in Critically Ill Patients Urinary Catheter Date of Insertion: 09/12/21 Urinary Catheter Time of Insertion: 16:00 Data : 09/16/21 03:30 09/16/21 16:00 Micro: Microbiology 09/15/21 05:02 Stool Lactoferrin - Final Stool Enteric Pathogens (PCR) - Final Parasite Antigen Panel - Final C.difficile Toxin B Gene (PCR) - Final Occult Blood (FIT) - Final A&P Assessment and plan (1) DKA (diabetic ketoacidosis): Status: Acute Qualifiers: Diabetes mellitus complication detail: without coma Diabetes mellitus type: type 2 Qualified Code(s): E11.10 - Type 2 diabetes mellitus with ketoacidosis without coma (2) Splenic artery aneurysm: Status: Acute (3) 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 -Neurochecks, aspiration precautions, seizure precautions -CIWA score -Precedex off Diabetic ketoacidosis -Anion gap 40, ketones positive, blood sugar over 800, bicarb 6, potassium 5.4 -Anion gap has closed, blood sugars reasonable, acidosis has improved - status post 1 amp of D50 -Switch to D5 normal saline -Potassium 4.1, bicarb 16, creatinine 1.6, blood sugars 221, -A1c 40.1, likely secondary to noncompliance -Low-dose sliding scale -Lantus 15 units twice daily -Second acute pancreatitis, pneumonia -Lovenox for DVT prophylaxis currently on hold due to anemia -Full code -Patient is stable, will moved to general medical floors Leukocytosis, resolving secondary to DKA, neutrophilic, pancreatitis, pneumonia, sepsis Sepsis -Secondary to pneumonia -Possible aspiration pneumonia -Required pressors for 12 hours, currently off pressors -Receiving fluid therapy -Sputum cultures, blood cultures, urine bacterial antigen -CT of the chest shows bilateral dependent atelectasis versus minimal infiltrate -Broad-spectrum antibiotic therapy vancomycin and Zosyn -MRSA nares Elevated lipase, elevated lipase, CT evidence of pancreatitis -Minimal abdominal pain, advance diet as tolerated Left radial fracture nondisplaced -Not seen on CT, continue to monitor Lactic acidosis, due to sepsis above Metabolic acidosis, combination of diabetic ketoacidosis, lactic acidosis Hyponatremia, developed during DKA, management is quite controversial, for now we will encourage oral intake, IV fluids Acute anemia, hemoglobin 7.3, evidence of iron deficiency anemia -Hemoccult stool, Protonix, Carafate -Transfuse 1 unit PRBC, recheck hemoglobin at 6 PM -Ultrasound abdomen, splenic artery aneurysm, no evidence of rupture Hypothermia, secondary to pneumonia, sepsis, DKA, possible alcohol withdrawal, resolved History of 5 cm splenic artery aneurysm, patient refuses surgical intervention, continue to monitor History of depression, monitor mentation, history of psychosis, monitor, Haldol as needed History of CVA, left upper extremity flexion contracture PT OT Working on correction placement Attestations Medical Necessity Statement*: Patient is still in hospital for management of above defined problems. Time Spent in Patient Care: Greater than 35 minutes (>than 50% of time spent in counselling and/or direct pt care on unit) . 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
[2021-09-16 11:42] LABS: Sodium 139 mmol/L (136-145)
[2021-09-16 16:56] LABS: Sodium 140 mmol/L (136-145)
[2021-09-16 17:04] LABS: Glucose Point of Care 217 mg/dL (70-110)
[2021-09-16] MEDS: pantoprazole DR 40 mg Tablet PO (17:47)
[2021-09-16 20:36] LABS: Glucose Point of Care 173 mg/dL (70-110)
[2021-09-16] MEDS: ARIPiprazole 10 mg Tablet 15 MG PO (20:59)
[2021-09-16] MEDS: sodium chloride 0.9% 1,000 ML 75 ML IV ×2 (21:12→22:44)
[2021-09-17] VITALS (14 sets, daily range): BP systolic 98–152; BP diastolic 51–93; PULSE 18–86; RESP 17–88; TEMP 36.6–37.1; O2SAT 93–99
[2021-09-17 05:17] LABS: Basophils # 0.1 10^3/uL (0.0-0.1); Basophils % 0.4 %; Eosinophils # 0.6 10^3/uL (0.0-0.8); Eosinophils % 3.3 %; Hematocrit 27.6 % (42.0-52.0); Hemoglobin 8.6 g/dL (11.7-16.6); Lymphocytes # 2.8 10^3/uL (0.8-4.8); Lymphocytes % 14.4 %; Mean Corpuscular HGB Conc 31.2 g/dL (30.0-36.0); Mean Corpuscular Hemoglobin 29.2 pg (28.0-34.0); Mean Corpuscular Volume 93.6 fl (80-94); Mean Platelet Volume 10.6 fL (7.4-10.4); Monocytes # 1.3 10^3/uL (0.2-0.9); Monocytes % 6.6 %; Neutrophils # 14.02 10^3/uL (1.8-7.7); Neutrophils % 73.6 %; Nucleated Red Blood Cells # 0.1 /100WBC; Nucleated Red Blood Cells % 0.3 %; Platelet Count 446 10^3/cmm (130-400); Red Blood Count 2.95 10^6/uL (4.1-5.3); Red Cell Distribution Width 15.9 % (12.1-15.1)
[2021-09-17 05:40] LABS: Anion Gap 11.9 (5-19); Blood Urea Nitrogen 11 mg/dL (8-23); Calcium 7.6 mg/dL (8.5-10.5); Carbon Dioxide 17 mmol/L (22-29); Chloride 114 mmol/L (98-107); Glomerular Filtration Rate 75.7 mL/min (90-130); Glucose 114 mg/dL (65-115); Osmolality Calculated 288 mOsm/kg (285-295); Potassium 3.9 mmol/L (3.5-5.1); Sodium 139 mmol/L (136-145)
[2021-09-17] MEDS: piperacillin-tazobactam 3.375 GM in sodium chloride 0.9% (plus) 50 ML IV ×3 (06:20→23:13)
[2021-09-17] MEDS: sucralfate 1 gm Tablet PO ×2 (06:21→18:04)
[2021-09-17] MEDS: morphine 4 mg/mL SDV 1 mL 2 MG IVP ×4 (06:22→20:32)
[2021-09-17 06:38] LABS: Glucose Point of Care 99 mg/dL (70-110)
[2021-09-17] MEDS: acetaminophen 325 mg Tablet 650 MG PO ×3 (08:11→21:57)
[2021-09-17] MEDS: cyclobenzaprine 10 mg Tablet PO (08:11)
[2021-09-17] MEDS: BuSPIRONE 10 mg Tablet 15 MG PO ×2 (08:12→18:03)
[2021-09-17] MEDS: thiamine 100 mg Tablet PO (08:12)
[2021-09-17] MEDS: multivitamin therapeutic Tablet 1 TAB PO (08:12)
[2021-09-17] MEDS: aspirin 81 mg EC Tablet PO (08:12)
[2021-09-17] MEDS: atorvastatin 40 mg Tablet 80 MG PO (08:12)
[2021-09-17] MEDS: gabapentin 400 mg Capsule PO ×3 (08:12→21:23)
[2021-09-17] MEDS: tamsulosin 0.4 mg Capsule PO (08:12)
[2021-09-17] MEDS: pantoprazole DR 40 mg Tablet PO ×2 (08:13→18:04)
[2021-09-17] MEDS: folic acid 1 mg Tablet PO (08:13)
[2021-09-17] MEDS: citalopram 20 mg Tablet 40 MG PO (08:13)
[2021-09-17] MEDS: insulin glargine 100 units/1 mL 15 UNIT SUBCUT ×2 (08:13→21:23)
[2021-09-17 10:27] LABS: Vancomycin Trough 7.3 ug/mL (10-15)
[2021-09-17] MEDS: vancomycin 1,250 MG/250 ML PIGGYBACK 250 MG IV (11:20)
[2021-09-17 11:44] LABS: Glucose Point of Care 228 mg/dL (70-110)
--- NOTE | 2021-09-17 12:28 | P.PN_ITS ---
Subjective Subjective: Patient was seen and examined this morning was complaining of diarrhea , as well as chronic back pain. Denies any other complaints Medications: Medication Review Details: Generic Name Dose Route Start Last Admin Trade Name Aby PRN Reason Stop Dose Admin Acetaminophen 650 mg 09/12/21 13:48 09/16/21 14:28 Acetaminophen 32 5 Mg Tablet PO 650 mg Q6H PRN Administration Mild/Mod Pain Or Temp >/= 101 Aripiprazole 15 mg 09/14/21 21:00 09/15/21 20:08 Aripiprazole 10 Mg Tablet PO 15 mg BEDTIME KEN Administration Aspirin 81 mg 09/14/21 09:00 09/16/21 08:10 Aspirin 81 Mg Ec Tablet PO 81 mg DAILY KEN Administration Atorvastatin Calci um 80 mg 09/14/21 09:00 09/16/21 08:09 Atorvastatin 40 Mg Tablet PO 80 mg DAILY KEN Administration Buspirone HCl 15 mg 09/14/21 09:00 09/16/21 17:41 Buspirone 10 Mg Tablet PO 15 mg BID KEN Administration Citalopram Hydrobr omide 40 mg 09/14/21 09:00 09/16/21 08:10 Citalopram 20 Mg Tablet PO 40 mg DAILY KEN Administration Cyclobenzaprine HC l 10 mg 09/14/21 08:00 09/16/21 10:28 Cyclobenzaprine 10 Mg Tablet PO 10 mg TID PRN Administration Muscle Spasm Enoxaparin Sodium 30 mg 09/12/21 14:30 09/14/21 14:13 Enoxaparin 30 Mg /0.3 Ml Syringe SUBCUT 30 mg Q24H KEN Administration Folic Acid 1 mg 09/14/21 09:00 09/16/21 08:10 Folic Acid 1 Mg Tablet PO 1 mg DAILY KEN Administration Gabapentin 400 mg 09/14/21 09:00 09/16/21 14:29 Gabapentin 400 M g Capsule PO 400 mg TID KEN Administration Piperacillin Sod/T azobactam 50 mls @ 12.5 mls /hr 09/12/21 15:00 09/16/21 14:28 Sod 3.375 gm/ So dium Chloride IV 12.5 mls/hr Q8H KEN Administration Protocol Vancomycin HCl 750 mg/ Sodium 250 mls @ 250 mls /hr 09/14/21 10:30 09/16/21 12:43 Chloride IV Infused Q24H KEN Infusion Protocol Insulin Glargine 15 unit 09/14/21 20:00 09/16/21 08:34 Insulin Glargine 100 Units/1 Ml SUBCUT 15 unit Q12H KEN Administration Insulin Human Lisp ro 0 unit 09/13/21 08:00 09/16/21 17:47 Insulin Lispro 1 00 Unit/1 Ml SUBCUT 6 unit WM&BEDTIME KEN Administration Protocol Morphine Sulfate 2 mg 09/12/21 13:48 09/16/21 17:46 Morphine 4 Mg/Ml Sdv 1 Ml IVP 2 mg Q4H PRN Administration SEVERE PAIN Multivitamins Ther apeutic 1 tab 09/14/21 09:00 09/16/21 08:10 Multivitamin The rapeutic Tablet PO 1 tab DAILY KEN Administration Pantoprazole Sodiu m 40 mg 09/16/21 18:00 09/16/21 17:[address] 40 Mg Tablet PO 40 mg BID KEN Administration Polyethylene Glyco l 17 gm 09/14/21 09:00 09/16/21 08:08 Polyethylene Gly col 3350 Pkt 17 Gm PO 17 gm DAILY KEN Administration Sucralfate 1 gm 09/14/21 17:00 09/16/21 17:41 Sucralfate 1 Gm Tablet PO 1 gm BIDAC KEN Administration Tamsulosin HCl 0.4 mg 09/14/21 09:00 09/16/21 08:10 Tamsulosin 0.4 M g Capsule PO 0.4 mg DAILY KEN Administration Thiamine Mononitra te 100 mg 09/14/21 09:00 09/16/21 08:09 Thiamine 100 Mg Tablet PO 100 mg DAILY KEN Administration Vitals/I&O/Wt Last Vital Signs Temp 97.8 F 09/17/21 11:23 Pulse 18 L 09/17/21 11:23 Resp 88 H 09/17/21 11:23 BP 133/82 09/17/21 11:23 Pulse Ox 97 09/17/21 11:23 09/16/21 09/17/21 09/17/21 22:59 06:59 14:59 Intake Total 2505 / 4525 290 / 4815 410 / 410 Output Total 600 / 600 800 / 1400 Balance 1905 / 3925 -510 / 3415 410 / 410 Physical Exam Const: COMMON NORMALS: patient oriented x3 HENMT: COMMON NORMALS: normocephalic and atraumatic HEAD & SCALP: normocephalic and atraumatic Resp: COMMON NORMALS: normal respiratory effort, No retractions, No use of accessory muscles and clear to auscultation bilaterally EFFORT & INSPECTION: Yes symmetric chest movement AUSCULTATION: clear to auscultation bilaterally Cardio: COMMON NORMALS: regular rate, regular rhythm, S1 normal heart sound present, S2 normal heart sound present, No gallops present (Cardio), No murmurs present (Cardio), No rub (Cardio) and Peripheral pulses 2+ throughout RATE: regular rate RHYTHM: regular rhythm HEART SOUNDS: S1 normal heart sound present and S2 normal heart sound present PERIPHERAL PULSES: Peripheral pulses 2+ throughout GI: COMMON NORMALS: Normal to inspection, nondistended, normoactive bowel sounds present, Soft to palpation, non-tender, No hepatosplenomegaly present and no masses AUSCULTATION: Yes normoactive bowel sounds PALPATION: Yes Soft to palpation and Yes No hepatosplenomegaly present RECTAL EXAM: Yes deferred Extremity: COMMON NORMALS: no clubbing, cyanosis or edema and no pedal edema Neuro: COMMON NORMALS: patient oriented x3 Urinary Catheter Management: Millan: Cath Placed During This Visit: yes Reason for Continuing Indwelling Catheter: Acute Urinary Retention or Obstruction Urinary Catheter Date of Insertion: 09/12/21 Urinary Catheter Time of Insertion: 16:00 Data : 09/17/21 05:05 09/17/21 05:05 A&P Assessment and plan (1) DKA (diabetic ketoacidosis): Status: Acute Qualifiers: Diabetes mellitus complication detail: without coma Diabetes mellitus type: type 2 Qualified Code(s): E11.10 - Type 2 diabetes mellitus with ketoacidosis without coma (2) Splenic artery aneurysm: Status: Acute (3) 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): Status: Acute (4) Type 2 diabetes mellitus: Status: Acute (5) History of CVA (cerebrovascular accident): Status: Acute (6) Acute pancreatitis: Status: Acute (7) Metabolic acidosis: Status: Acute (8) Acute encephalopathy: Status: Acute (9) Acute renal failure: Status: Acute (10) Sepsis: Status: Acute (11) Pneumonia: Status: Acute (12) Hypothermia: Status: Acute (13) Nondisplaced fracture of right radial styloid process, sequela: Status: Acute Plan Acute metabolic encephalopathy: : Multifactorial: Sepsis, DKA, pneumonia , alcohol intoxication: Resolved -Neurochecks, aspiration precautions, seizure precautions -CIWA score -Precedex off Diabetic ketoacidosis -Anion gap 40, ketones positive, blood sugar over 800, bicarb 6, potassium 5.4 -Anion gap has closed, blood sugars reasonable, acidosis has improved - status post 1 amp of D50 -Switch to D5 normal saline -Potassium 4.1, bicarb 16, creatinine 1.6, blood sugars 221, -A1c 40.1, likely secondary to noncompliance -Low-dose sliding scale -Lantus 15 units twice daily -Second acute pancreatitis, pneumonia -Lovenox for DVT prophylaxis currently on hold due to anemia -Full code -Patient is stable, will moved to general medical floors Leukocytosis, resolving secondary to DKA, neutrophilic, pancreatitis, pneumonia, sepsis Sepsis -Secondary to pneumonia -Possible aspiration pneumonia -Required pressors for 12 hours, currently off pressors -Receiving fluid therapy -Sputum cultures, blood cultures, urine bacterial antigen -CT of the chest shows bilateral dependent atelectasis versus minimal infiltrate -Broad-spectrum antibiotic therapy vancomycin and Zosyn -MRSA nares Elevated lipase, elevated lipase, CT evidence of pancreatitis -Minimal abdominal pain, advance diet as tolerated Left radial fracture nondisplaced -Not seen on CT, continue to monitor Lactic acidosis, due to sepsis above Metabolic acidosis, combination of diabetic ketoacidosis, lactic acidosis Hypernatremia: Resolved Continue to monitor BMP Acute anemia, hemoglobin 7.3, evidence of iron deficiency anemia -Hemoccult stool, Protonix, Carafate -Transfuse 1 unit PRBC, recheck hemoglobin at 6 PM -Ultrasound abdomen, splenic artery aneurysm, no evidence of rupture Hypothermia, secondary to pneumonia, sepsis, DKA, possible alcohol withdrawal, resolved History of 5 cm splenic artery aneurysm, patient refuses surgical intervention, continue to monitor History of depression, monitor mentation, history of psychosis, monitor, Haldol as needed History of CVA, left upper extremity flexion contracture PT OT Working on detention placement: Attestations Medical Necessity Statement*: Patient needs to be in hospital for management of above defined problems. Coding Level of Care Code Acute Residential Treatment Specialist for [facility] Fwd Exam Detailed Diagnoses DKA (diabetic ketoacidosis) E11.10 Diabetes mellitus complication detail: without coma Diabetes mellitus type: type 2 Splenic artery aneurysm I72.8 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) Type 2 diabetes mellitus E11.9 History of CVA (cerebrovascular accident) Z86.73 Acute pancreatitis K85.90 Metabolic acidosis E87.2 Acute encephalopathy G93.40 Acute renal failure N17.9 Sepsis A41.9 Pneumonia J18.9 Hypothermia T68.XXXA Nondisplaced fracture of right radial styloid process, sequela S52.514S
[2021-09-17] MEDS: insulin lispro 100 unit/1 mL SUBCUT ×3 (13:19→21:23)
[2021-09-17] MEDS: LORazepam 2 mg/mL INJ 1 mL 1 MG IVP (13:20)
[2021-09-17] MEDS: sodium chloride 0.9% 1,000 ML 75 ML IV (15:17)
[2021-09-17 16:58] LABS: Glucose Point of Care 212 mg/dL (70-110)
[2021-09-17 20:39] LABS: Glucose Point of Care 190 mg/dL (70-110)
[2021-09-17] MEDS: ARIPiprazole 10 mg Tablet 15 MG PO (21:22)
[2021-09-17] MEDS: LORazepam 2 mg Tablet PO (21:23)
[2021-09-18] VITALS (9 sets, daily range): BP systolic 127–157; BP diastolic 78–87; PULSE 77–94; RESP 16–20; TEMP 36.3–36.9; O2SAT 95–98
[2021-09-18 03:34] LABS: Basophils # 0.1 10^3/uL (0.0-0.1); Basophils % 0.4 %; Eosinophils # 0.7 10^3/uL (0.0-0.8); Eosinophils % 4.2 %; Hematocrit 23.7 % (42.0-52.0); Hemoglobin 7.5 g/dL (11.7-16.6); Lymphocytes # 2.7 10^3/uL (0.8-4.8); Lymphocytes % 16.3 %; Mean Corpuscular HGB Conc 31.6 g/dL (30.0-36.0); Mean Corpuscular Hemoglobin 29.1 pg (28.0-34.0); Mean Corpuscular Volume 91.9 fl (80-94); Mean Platelet Volume 10.6 fL (7.4-10.4); Monocytes # 1.4 10^3/uL (0.2-0.9); Monocytes % 8.7 %; Neutrophils # 11.28 10^3/uL (1.8-7.7); Neutrophils % 68.3 %; Nucleated Red Blood Cells % 0.2 %; Platelet Count 405 10^3/cmm (130-400); Red Blood Count 2.58 10^6/uL (4.1-5.3); Red Cell Distribution Width 15.6 % (12.1-15.1); White Blood Count 16.5 10^3/uL (4.0-10.0)
[2021-09-18 03:55] LABS: Glucose Point of Care 63 mg/dL (70-110)
[2021-09-18 03:55] LABS: Anion Gap 10.5 (5-19); Blood Urea Nitrogen 11 mg/dL (8-23); Calcium 7.7 mg/dL (8.5-10.5); Carbon Dioxide 17 mmol/L (22-29); Chloride 115 mmol/L (98-107); Glomerular Filtration Rate 75.7 mL/min (90-130); Glucose 57 mg/dL (65-115); Osmolality Calculated 285 mOsm/kg (285-295); Potassium 3.5 mmol/L (3.5-5.1); Sodium 139 mmol/L (136-145)
[2021-09-18] MEDS: piperacillin-tazobactam 3.375 GM in sodium chloride 0.9% (plus) 50 ML IV ×3 (06:18→23:21)
[2021-09-18] MEDS: sucralfate 1 gm Tablet PO (06:18)
[2021-09-18] MEDS: sodium chloride 0.9% 1,000 ML 75 ML IV (06:25)
[2021-09-18 06:26] LABS: Glucose Point of Care 106 mg/dL (70-110)
[2021-09-18] MEDS: BuSPIRONE 10 mg Tablet 15 MG PO ×2 (08:37→17:43)
[2021-09-18] MEDS: gabapentin 400 mg Capsule PO ×3 (08:38→20:11)
[2021-09-18] MEDS: multivitamin therapeutic Tablet 1 TAB PO (08:38)
[2021-09-18] MEDS: atorvastatin 40 mg Tablet 80 MG PO (08:38)
[2021-09-18] MEDS: aspirin 81 mg EC Tablet PO (08:39)
[2021-09-18] MEDS: thiamine 100 mg Tablet PO (08:39)
[2021-09-18] MEDS: tamsulosin 0.4 mg Capsule PO (08:39)
[2021-09-18] MEDS: citalopram 20 mg Tablet 40 MG PO (08:39)
[2021-09-18] MEDS: folic acid 1 mg Tablet PO (08:39)
[2021-09-18] MEDS: pantoprazole DR 40 mg Tablet PO ×2 (08:39→17:43)
[2021-09-18] MEDS: cyclobenzaprine 10 mg Tablet PO (10:10)
[2021-09-18] MEDS: acetaminophen 325 mg Tablet 650 MG PO ×2 (10:10→19:56)
[2021-09-18] MEDS: insulin lispro 100 unit/1 mL SUBCUT ×3 (14:35→21:03)
--- NOTE | 2021-09-18 19:41 | P.PN_ITS ---
Subjective Subjective: Patient was seen and examined this morning was no acute events overnight. Medications: Medication Review Details: Generic Name Dose Route Start Last Admin Trade Name Freq PRN Reason Stop Dose Admin Acetaminophen 650 mg 09/12/21 13:48 09/16/21 14:28 Acetaminophen 32 5 Mg Tablet PO 650 mg Q6H PRN Administration Mild/Mod Pain Or Temp >/= 101 Aripiprazole 15 mg 09/14/21 21:00 09/15/21 20:08 Aripiprazole 10 Mg Tablet PO 15 mg BEDTIME KEN Administration Aspirin 81 mg 09/14/21 09:00 09/16/21 08:10 Aspirin 81 Mg Ec Tablet PO 81 mg DAILY KEN Administration Atorvastatin Calci um 80 mg 09/14/21 09:00 09/16/21 08:09 Atorvastatin 40 Mg Tablet PO 80 mg DAILY KEN Administration Buspirone HCl 15 mg 09/14/21 09:00 09/16/21 17:41 Buspirone 10 Mg Tablet PO 15 mg BID KEN Administration Citalopram Hydrobr omide 40 mg 09/14/21 09:00 09/16/21 08:10 Citalopram 20 Mg Tablet PO 40 mg DAILY KEN Administration Cyclobenzaprine HC l 10 mg 09/14/21 08:00 09/16/21 10:28 Cyclobenzaprine 10 Mg Tablet PO 10 mg TID PRN Administration Muscle Spasm Enoxaparin Sodium 30 mg 09/12/21 14:30 09/14/21 14:13 Enoxaparin 30 Mg /0.3 Ml Syringe SUBCUT 30 mg Q24H KEN Administration Folic Acid 1 mg 09/14/21 09:00 09/16/21 08:10 Folic Acid 1 Mg Tablet PO 1 mg DAILY KEN Administration Gabapentin 400 mg 09/14/21 09:00 09/16/21 14:29 Gabapentin 400 M g Capsule PO 400 mg TID KEN Administration Piperacillin Sod/T azobactam 50 mls @ 12.5 mls /hr 09/12/21 15:00 09/16/21 14:28 Sod 3.375 gm/ So dium Chloride IV 12.5 mls/hr Q8H KEN Administration Protocol Vancomycin HCl 750 mg/ Sodium 250 mls @ 250 mls /hr 09/14/21 10:30 09/16/21 12:43 Chloride IV Infused Q24H KEN Infusion Protocol Insulin Glargine 15 unit 09/14/21 20:00 09/16/21 08:34 Insulin Glargine 100 Units/1 Ml SUBCUT 15 unit Q12H KEN Administration Insulin Human Lisp ro 0 unit 09/13/21 08:00 09/16/21 17:47 Insulin Lispro 1 00 Unit/1 Ml SUBCUT 6 unit WM&BEDTIME KEN Administration Protocol Morphine Sulfate 2 mg 09/12/21 13:48 09/16/21 17:46 Morphine 4 Mg/Ml Sdv 1 Ml IVP 2 mg Q4H PRN Administration SEVERE PAIN Multivitamins Ther apeutic 1 tab 09/14/21 09:00 09/16/21 08:10 Multivitamin The rapeutic Tablet PO 1 tab DAILY KEN Administration Pantoprazole Sodiu m 40 mg 09/16/21 18:00 09/16/21 17:[address] 40 Mg Tablet PO 40 mg BID KEN Administration Polyethylene Glyco l 17 gm 09/14/21 09:00 09/16/21 08:08 Polyethylene Gly col 3350 Pkt 17 Gm PO 17 gm DAILY KEN Administration Sucralfate 1 gm 09/14/21 17:00 09/16/21 17:41 Sucralfate 1 Gm Tablet PO 1 gm BIDAC KEN Administration Tamsulosin HCl 0.4 mg 09/14/21 09:00 09/16/21 08:10 Tamsulosin 0.4 M g Capsule PO 0.4 mg DAILY KEN Administration Thiamine Mononitra te 100 mg 09/14/21 09:00 09/16/21 08:09 Thiamine 100 Mg Tablet PO 100 mg DAILY KEN Administration Vitals/I&O/Wt Last Vital Signs Temp 98.1 F 09/18/21 16:00 Pulse 94 09/18/21 16:00 Resp 18 09/18/21 16:00 BP 129/83 09/18/21 16:00 Pulse Ox 96 09/18/21 16:00 09/18/21 09/18/21 09/18/21 06:59 14:59 22:59 Intake Total 1530 / 3720 1010 / 1010 50 / 1060 Output Total 1300 / 2500 2650 / 2650 2900 / 5550 Balance 230 / 1220 -1640 / -1640 -2850 / -4490 Physical Exam Const: COMMON NORMALS: patient oriented x3 HENMT: COMMON NORMALS: normocephalic and atraumatic HEAD & SCALP: normocephalic and atraumatic Resp: COMMON NORMALS: normal respiratory effort, No retractions, No use of accessory muscles and clear to auscultation bilaterally EFFORT & INSPECTION: Yes symmetric chest movement AUSCULTATION: clear to auscultation bilaterally Cardio: COMMON NORMALS: regular rate, regular rhythm, S1 normal heart sound present, S2 normal heart sound present, No gallops present (Cardio), No murmurs present (Cardio), No rub (Cardio) and Peripheral pulses 2+ throughout RATE: regular rate RHYTHM: regular rhythm HEART SOUNDS: S1 normal heart sound present and S2 normal heart sound present PERIPHERAL PULSES: Peripheral pulses 2+ throughout GI: COMMON NORMALS: Normal to inspection, nondistended, normoactive bowel sounds present, Soft to palpation, non-tender, No hepatosplenomegaly present and no masses AUSCULTATION: Yes normoactive bowel sounds PALPATION: Yes Soft to palpation and Yes No hepatosplenomegaly present RECTAL EXAM: Yes deferred Extremity: COMMON NORMALS: no clubbing, cyanosis or edema and no pedal edema Neuro: COMMON NORMALS: patient oriented x3 Urinary Catheter Management: Millan: Cath Placed During This Visit: yes Reason for Continuing Indwelling Catheter: Other Urinary Catheter Date of Insertion: 09/12/21 Urinary Catheter Time of Insertion: 16:00 Data : 09/18/21 03:25 09/18/21 03:25 A&P Assessment and plan (1) DKA (diabetic ketoacidosis): Status: Acute Qualifiers: Diabetes mellitus complication detail: without coma Diabetes mellitus type: type 2 Qualified Code(s): E11.10 - Type 2 diabetes mellitus with ketoacidosis without coma (2) Splenic artery aneurysm: Status: Acute (3) 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): Status: Acute (4) Type 2 diabetes mellitus: Status: Acute (5) History of CVA (cerebrovascular accident): Status: Acute (6) Acute pancreatitis: Status: Acute (7) Metabolic acidosis: Status: Acute (8) Acute encephalopathy: Status: Acute (9) Acute renal failure: Status: Acute (10) Sepsis: Status: Acute (11) Pneumonia: Status: Acute (12) Hypothermia: Status: Acute (13) Nondisplaced fracture of right radial styloid process, sequela: Status: Acute Plan Acute metabolic encephalopathy: : Multifactorial: Sepsis, DKA, pneumonia , alcohol intoxication: Resolved -Neurochecks, aspiration precautions, seizure precautions -CIWA score -Precedex off Diabetic ketoacidosis -Anion gap 40, ketones positive, blood sugar over 800, bicarb 6, potassium 5.4 -Anion gap has closed, blood sugars reasonable, acidosis has improved - status post 1 amp of D50 -Switch to D5 normal saline -Potassium 4.1, bicarb 16, creatinine 1.6, blood sugars 221, -A1c 40.1, likely secondary to noncompliance -Low-dose sliding scale -Lantus 15 units twice daily -Second acute pancreatitis, pneumonia -Lovenox for DVT prophylaxis currently on hold due to anemia -Full code -Patient is stable, will moved to general medical floors Leukocytosis, resolving secondary to DKA, neutrophilic, pancreatitis, pneumonia, sepsis Sepsis -Secondary to pneumonia -Possible aspiration pneumonia -Required pressors for 12 hours, currently off pressors -Receiving fluid therapy -Sputum cultures, blood cultures, urine bacterial antigen -CT of the chest shows bilateral dependent atelectasis versus minimal infiltrate -Broad-spectrum antibiotic therapy vancomycin and Zosyn -MRSA nares Elevated lipase, elevated lipase, CT evidence of pancreatitis -Minimal abdominal pain, advance diet as tolerated Left radial fracture nondisplaced -Not seen on CT, continue to monitor Lactic acidosis, due to sepsis above Metabolic acidosis, combination of diabetic ketoacidosis, lactic acidosis Hypernatremia: Resolved Continue to monitor BMP Acute anemia, hemoglobin 7.3, evidence of iron deficiency anemia -Hemoccult stool, Protonix, Carafate -Transfuse 1 unit PRBC, recheck hemoglobin at 6 PM -Ultrasound abdomen, splenic artery aneurysm, no evidence of rupture Hypothermia, secondary to pneumonia, sepsis, DKA, possible alcohol withdrawal, resolved History of 5 cm splenic artery aneurysm, patient refuses surgical intervention, continue to monitor History of depression, monitor mentation, history of psychosis, monitor, Haldol as needed History of CVA, left upper extremity flexion contracture PT OT Working on long term placement: Attestations Medical Necessity Statement*: Patient needs to be in hospital for management of above defined problems. 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
[2021-09-18] MEDS: ARIPiprazole 10 mg Tablet 15 MG PO (20:10)
[2021-09-18] MEDS: morphine 4 mg/mL SDV 1 mL 2 MG IVP (20:54)
[2021-09-18 20:58] LABS: Glucose Point of Care 207 mg/dL (70-110)
[2021-09-18] MEDS: insulin glargine 100 units/1 mL 15 UNIT SUBCUT (21:03)
[2021-09-18] MEDS: LORazepam 2 mg Tablet PO (23:23)
[2021-09-19] VITALS (9 sets, daily range): BP systolic 99–154; BP diastolic 60–92; PULSE 86–104; RESP 16–18; TEMP 36.4–37.2; O2SAT 94–98
[2021-09-19 02:10] LABS: Glucose Point of Care 251 mg/dL (70-110)
[2021-09-19 02:10] LABS: Glucose Point of Care 154 mg/dL (70-110)
[2021-09-19 02:10] LABS: Glucose Point of Care 189 mg/dL (70-110)
[2021-09-19 02:10] LABS: Glucose Point of Care 135 mg/dL (70-110)
[2021-09-19 04:20] LABS: Basophils # 0.1 10^3/uL (0.0-0.1); Basophils % 0.4 %; Eosinophils # 0.6 10^3/uL (0.0-0.8); Eosinophils % 3.6 %; Hematocrit 24.3 % (42.0-52.0); Hemoglobin 7.9 g/dL (11.7-16.6); Lymphocytes # 2.5 10^3/uL (0.8-4.8); Lymphocytes % 16.2 %; Mean Corpuscular HGB Conc 32.5 g/dL (30.0-36.0); Mean Corpuscular Hemoglobin 29.7 pg (28.0-34.0); Mean Corpuscular Volume 91.4 fl (80-94); Mean Platelet Volume 10.9 fL (7.4-10.4); Monocytes # 1.6 10^3/uL (0.2-0.9); Monocytes % 10.4 %; Neutrophils # 10.23 10^3/uL (1.8-7.7); Neutrophils % 67.2 %; Nucleated Red Blood Cells % 0.3 %; Platelet Count 477 10^3/cmm (130-400); Red Blood Count 2.66 10^6/uL (4.1-5.3); White Blood Count 15.2 10^3/uL (4.0-10.0)
[2021-09-19 04:40] LABS: Anion Gap 13.3 (5-19); Blood Urea Nitrogen 8 mg/dL (8-23); Calcium 8.1 mg/dL (8.5-10.5); Carbon Dioxide 18 mmol/L (22-29); Chloride 109 mmol/L (98-107); Glomerular Filtration Rate 67.8 mL/min (90-130); Glucose 164 mg/dL (65-115); Osmolality Calculated 286 mOsm/kg (285-295); Potassium 3.3 mmol/L (3.5-5.1); Sodium 137 mmol/L (136-145)
[2021-09-19 06:19] LABS: Glucose Point of Care 214 mg/dL (70-110)
[2021-09-19] MEDS: piperacillin-tazobactam 3.375 GM in sodium chloride 0.9% (plus) 50 ML IV ×3 (06:34→23:00)
[2021-09-19] MEDS: sucralfate 1 gm Tablet PO ×2 (06:37→17:43)
[2021-09-19] MEDS: citalopram 20 mg Tablet 40 MG PO (08:49)
[2021-09-19] MEDS: gabapentin 400 mg Capsule PO ×3 (08:49→21:49)
[2021-09-19] MEDS: insulin lispro 100 unit/1 mL SUBCUT ×4 (08:49→21:49)
[2021-09-19] MEDS: folic acid 1 mg Tablet PO (08:49)
[2021-09-19] MEDS: BuSPIRONE 10 mg Tablet 15 MG PO ×2 (08:50→17:43)
[2021-09-19] MEDS: atorvastatin 40 mg Tablet 80 MG PO (08:50)
[2021-09-19] MEDS: aspirin 81 mg EC Tablet PO (08:50)
[2021-09-19] MEDS: tamsulosin 0.4 mg Capsule PO (08:50)
[2021-09-19] MEDS: pantoprazole DR 40 mg Tablet PO ×2 (08:50→17:43)
[2021-09-19] MEDS: multivitamin therapeutic Tablet 1 TAB PO (08:50)
[2021-09-19] MEDS: thiamine 100 mg Tablet PO (08:51)
[2021-09-19] MEDS: LORazepam 2 mg Tablet PO ×2 (08:59→15:18)
[2021-09-19] MEDS: insulin glargine 100 units/1 mL 15 UNIT SUBCUT ×2 (08:59→21:48)
[2021-09-19 11:12] LABS: Glucose Point of Care 345 mg/dL (70-110)
--- NOTE | 2021-09-19 13:26 | P.PN_ITS ---
Subjective Subjective: Patient was seen and examined this morning accidentally his right IJ central line was pulled last night. No reported blood loss, hemoglobin is 7.9 this morning, WBC slowly trending down, continue to remain afebrile. We will plan to de-escalate antibiotics as the cultures have remained negative so far Patient has remained hemodynamically stable. Medications: Medication Review Details: Generic Name Dose Route Start Last Admin Trade Name Freq PRN Reason Stop Dose Admin Acetaminophen 650 mg 09/12/21 13:48 09/16/21 14:28 Acetaminophen 32 5 Mg Tablet PO 650 mg Q6H PRN Administration Mild/Mod Pain Or Temp >/= 101 Aripiprazole 15 mg 09/14/21 21:00 09/15/21 20:08 Aripiprazole 10 Mg Tablet PO 15 mg BEDTIME KEN Administration Aspirin 81 mg 09/14/21 09:00 09/16/21 08:10 Aspirin 81 Mg Ec Tablet PO 81 mg DAILY KEN Administration Atorvastatin Calci um 80 mg 09/14/21 09:00 09/16/21 08:09 Atorvastatin 40 Mg Tablet PO 80 mg DAILY KEN Administration Buspirone HCl 15 mg 09/14/21 09:00 09/16/21 17:41 Buspirone 10 Mg Tablet PO 15 mg BID KEN Administration Citalopram Hydrobr omide 40 mg 09/14/21 09:00 09/16/21 08:10 Citalopram 20 Mg Tablet PO 40 mg DAILY KEN Administration Cyclobenzaprine HC l 10 mg 09/14/21 08:00 09/16/21 10:28 Cyclobenzaprine 10 Mg Tablet PO 10 mg TID PRN Administration Muscle Spasm Enoxaparin Sodium 30 mg 09/12/21 14:30 09/14/21 14:13 Enoxaparin 30 Mg /0.3 Ml Syringe SUBCUT 30 mg Q24H KEN Administration Folic Acid 1 mg 09/14/21 09:00 09/16/21 08:10 Folic Acid 1 Mg Tablet PO 1 mg DAILY KEN Administration Gabapentin 400 mg 09/14/21 09:00 09/16/21 14:29 Gabapentin 400 M g Capsule PO 400 mg TID KEN Administration Piperacillin Sod/T azobactam 50 mls @ 12.5 mls /hr 09/12/21 15:00 09/16/21 14:28 Sod 3.375 gm/ So dium Chloride IV 12.5 mls/hr Q8H KEN Administration Protocol Vancomycin HCl 750 mg/ Sodium 250 mls @ 250 mls /hr 09/14/21 10:30 09/16/21 12:43 Chloride IV Infused Q24H KEN Infusion Protocol Insulin Glargine 15 unit 09/14/21 20:00 09/16/21 08:34 Insulin Glargine 100 Units/1 Ml SUBCUT 15 unit Q12H KEN Administration Insulin Human Lisp ro 0 unit 09/13/21 08:00 09/16/21 17:47 Insulin Lispro 1 00 Unit/1 Ml SUBCUT 6 unit WM&BEDTIME KEN Administration Protocol Morphine Sulfate 2 mg 09/12/21 13:48 09/16/21 17:46 Morphine 4 Mg/Ml Sdv 1 Ml IVP 2 mg Q4H PRN Administration SEVERE PAIN Multivitamins Ther apeutic 1 tab 09/14/21 09:00 09/16/21 08:10 Multivitamin The rapeutic Tablet PO 1 tab DAILY KEN Administration Pantoprazole Sodiu m 40 mg 09/16/21 18:00 09/16/21 17:[address] 40 Mg Tablet PO 40 mg BID KEN Administration Polyethylene Glyco l 17 gm 09/14/21 09:00 09/16/21 08:08 Polyethylene Gly col 3350 Pkt 17 Gm PO 17 gm DAILY KEN Administration Sucralfate 1 gm 09/14/21 17:00 09/16/21 17:41 Sucralfate 1 Gm Tablet PO 1 gm BIDAC KEN Administration Tamsulosin HCl 0.4 mg 09/14/21 09:00 09/16/21 08:10 Tamsulosin 0.4 M g Capsule PO 0.4 mg DAILY KEN Administration Thiamine Mononitra te 100 mg 09/14/21 09:00 09/16/21 08:09 Thiamine 100 Mg Tablet PO 100 mg DAILY KEN Administration Vitals/I&O/Wt Last Vital Signs Temp 98.0 F 09/19/21 11:51 Pulse 104 H 09/19/21 11:51 Resp 16 09/19/21 11:51 BP 107/69 09/19/21 11:51 Pulse Ox 94 09/19/21 11:51 09/18/21 09/19/21 09/19/21 22:59 06:59 14:59 Intake Total 1410 / 2420 190 / 2610 670 / 670 Output Total 2900 / 5550 2225 / 7775 1700 / 1700 Balance -1490 / -3130 -2035 / -5165 -1030 / -1030 Physical Exam Const: COMMON NORMALS: patient oriented x3 HENMT: COMMON NORMALS: normocephalic and atraumatic HEAD & SCALP: normocephalic and atraumatic Resp: COMMON NORMALS: normal respiratory effort, No retractions, No use of accessory muscles and clear to auscultation bilaterally EFFORT & INSPECTION: Yes symmetric chest movement AUSCULTATION: clear to auscultation bilaterally Cardio: COMMON NORMALS: regular rate, regular rhythm, S1 normal heart sound present, S2 normal heart sound present, No gallops present (Cardio), No murmurs present (Cardio), No rub (Cardio) and Peripheral pulses 2+ throughout RATE: regular rate RHYTHM: regular rhythm HEART SOUNDS: S1 normal heart sound present and S2 normal heart sound present PERIPHERAL PULSES: Peripheral pulses 2+ throughout GI: COMMON NORMALS: Normal to inspection, nondistended, normoactive bowel so unds present, Soft to palpation, non-tender, No hepatosplenomegaly present and no masses AUSCULTATION: Yes normoactive bowel sounds PALPATION: Yes Soft to palpation and Yes No hepatosplenomegaly present RECTAL EXAM: Yes deferred Extremity: COMMON NORMALS: no clubbing, cyanosis or edema and no pedal edema Neuro: COMMON NORMALS: patient oriented x3 Urinary Catheter Management: Millan: Cath Placed During This Visit: yes Reason for Continuing Indwelling Catheter: Other Urinary Catheter Date of Insertion: 09/12/21 Urinary Catheter Time of Insertion: 16:00 Data : 09/19/21 03:55 09/19/21 03:55 A&P Assessment and plan (1) DKA (diabetic ketoacidosis): Status: Acute Qualifiers: Diabetes mellitus complication detail: without coma Diabetes mellitus type: type 2 Qualified Code(s): E11.10 - Type 2 diabetes mellitus with ketoacidosis without coma (2) Splenic artery aneurysm: Status: Acute (3) 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): Status: Acute (4) Type 2 diabetes mellitus: Status: Acute (5) History of CVA (cerebrovascular accident): Status: Acute (6) Acute pancreatitis: Status: Acute (7) Metabolic acidosis: Status: Acute (8) Acute encephalopathy: Status: Acute (9) Acute renal failure: Status: Acute (10) Sepsis: Status: Acute (11) Pneumonia: Status: Acute (12) Hypothermia: Status: Acute (13) Nondisplaced fracture of right radial styloid process, sequela: Status: Acute Plan Acute metabolic encephalopathy: : Multifactorial: Sepsis, DKA, pneumonia , alcohol intoxication: Resolved -Neurochecks, aspiration precautions, seizure precautions -CIWA score -Precedex off Diabetic ketoacidosis -Anion gap 40, ketones positive, blood sugar over 800, bicarb 6, potassium 5.4 -Anion gap has closed, blood sugars reasonable, acidosis has improved - status post 1 amp of D50 -Switch to D5 normal saline -Potassium 4.1, bicarb 16, creatinine 1.6, blood sugars 221, -A1c 40.1, likely secondary to noncompliance -Low-dose sliding scale -Lantus 15 units twice daily -Second acute pancreatitis, pneumonia -Lovenox for DVT prophylaxis currently on hold due to anemia -Full code -Patient is stable, will moved to general medical floors Leukocytosis, resolving secondary to DKA, neutrophilic, pancreatitis, pneumonia, sepsis Sepsis -Secondary to pneumonia -Possible aspiration pneumonia -Required pressors for 12 hours, currently off pressors -Receiving fluid therapy -Sputum cultures, blood cultures, urine bacterial antigen -CT of the chest shows bilateral dependent atelectasis versus minimal infiltrate -Broad-spectrum antibiotic therapy vancomycin and Zosyn -MRSA nares Elevated lipase, elevated lipase, CT evidence of pancreatitis -Minimal abdominal pain, advance diet as tolerated Left radial fracture nondisplaced -Not seen on CT, continue to monitor Lactic acidosis, due to sepsis above Metabolic acidosis, combination of diabetic ketoacidosis, lactic acidosis Hypernatremia: Resolved Continue to monitor BMP Acute anemia, hemoglobin 7.3, evidence of iron deficiency anemia -Hemoccult stool, Protonix, Carafate -Transfuse 1 unit PRBC, recheck hemoglobin at 6 PM -Ultrasound abdomen, splenic artery aneurysm, no evidence of rupture Hypothermia, secondary to pneumonia, sepsis, DKA, possible alcohol withdrawal, resolved History of 5 cm splenic artery aneurysm, patient refuses surgical intervention, continue to monitor History of depression, monitor mentation, history of psychosis, monitor, Haldol as needed History of CVA, left upper extremity flexion contracture PT OT Working on [place] [facility] placement: Attestations Medical Necessity Statement*: Patient is to be in hospital for management of above defined problems. He will be medically ready for discharge,soon.Getting placement is likely an issue.plastics worker is working on level 2 approval. 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
[2021-09-19] MEDS: acetaminophen 325 mg Tablet 650 MG PO ×2 (15:17→23:05)
[2021-09-19 16:52] LABS: Glucose Point of Care 229 mg/dL (70-110)
[2021-09-19] MEDS: morphine 4 mg/mL SDV 1 mL 2 MG IVP (17:49)
--- NOTE | 2021-09-19 17:51 | PC.NURSE ---
Patients vitals stable. BM today. Millan intact and clean, with adequate output. Patient central line was found out of neck this morning, the time it fell out is unknown. New peripheral IV placed. Anxiety and pain meds given as requested. Still waiting placement. Will continue to monitor and give report to night nurse.
[2021-09-19 20:14] LABS: Glucose Point of Care 283 mg/dL (70-110)
[2021-09-19] MEDS: ARIPiprazole 10 mg Tablet 15 MG PO (21:48)
[2021-09-19 22:00] LABS: Glucose Point of Care 158 mg/dL (70-110)
[2021-09-20 04:00] VITALS: BP 123/71; PULSE 89; RESP 17; TEMP 36.7; O2SAT 97
[2021-09-20] MEDS: LORazepam 2 mg Tablet PO ×2 (04:24→15:59)
[2021-09-20 04:34] LABS: Glucose Point of Care 129 mg/dL (70-110)
[2021-09-20 05:29] LABS: Basophils # 0.1 10^3/uL (0.0-0.1); Basophils % 0.3 %; Eosinophils # 0.5 10^3/uL (0.0-0.8); Eosinophils % 3.2 %; Hematocrit 26.3 % (42.0-52.0); Hemoglobin 8.3 g/dL (11.7-16.6); Lymphocytes # 2.5 10^3/uL (0.8-4.8); Lymphocytes % 16.9 %; Mean Corpuscular HGB Conc 31.6 g/dL (30.0-36.0); Mean Corpuscular Hemoglobin 29.3 pg (28.0-34.0); Mean Corpuscular Volume 92.9 fl (80-94); Mean Platelet Volume 11.1 fL (7.4-10.4); Monocytes # 2.3 10^3/uL (0.2-0.9); Monocytes % 15.2 %; Neutrophils # 9.32 10^3/uL (1.8-7.7); Neutrophils % 62.6 %; Nucleated Red Blood Cells % 0.1 %; Platelet Count 540 10^3/cmm (130-400); Red Blood Count 2.83 10^6/uL (4.1-5.3); Red Cell Distribution Width 16.4 % (12.1-15.1); White Blood Count 14.9 10^3/uL (4.0-10.0)
[2021-09-20 05:50] LABS: Anion Gap 15.1 (5-19); Blood Urea Nitrogen 7 mg/dL (8-23); Calcium 8.5 mg/dL (8.5-10.5); Carbon Dioxide 18 mmol/L (22-29); Chloride 109 mmol/L (98-107); Creatinine Clr Calc Pharmacy 65.5188; Glomerular Filtration Rate 85.5 mL/min (90-130); Glucose 151 mg/dL (65-115); Osmolality Calculated 287 mOsm/kg (285-295); Potassium 4.1 mmol/L (3.5-5.1); Sodium 138 mmol/L (136-145)
[2021-09-20] MEDS: piperacillin-tazobactam 3.375 GM in sodium chloride 0.9% (plus) 50 ML IV ×3 (06:14→23:20)
[2021-09-20] MEDS: sucralfate 1 gm Tablet PO ×2 (06:15→16:00)
[2021-09-20] MEDS: acetaminophen 325 mg Tablet 650 MG PO ×3 (06:15→21:22)
[2021-09-20 07:17] VITALS: BP 123/69; PULSE 86; RESP 18; TEMP 36.8; O2SAT 97
[2021-09-20 07:44] LABS: Glucose Point of Care 149 mg/dL (70-110)
[2021-09-20] MEDS: citalopram 20 mg Tablet 40 MG PO (08:36)
[2021-09-20] MEDS: tamsulosin 0.4 mg Capsule PO (08:36)
[2021-09-20] MEDS: insulin glargine 100 units/1 mL 15 UNIT SUBCUT ×2 (08:36→21:23)
[2021-09-20] MEDS: aspirin 81 mg EC Tablet PO (08:36)
[2021-09-20] MEDS: insulin lispro 100 unit/1 mL SUBCUT ×4 (08:36→21:24)
[2021-09-20] MEDS: atorvastatin 40 mg Tablet 80 MG PO (08:37)
[2021-09-20] MEDS: potassium chloride ER 20 mEq Tablet PO (08:37)
[2021-09-20] MEDS: thiamine 100 mg Tablet PO (08:37)
[2021-09-20] MEDS: folic acid 1 mg Tablet PO (08:37)
[2021-09-20] MEDS: BuSPIRONE 10 mg Tablet 15 MG PO ×2 (08:37→17:50)
[2021-09-20] MEDS: pantoprazole DR 40 mg Tablet PO ×2 (08:37→17:51)
[2021-09-20] MEDS: multivitamin therapeutic Tablet 1 TAB PO (08:37)
[2021-09-20] MEDS: gabapentin 400 mg Capsule PO ×3 (08:37→21:23)
[2021-09-20 11:42] LABS: Glucose Point of Care 250 mg/dL (70-110)
--- NOTE | 2021-09-20 12:52 | PM.PN ---
Subjective Subjective: Patient was seen and examined this morning continued to complain of severe back pain and asked for morphine constantly. Medications: Medication Review Details: Generic Name Dose Route Start Last Admin Trade Name Aby PRN Reason Stop Dose Admin Acetaminophen 650 mg 09/12/21 13:48 09/16/21 14:28 Acetaminophen 32 5 Mg Tablet PO 650 mg Q6H PRN Administration Mild/Mod Pain Or Temp >/= 101 Aripiprazole 15 mg 09/14/21 21:00 09/15/21 20:08 Aripiprazole 10 Mg Tablet PO 15 mg BEDTIME KEN Administration Aspirin 81 mg 09/14/21 09:00 09/16/21 08:10 Aspirin 81 Mg Ec Tablet PO 81 mg DAILY KEN Administration Atorvastatin Calci um 80 mg 09/14/21 09:00 09/16/21 08:09 Atorvastatin 40 Mg Tablet PO 80 mg DAILY KEN Administration Buspirone HCl 15 mg 09/14/21 09:00 09/16/21 17:41 Buspirone 10 Mg Tablet PO 15 mg BID KEN Administration Citalopram Hydrobr omide 40 mg 09/14/21 09:00 09/16/21 08:10 Citalopram 20 Mg Tablet PO 40 mg DAILY KEN Administration Cyclobenzaprine HC l 10 mg 09/14/21 08:00 09/16/21 10:28 Cyclobenzaprine 10 Mg Tablet PO 10 mg TID PRN Administration Muscle Spasm Enoxaparin Sodium 30 mg 09/12/21 14:30 09/14/21 14:13 Enoxaparin 30 Mg /0.3 Ml Syringe SUBCUT 30 mg Q24H KEN Administration Folic Acid 1 mg 09/14/21 09:00 09/16/21 08:10 Folic Acid 1 Mg Tablet PO 1 mg DAILY KEN Administration Gabapentin 400 mg 09/14/21 09:00 09/16/21 14:29 Gabapentin 400 M g Capsule PO 400 mg TID KEN Administration Piperacillin Sod/T azobactam 50 mls @ 12.5 mls /hr 09/12/21 15:00 09/16/21 14:28 Sod 3.375 gm/ So dium Chloride IV 12.5 mls/hr Q8H KEN Administration Protocol Vancomycin HCl 750 mg/ Sodium 250 mls @ 250 mls /hr 09/14/21 10:30 09/16/21 12:43 Chloride IV Infused Q24H KEN Infusion Protocol Insulin Glargine 15 unit 09/14/21 20:00 09/16/21 08:34 Insulin Glargine 100 Units/1 Ml SUBCUT 15 unit Q12H KEN Administration Insulin Human Lisp ro 0 unit 09/13/21 08:00 09/16/21 17:47 Insulin Lispro 1 00 Unit/1 Ml SUBCUT 6 unit WM&BEDTIME KEN Administration Protocol Morphine Sulfate 2 mg 09/12/21 13:48 09/16/21 17:46 Morphine 4 Mg/Ml Sdv 1 Ml IVP 2 mg Q4H PRN Administration SEVERE PAIN Multivitamins Ther apeutic 1 tab 09/14/21 09:00 09/16/21 08:10 Multivitamin The rapeutic Tablet PO 1 tab DAILY KEN Administration Pantoprazole Sodiu m 40 mg 09/16/21 18:00 09/16/21 17:[address] 40 Mg Tablet PO 40 mg BID KEN Administration Polyethylene Glyco l 17 gm 09/14/21 09:00 09/16/21 08:08 Polyethylene Gly col 3350 Pkt 17 Gm PO 17 gm DAILY KEN Administration Sucralfate 1 gm 09/14/21 17:00 09/16/21 17:41 Sucralfate 1 Gm Tablet PO 1 gm BIDAC KEN Administration Tamsulosin HCl 0.4 mg 09/14/21 09:00 09/16/21 08:10 Tamsulosin 0.4 M g Capsule PO 0.4 mg DAILY KEN Administration Thiamine Mononitra te 100 mg 09/14/21 09:00 09/16/21 08:09 Thiamine 100 Mg Tablet PO 100 mg DAILY KEN Administration Vitals/I&O/Wt Last Vital Signs Temp 98.3 F 09/20/21 07:17 Pulse 86 09/20/21 07:17 Resp 18 09/20/21 07:17 BP 123/69 09/20/21 07:17 Pulse Ox 97 09/20/21 07:17 09/19/21 09/20/21 09/20/21 22:59 06:59 14:59 Intake Total 495 / 1405 50 / 1455 50 / 50 Output Total / 1979 2050 / 4030 Balance 215 / -575 -1999 / -2575 50 / 50 Physical Exam Const: COMMON NORMALS: patient oriented x3 HENMT: COMMON NORMALS: normocephalic and atraumatic HEAD & SCALP: normocephalic and atraumatic Resp: COMMON NORMALS: normal respiratory effort, No retractions, No use of accessory muscles and clear to auscultation bilaterally EFFORT & INSPECTION: Yes symmetric chest movement AUSCULTATION: clear to auscultation bilaterally Cardio: COMMON NORMALS: regular rate, regular rhythm, S1 normal heart sound present, S2 normal heart sound present, No gallops present (Cardio), No murmurs present (Cardio), No rub (Cardio) and Peripheral pulses 2+ throughout RATE: regular rate RHYTHM: regular rhythm HEART SOUNDS: S1 normal heart sound present and S2 normal heart sound present PERIPHERAL PULSES: Peripheral pulses 2+ throughout GI: COMMON NORMALS: Normal to inspection, nondistended, normoactive bowel sounds present, Soft to palpation, non-tender, No hepatosplenomegaly present and no masses AUSCULTATION: Yes normoactive bowel sounds PALPATION: Yes Soft to palpation and Yes No hepatosplenomegaly present RECTAL EXAM: Yes deferred Extremity: COMMON NORMALS: no clubbing, cyanosis or edema and no pedal edema Neuro: COMMON NORMALS: patient oriented x3 Urinary Catheter Management: Millan: Cath Placed During This Visit: yes Reason for Continuing Indwelling Catheter: Acute Urinary Retention or Obstruction Urinary Catheter Date of Insertion: 09/12/21 Urinary Catheter Time of Insertion: 16:00 Data : 09/20/21 04:46 09/20/21 04:46 A&P Assessment and plan (1) DKA (diabetic ketoacidosis): Status: Acute Qualifiers: Diabetes mellitus complication detail: without coma Diabetes mellitus type: type 2 Qualified Code(s): E11.10 - Type 2 diabetes mellitus with ketoacidosis without coma (2) Splenic artery aneurysm: Status: Acute (3) 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): Status: Acute (4) Type 2 diabetes mellitus: Status: Acute (5) History of CVA (cerebrovascular accident): Status: Acute (6) Acute pancreatitis: Status: Acute (7) Metabolic acidosis: Status: Acute (8) Acute encephalopathy: Status: Acute (9) Acute renal failure: Status: Acute (10) Sepsis: Status: Acute (11) Pneumonia: Status: Acute (12) Hypothermia: Status: Acute (13) Nondisplaced fracture of right radial styloid process, sequela: Status: Acute Plan Acute metabolic encephalopathy: : Multifactorial: Sepsis, DKA, pneumonia , alcohol intoxication: Resolved -Neurochecks, aspiration precautions, seizure precautions -CIWA score -Precedex off Diabetic ketoacidosis -Anion gap 40, ketones positive, blood sugar over 800, bicarb 6, potassium 5.4 -Anion gap has closed, blood sugars reasonable, acidosis has improved - status post 1 amp of D50 -Switch to D5 normal saline -Potassium 4.1, bicarb 16, creatinine 1.6, blood sugars 221, -A1c 40.1, likely secondary to noncompliance -Low-dose sliding scale -Lantus 15 units twice daily -Second acute pancreatitis, pneumonia -Lovenox for DVT prophylaxis currently on hold due to anemia -Full code -Patient is stable, will moved to general medical floors Sepsis: Secondary to pneumonia, Possible aspiration pneumonia -Elevated WBC,Lactic acid ,-Required pressors and fluid resusscitation -MRSA :PCR :Negative -Sputum cultures: -Blood cultures:NTD -Urine Culture :Negative -urine bacterial antigen:Negative -CT of the chest shows bilateral dependent atelectasis versus minimal infiltrate -Stool studies : Negative -Broad-spectrum antibiotic therapy vancomycin and Zosyn # Ac pancreatitis Elevated lipase, abdominal pain, CT : ?Mild peripancreatic edema suggestive of pancreatitis without focal fluid collection. Currently Tolerating diet well. #Left radial fracture nondisplaced -Not seen on CT, -continue to monitor # Acute anemia, hemoglobin 7.3, evidence of iron deficiency anemia -Ultrasound abdomen, splenic artery aneurysm, no evidence of rupture -Hemoccult stool:Positive -Protonix, Carafate -S/P 1 unit PRBC Transfusion -Monitor H&H #History of 5 cm splenic artery aneurysm, patient refuses surgical intervention, continue to monitor #Metabolic acidosis, combination of diabetic ketoacidosis, lactic acidosis #History of CVA, left upper extremity flexion contracture #Hypernatremia: Resolved Continue to monitor BMP #History of depression, monitor mentation, history of psychosis, monitor, Haldol as needed PT OT Working on senior care placement: Attestations Medical Necessity Statement*: Patient is to be in hospital for management of above defined problems. He is medically ready for discharge.Getting placement is likely an issue.expeller worker is working on level 2 approval as well as finding a senior care. 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
--- NOTE | 2021-09-20 16:01 | PC.NURSE ---
Vital signs stable. Abx given as ordered. Pain and anxiety meds given as requested. Patient slept most of shift. Millan intact and clean, with adequate output. Patient had 2 bowel movements. Worked with PT and sat in the chair for a few hours. Will continue to monitor and give report to night nurse.
[2021-09-20 17:17] LABS: Glucose Point of Care 252 mg/dL (70-110)
[2021-09-20 20:00] VITALS: BP 145/79; PULSE 57; RESP 17; TEMP 37; O2SAT 95
[2021-09-20 20:50] LABS: Glucose Point of Care 251 mg/dL (70-110)
[2021-09-20] MEDS: ARIPiprazole 10 mg Tablet 15 MG PO (21:21)
[2021-09-20] MEDS: cyclobenzaprine 10 mg Tablet PO (21:24)
[2021-09-20 22:00] VITALS: PULSE 91
[2021-09-20 22:42] VITALS: RESP 18
[2021-09-20] MEDS: morphine 4 mg/mL SDV 1 mL 2 MG IVP (22:42)
[2021-09-21] VITALS (11 sets, daily range): BP systolic 113–143; BP diastolic 71–88; PULSE 75–98; RESP 16–18; TEMP 36.6–37.6; O2SAT 92–97
[2021-09-21 01:11] LABS: Glucose Point of Care 195 mg/dL (70-110)
[2021-09-21] MEDS: LORazepam 2 mg Tablet PO (02:38)
[2021-09-21] MEDS: acetaminophen 325 mg Tablet 650 MG PO ×3 (03:07→20:23)
[2021-09-21 05:44] LABS: Anion Gap 12.9 (5-19); Blood Urea Nitrogen 8 mg/dL (8-23); Calcium 7.9 mg/dL (8.5-10.5); Carbon Dioxide 20 mmol/L (22-29); Chloride 108 mmol/L (98-107); Glucose 142 mg/dL (65-115); Osmolality Calculated 285 mOsm/kg (285-295); Potassium 3.9 mmol/L (3.5-5.1); Sodium 137 mmol/L (136-145)
[2021-09-21] MEDS: sucralfate 1 gm Tablet PO ×2 (06:01→16:31)
[2021-09-21] MEDS: piperacillin-tazobactam 3.375 GM in sodium chloride 0.9% (plus) 50 ML IV (06:01)
[2021-09-21] MEDS: morphine 4 mg/mL SDV 1 mL 2 MG IVP (06:39)
[2021-09-21] MEDS: insulin glargine 100 units/1 mL 15 UNIT SUBCUT ×2 (09:08→21:37)
[2021-09-21] MEDS: insulin lispro 100 unit/1 mL SUBCUT ×4 (09:08→21:37)
[2021-09-21 09:09] LABS: Glucose Point of Care 157 mg/dL (70-110)
[2021-09-21] MEDS: multivitamin therapeutic Tablet 1 TAB PO (09:09)
[2021-09-21] MEDS: thiamine 100 mg Tablet PO (09:09)
[2021-09-21] MEDS: citalopram 20 mg Tablet 40 MG PO (09:09)
[2021-09-21] MEDS: folic acid 1 mg Tablet PO (09:09)
[2021-09-21] MEDS: pantoprazole DR 40 mg Tablet PO ×2 (09:09→17:57)
[2021-09-21] MEDS: aspirin 81 mg EC Tablet PO (09:12)
[2021-09-21] MEDS: cyclobenzaprine 10 mg Tablet PO ×2 (09:12→16:31)
[2021-09-21] MEDS: potassium chloride ER 20 mEq Tablet PO (09:13)
[2021-09-21] MEDS: atorvastatin 40 mg Tablet 80 MG PO (09:13)
[2021-09-21] MEDS: gabapentin 400 mg Capsule PO ×3 (09:13→20:23)
[2021-09-21] MEDS: BuSPIRONE 10 mg Tablet 15 MG PO ×2 (09:13→17:57)
[2021-09-21] MEDS: tamsulosin 0.4 mg Capsule PO (09:13)
[2021-09-21 10:43] LABS: Glucose Point of Care 333 mg/dL (70-110)
--- NOTE | 2021-09-21 10:52 | P.PN_ITS ---
Subjective Subjective: Patient was seen and examined this morning no acute events. resting comfortably. Medications: Medication Review Details: Generic Name Dose Route Start Last Admin Trade Name Freq PRN Reason Stop Dose Admin Acetaminophen 650 mg 09/12/21 13:48 09/16/21 14:28 Acetaminophen 32 5 Mg Tablet PO 650 mg Q6H PRN Administration Mild/Mod Pain Or Temp >/= 101 Aripiprazole 15 mg 09/14/21 21:00 09/15/21 20:08 Aripiprazole 10 Mg Tablet PO 15 mg BEDTIME KEN Administration Aspirin 81 mg 09/14/21 09:00 09/16/21 08:10 Aspirin 81 Mg Ec Tablet PO 81 mg DAILY KEN Administration Atorvastatin Calci um 80 mg 09/14/21 09:00 09/16/21 08:09 Atorvastatin 40 Mg Tablet PO 80 mg DAILY KEN Administration Buspirone HCl 15 mg 09/14/21 09:00 09/16/21 17:41 Buspirone 10 Mg Tablet PO 15 mg BID KEN Administration Citalopram Hydrobr omide 40 mg 09/14/21 09:00 09/16/21 08:10 Citalopram 20 Mg Tablet PO 40 mg DAILY KEN Administration Cyclobenzaprine HC l 10 mg 09/14/21 08:00 09/16/21 10:28 Cyclobenzaprine 10 Mg Tablet PO 10 mg TID PRN Administration Muscle Spasm Enoxaparin Sodium 30 mg 09/12/21 14:30 09/14/21 14:13 Enoxaparin 30 Mg /0.3 Ml Syringe SUBCUT 30 mg Q24H KEN Administration Folic Acid 1 mg 09/14/21 09:00 09/16/21 08:10 Folic Acid 1 Mg Tablet PO 1 mg DAILY KEN Administration Gabapentin 400 mg 09/14/21 09:00 09/16/21 14:29 Gabapentin 400 M g Capsule PO 400 mg TID KEN Administration Piperacillin Sod/T azobactam 50 mls @ 12.5 mls /hr 09/12/21 15:00 09/16/21 14:28 Sod 3.375 gm/ So dium Chloride IV 12.5 mls/hr Q8H KEN Administration Protocol Vancomycin HCl 750 mg/ Sodium 250 mls @ 250 mls /hr 09/14/21 10:30 09/16/21 12:43 Chloride IV Infused Q24H KEN Infusion Protocol Insulin Glargine 15 unit 09/14/21 20:00 09/16/21 08:34 Insulin Glargine 100 Units/1 Ml SUBCUT 15 unit Q12H KEN Administration Insulin Human Lisp ro 0 unit 09/13/21 08:00 09/16/21 17:47 Insulin Lispro 1 00 Unit/1 Ml SUBCUT 6 unit WM&BEDTIME KEN Administration Protocol Morphine Sulfate 2 mg 09/12/21 13:48 09/16/21 17:46 Morphine 4 Mg/Ml Sdv 1 Ml IVP 2 mg Q4H PRN Administration SEVERE PAIN Multivitamins Ther apeutic 1 tab 09/14/21 09:00 09/16/21 08:10 Multivitamin The rapeutic Tablet PO 1 tab DAILY KEN Administration Pantoprazole Sodiu m 40 mg 09/16/21 18:00 09/16/21 17:[address] 40 Mg Tablet PO 40 mg BID KEN Administration Polyethylene Glyco l 17 gm 09/14/21 09:00 09/16/21 08:08 Polyethylene Gly col 3350 Pkt 17 Gm PO 17 gm DAILY KEN Administration Sucralfate 1 gm 09/14/21 17:00 09/16/21 17:41 Sucralfate 1 Gm Tablet PO 1 gm BIDAC KEN Administration Tamsulosin HCl 0.4 mg 09/14/21 09:00 09/16/21 08:10 Tamsulosin 0.4 M g Capsule PO 0.4 mg DAILY KEN Administration Thiamine Mononitra te 100 mg 09/14/21 09:00 09/16/21 08:09 Thiamine 100 Mg Tablet PO 100 mg DAILY KEN Administration Vitals/I&O/Wt Last Vital Signs Temp 98.2 F 09/21/21 07:08 Pulse 80 09/21/21 07:08 Resp 16 09/21/21 07:08 BP 128/75 09/21/21 07:08 Pulse Ox 94 09/21/21 07:08 09/20/21 09/21/21 09/21/21 22:59 06:59 14:59 Intake Total 770 / 940 530 / 1470 600 / 600 Output Total 1475 / 1475 1800 / 3275 Balance -705 / -535 -1270 / -1805 600 / 600 Physical Exam Const: COMMON NORMALS: patient oriented x3 HENMT: COMMON NORMALS: normocephalic and atraumatic HEAD & SCALP: normocephalic and atraumatic Resp: COMMON NORMALS: normal respiratory effort, No retractions, No use of accessory muscles and clear to auscultation bilaterally EFFORT & INSPECTION: Yes symmetric chest movement AUSCULTATION: clear to auscultation bilaterally Cardio: COMMON NORMALS: regular rate, regular rhythm, S1 normal heart sound present, S2 normal heart sound present, No gallops present (Cardio), No murmurs present (Cardio), No rub (Cardio) and Peripheral pulses 2+ throughout RATE: regular rate RHYTHM: regular rhythm HEART SOUNDS: S1 normal heart sound present and S2 normal heart sound present PERIPHERAL PULSES: Peripheral pulses 2+ throughout GI: COMMON NORMALS: Normal to inspection, nondistended, normoactive bowel sounds present, Soft to palpation, non-tender, No hepatosplenomegaly present and no masses AUSCULTATION: Yes normoactive bowel sounds PALPATION: Yes Soft to palpation and Yes No hepatosplenomegaly present RECTAL EXAM: Yes deferred Extremity: COMMON NORMALS: no clubbing, cyanosis or edema and no pedal edema Neuro: COMMON NORMALS: patient oriented x3 Urinary Catheter Management: Millan: Cath Placed During This Visit: yes Reason for Continuing Indwelling Catheter: Other Urinary Catheter Date of Insertion: 09/12/21 Urinary Catheter Time of Insertion: 16:00 Data : 09/21/21 11:12 09/21/21 04:57 A&P Assessment and plan (1) DKA (diabetic ketoacidosis): Status: Acute Qualifiers: Diabetes mellitus complication detail: without coma Diabetes mellitus type: type 2 Qualified Code(s): E11.10 - Type 2 diabetes mellitus with keto acidosis without coma (2) Splenic artery aneurysm: Status: Acute (3) 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): Status: Acute (4) Type 2 diabetes mellitus: Status: Acute (5) History of CVA (cerebrovascular accident): Status: Acute (6) Acute pancreatitis: Status: Acute (7) Metabolic acidosis: Status: Acute (8) Acute encephalopathy: Status: Acute (9) Acute renal failure: Status: Acute (10) Sepsis: Status: Acute (11) Pneumonia: Status: Acute (12) Hypothermia: Status: Acute (13) Nondisplaced fracture of right radial styloid process, sequela: Status: Acute Plan Acute metabolic encephalopathy: : Multifactorial: Sepsis, DKA, pneumonia , alcohol intoxication: Resolved -Neurochecks, aspiration precautions, seizure precautions -CIWA score -Precedex off Diabetic ketoacidosis -Anion gap 40, ketones positive, blood sugar over 800, bicarb 6, potassium 5.4 -Anion gap has closed, blood sugars reasonable, acidosis has improved - status post 1 amp of D50 -Switch to D5 normal saline -Potassium 4.1, bicarb 16, creatinine 1.6, blood sugars 221, -A1c 40.1, likely secondary to noncompliance -Low-dose sliding scale -Lantus 15 units twice daily -Second acute pancreatitis, pneumonia -Lovenox for DVT prophylaxis currently on hold due to anemia -Full code -Patient is stable, will moved to general medical floors Sepsis: Secondary to pneumonia, Possible aspiration pneumonia -Elevated WBC,Lactic acid ,-Required pressors and fluid resusscitation -MRSA :PCR :Negative -Sputum cultures: -Blood cultures:NTD -Urine Culture :Negative -urine bacterial antigen:Negative -CT of the chest shows bilateral dependent atelectasis versus minimal infiltrate -Stool studies : Negative -Broad-spectrum antibiotic therapy vancomycin and Zosyn # Ac pancreatitis Elevated lipase, abdominal pain, CT : ?Mild peripancreatic edema suggestive of pancreatitis without focal fluid collection. Currently Tolerating diet well. #Left radial fracture nondisplaced -Not seen on CT, -continue to monitor # Acute anemia, hemoglobin 7.3, evidence of iron deficiency anemia -Ultrasound abdomen, splenic artery aneurysm, no evidence of rupture -Hemoccult stool:Positive -Protonix, Carafate -S/P 1 unit PRBC Transfusion -Monitor H&H #History of 5 cm splenic artery aneurysm, patient refuses surgical intervention, continue to monitor #Metabolic acidosis, combination of diabetic ketoacidosis, lactic acidosis #History of CVA, left upper extremity flexion contracture #Hypernatremia: Resolved Continue to monitor BMP #History of depression, monitor mentation, history of psychosis, monitor, Haldol as needed PT OT Working on shelter placement: Attestations Medical Necessity Statement*: Awaiting shelter placement . 

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
[2021-09-21 11:28] LABS: Basophils # 0.1 10^3/uL (0.0-0.1); Basophils % 0.5 %; Eosinophils # 0.5 10^3/uL (0.0-0.8); Eosinophils % 4.5 %; Hematocrit 29.4 % (42.0-52.0); Hemoglobin 9.1 g/dL (11.7-16.6); Lymphocytes # 1.7 10^3/uL (0.8-4.8); Lymphocytes % 16.2 %; Mean Corpuscular Hemoglobin 29.5 pg (28.0-34.0); Mean Corpuscular Volume 95.5 fl (80-94); Mean Platelet Volume 10.2 fL (7.4-10.4); Monocytes % 19.3 %; Neutrophils # 6.04 10^3/uL (1.8-7.7); Neutrophils % 58.3 %; Nucleated Red Blood Cells % 0 %; Platelet Count 615 10^3/cmm (130-400); Red Blood Count 3.08 10^6/uL (4.1-5.3); Red Cell Distribution Width 16.4 % (12.1-15.1); White Blood Count 10.3 10^3/uL (4.0-10.0)
--- NOTE | 2021-09-21 18:41 | PC.NURSE ---
Shift Note: Pt is pleasantly confused. He does follow commands and is able to make his needs know. He consistently requests morphine and ativan. No agitation, grimacing or other indicators of discomfort observed. Ativan and morphine had been discontinued today. He has received Flexeril twice and acetaminophen once. He consistently requests more food, milk, soda, etc throughout this shift. VSS. Blood sugars have been elevated, greater than 300 lunch and dinner time checks. He requested to get up to chiar for dinner. Required 2 assist, gait belt and frequent cueing. Adequate urien out put. Incontinent of BM today. Frequent safety and comfort rounds continue. Orders and/or nursing care completed as indicated. Patient monitored for response to intervention and treatment(s). Education provided includes Ativan, Morphine, Flexeril, blood sugars and insulin. Patient verbalizes understanding but does need frequent reinforcement Will continue to monitor.
[2021-09-21] MEDS: ARIPiprazole 10 mg Tablet 15 MG PO (20:23)
[2021-09-22] VITALS (10 sets, daily range): BP systolic 103–152; BP diastolic 65–86; PULSE 76–111; RESP 14–20; TEMP 36.4–37; O2SAT 93–95
[2021-09-22] MEDS: cyclobenzaprine 10 mg Tablet PO ×2 (00:14→15:23)
[2021-09-22] MEDS: acetaminophen 325 mg Tablet 650 MG PO ×4 (00:15→21:34)
[2021-09-22] MEDS: sucralfate 1 gm Tablet PO ×2 (06:05→17:31)
--- NOTE | 2021-09-22 06:33 | PC.NURSE ---
SHIFT SUMMARY Sleeps very littlle. 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 Even when told several times what time he can have meds he continues to ask over & over.. Is also requesting something for his nerves. Was up in the chair for the evening and yadiel well. Does not help with transfers. Left side weakness due to previous CVA with left arm/hand contracted. Left foot turns inward. When is asked to raise his left leg says he can't but is observed bending leg up in bed.
[2021-09-22] MEDS: potassium chloride ER 20 mEq Tablet PO (08:04)
[2021-09-22] MEDS: gabapentin 400 mg Capsule PO ×3 (08:04→20:06)
[2021-09-22] MEDS: multivitamin therapeutic Tablet 1 TAB PO (08:04)
[2021-09-22] MEDS: insulin glargine 100 units/1 mL 15 UNIT SUBCUT (08:04)
[2021-09-22] MEDS: atorvastatin 40 mg Tablet 80 MG PO (08:04)
[2021-09-22] MEDS: thiamine 100 mg Tablet PO (08:05)
[2021-09-22] MEDS: aspirin 81 mg EC Tablet PO (08:05)
[2021-09-22] MEDS: BuSPIRONE 10 mg Tablet 15 MG PO ×2 (08:05→17:30)
[2021-09-22] MEDS: citalopram 20 mg Tablet 40 MG PO (08:05)
[2021-09-22] MEDS: tamsulosin 0.4 mg Capsule PO (08:05)
[2021-09-22] MEDS: folic acid 1 mg Tablet PO (08:05)
[2021-09-22] MEDS: pantoprazole DR 40 mg Tablet PO ×2 (08:05→17:31)
[2021-09-22 11:15] LABS: Glucose Point of Care 281 mg/dL (70-110)
[2021-09-22 11:15] LABS: Glucose Point of Care 333 mg/dL (70-110)
[2021-09-22 11:15] LABS: Glucose Point of Care 345 mg/dL (70-110)
--- NOTE | 2021-09-22 14:19 | PM.PN ---
Subjective Subjective: Patient was seen and examined this morning no acute events. resting comfortably. Medications: Medication Review Details: Generic Name Dose Route Start Last Admin Trade Name Freq PRN Reason Stop Dose Admin Acetaminophen 650 mg 09/12/21 13:48 09/16/21 14:28 Acetaminophen 32 5 Mg Tablet PO 650 mg Q6H PRN Administration Mild/Mod Pain Or Temp >/= 101 Aripiprazole 15 mg 09/14/21 21:00 09/15/21 20:08 Aripiprazole 10 Mg Tablet PO 15 mg BEDTIME KEN Administration Aspirin 81 mg 09/14/21 09:00 09/16/21 08:10 Aspirin 81 Mg Ec Tablet PO 81 mg DAILY KEN Administration Atorvastatin Calci um 80 mg 09/14/21 09:00 09/16/21 08:09 Atorvastatin 40 Mg Tablet PO 80 mg DAILY KEN Administration Buspirone HCl 15 mg 09/14/21 09:00 09/16/21 17:41 Buspirone 10 Mg Tablet PO 15 mg BID KEN Administration Citalopram Hydrobr omide 40 mg 09/14/21 09:00 09/16/21 08:10 Citalopram 20 Mg Tablet PO 40 mg DAILY KEN Administration Cyclobenzaprine HC l 10 mg 09/14/21 08:00 09/16/21 10:28 Cyclobenzaprine 10 Mg Tablet PO 10 mg TID PRN Administration Muscle Spasm Enoxaparin Sodium 30 mg 09/12/21 14:30 09/14/21 14:13 Enoxaparin 30 Mg /0.3 Ml Syringe SUBCUT 30 mg Q24H KEN Administration Folic Acid 1 mg 09/14/21 09:00 09/16/21 08:10 Folic Acid 1 Mg Tablet PO 1 mg DAILY KEN Administration Gabapentin 400 mg 09/14/21 09:00 09/16/21 14:29 Gabapentin 400 M g Capsule PO 400 mg TID KEN Administration Piperacillin Sod/T azobactam 50 mls @ 12.5 mls /hr 09/12/21 15:00 09/16/21 14:28 Sod 3.375 gm/ So dium Chloride IV 12.5 mls/hr Q8H KEN Administration Protocol Vancomycin HCl 750 mg/ Sodium 250 mls @ 250 mls /hr 09/14/21 10:30 09/16/21 12:43 Chloride IV Infused Q24H KEN Infusion Protocol Insulin Glargine 15 unit 09/14/21 20:00 09/16/21 08:34 Insulin Glargine 100 Units/1 Ml SUBCUT 15 unit Q12H KEN Administration Insulin Human Lisp ro 0 unit 09/13/21 08:00 09/16/21 17:47 Insulin Lispro 1 00 Unit/1 Ml SUBCUT 6 unit WM&BEDTIME KEN Administration Protocol Morphine Sulfate 2 mg 09/12/21 13:48 09/16/21 17:46 Morphine 4 Mg/Ml Sdv 1 Ml IVP 2 mg Q4H PRN Administration SEVERE PAIN Multivitamins Ther apeutic 1 tab 09/14/21 09:00 09/16/21 08:10 Multivitamin The rapeutic Tablet PO 1 tab DAILY KEN Administration Pantoprazole Sodiu m 40 mg 09/16/21 18:00 09/16/21 17:[address] 40 Mg Tablet PO 40 mg BID KEN Administration Polyethylene Glyco l 17 gm 09/14/21 09:00 09/16/21 08:08 Polyethylene Gly col 3350 Pkt 17 Gm PO 17 gm DAILY KEN Administration Sucralfate 1 gm 09/14/21 17:00 09/16/21 17:41 Sucralfate 1 Gm Tablet PO 1 gm BIDAC KEN Administration Tamsulosin HCl 0.4 mg 09/14/21 09:00 09/16/21 08:10 Tamsulosin 0.4 M g Capsule PO 0.4 mg DAILY KEN Administration Thiamine Mononitra te 100 mg 09/14/21 09:00 09/16/21 08:09 Thiamine 100 Mg Tablet PO 100 mg DAILY KEN Administration Vitals/I&O/Wt Last Vital Signs Temp 97.6 F 09/22/21 12:42 Pulse 95 09/22/21 12:42 Resp 16 09/22/21 12:42 BP 103/65 09/22/21 12:42 Pulse Ox 95 09/22/21 12:42 09/21/21 09/22/21 09/22/21 22:59 06:59 14:59 Intake Total 1040 / 2290 608 / 2898 840 / 840 Output Total 800 / 3200 2500 / 5700 1700 / 1700 Balance 240 / -910 -1892 / -2802 -860 / -860 Physical Exam Const: COMMON NORMALS: patient oriented x3 HENMT: COMMON NORMALS: normocephalic and atraumatic HEAD & SCALP: normocephalic and atraumatic Resp: COMMON NORMALS: normal respiratory effort, No retractions, No use of accessory muscles and clear to auscultation bilaterally EFFORT & INSPECTION: Yes symmetric chest movement AUSCULTATION: clear to auscultation bilaterally Cardio: COMMON NORMALS: regular rate, regular rhythm, S1 normal heart sound present, S2 normal heart sound present, No gallops present (Cardio), No murmurs present (Cardio), No rub (Cardio) and Peripheral pulses 2+ throughout RATE: regular rate RHYTHM: regular rhythm HEART SOUNDS: S1 normal heart sound present and S2 normal heart sound present PERIPHERAL PULSES: Peripheral pulses 2+ throughout GI: COMMON NORMALS: Normal to inspection, nondistended, normoactive bowel sounds present, Soft to palpation, non-tender, No hepatosplenomegaly present and no masses AUSCULTATION: Yes normoactive bowel sounds PALPATION: Yes Soft to palpation and Yes No hepatosplenomegaly present RECTAL EXAM: Yes deferred Extremity: COMMON NORMALS: no clubbing, cyanosis or edema and no pedal edema Neuro: COMMON NORMALS: patient oriented x3 Urinary Catheter Management: Millan: Cath Placed During This Visit: yes Reason for Continuing Indwelling Catheter: Other Urinary Catheter Date of Insertion: 09/12/21 Urinary Catheter Time of Insertion: 16:00 Data : 09/21/21 11:12 09/21/21 04:57 A&P Assessment and plan (1) DKA (diabetic ketoacidosis): Status: Acute Qualifiers: Diabetes mellitus complication detail: without coma Diabetes mellitus type: type 2 Qualified Code(s): E11.10 - Type 2 diabetes mellitus with ketoacidosis without coma (2) Splenic artery aneurysm: Status: Acute (3) 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): Status: Acute (4) Type 2 diabetes mellitus: Status: Acute (5) History of CVA (cerebrovascular accident): Status: Acute (6) Acute pancreatitis: Status: Acute (7) Metabolic acidosis: Status: Acute (8) Acute encephalopathy: Status: Acute (9) Acute renal failure: Status: Acute (10) Sepsis: Status: Acute (11) Pneumonia: Status: Acute (12) Hypothermia: Status: Acute (13) Nondisplaced fracture of right radial styloid process, sequela: Status: Acute Plan Acute metabolic encephalopathy: : Multifactorial: Sepsis, DKA, pneumonia , alcohol intoxication: Resolved -Neurochecks, aspiration precautions, seizure precautions -CIWA score -Precedex off Diabetic ketoacidosis -Anion gap 40, ketones positive, blood sugar over 800, bicarb 6, potassium 5.4 -Anion gap has closed, blood sugars reasonable, acidosis has improved - status post 1 amp of D50 -Switch to D5 normal saline -Potassium 4.1, bicarb 16, creatinine 1.6, blood sugars 221, -A1c 40.1, likely secondary to noncompliance -Low-dose sliding scale -Lantus 15 units twice daily -Second acute pancreatitis, pneumonia -Lovenox for DVT prophylaxis currently on hold due to anemia -Full code -Patient is stable, will moved to general medical floors Sepsis: Secondary to pneumonia, Possible aspiration pneumonia -Elevated WBC,Lactic acid ,-Required pressors and fluid resusscitation -MRSA :PCR :Negative -Sputum cultures: -Blood cultures:NTD -Urine Culture :Negative -urine bacterial antigen:Negative -CT of the chest shows bilateral dependent atelectasis versus minimal infiltrate -Stool studies : Negative -Broad-spectrum antibiotic therapy vancomycin and Zosyn # Ac pancreatitis Elevated lipase, abdominal pain, CT : ?Mild peripancreatic edema suggestive of pancreatitis without focal fluid collection. Currently Tolerating diet well. #Left radial fracture nondisplaced -Not seen on CT, -continue to monitor # Acute anemia, hemoglobin 7.3, evidence of iron deficiency anemia -Ultrasound abdomen, splenic artery aneurysm, no evidence of rupture -Hemoccult stool:Positive -Protonix, Carafate -S/P 1 unit PRBC Transfusion -Monitor H&H #History of 5 cm splenic artery aneurysm, patient refuses surgical intervention, continue to monitor #Metabolic acidosis, combination of diabetic ketoacidosis, lactic acidosis #History of CVA, left upper extremity flexion contracture #Hypernatremia: Resolved Continue to monitor BMP #History of depression, monitor mentation, history of psychosis, monitor, Haldol as needed PT OT Working on senior living placement: Attestations Medical Necessity Statement*: Awaiting senior living placement . 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
--- NOTE | 2021-09-22 18:29 | PC.NURSE ---
Pt sitting up in chair. AAOx4. Asks for coffee frequently. C/O pain to L side almost constantly. Denies any other needs. Millan cath draining freely to BSD. Will monitor.
[2021-09-22] MEDS: ARIPiprazole 10 mg Tablet 15 MG PO (20:06)
[2021-09-23 00:33] VITALS: BP 136/74; PULSE 92; RESP 17; TEMP 36.7; O2SAT 92
--- NOTE | 2021-09-23 06:12 | PC.NURSE ---
Pt refused accuchecks all shift; educated pt on importance of checking blood glucose levels; refused morning vital signs as well
[2021-09-23 07:42] VITALS: BP 122/82; PULSE 93; RESP 18; TEMP 36.7; O2SAT 94
[2021-09-23] MEDS: aspirin 81 mg EC Tablet PO (07:58)
[2021-09-23] MEDS: BuSPIRONE 10 mg Tablet 15 MG PO ×2 (07:58→17:54)
[2021-09-23] MEDS: gabapentin 400 mg Capsule PO ×3 (07:58→20:08)
[2021-09-23] MEDS: multivitamin therapeutic Tablet 1 TAB PO (07:58)
[2021-09-23] MEDS: tamsulosin 0.4 mg Capsule PO (07:59)
[2021-09-23] MEDS: pantoprazole DR 40 mg Tablet PO ×2 (07:59→17:54)
[2021-09-23] MEDS: atorvastatin 40 mg Tablet 80 MG PO (07:59)
[2021-09-23] MEDS: thiamine 100 mg Tablet PO (07:59)
[2021-09-23] MEDS: folic acid 1 mg Tablet PO (07:59)
[2021-09-23] MEDS: potassium chloride ER 20 mEq Tablet PO (07:59)
[2021-09-23] MEDS: citalopram 20 mg Tablet 40 MG PO (07:59)
[2021-09-23] MEDS: acetaminophen 325 mg Tablet 650 MG PO ×3 (08:01→20:07)
--- NOTE | 2021-09-23 08:06 | PC.NURSE ---
Pt is refusing all insulin and accu checks this morning. Educated pt on importance of maintenance of diabetes and risk of DKA. Pt still refusing after education.
--- NOTE | 2021-09-23 10:34 | PC.CHAP ---
Pastoral Care Encounter/Spiritual Assessment Type of Contact [] Declined blanket maker visit [] Patient/Family/Request visit [] Outpatient visit [] Follow-up visit [] Physician referral [] Code/Alert [x] Routine visit [] Staff referral [] Actively dying [x] Patient sleeping [] Family support [] [] Out of room [] Palliative care [] [] Receiving care in room [] Pre-surgical visit [] Trauma [] Long length of stay [] ICU visit [] Other: Relational/Emotional Strength [] Patient feels connected with others/family/visitors/staff [] Distress [] Loneliness/isolation [] Abandonment Spirituality of Patient [] Person of Belen [] Attends Holiness of their Belen [] Believes in Prayer [] Reads Bible or Mosque materials [] There are Spiritual issues to be addressed Legal Contracts Specialist Interventions [] Prayer [] Active listening [] Non-anxious presence [] Spiritual/emotional support [] Crisis/trauma care [] Spiritual counseling [] Bereavement support [] Provided bereavement packet [] Provided Bible/devotional materials [] Provided toy/stuffed animal, coloring book to patient or family member [] Provided Communion [] Anointing/[place] [] Salvation [] Completed spiritual assessment [] Other: Impact on Illness or Injury [] Angry [] Fearful [] Anxious [] Often cries [] Exhaustion [] Unable to work [] Unable to attend christian [] Unable to walk/stand [] Unable to read [] Unable to drive [] Unable to eat/drink [] Unable to sleep [] Unable to be with family [] Patient intubated [] Other: Summary Time spent with patient
[2021-09-23 11:34] VITALS: BP 120/66; PULSE 110; RESP 18; TEMP 36.8; O2SAT 98
[2021-09-23 12:12] LABS: Glucose Point of Care 360 mg/dL (70-110)
[2021-09-23] MEDS: insulin lispro 100 unit/1 mL SUBCUT ×3 (12:32→21:21)
[2021-09-23] MEDS: ALPRAZolam 0.5 mg Tablet 0.25 MG PO ×2 (14:26→21:22)
[2021-09-23 17:10] VITALS: BP 122/86; PULSE 80; RESP 16; TEMP 37.2; O2SAT 95
[2021-09-23] MEDS: sucralfate 1 gm Tablet PO (17:54)
[2021-09-23 19:09] VITALS: BP 145/83; PULSE 92; RESP 18; TEMP 37.2; O2SAT 93
[2021-09-23] MEDS: loperamide 2 mg Capsule 4 MG PO (20:07)
[2021-09-23] MEDS: ARIPiprazole 10 mg Tablet 15 MG PO (20:07)
[2021-09-23] MEDS: insulin glargine 100 units/1 mL 15 UNIT SUBCUT (20:08)
[2021-09-23 21:19] LABS: Glucose Point of Care 115 mg/dL (70-110)
[2021-09-23 21:19] LABS: Glucose Point of Care 273 mg/dL (70-110)
[2021-09-23 21:19] LABS: Glucose Point of Care 401 mg/dL (70-110)
--- NOTE | 2021-09-23 22:06 | P.PN_ITS ---
Subjective Subjective: Patient was seen and examined this morning no acute events. resting comfortably. Medications: Medication Review Details: Generic Name Dose Route Start Last Admin Trade Name Freq PRN Reason Stop Dose Admin Acetaminophen 650 mg 09/12/21 13:48 09/16/21 14:28 Acetaminophen 32 5 Mg Tablet PO 650 mg Q6H PRN Administration Mild/Mod Pain Or Temp >/= 101 Aripiprazole 15 mg 09/14/21 21:00 09/15/21 20:08 Aripiprazole 10 Mg Tablet PO 15 mg BEDTIME KEN Administration Aspirin 81 mg 09/14/21 09:00 09/16/21 08:10 Aspirin 81 Mg Ec Tablet PO 81 mg DAILY KEN Administration Atorvastatin Calci um 80 mg 09/14/21 09:00 09/16/21 08:09 Atorvastatin 40 Mg Tablet PO 80 mg DAILY KEN Administration Buspirone HCl 15 mg 09/14/21 09:00 09/16/21 17:41 Buspirone 10 Mg Tablet PO 15 mg BID KEN Administration Citalopram Hydrobr omide 40 mg 09/14/21 09:00 09/16/21 08:10 Citalopram 20 Mg Tablet PO 40 mg DAILY KEN Administration Cyclobenzaprine HC l 10 mg 09/14/21 08:00 09/16/21 10:28 Cyclobenzaprine 10 Mg Tablet PO 10 mg TID PRN Administration Muscle Spasm Enoxaparin Sodium 30 mg 09/12/21 14:30 09/14/21 14:13 Enoxaparin 30 Mg /0.3 Ml Syringe SUBCUT 30 mg Q24H KEN Administration Folic Acid 1 mg 09/14/21 09:00 09/16/21 08:10 Folic Acid 1 Mg Tablet PO 1 mg DAILY KEN Administration Gabapentin 400 mg 09/14/21 09:00 09/16/21 14:29 Gabapentin 400 M g Capsule PO 400 mg TID KEN Administration Piperacillin Sod/T azobactam 50 mls @ 12.5 mls /hr 09/12/21 15:00 09/16/21 14:28 Sod 3.375 gm/ So dium Chloride IV 12.5 mls/hr Q8H KEN Administration Protocol Vancomycin HCl 750 mg/ Sodium 250 mls @ 250 mls /hr 09/14/21 10:30 09/16/21 12:43 Chloride IV Infused Q24H KEN Infusion Protocol Insulin Glargine 15 unit 09/14/21 20:00 09/16/21 08:34 Insulin Glargine 100 Units/1 Ml SUBCUT 15 unit Q12H KEN Administration Insulin Human Lisp ro 0 unit 09/13/21 08:00 09/16/21 17:47 Insulin Lispro 1 00 Unit/1 Ml SUBCUT 6 unit WM&BEDTIME KEN Administration Protocol Morphine Sulfate 2 mg 09/12/21 13:48 09/16/21 17:46 Morphine 4 Mg/Ml Sdv 1 Ml IVP 2 mg Q4H PRN Administration SEVERE PAIN Multivitamins Ther apeutic 1 tab 09/14/21 09:00 09/16/21 08:10 Multivitamin The rapeutic Tablet PO 1 tab DAILY KEN Administration Pantoprazole Sodiu m 40 mg 09/16/21 18:00 09/16/21 17:[address] 40 Mg Tablet PO 40 mg BID KEN Administration Polyethylene Glyco l 17 gm 09/14/21 09:00 09/16/21 08:08 Polyethylene Gly col 3350 Pkt 17 Gm PO 17 gm DAILY KEN Administration Sucralfate 1 gm 09/14/21 17:00 09/16/21 17:41 Sucralfate 1 Gm Tablet PO 1 gm BIDAC KEN Administration Tamsulosin HCl 0.4 mg 09/14/21 09:00 09/16/21 08:10 Tamsulosin 0.4 M g Capsule PO 0.4 mg DAILY KEN Administration Thiamine Mononitra te 100 mg 09/14/21 09:00 09/16/21 08:09 Thiamine 100 Mg Tablet PO 100 mg DAILY KEN Administration Vitals/I&O/Wt Last Vital Signs Temp 98.9 F 09/23/21 19:09 Pulse 92 09/23/21 19:09 Resp 18 09/23/21 19:09 BP 145/83 09/23/21 19:09 Pulse Ox 93 09/23/21 19:09 09/23/21 09/23/21 09/23/21 06:59 14:59 22:59 Intake Total 360 / 1680 480 / 480 Output Total 1800 / 1800 1200 / 3000 Balance 360 / -3220 -1320 / -1320 -1200 / -2520 Physical Exam Const: COMMON NORMALS: patient oriented x3 HENMT: COMMON NORMALS: normocephalic and atraumatic HEAD & SCALP: normocephalic and atraumatic Resp: COMMON NORMALS: normal respiratory effort, No retractions, No use of accessory muscles and clear to auscultation bilaterally EFFORT & INSPECTION: Yes symmetric chest movement AUSCULTATION: clear to auscultation bilaterally Cardio: COMMON NORMALS: regular rate, regular rhythm, S1 normal heart sound present, S2 normal heart sound present, No gallops present (Cardio), No murmurs present (Cardio), No rub (Cardio) and Peripheral pulses 2+ throughout RATE: regular rate RHYTHM: regular rhythm HEART SOUNDS: S1 normal heart sound present and S2 normal heart sound present PERIPHERAL PULSES: Peripheral pulses 2+ throughout GI: COMMON NORMALS: Normal to inspection, nondistended, normoactive bowel sounds present, Soft to palpation, non-tender, No hepatosplenomegaly present and no masses AUSCULTATION: Yes normoactive bowel sounds PALPATION: Yes Soft to palpation and Yes No hepatosplenomegaly present RECTAL EXAM: Yes deferred Extremity: COMMON NORMALS: no clubbing, cyanosis or edema and no pedal edema Neuro: COMMON NORMALS: patient oriented x3 Urinary Catheter Management: Millan: Cath Placed During This Visit: yes Reason for Continuing Indwelling Catheter: Acute Urinary Retention or Obstruction Urinary Catheter Date of Insertion: 09/12/21 Urinary Catheter Time of Insertion: 16:00 Data : 09/21/21 11:12 09/21/21 04:57 A&P Assessment and plan (1) DKA (diabetic ketoacidosis): Status: Acute Qualifiers: Diabetes mellitus complication detail: without coma Diabetes mellitus type: type 2 Qualified Code(s): E11.10 - Type 2 diabetes mellitus with ketoacidosis without coma (2) Splenic artery aneurysm: Status: Acute (3) 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): Status: Acute (4) Type 2 diabetes mellitus: Status: Acute (5) History of CVA (cerebrovascular accident): Status: Acute (6) Acute pancreatitis: Status: Acute (7) Metabolic acidosis: Status: Acute (8) Acute encephalopathy: Status: Acute (9) Acute renal failure: Status: Acute (10) Sepsis: Status: Acute (11) Pneumonia: Status: Acute (12) Hypothermia: Status: Acute (13) Nondisplaced fracture of right radial styloid process, sequela: Status: Acute Plan Acute metabolic encephalopathy: : Multifactorial: Sepsis, DKA, pneumonia , alcohol intoxication: Resolved -Neurochecks, aspiration precautions, seizure precautions -CIWA score -Precedex off Diabetic ketoacidosis -Anion gap 40, ketones positive, blood sugar over 800, bicarb 6, potassium 5.4 -Anion gap has closed, blood sugars reasonable, acidosis has improved - status post 1 amp of D50 -Switch to D5 normal saline -Potassium 4.1, bicarb 16, creatinine 1.6, blood sugars 221, -A1c 40.1, likely secondary to noncompliance -Low-dose sliding scale -Lantus 15 units twice daily -Second acute pancreatitis, pneumonia -Lovenox for DVT prophylaxis currently on hold due to anemia -Full code -Patient is stable, will moved to general medical floors Sepsis: Secondary to pneumonia, Possible aspiration pneumonia -Elevated WBC,Lactic acid ,-Required pressors and fluid resusscitation -MRSA :PCR :Negative -Sputum cultures: -Blood cultures:NTD -Urine Culture :Negative -urine bacterial antigen:Negative -CT of the chest shows bilateral dependent atelectasis versus minimal infiltrate -Stool studies : Negative -Broad-spectrum antibiotic therapy vancomycin and Zosyn # Ac pancreatitis Elevated lipase, abdominal pain, CT : ?Mild peripancreatic edema suggestive of pancreatitis without focal fluid collection. Currently Tolerating diet well. #Left radial fracture nondisplaced -Not seen on CT, -continue to monitor # Acute anemia, hemoglobin 7.3, evidence of iron deficiency anemia -Ultrasound abdomen, splenic artery aneurysm, no evidence of rupture -Hemoccult stool:Positive -Protonix, Carafate -S/P 1 unit PRBC Transfusion -Monitor H&H #History of 5 cm splenic artery aneurysm, patient refuses surgical intervention, continue to monitor #Metabolic acidosis, combination of diabetic ketoacidosis, lactic acidosis #History of CVA, left upper extremity flexion contracture #Hypernatremia: Resolved Continue to monitor BMP #History of depression, monitor mentation, history of psychosis, monitor, Haldol as needed PT OT Working on correction placement: Attestations Medical Necessity Statement*: Awaiting correction placement. Coding Level of Care Code Acute Medicaid Plan Compliance Director for [facility] Diagnoses DKA (diabetic ketoacidosis) E11.10 Diabetes mellitus complication detail: without coma Diabetes mellitus type: type 2 Splenic artery aneurysm I72.8 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) Type 2 diabetes mellitus E11.9 History of CVA (cerebrovascular accident) Z86.73 Acute pancreatitis K85.90 Metabolic acidosis E87.2 Acute encephalopathy G93.40 Acute renal failure N17.9 Sepsis A41.9 Pneumonia J18.9 Hypothermia T68.XXXA Nondisplaced fracture of right radial styloid process, sequela S55.804S
[2021-09-23 23:13] VITALS: BP 124/74; PULSE 103; RESP 18; TEMP 36.4; O2SAT 93
[2021-09-24 03:46] VITALS: BP 115/72; PULSE 89; RESP 18; TEMP 36.9; O2SAT 97
[2021-09-24 06:00] VITALS: PULSE 89
[2021-09-24] MEDS: sucralfate 1 gm Tablet PO ×2 (06:15→17:27)
[2021-09-24 06:46] LABS: Glucose Point of Care 296 mg/dL (70-110)
[2021-09-24 07:29] VITALS: BP 110/70; PULSE 72; RESP 17; TEMP 36.9; O2SAT 98
[2021-09-24] MEDS: BuSPIRONE 10 mg Tablet 15 MG PO ×2 (09:24→17:26)
[2021-09-24] MEDS: tamsulosin 0.4 mg Capsule PO (09:25)
[2021-09-24] MEDS: folic acid 1 mg Tablet PO (09:25)
[2021-09-24] MEDS: potassium chloride ER 20 mEq Tablet PO (09:25)
[2021-09-24] MEDS: thiamine 100 mg Tablet PO (09:25)
[2021-09-24] MEDS: insulin lispro 100 unit/1 mL SUBCUT ×4 (09:25→22:25)
[2021-09-24] MEDS: insulin glargine 100 units/1 mL 15 UNIT SUBCUT ×2 (09:25→20:14)
[2021-09-24] MEDS: aspirin 81 mg EC Tablet PO (09:25)
[2021-09-24] MEDS: atorvastatin 40 mg Tablet 80 MG PO (09:25)
[2021-09-24] MEDS: citalopram 20 mg Tablet 40 MG PO (09:25)
[2021-09-24] MEDS: pantoprazole DR 40 mg Tablet PO ×2 (09:25→17:27)
[2021-09-24] MEDS: gabapentin 400 mg Capsule PO ×3 (09:25→20:14)
[2021-09-24] MEDS: multivitamin therapeutic Tablet 1 TAB PO (09:25)
[2021-09-24 11:28] LABS: Glucose Point of Care 354 mg/dL (70-110)
[2021-09-24 11:46] VITALS: BP 132/74; PULSE 74; RESP 16; TEMP 37.1; O2SAT 98
[2021-09-24 16:00] VITALS: BP 128/78; PULSE 68; RESP 17; TEMP 37.1; O2SAT 98
[2021-09-24 17:12] LABS: Glucose Point of Care 255 mg/dL (70-110)
[2021-09-24] MEDS: acetaminophen 325 mg Tablet 650 MG PO ×2 (17:26→20:13)
[2021-09-24 19:25] VITALS: BP 112/75; PULSE 92; RESP 18; TEMP 36.5; O2SAT 97
--- NOTE | 2021-09-24 19:37 | PM.PN ---
Subjective Subjective: Patient was seen and examined this morning no acute events. resting comfortably. Medications: Medication Review Details: Generic Name Dose Route Start Last Admin Trade Name Freq PRN Reason Stop Dose Admin Acetaminophen 650 mg 09/12/21 13:48 09/16/21 14:28 Acetaminophen 32 5 Mg Tablet PO 650 mg Q6H PRN Administration Mild/Mod Pain Or Temp >/= 101 Aripiprazole 15 mg 09/14/21 21:00 09/15/21 20:08 Aripiprazole 10 Mg Tablet PO 15 mg BEDTIME KEN Administration Aspirin 81 mg 09/14/21 09:00 09/16/21 08:10 Aspirin 81 Mg Ec Tablet PO 81 mg DAILY KEN Administration Atorvastatin Calci um 80 mg 09/14/21 09:00 09/16/21 08:09 Atorvastatin 40 Mg Tablet PO 80 mg DAILY KEN Administration Buspirone HCl 15 mg 09/14/21 09:00 09/16/21 17:41 Buspirone 10 Mg Tablet PO 15 mg BID KEN Administration Citalopram Hydrobr omide 40 mg 09/14/21 09:00 09/16/21 08:10 Citalopram 20 Mg Tablet PO 40 mg DAILY KEN Administration Cyclobenzaprine HC l 10 mg 09/14/21 08:00 09/16/21 10:28 Cyclobenzaprine 10 Mg Tablet PO 10 mg TID PRN Administration Muscle Spasm Enoxaparin Sodium 30 mg 09/12/21 14:30 09/14/21 14:13 Enoxaparin 30 Mg /0.3 Ml Syringe SUBCUT 30 mg Q24H KEN Administration Folic Acid 1 mg 09/14/21 09:00 09/16/21 08:10 Folic Acid 1 Mg Tablet PO 1 mg DAILY KEN Administration Gabapentin 400 mg 09/14/21 09:00 09/16/21 14:29 Gabapentin 400 M g Capsule PO 400 mg TID KEN Administration Piperacillin Sod/T azobactam 50 mls @ 12.5 mls /hr 09/12/21 15:00 09/16/21 14:28 Sod 3.375 gm/ So dium Chloride IV 12.5 mls/hr Q8H KEN Administration Protocol Vancomycin HCl 750 mg/ Sodium 250 mls @ 250 mls /hr 09/14/21 10:30 09/16/21 12:43 Chloride IV Infused Q24H KEN Infusion Protocol Insulin Glargine 15 unit 09/14/21 20:00 09/16/21 08:34 Insulin Glargine 100 Units/1 Ml SUBCUT 15 unit Q12H KEN Administration Insulin Human Lisp ro 0 unit 09/13/21 08:00 09/16/21 17:47 Insulin Lispro 1 00 Unit/1 Ml SUBCUT 6 unit WM&BEDTIME KEN Administration Protocol Morphine Sulfate 2 mg 09/12/21 13:48 09/16/21 17:46 Morphine 4 Mg/Ml Sdv 1 Ml IVP 2 mg Q4H PRN Administration SEVERE PAIN Multivitamins Ther apeutic 1 tab 09/14/21 09:00 09/16/21 08:10 Multivitamin The rapeutic Tablet PO 1 tab DAILY KEN Administration Pantoprazole Sodiu m 40 mg 09/16/21 18:00 09/16/21 17:[address] 40 Mg Tablet PO 40 mg BID KEN Administration Polyethylene Glyco l 17 gm 09/14/21 09:00 09/16/21 08:08 Polyethylene Gly col 3350 Pkt 17 Gm PO 17 gm DAILY KEN Administration Sucralfate 1 gm 09/14/21 17:00 09/16/21 17:41 Sucralfate 1 Gm Tablet PO 1 gm BIDAC KEN Administration Tamsulosin HCl 0.4 mg 09/14/21 09:00 09/16/21 08:10 Tamsulosin 0.4 M g Capsule PO 0.4 mg DAILY KEN Administration Thiamine Mononitra te 100 mg 09/14/21 09:00 09/16/21 08:09 Thiamine 100 Mg Tablet PO 100 mg DAILY KEN Administration Vitals/I&O/Wt Last Vital Signs Temp 97.7 F 09/24/21 19:25 Pulse 92 09/24/21 19:25 Resp 18 09/24/21 19:25 BP 112/75 09/24/21 19:25 Pulse Ox 97 09/24/21 19:25 09/24/21 09/24/21 09/24/21 06:59 14:59 22:59 Intake Total 600 / 1320 960 / 960 240 / 1200 Output Total 1925 / 4925 Balance -1325 / -3605 960 / 960 240 / 1200 Physical Exam Const: COMMON NORMALS: patient oriented x3 HENMT: COMMON NORMALS: normocephalic and atraumatic HEAD & SCALP: normocephalic and atraumatic Resp: COMMON NORMALS: normal respiratory effort, No retractions, No use of accessory muscles and clear to auscultation bilaterally EFFORT & INSPECTION: Yes symmetric chest movement AUSCULTATION: clear to auscultation bilaterally Cardio: COMMON NORMALS: regular rate, regular rhythm, S1 normal heart sound present, S2 normal heart sound present, No gallops present (Cardio), No murmurs present (Cardio), No rub (Cardio) and Peripheral pulses 2+ throughout RATE: regular rate RHYTHM: regular rhythm HEART SOUNDS: S1 normal heart sound present and S2 normal heart sound present PERIPHERAL PULSES: Peripheral pulses 2+ throughout GI: COMMON NORMALS: Normal to inspection, nondistended, normoactive bowel sounds present, Soft to palpation, non-tender, No hepatosplenomegaly present and no masses AUSCULTATION: Yes normoactive bowel sounds PALPATION: Yes Soft to palpation and Yes No hepatosplenomegaly present RECTAL EXAM: Yes deferred Extremity: COMMON NORMALS: no clubbing, cyanosis or edema and no pedal edema Neuro: COMMON NORMALS: patient oriented x3 Urinary Catheter Management: Millan: Cath Placed During This Visit: yes Reason for Continuing Indwelling Catheter: Acute Urinary Retention or Obstruction Urinary Catheter Date of Insertion: 09/12/21 Urinary Catheter Time of Insertion: 16:00 Data : 09/21/21 11:12 09/21/21 04:57 A&P Assessment and plan (1) DKA (diabetic ketoacidosis): Status: Acute Qualifiers: Diabetes mellitus complication detail: without coma Diabetes mellitus type: type 2 Qualified Code(s): E11.10 - Type 2 diabetes mellitus with ketoacidosis without coma (2) Splenic artery aneurysm: Status: Acute (3) 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): Status: Acute (4) Type 2 diabetes mellitus: Status: Acute (5) History of CVA (cerebrovascular accident): Status: Acute (6) Acute pancreatitis: Status: Acute (7) Metabolic acidosis: Status: Acute (8) Acute encephalopathy: Status: Acute (9) Acute renal failure: Status: Acute (10) Sepsis: Status: Acute (11) Pneumonia: Status: Acute (12) Hypothermia: Status: Acute (13) Nondisplaced fracture of right radial styloid process, sequela: Status: Acute Plan Acute metabolic encephalopathy: : Multifactorial: Sepsis, DKA, pneumonia , alcohol intoxication: Resolved -Neurochecks, aspiration precautions, seizure precautions -CIWA score -Precedex off Diabetic ketoacidosis -Anion gap 40, ketones positive, blood sugar over 800, bicarb 6, potassium 5.4 -Anion gap has closed, blood sugars reasonable, acidosis has improved - status post 1 amp of D50 -Switch to D5 normal saline -Potassium 4.1, bicarb 16, creatinine 1.6, blood sugars 221, -A1c 40.1, likely secondary to noncompliance -Low-dose sliding scale -Lantus 15 units twice daily -Second acute pancreatitis, pneumonia -Lovenox for DVT prophylaxis currently on hold due to anemia -Full code -Patient is stable, will moved to general medical floors Sepsis: Secondary to pneumonia, Possible aspiration pneumonia -Elevated WBC,Lactic acid ,-Required pressors and fluid resusscitation -MRSA :PCR :Negative -Sputum cultures: -Blood cultures:NTD -Urine Culture :Negative -urine bacterial antigen:Negative -CT of the chest shows bilateral dependent atelectasis versus minimal infiltrate -Stool studies : Negative -Broad-spectrum antibiotic therapy vancomycin and Zosyn # Ac pancreatitis Elevated lipase, abdominal pain, CT : ?Mild peripancreatic edema suggestive of pancreatitis without focal fluid collection. Currently Tolerating diet well. #Left radial fracture nondisplaced -Not seen on CT, -continue to monitor # Acute anemia, hemoglobin 7.3, evidence of iron deficiency anemia -Ultrasound abdomen, splenic artery aneurysm, no evidence of rupture -Hemoccult stool:Positive -Protonix, Carafate -S/P 1 unit PRBC Transfusion -Monitor H&H #History of 5 cm splenic artery aneurysm, patient refuses surgical intervention, continue to monitor #Metabolic acidosis, combination of diabetic ketoacidosis, lactic acidosis #History of CVA, left upper extremity flexion contracture #Hypernatremia: Resolved Continue to monitor BMP #History of depression, monitor mentation, history of psychosis, monitor, Haldol as needed PT OT Working on long term placement: Attestations Medical Necessity Statement*: Awaiting long term placement Coding Level of Care Code Acute Sales Assistants And Salespersons for [facility] Diagnoses DKA (diabetic ketoacidosis) E11.10 Diabetes mellitus complication detail: without coma Diabetes mellitus type: type 2 Splenic artery aneurysm I72.8 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) Type 2 diabetes mellitus E11.9 History of CVA (cerebrovascular accident) Z86.73 Acute pancreatitis K85.90 Metabolic acidosis E87.2 Acute encephalopathy G93.40 Acute renal failure N17.9 Sepsis A41.9 Pneumonia J18.9 Hypothermia T68.XXXA Nondisplaced fracture of right radial styloid process, sequela S50.845S
[2021-09-24] MEDS: ARIPiprazole 10 mg Tablet 15 MG PO (20:13)
[2021-09-24] MEDS: ALPRAZolam 0.5 mg Tablet 0.25 MG PO (20:14)
[2021-09-24 21:44] LABS: Glucose Point of Care 282 mg/dL (70-110)
[2021-09-24] MEDS: cyclobenzaprine 10 mg Tablet PO (22:54)
[2021-09-25] VITALS (10 sets, daily range): BP systolic 100–147; BP diastolic 54–102; PULSE 80–115; RESP 16–18; TEMP 36.6–36.9; O2SAT 83–98
[2021-09-25] MEDS: sucralfate 1 gm Tablet PO ×2 (06:08→17:03)
[2021-09-25] MEDS: acetaminophen 325 mg Tablet 650 MG PO ×2 (06:14→14:43)
[2021-09-25 06:30] LABS: Glucose Point of Care 185 mg/dL (70-110)
[2021-09-25] MEDS: multivitamin therapeutic Tablet 1 TAB PO (08:44)
[2021-09-25] MEDS: tamsulosin 0.4 mg Capsule PO (08:44)
[2021-09-25] MEDS: gabapentin 400 mg Capsule PO ×3 (08:44→21:02)
[2021-09-25] MEDS: thiamine 100 mg Tablet PO (08:44)
[2021-09-25] MEDS: citalopram 20 mg Tablet 40 MG PO (08:45)
[2021-09-25] MEDS: aspirin 81 mg EC Tablet PO (08:45)
[2021-09-25] MEDS: atorvastatin 40 mg Tablet 80 MG PO (08:45)
[2021-09-25] MEDS: BuSPIRONE 10 mg Tablet 15 MG PO ×2 (08:46→17:03)
[2021-09-25] MEDS: pantoprazole DR 40 mg Tablet PO ×2 (08:47→17:03)
[2021-09-25] MEDS: folic acid 1 mg Tablet PO (08:47)
[2021-09-25] MEDS: potassium chloride ER 20 mEq Tablet PO (08:47)
[2021-09-25] MEDS: insulin lispro 100 unit/1 mL SUBCUT ×4 (08:55→21:05)
[2021-09-25] MEDS: insulin glargine 100 units/1 mL 15 UNIT SUBCUT ×2 (08:55→21:04)
[2021-09-25 11:51] LABS: Glucose Point of Care 352 mg/dL (70-110)
[2021-09-25 11:58] LABS: SARS Covid-2 Antigen Negative (Negative)
[2021-09-25] MEDS: ALPRAZolam 0.5 mg Tablet 0.25 MG PO ×2 (14:41→21:03)
[2021-09-25] MEDS: loperamide 2 mg Capsule 4 MG PO (14:43)
[2021-09-25 16:47] LABS: Glucose Point of Care 417 mg/dL (70-110)
--- NOTE | 2021-09-25 19:59 | PM.PN ---
Subjective Subjective: When awoken he tells me he is watching sports and that he has bad Tuesday teams, but not my knee. He then states that he was disappointed that he was promised pain medication, but it was never provided. Requested mainly for pain medication due to pain in multiple locations, in his perineum with erythema, irritation. Also pain in his lower jaw. He tells me that he was prescribed 10 mg of hydrocodone as needed by his primary provider. I do see that prescription, he also tells me he was prescribed benzodiazepine, but I do not see prescription for that. Vitals/I&O/Wt Last Vital Signs Temp 97.9 F 09/25/21 19:35 Pulse 92 09/25/21 19:35 Resp 18 09/25/21 19:35 BP 128/61 09/25/21 19:35 Pulse Ox 98 09/25/21 19:35 09/25/21 09/25/21 09/25/21 06:59 14:59 22:59 Intake Total 480 / 480 Output Total 1260 / 1260 2100 / 2100 950 / 3050 Balance -1260 / 390 -1620 / -1620 -950 / -2570 Physical Exam Narrative: Up in chair Const: COMMON NORMALS: no acute distress and patient oriented x3 HENMT: OTHER: Multiple missing teeth Neck/C-Spine: COMMON NORMALS: no JVD Resp: COMMON NORMALS: normal respiratory effort and clear to auscultation bilaterally AUSCULTATION: clear to auscultation bilaterally Cardio: COMMON NORMALS: no JVD, regular rhythm, S1 normal heart sound present, S2 normal heart sound present and No murmurs present (Cardio) RHYTHM: regular rhythm HEART SOUNDS: S1 normal heart sound present and S2 normal heart sound present GI: COMMON NORMALS: Normal to inspection, nondistended, normoactive bowel sounds present, Soft to palpation and non-tender PALPATION: Yes Soft to palpation : OTHER: Faint erythema of groin Extremity: COMMON NORMALS: no joint enlargement and no pedal edema Neuro: COMMON NORMALS: patient oriented x3 and moves all extremities Skin: COMMON NORMALS: no rashes or lesions noted GENERAL SKIN EXAM: no rashes or lesions noted Urinary Catheter Management: Millan: Cath Placed During This Visit: yes Reason for Continuing Indwelling Catheter: Acute Urinary Retention or Obstruction Urinary Catheter Date of Insertion: 09/12/21 Urinary Catheter Time of Insertion: 16:00 Data : 09/21/21 11:12 09/21/21 04:57 A&P Assessment and plan (1) Acute encephalopathy: Improved, he is awake alert, but does complain of pain, requests pain medication. I do see prescription as he describes from his primary provider, we will resume medication while he is under supervision. I do not see a benzodiazepine prescription as he states, will not add. Continue to mobilize with therapy. Remove Millan catheter, voiding trial. Pending placement for rehabilitation. Status: Acute (2) DKA (diabetic ketoacidosis): Resolved. Continue insulin. Status: Acute Qualifiers: Diabetes mellitus complication detail: without coma Diabetes mellitus type: type 2 Qualified Code(s): E11.10 - Type 2 diabetes mellitus with ketoacidosis without coma (3) Acute pancreatitis: Tolerating oral intake. Continue supportive care. Not an obvious cause. CT abdomen pelvis with normal bile ducts. No suggestion of obstructive disease by liver parameters. Denies alcohol consumption. Triglycerides not severely elevated. No hypercalcemia. Would benefit from follow-up with specialist for additional assessment of cause of pancreatitis. 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 Off antibiotic. Status: Acute (12) Hypothermia: Status: Acute (13) Nondisplaced fracture of right radial styloid process, sequela: Status: Acute Plan Acute anemia: -Ultrasound abdomen, splenic artery aneurysm, no evidence of rupture -Hemoccult stool:Positive -Protonix, Carafate -S/P 1 unit PRBC Transfusion -Monitor H&H #History of 5 cm splenic artery aneurysm, patient refuses surgical intervention, continue to monitor #Metabolic acidosis, combination of diabetic ketoacidosis, lactic acidosis #History of CVA, left upper extremity flexion contracture #Hypernatremia: Resolved Continue to monitor BMP #History of depression, monitor mentation, history of psychosis, monitor, Haldol as needed Attestations Medical Necessity Statement*: Continue admission pending level 2 for post hospitalization rehabilitation gradual resumption of home medications under monitoring after acute encephalopathy. Coding Level of Care Code Acute Borough Coordinator for [facility] Diagnoses DKA (diabetic ketoacidosis) E11.10 Diabetes mellitus complication detail: without coma Diabetes mellitus type: type 2 Splenic artery aneurysm I72.8 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) Type 2 diabetes mellitus E11.9 History of CVA (cerebrovascular accident) Z86.73 Acute pancreatitis K85.90 Metabolic acidosis E87.2 Acute encephalopathy G93.40 Acute renal failure N17.9 Sepsis A41.9 Pneumonia J18.9 Hypothermia T68.XXXA Nondisplaced fracture of right radial styloid process, sequela S52.514S
[2021-09-25] MEDS: ARIPiprazole 10 mg Tablet 15 MG PO (21:02)
[2021-09-25] MEDS: HYDROcodone-acetaminophen 5-325 mg Tablet 2 TAB PO (21:03)
[2021-09-25 21:06] LABS: Glucose Point of Care 232 mg/dL (70-110)
[2021-09-26] VITALS (7 sets, daily range): BP systolic 113–134; BP diastolic 54–70; PULSE 88–104; RESP 16–18; TEMP 36.6–36.9; O2SAT 95–98
[2021-09-26] MEDS: ALPRAZolam 0.5 mg Tablet 0.25 MG PO ×3 (05:48→21:05)
[2021-09-26] MEDS: HYDROcodone-acetaminophen 5-325 mg Tablet 2 TAB PO ×2 (05:48→19:43)
[2021-09-26] MEDS: sucralfate 1 gm Tablet PO ×2 (05:50→17:58)
[2021-09-26 06:27] LABS: Glucose Point of Care 191 mg/dL (70-110)
--- NOTE | 2021-09-26 06:41 | PC.NURSE ---
Addendum entered by Roxy Sarabia LPN 09/26/21 06:47: Refused am labs as well Original Note: SHIFT SUMMARY Says he slept better tonight. Is pleasant. Asks for snacks and drinks often. At first of shift started to refuse having his Accucheck done by aide. Nurse talked with him about importance of it with receiving insulin and diagnosis of DKA on admit. Allowed this nurse to check. No problem this am. Is refusing to have his Millan removed until he talks with the Dr. Also discussed with him reasons to take it out such as infection risk but he still refused. Received po Xanax and Hydrocodone tonight for c/o nervous and pain in whole left side. Sits on the side of the bed and does well.
[2021-09-26] MEDS: BuSPIRONE 10 mg Tablet 15 MG PO ×2 (08:38→17:57)
[2021-09-26] MEDS: gabapentin 400 mg Capsule PO ×3 (08:38→21:06)
[2021-09-26] MEDS: thiamine 100 mg Tablet PO (08:39)
[2021-09-26] MEDS: multivitamin therapeutic Tablet 1 TAB PO (08:39)
[2021-09-26] MEDS: folic acid 1 mg Tablet PO (08:39)
[2021-09-26] MEDS: aspirin 81 mg EC Tablet PO (08:40)
[2021-09-26] MEDS: citalopram 20 mg Tablet 40 MG PO (08:40)
[2021-09-26] MEDS: potassium chloride ER 20 mEq Tablet PO (08:40)
[2021-09-26] MEDS: atorvastatin 40 mg Tablet 80 MG PO (08:40)
[2021-09-26] MEDS: tamsulosin 0.4 mg Capsule PO (08:40)
[2021-09-26] MEDS: pantoprazole DR 40 mg Tablet PO ×2 (08:41→17:59)
[2021-09-26] MEDS: insulin lispro 100 unit/1 mL SUBCUT ×4 (08:49→21:07)
[2021-09-26] MEDS: insulin glargine 100 units/1 mL 15 UNIT SUBCUT ×2 (08:49→21:07)
[2021-09-26 10:57] LABS: Glucose Point of Care 217 mg/dL (70-110)
--- NOTE | 2021-09-26 11:55 | PC.CHAP ---
Pastoral Care Encounter/Spiritual Assessment Type of Contact [] Declined civil laboratory technician visit [] Patient/Family/Request visit [] Outpatient visit [] Follow-up visit [] Physician referral [] Code/Alert [X] Routine visit [] Staff referral [] Actively dying [X] Patient sleeping [] Family support [] [] Out of room [] Palliative care [] [] Receiving care in room [] Pre-surgical visit [] Trauma [] Long length of stay [] ICU visit [] Other: Relational/Emotional Strength [] Patient feels connected with others/family/visitors/staff [] Distress [] Loneliness/isolation [] Abandonment Spirituality of Patient [] Person of [place]en [] Attends [employer] of their [place] [] Believes in Prayer [] Reads Bible or Anglican materials [] There are Spiritual issues to be addressed Tapper Balance Wheel Screw Hole Interventions [] Prayer [] Active listening [] Non-anxious presence [] Spiritual/emotional support [] Crisis/trauma care [] Spiritual counseling [] Bereavement support [] Provided bereavement packet [] Provided Bible/devotional materials [] Provided toy/stuffed animal, coloring book to patient or family member [] Provided Communion [] Anointing/[place] [] Salvation [] Completed spiritual assessment [] Other: Impact on Illness or Injury [] Angry [] Fearful [] Anxious [] Often cries [] Exhaustion [] Unable to work [] Unable to attend congregational [] Unable to walk/stand [] Unable to read [] Unable to drive [] Unable to eat/drink [] Unable to sleep [] Unable to be with family [] Patient intubated [] Other: Summary Time spent with patient
[2021-09-26] MEDS: loperamide 2 mg Capsule 4 MG PO (12:45)
[2021-09-26] MEDS: acetaminophen 325 mg Tablet 650 MG PO (12:45)
--- NOTE | 2021-09-26 13:28 | P.PN_ITS ---
Subjective Subjective: Patient is doing okay. He has been afraid to get the catheter out due to poor prior experience. States he has not done that she soak in a hot tub after returning home and removing the catheter himself. Discussed with him that it is not a good idea. He is agreeable to try remove the catheter. Voiding trial. He states that with resumption of his pain medication he was able to get good night of rest. Vitals/I&O/Wt Last Vital Signs Temp 98.4 F 09/26/21 07:30 Pulse 97 09/26/21 07:30 Resp 16 09/26/21 07:30 BP 113/70 09/26/21 07:30 Pulse Ox 95 09/26/21 07:30 09/25/21 09/26/21 09/26/21 22:59 06:59 14:59 Intake Total 200 / 680 480 / 1160 240 / 240 Output Total 950 / 3050 1000 / 4050 Balance -750 / -2370 -520 / -2890 240 / 240 Physical Exam Narrative: Up in chair Const: COMMON NORMALS: no acute distress and patient oriented x3 HENMT: OTHER: Multiple missing teeth Neck/C-Spine: COMMON NORMALS: no JVD Resp: COMMON NORMALS: normal respiratory effort and clear to auscultation bilaterally AUSCULTATION: clear to auscultation bilaterally Cardio: COMMON NORMALS: no JVD, regular rhythm, S1 normal heart sound present, S2 normal heart sound present and No murmurs present (Cardio) RHYTHM: regular rhythm HEART SOUNDS: S1 normal heart sound present and S2 normal heart sound present GI: COMMON NORMALS: Normal to inspection, nondistended, normoactive bowel sounds present, Soft to palpation and non-tender PALPATION: Yes Soft to palpation : OTHER: Faint erythema of groin Extremity: COMMON NORMALS: no joint enlargement and no pedal edema Neuro: COMMON NORMALS: patient oriented x3 and moves all extremities Skin: COMMON NORMALS: no rashes or lesions noted GENERAL SKIN EXAM: no rashes or lesions noted Urinary Catheter Management: Millan: Cath Placed During This Visit: yes Reason for Continuing Indwelling Catheter: Other Urinary Catheter Date of Insertion: 09/12/21 Urinary Catheter Time of Insertion: 16:00 Data : 09/21/21 11:12 09/21/21 04:57 A&P Assessment and plan (1) Acute encephalopathy: Improved, he is awake alert. Continue to mobilize with therapy. He had declined to remove Millan yesterday. He tells me did not have a fall prior to admission. Discussed with him again regarding voiding trial, he is agreeable. Pending placement for rehabilitation. Status: Acute (2) DKA (diabetic ketoacidosis): Resolved. Continue insulin. Status: Acute Qualifiers: Diabetes mellitus complication detail: without coma Diabetes mellitus type: type 2 Qualified Code(s): E11.10 - Type 2 diabetes mellitus with ketoacidosis without coma (3) Acute pancreatitis: Tolerating oral intake. Continue supportive care. Not an obvious cause. CT abdomen pelvis with normal bile ducts. No suggestion of obstructive disease by liver parameters. Denies alcohol consumption. Triglycerides not severely elevated. No hypercalcemia. Would benefit from follow-up with specialist for additional assessment of cause of pancreatitis. 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 Off antibiotic. Status: Acute (12) Hypothermia: Status: Acute (13) Nondisplaced fracture of right radial styloid process, sequela: Status: Acute Plan Acute anemia: -Ultrasound abdomen, splenic artery aneurysm, no evidence of rupture -Hemoccult stool:Positive -Protonix, Carafate -S/P 1 unit PRBC Transfusion He has been declining CBC. #History of 5 cm splenic artery aneurysm, patient refuses surgical intervention, continue to monitor #Metabolic acidosis, combination of diabetic ketoacidosis, lactic acidosis #History of CVA, left upper extremity flexion contracture #Hypernatremia: Resolved Continue to monitor BMP #History of depression, monitor mentation, history of psychosis, monitor, Haldol as needed Attestations Medical Necessity Statement*: Continue admission pending placement for r ehabilitation. 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
[2021-09-26 17:05] LABS: Glucose Point of Care 248 mg/dL (70-110)
--- NOTE | 2021-09-26 19:01 | PC.NURSE ---
i reported high pulse 104 to nurse
[2021-09-26] MEDS: ARIPiprazole 10 mg Tablet 15 MG PO (21:05)
[2021-09-26 21:08] LABS: Glucose Point of Care 329 mg/dL (70-110)
[2021-09-26] MEDS: cyclobenzaprine 10 mg Tablet PO (22:51)
[2021-09-27] MEDS: sucralfate 1 gm Tablet PO ×2 (05:46→17:47)
[2021-09-27] MEDS: HYDROcodone-acetaminophen 5-325 mg Tablet 2 TAB PO ×3 (05:46→18:31)
[2021-09-27 06:00] VITALS: PULSE 77
--- NOTE | 2021-09-27 06:35 | PC.NURSE ---
ALEX Have had discussions with pt regarding removal of Millan. Last evening agreed for me to take it out this morning but now he keeps putting it off and not allowing it to be removed. Have stressed number of times that keeping it in can cause complications such as infection.
[2021-09-27 06:36] LABS: Glucose Point of Care 188 mg/dL (70-110)
[2021-09-27 07:25] VITALS: BP 107/61; PULSE 83; RESP 18; O2SAT 94
[2021-09-27] MEDS: tamsulosin 0.4 mg Capsule PO (07:50)
[2021-09-27] MEDS: aspirin 81 mg EC Tablet PO (07:50)
[2021-09-27] MEDS: atorvastatin 40 mg Tablet 80 MG PO (07:50)
[2021-09-27] MEDS: gabapentin 400 mg Capsule PO ×3 (07:51→21:50)
[2021-09-27] MEDS: thiamine 100 mg Tablet PO (07:51)
[2021-09-27] MEDS: BuSPIRONE 10 mg Tablet 15 MG PO ×2 (07:51→17:47)
[2021-09-27] MEDS: folic acid 1 mg Tablet PO (07:51)
[2021-09-27] MEDS: insulin lispro 100 unit/1 mL SUBCUT ×4 (07:51→21:51)
[2021-09-27] MEDS: insulin glargine 100 units/1 mL 15 UNIT SUBCUT ×2 (07:51→21:52)
[2021-09-27] MEDS: potassium chloride ER 20 mEq Tablet PO (07:51)
[2021-09-27] MEDS: pantoprazole DR 40 mg Tablet PO ×2 (07:51→17:47)
[2021-09-27] MEDS: citalopram 20 mg Tablet 40 MG PO (07:51)
[2021-09-27] MEDS: multivitamin therapeutic Tablet 1 TAB PO (07:51)
[2021-09-27] MEDS: acetaminophen 325 mg Tablet 650 MG PO (08:03)
[2021-09-27 11:11] LABS: Glucose Point of Care 285 mg/dL (70-110)
[2021-09-27 12:00] VITALS: PULSE 82; RESP 18; TEMP 36.9; O2SAT 95
[2021-09-27] MEDS: ALPRAZolam 0.5 mg Tablet 0.25 MG PO ×2 (13:47→21:51)
--- NOTE | 2021-09-27 14:02 | P.PN_ITS ---
Subjective Subjective: States he is doing okay, but again declined removal of Millan catheter. Requests for the catheter to be cut first before removal stating that he would like to reduce the distance catheters to travel. Discussed with him cutting catheter in the outside does not reduce the amount of catheter has to come out from the urethra. He requests also for baby oil to be applied in the catheter to aid in lubrication. Discussed we could add some lubricant. Vitals/I&O/Wt Last Vital Signs Temp 98.4 F 09/27/21 12:00 Pulse 82 09/27/21 12:00 Resp 18 09/27/21 12:00 BP 107/61 09/27/21 07:25 Pulse Ox 95 09/27/21 12:00 09/26/21 09/27/21 09/27/21 22:59 06:59 14:59 Intake Total 480 / 1200 600 / 1800 720 / 720 Output Total 450 / 1270 1900 / 3170 Balance 30 / -70 -1300 / -1370 720 / 720 Physical Exam Narrative: Up in bed Const: COMMON NORMALS: no acute distress and patient oriented x3 HENMT: OTHER: Multiple missing teeth Neck/C-Spine: COMMON NORMALS: no JVD Resp: COMMON NORMALS: normal respiratory effort and clear to auscultation bilaterally AUSCULTATION: clear to auscultation bilaterally Cardio: COMMON NORMALS: no JVD, regular rhythm, S1 normal heart sound present, S2 normal heart sound present and No murmurs present (Cardio) RHYTHM: regular rhythm HEART SOUNDS: S1 normal heart sound present and S2 normal heart sound present GI: COMMON NORMALS: Normal to inspection, nondistended, normoactive bowel sounds present, Soft to palpation and non-tender PALPATION: Yes Soft to palpation Extremity: COMMON NORMALS: no joint enlargement and no pedal edema Neuro: COMMON NORMALS: patient oriented x3 and moves all extremities Skin: COMMON NORMALS: no rashes or lesions noted GENERAL SKIN EXAM: no rashes or lesions noted Urinary Catheter Management: Millan: Cath Placed During This Visit: yes Reason for Continuing Indwelling Catheter: Other Urinary Catheter Date of Insertion: 09/12/21 Urinary Catheter Time of Insertion: 16:00 Data : 09/21/21 11:12 09/21/21 04:57 A&P Assessment and plan (1) Acute encephalopathy: Improved, he remains awake alert. Continue to mobilize with therapy. Discussed again with him regarding removal of Millan. Request for pain medication and anxiety medication to be given before hand. Request for lubricant to be added, we may certainly do so, though not sure if it will be helpful given direction on a travel of the catheter. Discussed with nursing staff. Pending placement for rehabilitation. Status: Acute (2) DKA (diabetic ketoacidosis): Resolved. Continue insulin. Status: Acute Qualifiers: Diabetes mellitus complication detail: without coma Diabetes mellitus type: type 2 Qualified Code(s): E11.10 - Type 2 diabetes mellitus with ketoacidosis without coma (3) Acute pancreatitis: Tolerating oral intake. Continue supportive care. Not an obvious cause. CT abdomen pelvis with normal bile ducts. No suggestion of obstructive disease by liver parameters. Denies alcohol consumption. Tr iglycerides not severely elevated. No hypercalcemia. Would benefit from follow-up with specialist for additional assessment of cause of pancreatitis. 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 Off antibiotic. Status: Acute (12) Hypothermia: Status: Acute (13) Nondisplaced fracture of right radial styloid process, sequela: Status: Acute Plan Acute anemia: -Ultrasound abdomen, splenic artery aneurysm, no evidence of rupture -Hemoccult stool:Positive -Protonix, Carafate -S/P 1 unit PRBC Transfusion Declined multiple CBC Tinea cruris: Nystatin cream #History of 5 cm splenic artery aneurysm, patient refuses surgical intervention, continue to monitor #Metabolic acidosis, combination of diabetic ketoacidosis, lactic acidosis #History of CVA, left upper extremity flexion contracture #Hypernatremia: Resolved Continue to monitor BMP #History of depression, monitor mentation, history of psychosis, monitor, Haldol as needed Attestations Medical Necessity Statement*: Continue arrangements for placement for rehabil itation, remove Millan catheter and perform voiding trial. 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
[2021-09-27 16:00] VITALS: BP 124/76; PULSE 82; RESP 18; TEMP 36.7; O2SAT 95
[2021-09-27 17:11] LABS: Glucose Point of Care 287 mg/dL (70-110)
[2021-09-27 20:00] VITALS: BP 124/54; PULSE 98; RESP 20; TEMP 36.9; O2SAT 98
[2021-09-27 21:11] LABS: Glucose Point of Care 310 mg/dL (70-110)
[2021-09-27] MEDS: ARIPiprazole 10 mg Tablet 15 MG PO (21:51)
[2021-09-27 22:00] VITALS: PULSE 85
[2021-09-28] VITALS: BP 130/76; PULSE 98; RESP 18; O2SAT 94
[2021-09-28] MEDS: cyclobenzaprine 10 mg Tablet PO (00:17)
[2021-09-28] MEDS: HYDROcodone-acetaminophen 5-325 mg Tablet 2 TAB PO ×3 (00:17→13:32)
[2021-09-28 04:00] VITALS: BP 118/71; PULSE 78; RESP 18; TEMP 36.4; O2SAT 95
[2021-09-28 05:58] VITALS: PULSE 83
--- NOTE | 2021-09-28 06:14 | PC.NURSE ---
SHIFT SUMMARY Sleeps very little during the night. Has call light on freq with requests for meds, drinks & snacks. Did allow removal of Millan finally late on day shift last evening. Has urinated very well per urinal. c/o pain on left side of body most all the time. Is given po Hydrocodone when time. Also requests his Xanax whenever he can have it.
[2021-09-28] MEDS: sucralfate 1 gm Tablet PO (06:20)
[2021-09-28] MEDS: ALPRAZolam 0.5 mg Tablet 0.25 MG PO (06:23)
[2021-09-28 08:00] VITALS: BP 140/62; PULSE 88; RESP 18; TEMP 36.8; O2SAT 97
[2021-09-28] MEDS: acetaminophen 325 mg Tablet 650 MG PO (09:03)
[2021-09-28] MEDS: insulin glargine 100 units/1 mL 15 UNIT SUBCUT (09:03)
[2021-09-28] MEDS: aspirin 81 mg EC Tablet PO (09:04)
[2021-09-28] MEDS: potassium chloride ER 20 mEq Tablet PO (09:04)
[2021-09-28] MEDS: folic acid 1 mg Tablet PO (09:04)
[2021-09-28] MEDS: tamsulosin 0.4 mg Capsule PO (09:04)
[2021-09-28] MEDS: citalopram 20 mg Tablet 40 MG PO (09:04)
[2021-09-28] MEDS: atorvastatin 40 mg Tablet 80 MG PO (09:04)
[2021-09-28] MEDS: gabapentin 400 mg Capsule PO (09:04)
[2021-09-28] MEDS: thiamine 100 mg Tablet PO (09:04)
[2021-09-28] MEDS: pantoprazole DR 40 mg Tablet PO (09:04)
[2021-09-28] MEDS: multivitamin therapeutic Tablet 1 TAB PO (09:04)
[2021-09-28] MEDS: BuSPIRONE 10 mg Tablet 15 MG PO (09:04)
[2021-09-28 09:56] LABS: Glucose Point of Care 149 mg/dL (70-110)
--- NOTE | 2021-09-28 10:39 | PM.DCS ---
Discharge Providers Date of Admission: 09/12/21 13:39 Date of Discharge: September 28, 2021 Attending Provider at Admission: Aris Griffin MD Attending Provider at Discharge: Penny Valle MD Primary Care Provider: Leonel Jolley Diagnoses at Discharge Discharge Diagnosis (1) Acute encephalopathy: Details from hospital stay: Multifactorial from DKA and sepsis Status: Resolved (2) DKA (diabetic ketoacidosis): Details from hospital stay: Present on admission Status: Resolved Qualifiers: Diabetes mellitus complication detail: without coma Diabetes mellitus type: type 2 Qualified Code(s): E11.10 - Type 2 diabetes mellitus with ketoacidosis without coma (3) Metabolic acidosis: Details from hospital stay: From DKA Status: Resolved (4) Acute pancreatitis: Details from hospital stay: Present on admission, specific etiology unclear, peak lipase greater than 3000 Status: Resolved Qualifiers: Pancreatitis type: idiopathic Acute pancreatitis complication: no infection or necrosis Qualified Code(s): K85.00 - Idiopathic acute pancreatitis without necrosis or infection (5) Acute renal failure: Details from hospital stay: Present on admission Status: Resolved (6) Sepsis: Details from hospital stay: Admitting diagnosis, associated with acute renal failure, encephalopathy, hypothermia, leukocytosis felt secondary to pneumonia diagnosis Status: Resolved Qualifiers: Sepsis type: sepsis due to unspecified organism Sepsis acute organ dysfunction status: with acute organ dysfunction Severe sepsis acute organ dysfunction type: encephalopathy Severe sepsis shock status: without septic shock Qualified Code(s): A41.9 - Sepsis, unspecified organism; R65.20 - Severe sepsis without septic shock; G93.40 - Encephalopathy, unspecified (7) Pneumonia: Details from hospital stay: Admitting diagnosis, s/p antibiotic treatment Status: Resolved Qualifiers: Pneumonia type: due to unspecified organism Laterality: unspecified laterality Lung location: unspecified part of lung Qualified Code(s): J18.9 - Pneumonia, unspecified organism (8) Hypothermia: Details from hospital stay: Present on admission Status: Resolved Qualifiers: Encounter type: initial encounter Qualified Code(s): T68.XXXA - Hypothermia, initial encounter (9) Splenic artery aneurysm: Details from hospital stay: 4.4 cm, declines surgical intervention Status: Chronic Permanent problem details: 4.4 cm, declines surgical intervention (10) Type 2 diabetes mellitus: Details from hospital stay: A1c 14 Status: Chronic Qualifiers: Diabetes mellitus equipment operator intermodal yard insulin use: with equipment operator intermodal yard use Diabetes mellitus complication status: with hypoglycemia Diabetes mellitus complication detail: without coma Qualified Code(s): E11.649 - Type 2 diabetes mellitus with hypoglycemia without coma; Z79.4 - assistant terminal manager (current) use of insulin (11) History of CVA (cerebrovascular accident): Details from hospital stay: With left sided weakness and contractures, neuropathic pain Status: Chronic (12) 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): Details from hospital stay: with histroy of axiety and psychosis associated Status: Chronic (13) Pulmonary nodule, right: Details from hospital stay: 8.3 mm, right middle lobe identified on CT chest Status: Acute Permanent problem details: 8.3 mm 09/2021, right middle lobe Other Information Additional DC diagnoses/information: Elbow pain, possible nondisplaced styloid fracture - Possible diagnosis during hospital stay, not definitively noted on CT imaging of left elbow Elevated troponin without positive delta Prostatic hypertrophy on flomax COPD without acute exacerbation Histroy of seizures, none during stay Tinea corporis Reason for Visit Reason for Visit: HIGH BLOOD SUGAR Brief History: From H&P by Dr Griffin: This is a 61-year-old male with a past medical history of splenic artery aneurysm 5 cm, patient refuses surgical invention, history of refusing medical care, history of multiple CVA, with chronic left upper extremity flexion contracture, left-sided weakness chronic, history of grand mal seizures, history of anxiety, history of psychosis on Abilify and clonazepam and citalopram and BuSpar history of urinary retention with Shea catheter, BPH, chronic kidney disease, who presents [facility] from home due to altered mental status.? Currently patient is alert to person, not to place, not to time, he he keeps telling me he feels cold, but that will likely get out of him.? He appears disheveled, bearded unkempt, fingernails have not been clipped, has odor of alcohol MMM, mottled bilateral extremity, has a flexion contracture left upper extremity, currently hypothermic, T pressure 92.2, 100% room air, blood pressure 119/71, pulse 88, he withdraws from pain, does elicit with sternal rub, but his speech is nonsensical.? According to ER physician, EMS were called out to his home due to generalized weakness and fall, his blood sugars were over 900 so he is brought to [facility], he does have bruising over his bilateral knees and elbow.? I try to reach out to patient's family, however I am not able to get any answers from them.? He was found to have diabetic ketoacidosis, with metabolic acidosis, with acute renal failure, with signs of sepsis, acute encephalopathy, hypothermia. Hospital Course Hospital Course Patient was admitted to the ICU. He was treated for DKA and covered empirically with antibiotics for suspicion of pneumonia. He had initial slow improvement in his overall clinical status. Hemoglobin A1c was 14 consistent with chronically uncontrolled blood sugars. He was transitioned to combination of long and short acting insulin with improved blood pressure control though will need continued adjustment post discharge. Etiology of patient's pancreatitis was not known. Likely associated with DKA, resolved with management. All cultures were no growth during the course of hospital stay. Bacterial antigens were also negative. Completed a course of vancomycin and cefepime. Renal function and electrolytes returned to baseline as did white blood count. He has complained of some left elbow pain and had imaging studies that were inconclusive for nondisplaced styloid fracture. He had some tinea corporis that was treated with nystatin cream. An incidental pulmonary nodule was noted in the right lung. He will need follow-up imaging on outpatient basis within 3 months as recommended by radiology. Shea with catheter was in place during the hospital stay. It was able to be removed on 09/27. He has been able to urinate since removal with a urinal. Disposition was ultimately planned for skilled facility and patient was accepted on 328 and will be discharged there. Physical Exam Narrative: Patient is awake and alert. Oriented x3. He is cooperative. Lungs are clear. He has a regular rhythm. Abdomen is soft. Left contractures noted. Some scabs to left elbow. Both heels are soft with some desquamating skin and mild erythema. Urinary Catheter Management: Shea: Cath Placed During This Visit: yes, but has since been removed by the nurse Reason for Continuing Indwelling Catheter: Decision to DC Catheter Urinary Catheter Date of Insertion: 09/12/21 Urinary Catheter Time of Insertion: 16:00 Date Urinary Catheter Removed: 09/27/21 Time Urinary Catheter Discontinued: 18:42 Discharge Data Studies Completed and Pending Completed Studies During Hospitalization Category Date Time Status CT chest abd pel wo con Urgent Cat Scan 09/12/21 13:[address] elbow LT w con [id number] Routine Cat Scan 09/13/21 11:[address] head wo con* [id number] Routine Cat Scan 09/12/21 14:28 Completed CXRP [XR chest 1V portable [id number]] Routine Exams 09/12/21 15:11 Completed XR chest 1V portable [id number] Urgent Exams 09/12/21 12:02 Completed XR elbow LT 2V [id number] Urgent Exams 09/12/21 12:02 Completed CV. echo complete* [id number] Routine Ultrasound 09/13/21 11:19 Completed US abdomen limited [id number] Stat Ultrasound 09/14/21 15:08 Completed Pending at discharge Category Date Time Status COVID OZH [Coronavirus PCR] Routine Lab 09/28/21 09:37 Uncollected Occult Blood Stool [Immunochemical Fecal OCB] Routine Lab 09/15/21 18:32 Uncollected Sputum Culture and Gram Stain Stat Lab 09/12/21 13:44 Uncollected Radiology Impressions Elbow X-Ray 09/12/21 12:02 IMPRESSION: 1. The examination is compromised by suboptimal positioning. 2. Possible nondisplaced fracture involving the proximal radial metaphysis. Recommend CT to better characterize. Chest/Abdomen/Pelvis CT 09/12/21 13:44 IMPRESSION: 1. Bilateral dependent atelectasis versus minimal infiltrate. 2. Emphysematous changes. 3. Right middle lobe 8.3 mm pulmonary nodule. For both low risk and high IMPRESSION: 1. Mild peripancreatic edema suggestive of pancreatitis without focal fluid collection. 2. Scattered hepatic cysts. 3. Heterogeneous appearance of the spleen, somewhat similar to prior exam. 4. Again seen is an apparent 4.4 cm splenic aneurysm, similar to prior exam. 5. Constipation. 6. Shea catheter in the urinary bladder with a small amount of air, likely iatrogenic. Head CT 09/12/21 14:28 IMPRESSION: 1. Negative for intracranial hemorrhage. 2. Chronic right middle cerebral artery infarct again seen similar to prior exam. Chest X-Ray 09/12/21 15:11 IMPRESSION: Right IJ catheter tip over the distal SVC. Elbow CT 09/13/21 11:26 IMPRESSION: 1. Motion artifact compromises the examination. 2. There is a small elbow joint effusion; however, no definite fracture is seen. Consider MRI to further assess if clinically warranted. 3. Possible mild colitis. 4. A large splenic artery aneurysm is incompletely visualized. Abdomen Ultrasound 09/14/21 15:08 Impression: 1. Known splenic artery aneurysm is not seen on this examination. 2. Negative for ascites. ECHO 09/14/2021 CONCLUSIONS ?Technically limited quality echocardiogram because of poor ?ultrasonic windows. ?LV systolic function is normal with EF of 50 to 55%. ?Regional wall motion normalities cannot be assessed accurately ?because of poor imaging quality. ?Grade 1 diastolic dysfunction ?Valves are not well visualized however grossly normal. ?No comparison studies are available Laboratory Results WBC 10.3 10^3/uL (4.0-10.0) H 09/21/21 11:12 RBC 3.08 10^6/uL (4.1-5.3) L 09/21/21 11:12 Hgb 9.1 g/dL (11.7-16.6) L 09/21/21 11:12 Hct 29.4 % (42.0-52.0) L 09/21/21 11:12 MCV 95.5 fl (80-94) H 09/21/21 11:12 MCH 29.5 pg (28.0-34.0) 09/21/21 11:12 MCHC 31.0 g/dL (30.0-36.0) 09/21/21 11:12 RDW 16.4 % (12.1-15.1) H 09/21/21 11:12 Plt Count 615 10^3/cmm (130-400) H 09/21/21 11:12 MPV 10.2 fL (7.4-10.4) 09/21/21 11:12 Neut % (Auto) 58.3 % 09/21/21 11:12 Lymph % (Auto) 16.2 % 09/21/21 11:12 Frederick % (Auto) 19.3 % 09/21/21 11:12 Eos % (Auto) 4.5 % 09/21/21 11:12 Baso % (Auto) 0.5 % 09/21/21 11:12 Neut # (Auto) 6.04 10^3/uL (1.8-7.7) 09/21/21 11:12 Lymph # (Auto) 1.7 10^3/uL (0.8-4.8) 09/21/21 11:12 Frederick # (Auto) 2.0 10^3/uL (0.2-0.9) H 09/21/21 11:12 Eos # (Auto) 0.5 10^3/uL (0.0-0.8) 09/21/21 11:12 Baso # (Auto) 0.1 10^3/uL (0.0-0.1) 09/21/21 11:12 Nucleated RBC % (auto) 0 % 09/21/21 11:12 Total Counted 100 (0-100) 09/13/21 08:12 Atypical Lymphs % 0.0 % (0-5) 09/13/21 08:12 Absolute Neutrophils 39.8 10^3/cmm (1.4-6.5) H 09/13/21 08:12 Segmented Neutrophils 97 % 09/13/21 08:12 Abs Segm Neuts (Man) 39.0 10/cmm (1.6-7.1) H 09/13/21 08:12 Band Neutrophils 2.0 % 09/13/21 08:12 Abs Band Neuts (Man) 0.8 10^3/cmm (0.0-1.2) 09/13/21 08:12 Absolute Lymphocytes 0.0 10^3/cmm (1.2-3.4) L 09/13/21 08:12 Lymphocytes (Manual) 0 % 09/13/21 08:12 Monocytes (Manual) 1.0 % 09/13/21 08:12 Absolute Monocytes 0.4 10^3/cmm (0.1-0.6) 09/13/21 08:12 Eosinophils (Manual) 0 % 09/13/21 08:12 Absolute Eosinophils 0.0 10^3/cmm (0.0-0.7) 09/13/21 08:12 Basophils (Manual) 0.0 % 09/13/21 08:12 Absolute Basophils 0.0 10^3/cmm (0.0-0.2) 09/13/21 08:12 Metamyelocytes 1.0 % 09/12/21 12:22 Myelocytes 2.0 % 09/12/21 12:22 Nucleated RBCs # 0.0 /100WBC 09/21/21 11:12 Hypersegmented Polys Trace 09/13/21 08:12 Platelet Estimate Increased (Normal) 09/13/21 08:12 PT 15.00 SECONDS (12.1-14.9) H 09/12/21 15:20 INR 1.15 (0.8-1.2) 09/12/21 15:20 Specimen Type Arterial 09/12/21 11:51 Sample Site Radial, right 09/12/21 11:51 ABG pH 7.18 (7.35-7.45) L* 09/12/21 11:51 ABG pCO2 12.5 mmHg (35-45) L* 09/12/21 11:51 ABG pO2 128.0 mmHg (80.0-100.0) H 09/12/21 11:51 ABG HCO3 4.7 mmol/L (22-26) L 09/12/21 11:51 ABG Base Excess -21.2 mmol/L (-2.0-2.0) L 09/12/21 11:51 Saad Test Pos 09/12/21 11:51 Hematocrit 38.0 % (42-52) L 09/12/21 11:51 O2 Delivery Device Room air 09/12/21 11:51 FiO2 21.0 % 09/12/21 11:51 Finished Goods Planner ID Ed 09/12/21 11:51 Sodium 137 mmol/L (136-145) 09/21/21 04:57 Potassium 3.9 mmol/L (3.5-5.1) 09/21/21 04:57 Chloride 108 mmol/L (98-107) H 09/21/21 04:57 Carbon Dioxide 20 mmol/L (22-29) L 09/21/21 04:57 Anion Gap 12.9 (5-19) 09/21/21 04:57 BUN 8 mg/dL (8-23) 09/21/21 04:57 Creatinine 0.8 mg/dL (0.7-1.2) 09/21/21 04:57 GFR Calculation 98.0 mL/min (90-130) 09/21/21 04:57 Glucose 142 mg/dL (65-115) H 09/21/21 04:57 POC Glucose 149 mg/dL (70-110) H 09/28/21 05:49 Estimat Average Glucose 358 09/12/21 12:22 Hemoglobin A1c 14.1 % (4.0-6.0) H 09/12/21 12:22 Calculated Osmolality 285 mOsm/kg (285-295) 09/21/21 04:57 Lactic Acid 2.2 mmol/L (0.5-2.2) 09/14/21 15:40 Lactic Acid (Sepsis) 1.7 mmol/L (0.5-2.2) 09/14/21 18:40 Lactate 3.5 mmol/L (0.5-2.2) H 09/12/21 12:22 Calcium 7.9 mg/dL (8.5-10.5) L 09/21/21 04:57 Phosphorus 2.3 mg/dL (2.5-4.5) L 09/16/21 03:05 Magnesium 1.7 mg/dL (1.7-2.3) 09/16/21 03:05 Iron 47 ug/dL (59-158) L 09/15/21 09:36 Iron Cancelled 09/15/21 09:36 TIBC 140 mcg/dl 09/15/21 09:36 % Saturation 33.5 % (20-50) 09/15/21 09:36 Unsat Iron Binding 93 ug/dL (112-347) L 09/15/21 09:36 Ferritin 320 ng/mL (30-400) 09/15/21 09:36 Total Bilirubin 0.2 mg/dL (0.15-1.2) 09/16/21 03:05 AST 12 U/L (0-40) 09/16/21 03:05 ALT 11 U/L (0-41) 09/16/21 03:05 Alkaline Phosphatase 93 IU/L (40-130) 09/16/21 03:05 Creatine Kinase 76 U/L (39-308) 09/16/21 03:05 Troponin T Baseline 92 ng/L (0-15) H 09/12/21 15:20 Troponin T 120 Minute 79.54 ng/L (0-15) H 09/12/21 17:17 Delta Troponin T -12.46 ABS# (0-10) L 09/12/21 17:17 Troponin T Hi Sens 6Hr 81.37 ng/L (0-15) H 09/12/21 19:54 Troponin T Hi Sens 6Hr Delta -10.63 ng/L (0-12) L 09/12/21 19:54 C-Reactive Protein 11.3 mg/L (0.0-4.9) H 09/16/21 03:05 NT-Pro-B Natriuret Pep 5988 pg/mL (0-125) H 09/16/21 03:05 Total Protein 4.8 g/dL (6.6-8.7) L 09/16/21 03:05 Albumin 2.6 g/dL (3.5-5.2) L 09/16/21 03:05 Globulin 2.2 g/dL (1.3-4.6) 09/16/21 03:05 Triglycerides 276 mg/dL (0-150) H 09/13/21 01:29 Cholesterol 280 mg/dL (0-200) H 09/12/21 12:22 LDL Cholesterol Direct TNP 09/12/21 12: LDL Cholesterol, Calc Not Reportable 09/12/21 12: HDL Cholesterol 32 mg/dL (60-100) L 09/12/21 12:22 LDL/HDL Ratio Not Reportable 09/12/21 12: Cholesterol/HDL Ratio 8.75 mg/dL (1.0-5.00) H 09/12/21 12:22 Lipase 180 U/L (13-60) H 09/14/21 03:25 Procalcitonin 0.08 ng/mL (0-0.5) 09/16/21 03:05 TSH 0.57 uIU/mL (0.27-4.20) 09/12/21 12:22 Urine Color Yellow (Yellow) 09/12/21 16:17 Urine Appearance Clear (CLEAR) 09/12/21 16:17 Urine pH 5 (5-7) 09/12/21 16:17 Ur Specific [place] 1.015 (1.005-1.030) 09/12/21 16:17 Urine Protein Neg (Negative) 09/12/21 16:17 Urine Glucose (UA) 4+ (Normal) H 09/12/21 16:17 Urine Ketones 2+ (Negative) H 09/12/21 16:17 Urine Blood Neg (Negative) 09/12/21 16:17 Urine Nitrate Negative (Negative) 09/12/21 16: Urine Bilirubin Neg (Negative) 09/12/21 16:17 Urine Urobilinogen Norm mg/dL (Negative) 09/12/21 16:17 Ur Leukocyte Esterase Negative (Negative) 09/12/21 16:17 Vancomycin Trough 7.3 ug/mL (10-15) L 09/17/21 09:38 Urine Opiates Screen Positive ng/mL (Negative) H 09/12/21 16:17 Ur Barbiturates Screen Negative ng/mL (Negative) 09/12/21 16:17 Ur Phencyclidine Scrn Negative ng/mL (Negative) 09/12/21 16:17 Ur Amphetamines Screen Negative ng/mL (Negative) 09/12/21 16:17 U Benzodiazepines Scrn Positive ng/mL (Negative) H 09/12/21 16:17 Urine Cocaine Screen Negative ng/mL (Negative) 09/12/21 16:17 U Marijuana (THC) Screen Negative ng/mL (Negative) 09/12/21 16:17 Ethyl Alcohol < 10 mg/dL (0-10) 09/12/21 12:22 Serum Ketones Positive (Negative) H 09/12/21 12:22 SARS-CoV-2 Ag (Rapid) Negative (Negative) 09/25/21 10:30 Blood Type O Positive 09/14/21 15:40 Rho(D) Type Positive 09/14/21 15:40 Antibody Screen Negative 09/14/21 15:40 Crossmatch See Detail 09/14/21 15:40 Vitals Last Vital Signs Temp 98.3 F 09/28/21 08:00 Pulse 88 09/28/21 08:00 Resp 18 09/28/21 08:00 BP 140/62 09/28/21 08:00 Pulse Ox 97 09/28/21 08:00 Discharge Plan Discharge Patient Disposition: Xfer SNF Condition: Stable Prescriptions: New multivitamin with folic acid [Thera] 400 mcg Tablet 1 tab PO DAILY Qty: 30 0RF Lantus U-100 Insulin 100 unit/mL Solution 15 unit SUBCUT Q12H Qty: 2 0RF pantoprazole 40 mg Tablet,Delayed Release (Dr/Ec) 40 mg PO DAILY Qty: 30 0RF insulin lispro [Humalog U-100 Insulin] 100 unit/mL Solution 0 unit SUBCUT WM&BEDTIME Qty: 2 0RF nystatin 100,000 unit/gram Cream 1 applic topical BID Qty: 1 0RF Continued clonazepam 0.5 mg tablet 0.5 mg PO BID PRN (Reason: Anxiety) Qty: 30 0RF hydrocodone-acetaminophen 10-325 mg tablet 1 tab PO Q6H PRN (Reason: Pain) Qty: 30 0RF cyclobenzaprine 10 mg tablet 10 mg PO TID PRN (Reason: Muscle Spasm) Qty: 30 0RF buspirone 10 mg Tablet 15 mg PO BID Qty: 90 0RF citalopram 20 mg Tablet 40 mg PO DAILY Qty: 60 0RF albuterol sulfate 90 mcg/actuation Hfa Aerosol Inhaler 1 inh INHALATION Q6H PRN (Reason: Shortness Of Breath) Qty: 8.5 0RF atorvastatin 80 mg tablet 80 mg PO DAILY Qty: 30 0RF gabapentin 400 mg capsule 400 mg PO TID Qty: 90 0RF aspirin 81 mg Tablet,Delayed Release (Dr/Ec) 81 mg PO DAILY Qty: 30 0RF tamsulosin 0.4 mg Capsule 0.4 mg PO DAILY Qty: 30 0RF aripiprazole 10 mg Tablet 15 mg PO BEDTIME 30 Days Qty: 30 1RF Changed calcium carbonate [Tums] 200 mg calcium (500 mg) Tablet,Chewable 500 mg PO Q4H PRN (Reason: INDIGESTION) Qty: 30 0RF acetaminophen 500 mg Tablet 500 mg PO Q4H PRN (Reason: Pain) Qty: 60 0RF Discontinued phenazopyridine 99.5 mg tablet 99.5 mg PO TID PRN (Reason: Pain) 0RF Novolin 70/30 U-100 Insulin 100 unit/mL (70-30) suspension 20 - 25 unit SUBCUT .BID BEFORE MEALS 0RF Discharge Orders: Discharge Order (Routine); Ordered 09/28/21 Ordered By: Penny Valle Referrals: [facility] [Outside] Leonel Jolley [Primary Care Provider] - Discharge Diet: Diabetic and Low Fat Discharge Activity: As per PT/OT instructions Patient Instructions: Pancreatitis (DC), Diabetic Ketoacidosis (DC), Pulmonary Nodules (DC) Activity Restrictions/Additional Instructions: Recommend monitoring of urine output - shea removed 09/27 Recheck CBC and BMP in one week Will need CT scan follow up of chest in 3 months for pulmonary nodule PT/OT evaluation Monitor heals and other areas for breakdown Discharge Attestations Time Spent in Discharge Care*: greater than 30 min (55 min) Specific Discharge Activities: educating patient, discussing with mental health case manager/social workers/dc planners, documenting/other paperwork and evaluating patient/reviewing data Status at Discharge: Cognitive status at discharge: cognitively intact, Behavioral status at discharge: cooperative (though anxious and needs reassurance at times, refuses some care with understanding of implications), Functional status at discharge: other assisted ambulation, Overall status at discharge: patient is progressing back to baseline Quality Metrics Clinical Quality Measures [ No reported AMI, CVA or VTE this stay] Coding Level of Care Code Acute Chg FW DC note Diagnoses Acute encephalopathy G93.40 DKA (diabetic ketoacidosis) E11.10 Diabetes mellitus complication detail: without coma Diabetes mellitus type: type 2 Acute pancreatitis K85.00 Pancreatitis type: idiopathic Acute pancreatitis complication: no infection or necrosis Splenic artery aneurysm I72.8 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) Type 2 diabetes mellitus E11.649; Z79.4 Diabetes mellitus jail insulin use: with equipment operator intermodal yard use Diabetes mellitus complication status: with hypoglycemia Diabetes mellitus complication detail: without coma History of CVA (cerebrovascular accident) Z86.73 Metabolic acidosis E87.2 Acute renal failure N17.9 Sepsis A41.9; R65.20; G93.40 Sepsis type: sepsis due to unspecified organism Sepsis acute organ dysfunction status: with acute organ dysfunction Severe sepsis acute organ dysfunction type: encephalopathy Severe sepsis shock status: without septic shock Pneumonia J18.9 Pneumonia type: due to unspecified organism Laterality: unspecified laterality Lung location: unspecified part of lung Hypothermia T68.XXXA Encounter type: initial encounter Pulmonary nodule, right R91.1
[2021-09-28 11:09] VITALS: BP 143/74; PULSE 83; RESP 16; TEMP 36.4; O2SAT 90
[2021-09-28 12:00] VITALS: BP 143/74; PULSE 83; RESP 16; TEMP 36.4
[2021-09-28 12:38] LABS: Adenovirus Not Detected (NOT DETECT); Chlamydia Pneumoniae Not Detected (NOT DETECT); Coronavirus 229E,HKU1,NL63,OC4 Not Detected (NOT DETECT); Human Metapneumovirus Not Detected (NOT DETECT); Human Rhinovirus/Enterovirus Not Detected (NOT DETECT); Influenza A Not Detected (NOT DETECT); Influenza A H1 Not Detected (NOT DETECT); Influenza A H1-2009 Not Detected (NOT DETECT); Influenza A H3 Not Detected (NOT DETECT); Influenza B Not Detected (NOT DETECT); Mycoplasma Pneumoniae Not Detected (NOT DETECT); Parainfluenza Virus Type 1 Not Detected (NOT DETECT); Parainfluenza Virus Type 2 Not Detected (NOT DETECT); Parainfluenza Virus Type 3 Not Detected (NOT DETECT); Parainfluenza Virus Type 4 Not Detected (NOT DETECT); Respiratory Syncytial Virus A Not Detected (NOT DETECT); Respiratory Syncytial Virus B Not Detected (NOT DETECT); SARS-COV-2 Not Detected (NOT DETECT)
[2021-09-28 13:49] LABS: Glucose Point of Care 355 mg/dL (70-110)
== END 2021-09-28 14:39 | disposition skilled nursing facility (03) | DRG 871 ==
LOC: ER 13:39 → ICU 14:13 → MEDSURG 09-15 17:59
PROVIDERS: Internal Medicine; Student in an Organized Health Care Education/Training Program; Admitting Provider Family Medicine; Emergency Provider Student in an Organized Health Care Education/Training Program; PCP Family Medicine; Visit Provider Hospitalist
DX: A41.9 Sepsis, unspecified organism (principal); E11.10 Type 2 diabetes mellitus with ketoacidosis without coma; J18.9 Pneumonia, unspecified organism; K85.00 Idiopathic acute pancreatitis without necrosis or infection; G93.41 Metabolic encephalopathy; I69.954 Hemiplegia and hemiparesis following unspecified cerebrovascular disease affecting left non-dominant side; E87.1 Hypo-osmolality and hyponatremia; N17.9 Acute kidney failure, unspecified; R65.20 Severe sepsis without septic shock; E11.22 Type 2 diabetes mellitus with diabetic chronic kidney disease; I12.9 Hypertensive chronic kidney disease with stage 1 through stage 4 chronic kidney disease, or unspecified chronic kidney disease; N18.9 Chronic kidney disease, unspecified; M24.522 Contracture, left elbow; G89.29 Other chronic pain; M54.9 Dorsalgia, unspecified; E78.5 Hyperlipidemia, unspecified; E11.42 Type 2 diabetes mellitus with diabetic polyneuropathy; F17.210 Nicotine dependence, cigarettes, uncomplicated; I72.8 Aneurysm of other specified arteries; S80.02XA Contusion of left knee, initial encounter; S80.01XA Contusion of right knee, initial encounter; S50.02XA Contusion of left elbow, initial encounter; S50.01XA Contusion of right elbow, initial encounter; W19.XXXA Unspecified fall, initial encounter; F41.9 Anxiety disorder, unspecified; Z79.82 Long term (current) use of aspirin; Z79.51 Long term (current) use of inhaled steroids; Z79.891 Long term (current) use of opiate analgesic; B35.4 Tinea corporis; J44.9 Chronic obstructive pulmonary disease, unspecified; R91.8 Other nonspecific abnormal finding of lung field; I95.9 Hypotension, unspecified; D50.9 Iron deficiency anemia, unspecified; Z91.14 Patient's other noncompliance with medication regimen; S52.514 Nondisplaced fracture of right radial styloid process; X58.XXXS Exposure to other specified factors, sequela; F06.31 Mood disorder due to known physiological condition with depressive features; R68.0 Hypothermia, not associated with low environmental temperature; N40.1 Benign prostatic hyperplasia with lower urinary tract symptoms; R33.8 Other retention of urine
CPT/HCPCS: 36415; 36416; 36430; 36556; 36592; 51702; 70450; 71045; 71250; 73070; 73201; 74176; 76705; 80048; 80053; 80061; 80202; 80306; 80307; 81003; 82009; 82274; 82550; 82728; 82803; 82962; 83036; 83540; 83550; 83605; 83630; 83690; 83735; 83880; 84100; 84145; 84295; 84443; 84478; 84484; 85007; 85025; 85027; 85610; 86140; 86403; 86850; 86900; 86920; 87040; 87086; 87426; 87493; 87506; 87635; 87641; 92507; 92523; 92526; 92610; 93005; 93306; 94664; 96365; 96366; 96367; 96372; 96375; 97110; 97161; 97165; 97530; 99291; 99292; C1751; C9113; J0692; J1650; J1815 ×2; J2060; J2270; J2543; J3370; J3411; J3475; J3480; J7030; J7040; J7050; P9016; Q9967

== ENCOUNTER → 2023-05-13 10:05 | Outpatient (BNVA) | payer MEDICAID, SELFPAY | PROVIDERS: PCP Family Medicine; Visit Provider Podiatrist Foot & Ankle Surgery | DX: L60.1 Onycholysis; E11.42 Type 2 diabetes mellitus with diabetic polyneuropathy; E11.649 Type 2 diabetes mellitus with hypoglycemia without coma; G62.9 Polyneuropathy, unspecified; Z79.4 Long term (current) use of insulin | CPT/HCPCS: 11750; 99203; A6219 ==

== ENCOUNTER 2023-09-19 11:26 | Inpatient (IN) | payer MEDICAID, SELFPAY ==
[2023-09-19] VITALS (72 sets, daily range): BP systolic 117–194; BP diastolic 68–117; PULSE 101–125; RESP 16–26; TEMP 36.7–39.6; O2SAT 86–98
--- NOTE | 2023-09-19 11:45 | W.ED.EXTPRO ---
HPI - Extremity Problem General: Chief complaint: ER Hold Stated complaint: cellulitis Time Seen by Provider: 09/19/23 11:27 History of Present Illness: Is a 63-year-old man who presents by notes from the [place] [facility] with lower extremity cellulitis. He has a history of stroke with left paralysis. He has a history of chronic pain syndrome on narcotic medications. Depression. Obesity. Insulin-dependent diabetes. [facility] sent him secondary to the lower extremity cellulitis. He is complaining of worsening hip pain nontraumatic. Bilateral. No known fevers. No abdominal pain. No nausea or vomiting. No chest pain. Review of Systems Narrative: Constitutional symptoms: Negative except as documented in HPI. Skin symptoms: Negative except as documented in HPI. Eye symptoms: Negative except as documented in HPI. ENMT symptoms: Negative except as documented in HPI. Respiratory symptoms: Negative except as documented in HPI. Cardiovascular symptoms: Negative except as documented in HPI. Gastrointestinal symptoms: Negative except as documented in HPI. Genitourinary symptoms: Negative except as documented in HPI. Musculoskeletal symptoms: Negative except as documented in HPI. Neurologic symptoms: Negative except as documented in HPI. Psychiatric symptoms: Negative except as documented in HPI. Endocrine symptoms: Negative except as documented in HPI. PFSH ED PFSH: Medical History Acute pancreatitis Anxiety Chronic kidney disease Chronic pain 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) History of CVA (cerebrovascular accident) History of seizure History of upper gastrointestinal bleeding Hyperlipidemia Hypertension Left upper quadrant abdominal mass Neuropathy Splenic artery aneurysm 4.4 cm, declines surgical intervention Type 2 diabetes mellitus Family History Father , AT AGE 66 Aneurysm Mother , AT AGE 84 Natural Social History Smoking and tobacco/nicotine status: current every day tobacco/nicotine user Alcohol intake: never Substance/Drug Use: never Marital status: Life Partner Current occupational status: disabled Physical Exam Narrative: EXAM NARRATIVE: General: Alert, no acute distress. Skin: Warm, dry. Left lower extremity below the knee is red, warm, edematous. Appears cellulitic. Head: Normocephalic, atraumatic. Neck: Supple, trachea midline. Eye: Extraocular movements are intact. Ears, nose, mouth and throat: mucosa moist. Cardiovascular: Regular, Normal peripheral perfusion. Respiratory: Lungs are clear to auscultation, respirations are non-labored, breath sounds are equal, Symmetrical chest wall expansion. Gastrointestinal: Soft, Nontender, Non distended, Normal bowel sounds. Musculoskeletal: Normal ROM, no deformity. Neurological: Alert and oriented, residual left arm weakness with contracture. Left leg weakness./Placidity. Psychiatric: Cooperative, appropriate mood & affect. Course Vital Signs: Vital signs: Vital Signs Pulse Rate 106 H 09/19/23 13:20 Respiratory Rate 18 09/19/23 13:20 Blood Pressure 117/83 09/19/23 13:20 Pulse Oximetry 94 09/19/23 13:20 Oxygen Delivery Me thod Nasal Cannula 09/19/23 13:20 Oxygen Flow Rate 2 09/19/23 13:20 MDM - Extremity (Nontraumatic) Medical Decision Making Medical decision making: Differential diagnosis including but not limited to and based on the above HPI, review of systems and physical exam: Patient appears to have a cellulitis of his left leg. He is complaining of worsening pain. Lab work ordered including blood cultures, white count, CRP and ESR to evaluate the severity of this infection. Orders as above placed to evaluate differential diagnosis based on the above differential, HPI and physical exam Lab Review: Laboratory results were reviewed and interpreted by myself the emergency room physician. Patient has a significant leukocytosis with a white count of 28,000. CRP is quite elevated as well. As well as ESR. Patient has a borderline blood pressure and is slightly tachycardic so I have quite a bit of concern for sepsis. However his lactate is 1.9. I am treating him as septic. He has some acute renal failure previous lab work showed normal renal function today has a BUN and creatinine of 39 and 2.2. 2.5 L of fluid are given for the sepsis and for the renal failure. Blood glucose is 50 on lab work and about 58 on a sulmc-wv-umcv glucose. He tolerate some juice and is given a 250 bolus of D10. EKG: Sinus tachycardia, nonspecific ST-T wave abnormalities, no ectopy, normal GA & QRS intervals, This was reviewed and interpreted by myself the ER physician. Reexamination: Patient's pain is somewhat improved after receiving Dilaudid. He is a little bit more somnolent but will wake up and speak with me. He has no increased work of breathing. No focal motor deficits. Lab Data 09/19/23 11:42 09/19/23 11:42 Laboratory Results WBC 28.62 10^3/uL (3.29-11.43) H 09/19/23 11:42 RBC 5.15 10^6/uL (3.85-5.65) 09/19/23 11:42 Hgb 15.60 g/dL (11.27-16.99) 09/19/23 11:42 Hct 47.7 % (37-53) 09/19/23 11:42 MCV 92.6 fl (82-101) 09/19/23 11:42 MCH 30.3 pg (27-33) 09/19/23 11:42 MCHC 32.7 g/dL (30-55) 09/19/23 11:42 RDW 14.6 % (12.1-15.1) 09/19/23 11:42 Plt Count 302 10^3/cmm (157-399) 09/19/23 11:42 MPV 11.0 fL (7.4-10.4) H 09/19/23 11:42 Neut % (Auto) 87.3 % 09/19/23 11:42 Lymph % (Auto) 7.8 % 09/19/23 11:42 [place] % (Auto) 3.7 % 09/19/23 11:42 Eos % (Auto) 0.0 % 09/19/23 11:42 Baso % (Auto) 0.3 % 09/19/23 11:42 Neut # (Auto) 24.95 10^3/uL (1.8-7.7) H 09/19/23 11:42 Lymph # (Auto) 2.2 10^3/uL (0.8-4.8) 09/19/23 11:42 [place] # (Auto) 1.1 10^3/uL (0.2-0.9) H 09/19/23 11:42 Eos # (Auto) 0.0 10^3/uL (0.0-0.8) 09/19/23 11:42 Baso # (Auto) 0.1 10^3/uL (0.0-0.1) 09/19/23 11:42 Nucleated RBC % (auto) 0 % 09/19/23 11:42 Nucleated RBCs # 0.0 /100WBC 09/19/23 11:42 ESR 47 mm/hr (0-10) H 09/19/23 11:42 Sodium 135 mmol/L (136-145) L 09/19/23 11:42 Potassium 3.8 mmol/L (3.5-5.1) 09/19/23 11:42 Chloride 97 mmol/L (98-107) L 09/19/23 11:42 Carbon Dioxide 23 mmol/L (22-29) 09/19/23 11:42 Anion Gap 18.8 (5-19) 09/19/23 11:42 BUN 39 mg/dL (8-23) H 09/19/23 11:42 Creatinine 2.2 mg/dL (0.7-1.2) H 09/19/23 11:42 GFR Calculation 30.3 mL/min (90-130) L 09/19/23 11:42 Glucose 50 mg/dL (65-115) L 09/19/23 11:42 POC Glucose 59 mg/dL (70-110) L 09/19/23 13:08 Calculated Osmolality 287 mOsm/kg (285-295) 09/19/23 11:42 Lactic Acid 1.9 mmol/L (0.5-2.2) 09/19/23 11:42 Calcium 10.2 mg/dL (8.5-10.5) 09/19/23 11:42 Total Bilirubin 0.6 mg/dL (0.15-1.2) 09/19/23 11:42 AST 60 U/L (0-40) H 09/19/23 11:42 ALT 46 U/L (0-41) H 09/19/23 11:42 Alkaline Phosphatase 81 U/L (40-130) 09/19/23 11:42 Troponin T Baseline 108 ng/L (0-15) H* 09/19/23 11:42 C-Reactive Protein 364.9 mg/L (0.0-4.9) H 09/19/23 11:42 Total Protein 7.4 g/dL (6.6-8.7) 09/19/23 11:42 Albumin 4.0 g/dL (3.5-5.2) 09/19/23 11:42 Globulin 3.4 g/dL (1.3-4.6) 09/19/23 11:42 Procalcitonin 4.88 ng/mL (0-0.5) H 09/19/23 11:42 No radiology studies performed this visit Other Data Assessment and plan: Sepsis Cellulitis -Source of sepsis is a cellulitis of the left lower extremity. -2.5 L normal saline bolus. Fluid volumes based on ideal body weight. -Broad-spectrum antibiotics were administered. Zyvox and cefepime were administered. -Sepsis quality measures. -Lactic acid with a reflex was ordered. -Blood cultures were ordered. Procalcitonin ordered. Acute renal failure - fluids as above. Hypoglycemia -250 D10 bolus and p.o. juice were given. -I discussed the patient with the hospitalist on-call who is admitting the patient. - Discussed findings and plan with patient. Answered any questions. - All laboratory values were reviewed and interpreted personally by myself, the ER physician - All imaging was reviewed and interpreted personally by myself, the ER physician. - Evaluation and treatment of this problem were appropriate in the emergency setting -I spent a total of >35 minutes of critical care time managing the patient, independent of any other practitioner. -The time involved in the performance of separately reportable procedures was not counted towards critical care time. Discharge Plan Discharge Patient Disposition: Admitted As Inpatient Admit Provider: Aris Griffin Clinical Impression: Cellulitis of left lower leg, Sepsis, Acute renal failure, Hypoglycemia Condition: Stable Coding Level of Care Code ED Mail Handler Assistant for Paty Mancia
[2023-09-19 11:49] LABS: Basophils # 0.1 10^3/uL (0.0-0.1); Basophils % 0.3 %; Hematocrit 47.7 % (37-53); Lymphocytes # 2.2 10^3/uL (0.8-4.8); Lymphocytes % 7.8 %; Mean Corpuscular HGB Conc 32.7 g/dL (30-55); Mean Corpuscular Hemoglobin 30.3 pg (27-33); Mean Corpuscular Volume 92.6 fl (82-101); Monocytes # 1.1 10^3/uL (0.2-0.9); Monocytes % 3.7 %; Neutrophils # 24.95 10^3/uL (1.8-7.7); Neutrophils % 87.3 %; Nucleated Red Blood Cells % 0 %; Platelet Count 302 10^3/cmm (157-399); Red Blood Count 5.15 10^6/uL (3.85-5.65); Red Cell Distribution Width 14.6 % (12.1-15.1); White Blood Count 28.62 10^3/uL (3.29-11.43)
[2023-09-19 11:54] LABS: Erythrocyte Sedimentation Rate 47 mm/hr (0-10)
[2023-09-19] MEDS: ondansetron 2 mg/ML SDV 2 mL 4 MG IVP (12:05)
[2023-09-19] MEDS: HYDROmorphone 1 mg/mL INJ 1 mL IVP (12:06)
[2023-09-19 12:12] LABS: Lactic Sepsis W/Reflex 1.9 mmol/L (0.5-2.2)
[2023-09-19 12:25] LABS: Procalcitonin 4.88 ng/mL (0-0.5)
--- NOTE | 2023-09-19 12:33 | PC.PHAR ---
pt is from [facility] [phone] Casentric states the pt had am meds states is unsure if pt had insulins today states the nurse gives the insulins and states the nurse is in another pts room -medications entered are meds that are from the pts mar and tar that was sent with pt
--- NOTE | 2023-09-19 12:33 | PC.NURSE ---
CEFAPIME ABX LATE DUE TO UNDRAWN BLOOD CULTURES. DR. ALANIS AWARE OF LATE ABX.
--- NOTE | 2023-09-19 12:35 | ECG_ITS ---
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 Measurements Intervals [place] Rate: 113 P: 37 NV: 162 QRS: 16 QRSD: 89 T: 116 QT: 319 QTc: 439 Interpretive Statements SINUS TACHY[address]ARDIA [address] DEVIATION AND MODERATE T-WAVE ABNORMALITY, CONSIDER LATERAL ISCHEMIA [-0.1+ mV T-WAVE IN I/aVL/V5/V6] Compared to ECG 09/12/2021 15:48:22 Sinus rhythm no longer present T-wave abnormality still present Possible ischemia still present Electronically Signed On 09-19-2023 18:53:25 CDT by Maral Montenegro M.D. [id number]
[2023-09-19 12:38] LABS: Alanine Aminotransferase 46 U/L (0-41); Alkaline Phosphatase 81 U/L (40-130); Anion Gap 18.8 (5-19); Aspartate Amino Transferase 60 U/L (0-40); Blood Urea Nitrogen 39 mg/dL (8-23); Calcium 10.2 mg/dL (8.5-10.5); Carbon Dioxide 23 mmol/L (22-29); Chloride 97 mmol/L (98-107); Globulin 3.4 g/dL (1.3-4.6); Glomerular Filtration Rate 30.3 mL/min (90-130); Glucose 50 mg/dL (65-115); Osmolality Calculated 287 mOsm/kg (285-295); Potassium 3.8 mmol/L (3.5-5.1); Sodium 135 mmol/L (136-145); Total Bilirubin 0.6 mg/dL (0.15-1.2); Total Protein 7.4 g/dL (6.6-8.7)
[2023-09-19] MEDS: sodium chloride 0.9% 500 ML 999 ML IV ×3 (12:49→14:47)
[2023-09-19 12:50] LABS: C Reactive Protein 364.9 mg/L (0.0-4.9)
[2023-09-19] MEDS: cefepime 2,000 MG in sodium chloride 0.9% (plus) 50 ML 100 MG IV (12:55)
[2023-09-19 13:12] LABS: Glucose Point of Care 59 mg/dL (70-110)
[2023-09-19 13:18] LABS: Troponin(5th) Baseline 108 ng/L (0-15)
[2023-09-19] MEDS: sodium chloride 0.9% 1,000 ML 999 ML IV (13:18)
[2023-09-19] MEDS: linezolid premix 600 MG/300 ML PREMIX 300 MG IV (13:18)
--- NOTE | 2023-09-19 13:23 | PC.NURSE ---
Pt drank 120ml apple juice
--- NOTE | 2023-09-19 13:25 | USCV_ITS ---
Tucker Tyler Age: 63 Gender: M : 1960 Exam Date: 09/19/2023 13:53 Ordering Phys: Aris Griffin MD Technologist: CT Exam Location: [facility] [place]_ Indication: PROCEDURES: Venous duplex imaging was performed in only the left lower extremity. In addition, the posterior tibial and peroneal trunk were evaluated. FINDINGS: no dvt CONCLUSIONS No evidence of left lower extremity DVT. Marek Guardado MD (Electronically Signed) Final Date: 19 September 2023 16:07 S
--- NOTE | 2023-09-19 13:25 | CT_ITS ---
WS: [id number] Noncontrast CT LEFT lower leg TECHNIQUE: Noncontrast CT LEFT lower leg with coronal and sagittal reformatted images. CLINICAL INFORMATION: swelling, erythema COMPARISON: None. DLP: 329.[address] scans at [facility] use at least one of these dose optimization techniques: automated e xposure control; mA and/or kV adjustment per patient size (includes targeted exams where dose is matc hed to clinical indication); or iterative reconstruction. FINDINGS: Vascular calcification. Diffuse soft tissue edema LEFT lower extremity extending to the ankle. No alden dence of drainable abscess or fluid collection. Normal anatomic alignment. No visualized fractures. N o evidence of drainable abscess or fluid collection. IMPRESSION: 1. Skin thickening with subcutaneous edema compatible with cellulitis. No drainable abscess or fluid collection. 2. No evidence of osteomyelitis.
[2023-09-19 13:38] LABS: ABG PCO2 43.1 mmHg (35-45); ABG PH Result 7.34 (7.35-7.45); Arterial Blood Gas Hematocrit 40.6 % (42-52); Base Excess ABG -2.9 mmol/L (-2.0-2.0); Blood Gas Allen Test Pos; Blood Gas Operator Identificat WALCI; Blood Gas Sample Site Radial, right; Blood Gas Sample Type Arterial; Oxygen Device NC; PO2 ABG 74.7 mmHg (80.0-100.0)
--- NOTE | 2023-09-19 13:56 | P.HP_ITS ---
Providers/Chief Complaint 2 Admitting Physician: Aris Griffin MD Primary Care Provider: Leonel Jolley Chief Complaint: cellulitis History of Present Illness Tucker Tyler is a 63 year old male with a past medical history of insulin- dependent type 2 diabetes mellitus, history of CVA with residual left-sided hemiparesis, chronic flexion contracture of left upper extremity, history of hypertension, history of CKD who [facility] due to left lower extremity swelling with complaints of fevers, chills, feeling unwell and hypoglycemia. Currently patient is alert to person, to place, not to time he follows all commands, he tells me he is here in the hospital because his left leg was swollen, he had fevers, chills, feeling unwell, with hypoglycemia. Currently he denies any chest pain, no palpitations, no shortness of breath, no abdominal pain, he has chronic left lower extremity weakness, denies any injuries, no falls, in the emergency room, he was found to have sepsis secondary to left lower extremity cellulitis, with a Pro-Delonte 4.88, CRP over 300, white count over 28,000, creatinine 2.2 troponin 108, with tachycardia has been given cefepime, Zyvox, fluid bolus, found to be hypoglycemic, given D10 Dilaudid for pain, hospice team has been called for admission Review of Systems 2 Const: Reports: fever(s), chills, fatigue and malaise Eyes: Denies: change in vision Card: Denies: chest pain Resp: Denies: dyspnea GI: Denies: abdominal pain : Denies: flank pain or difficulty urinating Musc: Denies: neck pain or back pain Skin/Breast: Reports: rash, erythema, skin tenderness and skin swelling Neuro: Denies: headache(s) Endo: Denies: polyuria Medications/Allergies Home Medications Medication Instructions Recorded Confirmed Last Taken Type acetaminophen 500 mg tablet 500 mg PO Q4H PRN Pain #60 tabs 09/28/21 09/19/23 Unknown Rx albuterol sulfate 90 mcg/actuation 1 inh inhalation Q6H PRN Shortness 09/28/21 09/19/23 Unknown Rx aerosol inhaler Of Breath #8.5 grams calcium carbonate 200 mg calcium 500 mg (2.5 x 200 mg calcium (500 09/28/21 09/19/23 Unknown Rx (500 mg) chewable tablet (Tums) mg)) PO Q4H PRN INDIGESTION #30 tabs alprazolam 0.25 mg tablet (Xanax) 0.25 mg PO Q6H PRN Anxiety 09/19/23 09/19/23 Unknown History aspirin 81 mg tablet,delayed 81 mg PO DAILY@08 09/19/23 09/19/23 09/19/23 08:58 History release atorvastatin 80 mg tablet 80 mg PO BEDTIME@20 09/19/23 09/19/23 09/18/23 History benzocaine 20 % mucosal gel 1 applic mucous membrane Q8H PRN 09/19/23 09/19/23 Unknown History Pain bisacodyl 10 mg rectal suppository 10 mg AZ DAILY PRN Constipation 09/19/23 09/19/23 Unknown History buspirone 10 mg tablet 20 mg PO TID 09/19/23 09/19/23 09/19/23 08:58 History citalopram 40 mg tablet (Celexa) 40 mg PO DAILY@08 09/19/23 09/19/23 09/19/23 History gabapentin 600 mg tablet 600 mg PO QID 09/19/23 09/19/23 09/19/23 08:58 History hydrocodone 5 mg-acetaminophen 325 1 tab PO BID 09/19/23 09/19/23 09/19/23 08:58 History mg tablet insulin glargine 100 unit/mL (3 80 unit SUBCUT BID 09/19/23 09/19/23 Unknown History mL) subcutaneous pen (Lantus Solostar U-100 Insulin) insulin lispro 100 unit/mL See Rx Instructions .Route .COMPLEX 09/19/23 09/19/23 Unknown History subcutaneous pen insulin lispro 100 unit/mL 28 unit SUBCUT .WITH MEALS 09/19/23 09/19/23 Unknown History subcutaneous pen (Humalog KwikPen (U-100) Insulin) ketoconazole 2 % shampoo See Rx Instructions .Route .COMPLEX 09/19/23 09/19/23 Unknown History magnesium hydroxide 400 mg/5 mL 30 ml PO DAILY PRN Constipation 09/19/23 09/19/23 Unknown History oral suspension (Milk of Magnesia) multivitamin,tx-minerals 1 tab PO DAILY@08 09/19/23 09/19/23 09/19/23 08:58 History nystatin 100,000 unit/gram topical See Rx Instructions .Route .COMPLEX 09/19/23 09/19/23 Unknown History cream pantoprazole 40 mg tablet,delayed 40 mg PO DAILY@06 09/19/23 09/19/23 09/19/23 History release polyethylene glycol 3350 17 gram 17 g PO DAILY PRN Constipation 09/19/23 09/19/23 Unknown History oral powder packet (Miralax) sennosides 8.6 mg-docusate sodium 1 tab PO Q12H PRN Constipation 09/19/23 09/19/23 Unknown History 50 mg tablet (Senna-S) sod chloride-sod See Rx Instructions .Route .COMPLEX 09/19/23 09/19/23 Unknown History bicarb-hyaluronate sod-aloe 0.9 % nasal gel (Nasogel) sodium phosphates 19 gram-7 118 ml AZ DAILY PRN Constipation 09/19/23 09/19/23 Unknown History gram/118 mL enema (Enema Disposable) tamsulosin 0.4 mg capsule 0.4 mg PO BEDTIME@20 09/19/23 09/19/23 09/18/23 History tizanidine 4 mg tablet 4 mg PO Q8H PRN Muscle Spasm 09/19/23 09/19/23 Unknown History Allergies Allergy/AdvReac Type Severity Reaction Status Date / Time No Known Allergies Allergy Verified 05/13/23 10:12 PFSH Acute 2 PFSH: Medical History Acute pancreatitis Splenic artery aneurysm 4.4 cm, declines surgical intervention Anxiety 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) Left upper quadrant abdominal mass History of upper gastrointestinal bleeding History of seizure Hypertension Neuropathy History of CVA (cerebrovascular accident) Chronic pain Hyperlipidemia Type 2 diabetes mellitus Chronic kidney disease Family History Father , AT AGE 66 Aneurysm Mother , AT AGE 84 Natural Social History Smoking and tobacco/nicotine status: current every day tobacco/nicotine user Alcohol intake: never Substance/Drug Use: never Marital status: Life Partner Current occupational status: disabled Vitals/I&O/Wt Last Vital Signs Pulse 106 H 09/19/23 13:20 Resp 18 09/19/23 13:20 BP 117/83 09/19/23 13:20 Pulse Ox 94 09/19/23 13:20 O2 Del Method Nasal Cannula 09/19/23 13:20 O2 Flow Rate 2 09/19/23 13:20 Weight last 48 hrs Weight 113.398 kg Physical Exam 2 Const: COMMON NORMALS: no acute distress and patient oriented x3 HENMT: COMMON NORMALS: normocephalic HEAD & SCALP: normocephalic Eye: COMMON NORMALS: Equal, round and reactive pupils present and EOMs intact bilaterally Neck/C-Spine: COMMON NORMALS: no JVD Lymph: LYMPHATIC: no lymphadenopathy noted Resp: COMMON NORMALS: normal respiratory effort, No retractions, No use of accessory muscles and clear to auscultation bilaterally AUSCULTATION: clear to auscultation bilaterally Cardio: COMMON NORMALS: no JVD, regular rate, regular rhythm, S1 normal heart sound present and S2 normal heart sound present RATE: regular rate RHYTHM: regular rhythm HEART SOUNDS: S1 normal heart sound present and S2 normal heart sound present GI: COMMON NORMALS: Normal to inspection, nondistended, normoactive bowel sounds present, Soft to palpation and non-tender Extremity: NARRATIVE EXTREMITY EXAM: Left lower extremity swelling, from the ankle, to just below the knee joint, with swelling, erythema, pitting edema Neuro: COMMON NORMALS: patient oriented x3 and CN's II-XII intact bilaterally OTHER: Left hand flexion contracture Left leg flaccid paralysis Psych: COMMON NORMALS: mental status grossly normal Sepsis: Is patient septic: Yes Focused sepsis exam performed: Yes F ocused sepsis exam: Capillary refill greater than 2 seconds, mild mottling bilateral lower extremity, DP PT pulses barely palpable Data 09/19/23 11:42 09/19/23 11:42 Micro: Microbiology 09/19/23 12:47 Blood Culture - Preliminary Blood SPECIMEN COLLECTED 09/19/23 12:47 Blood Culture - Preliminary Blood SPECIMEN COLLECTED A&P Assessment and plan (1) Sepsis: (2) Cellulitis of left lower leg: (3) NSTEMI (non-ST elevated myocardial infarction): (4) Hypoglycemia: (5) Acute kidney injury superimposed on CKD: (6) Type 2 diabetes mellitus: Qualifiers: Diabetes mellitus complication detail: without coma Diabetes mellitus complication status: with hypoglycemia Diabetes mellitus assisted insulin use: with adjunct faculty for medical terminology use Qualified Code(s): E11.649 - Type 2 diabetes mellitus with hypoglycemia without coma; Z79.4 - halfway (current) use of insulin (7) History of CVA (cerebrovascular accident): Plan Left lower extremity cellulitis -With evidence of sepsis Plan -CT left lower extremity -Venous ultrasound -Vancomycin -Zosyn -Follow blood cultures -IV fluids at 100 cc an hour -Monitor hemodynamic status closely -Monitor Pro-Delonte, CRP -Further workup based upon CT and venous ultrasound findings Sepsis -Sepsis criteria met, given elevated white count, of over 20,000, creatinine 2.2, elevated Pro-Delonte, CRP, hypoglycemia, elevated troponins, sinus tachycardia source of infection left lower extremity cellulitis Hypoglycemia -Monitor blood sugars every hour -Low-dose sliding scale -takes glargine 80 units twice daily, hold for now GINA on CKD, IV fluids NSTEMI -No chest pain complaints -Serial EKGs, serial troponins, telemetry monitoring -Continue aspirin, statin -Cardiac echo History of CVA with residual left-sided deficits Attestations 2 Medical Necessity Statement*: Patient requires hospitalization, inpatient, greater than 2 midnights, for sepsis secondary to left lower extremity cellulitis, with GINA with NSTEMI, with hypoglycemia Diagnoses Sepsis A41.9 Cellulitis of left lower leg L03.116 NSTEMI (non-ST elevated myocardial infarction) I21.4 Hypoglycemia E16.2 Acute kidney injury superimposed on CKD N17.9; N18.9 Type 2 diabetes mellitus with hypoglycemia without coma, with long-term current use of insulin E11.649; Z79.4 Diabetes mellitus complication detail: without coma Diabetes mellitus complication status: with hypoglycemia Diabetes mellitus assisted insulin use: with adjunct faculty for medical terminology use History of CVA (cerebrovascular accident) Z86.73
[2023-09-19 14:14] LABS: Creatine Phosphokinase 2199 U/L (39-308)
[2023-09-19 14:42] LABS: INR 1.13 (0.8-1.2)
[2023-09-19 14:48] LABS: Glucose Point of Care 94 mg/dL (70-110)
--- NOTE | 2023-09-19 14:48 | PC.NURSE ---
PER DR. ALANIS TOLD TO HOLD D10, BLOOD GLUCOSE 110.
--- NOTE | 2023-09-19 14:50 | USCV_ITS ---
Tucker Tyler Age: 63 Gender: M : 1960 Exam Date: 09/19/2023 21:27 Ordering Phys: Aris Griffin MD Technologist: ZAIN Exam Location: [facility] [place] Indication: NSTEMI BP: 130 / 75 HR: 105 Rhythm: Sinus Technical Quality: Adequate MEASUREMENTS (Male / Female) Normal Values 2D ECHO LV Diastolic Diameter PLAX 4.1 cm 4.2 - 5.9 / 3.9 - 5.3 cm IVS Diastolic Thickness 1.5 cm 0.6 - 1.0 / 0.6 - 0.9 cm IVS Systolic Thickness 2.2 cm LVPW Diastolic Thickness 1.1 cm 0.6 - 1.0 / 0.6 - 0.9 cm LVPW Systolic Thickness 1.4 cm LVOT Diameter 1.8 cm LV Ejection Fraction 2D Teich 60.5 % LV Ejection Fraction MOD 2C 69.8 % LV Ejection Fraction 2C AL 71.5 % LA Diameter 3.2 cm Aorta at Sinotubular Diameter 2.5 cm IVC Diameter 1.1 cm M-MODE LA Ao Ratio MM 1.2 AV Cusp Separation MM 1.7 cm DOPPLER AV Peak Velocity 127.0 cm/s LVOT Peak Velocity 95.0 cm/s AV Area Cont Eq vti 1.6 cm squared AV Area Cont Eq pk 1.8 cm squared MV Peak Velocity 121.0 cm/s MV Area PHT 5.9 cm squared Mitral E to A Ratio 0.7 PV Peak Velocity 114.0 cm/s FINDINGS Left Ventricle Left ventricle is normal in size. LV systolic function is normal with EF of 60 to 65%. No regional wall motion abnormalities are seen. Grade 1 diastolic dysfunction. Right Ventricle Normal in size and function Right Atrium Normal in size Left Atrium Normal in size Mitral Valve Structurally normal mitral valve. Trace mitral regurgitation. Aortic Valve Structurally normal aortic valve. No significant stenosis or regurgitation. Tricuspid Valve Mild tricuspid regurgitation. Insufficient TR jet to calculate RVSP Pulmonic Valve Not well-visualized. Pericardium Normal Aorta Normal in size IVC Appears to be normal CONCLUSIONS Technically limited quality echocardiogram because of poor ultrasonic windows. LV systolic function is normal with EF of 60 to 65%. Grade 1 diastolic dysfunction Trace mitral regurgitation Mild tricuspid regurgitation. Compared to prior echocardiogram from 2021, no significant changes are seen Vicente Monroy MD (Electronically Signed) Final Date: 20 September 2023 08:18 S
--- NOTE | 2023-09-19 15:03 | PC.NURSE ---
VERIFIED ORDERS WITH DR. CORDOVA TO HOLD D10 MAINTENANCE FLUID.
[2023-09-19] MEDS: BuSPIRONE 10 mg Tablet 20 MG PO ×2 (15:14→20:14)
[2023-09-19] MEDS: piperacillin-tazobactam 3.375 GM in sodium chloride 0.9% (plus) 50 ML IV ×2 (15:16→23:05)
[2023-09-19] MEDS: enoxaparin 40 mg/0.4 mL Syringe SUBCUT (15:17)
[2023-09-19] MEDS: dextrose 5%-sod chloride 0.9% 1,000 ML 75 ML IV (15:33)
[2023-09-19 15:42] LABS: Troponin 5 2HR 107.5 ng/L (0-15); Troponin 5 2HR Delta 4.5 ABS# (0-10)
[2023-09-19 15:42] LABS: Troponin(5th) Baseline 103 ng/L (0-15)
[2023-09-19] MEDS: acetaminophen 325 mg Tablet 650 MG PO ×2 (15:43→23:21)
[2023-09-19 16:27] LABS: Estmated Average Glucose 217; Hemoglobin A1C 9.2 % (4.0-6.0)
[2023-09-19 16:40] LABS: Glucose Point of Care 127 mg/dL (70-110)
[2023-09-19 16:43] LABS: Chol HDL Ratio 2.44 mg/dL (1.0-5.00); Cholesterol 100 mg/dL (0-200); HDL Cholesterol 41 mg/dL (60-100); LDL Cholesterol Calculated 34 mg/dL (50-129); LDL HDL Ratio 0.83 RATIO (0.00-3.22); NT Pro B Type Natriuretic Pept 783 pg/mL (0-125); Thyroid Stimulating Hormone 1.05 uIU/mL (0.27-4.20); Triglycerides 124 mg/dL (0-150)
--- NOTE | 2023-09-19 17:19 | PC.RESP ---
unable to do assess and treat- pt still in ed
[2023-09-19] MEDS: morphine 4 mg/mL SDV 1 mL 2 MG IVP (17:29)
[2023-09-19 18:43] LABS: Glucose Point of Care 178 mg/dL (70-110)
[2023-09-19] MEDS: vancomycin 1,250 MG/250 ML PIGGYBACK 250 MG IV (18:46)
[2023-09-19] MEDS: gabapentin 300 mg Capsule 600 MG PO ×2 (18:46→20:14)
[2023-09-19] MEDS: insulin lispro 100 unit/1 mL SUBCUT ×2 (18:48→20:13)
[2023-09-19 19:42] LABS: Troponin 5 6HR 89.22 ng/L (0-15)
[2023-09-19 19:44] LABS: Troponin 5 6HR Delta -13.78 ng/L (0-12)
[2023-09-19 20:04] LABS: Glucose Point of Care 159 mg/dL (70-110)
[2023-09-19] MEDS: tamsulosin 0.4 mg Capsule 0.400000000000000022 MG PO (20:14)
[2023-09-19] MEDS: atorvastatin 40 mg Tablet PO (20:15)
--- NOTE | 2023-09-19 20:54 | ECG_ITS ---
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 Measurements Intervals [place] Rate: 110 P: 1 WI: 133 QRS: 30 QRSD: 90 T: 151 QT: 298 QTc: 405 Interpretive Statements SINUS TACHYCARDIA NONSPECIFIC ST & T-WAVE ABNORMALITY Compared to ECG 09/19/2023 12:35:45 Possible ischemia no longer present T-wave abnormality still present Electronically Signed On 09-20-2023 21:44:41 CDT by Vicente Monroy M.D. [id number]
[2023-09-20] VITALS (70 sets, daily range): BP systolic 80–196; BP diastolic 49–123; PULSE 88–119; RESP 10–26; TEMP 36.7–38.6; O2SAT 88–100
[2023-09-20] MEDS: ALPRAZolam 0.5 mg Tablet 0.25 MG PO ×2 (00:27→14:02)
[2023-09-20] MEDS: morphine 4 mg/mL SDV 1 mL 2 MG IVP ×2 (01:59→06:36)
[2023-09-20] MEDS: dextrose 5%-sod chloride 0.9% 1,000 ML 75 ML IV (04:38)
--- NOTE | 2023-09-20 05:18 | PC.NURSE ---
Patient has been experiencing hallucinations throughout the night. Patient has been yelling out and talking to different people that aren't there. This morning patient stated why is my horse running away, where is it going? .
[2023-09-20 05:40] LABS: Basophils # 0.1 10^3/uL (0.0-0.1); Basophils % 0.4 %; Hematocrit 38.6 % (37-53); Lymphocytes # 1.8 10^3/uL (0.8-4.8); Lymphocytes % 6.6 %; Mean Corpuscular HGB Conc 31.9 g/dL (30-55); Mean Corpuscular Hemoglobin 30.1 pg (27-33); Mean Corpuscular Volume 94.6 fl (82-101); Mean Platelet Volume 11.2 fL (7.4-10.4); Monocytes # 1.5 10^3/uL (0.2-0.9); Monocytes % 5.8 %; Neutrophils # 22.68 10^3/uL (1.8-7.7); Nucleated Red Blood Cells % 0 %; Platelet Count 256 10^3/cmm (157-399); Red Blood Count 4.08 10^6/uL (3.85-5.65); Red Cell Distribution Width 15.2 % (12.1-15.1); White Blood Count 26.38 10^3/uL (3.29-11.43)
[2023-09-20] MEDS: pantoprazole DR 40 mg Tablet PO (06:23)
[2023-09-20] MEDS: piperacillin-tazobactam 3.375 GM in sodium chloride 0.9% (plus) 50 ML IV ×3 (06:24→23:33)
[2023-09-20 06:30] LABS: NT Pro B Type Natriuretic Pept 1175 pg/mL (0-125); Procalcitonin 3.41 ng/mL (0-0.5)
[2023-09-20 06:34] LABS: Alanine Aminotransferase 38 U/L (0-41); Albumin Level 3.2 g/dL (3.5-5.2); Alkaline Phosphatase 99 U/L (40-130); Anion Gap 15.3 (5-19); Aspartate Amino Transferase 53 U/L (0-40); Blood Urea Nitrogen 35 mg/dL (8-23); C Reactive Protein 313.3 mg/L (0.0-4.9); Calcium 8.8 mg/dL (8.5-10.5); Carbon Dioxide 21 mmol/L (22-29); Chloride 108 mmol/L (98-107); Globulin 2.8 g/dL (1.3-4.6); Glucose 136 mg/dL (65-115); Magnesium 1.7 mg/dL (1.7-2.3); Osmolality Calculated 300 mOsm/kg (285-295); Potassium 4.3 mmol/L (3.5-5.1); Sodium 140 mmol/L (136-145); Total Bilirubin 0.6 mg/dL (0.15-1.2)
[2023-09-20 06:35] LABS: Creatinine Clr Calc Pharmacy 41.3118
[2023-09-20 06:42] LABS: Glucose Point of Care 150 mg/dL (70-110)
[2023-09-20 07:06] LABS: Creatine Phosphokinase 1470 U/L (39-308)
[2023-09-20 07:34] LABS: Glucose Point of Care 190 mg/dL (70-110)
[2023-09-20] MEDS: gabapentin 300 mg Capsule 600 MG PO ×4 (07:39→20:37)
[2023-09-20] MEDS: aspirin 81 mg EC Tablet PO (07:39)
[2023-09-20] MEDS: BuSPIRONE 10 mg Tablet 20 MG PO ×3 (07:39→20:38)
[2023-09-20] MEDS: citalopram 20 mg Tablet 40 MG PO (07:39)
[2023-09-20] MEDS: insulin lispro 100 unit/1 mL SUBCUT ×4 (07:40→20:38)
--- NOTE | 2023-09-20 09:03 | CTR_ITS ---
PROCEDURE INFORMATION: Exam: CT Left Lower Extremity Without Contrast, Hip Exam date and time: 09/20/2023 4:26 PM Age: 63 years old Clinical indication: Pain; Hip; Left; Additional info: Hip pain TECHNIQUE: Imaging protocol: CT of the left lower extremity without contrast was performed. Exam focused on the hip. Radiation optimization: All CT scans at this facility use at least one of these dose optimization techniques: automated exposure control; mA and/or kV adjustment per patient size (includes targeted exams where dose is matched to clinical indication); or iterative reconstruction. COMPARISON: CR XR hip LT 2-3V wo/w pel* [id number] 06/09/2021 8:33 AM RADIATION DOSE METRICS: Total DLP (mGy-cm): 619.9 FINDINGS: Bones/joints: The bony structures demonstrate diffuse osteopenia. Mild spurring involves the acetabulum. No fracture or joint effusion noted. Soft tissues: Normal. CT/CT hip LT wo con* [id number] IMPRESSION: Mild arthritic change
[2023-09-20] MEDS: sodium chloride 0.9% 1,000 ML 50 ML IV (09:18)
[2023-09-20] MEDS: acetaminophen 325 mg Tablet 650 MG PO ×2 (09:18→17:44)
[2023-09-20] MEDS: HYDROcodone-acetaminophen 5-325 mg Tablet 1 TAB PO ×3 (10:40→20:38)
[2023-09-20 12:38] LABS: Glucose Point of Care 165 mg/dL (70-110)
[2023-09-20] MEDS: enoxaparin 40 mg/0.4 mL Syringe SUBCUT (14:02)
[2023-09-20] MEDS: nystatin powder 30 gm Btl 1 APPLIC TOPICAL (14:09)
--- NOTE | 2023-09-20 14:58 | PM.PN ---
Subjective Subjective: Patient was morning, patient tells me that he uses hydrocodone at the alf, he tells me that the dose is 20 mg of hydrocodone twice daily, but I looked at his chart and its only 5 mg twice daily, I discussed this with the patient, he tells me that he tries to get hydrocodone whenever he can at the alf he has severe left hip pain, he tells me that it intermittently pops out of its socket, he reports significant pain out of his left hip Vitals/I&O/Wt Last Vital Signs Temp 98.6 F 09/20/23 09:00 Pulse 90 09/20/23 12:00 Resp 15 09/20/23 12:00 BP 126/77 09/20/23 12:00 Pulse Ox 92 09/20/23 12:00 O2 Del Method Room Air 09/20/23 12:00 O2 Flow Rate 2 09/20/23 08:00 09/19/23 09/20/23 09/20/23 22:59 06:59 14:59 Intake Total 1650 / 3150 1031.25 / 4181.25 950 / 950 Output Total 150 / 150 200 / 200 Balance 1500 / 3000 1031.25 / 4031.25 750 / 750 Weight last 48 hrs Weight 106.322 kg Weight 113.398 kg Physical Exam Const: COMMON NORMALS: no acute distress and patient oriented x3 Resp: COMMON NORMALS: normal respiratory effort, No retractions and No use of accessory muscles AUSCULTATION: wheezes Cardio: COMMON NORMALS: regular rate, regular rhythm, S1 normal heart sound present and S2 normal heart sound present RATE: regular rate RHYTHM: regular rhythm HEART SOUNDS: S1 normal heart sound present and S2 normal heart sound present GI: COMMON NORMALS: Normal to inspection, nondistended, normoactive bowel sounds present and non-tender Extremity: NARRATIVE EXTREMITY EXAM: Left leg swelling, erythema Neuro: COMMON NORMALS: patient oriented x3, CN's II-XII intact bilaterally and moves all extremities Psych: COMMON NORMALS: mental status grossly normal Data 09/20/23 05:02 09/20/23 05:02 Micro: Microbiology 09/19/23 12:47 Blood Culture - Preliminary Blood NEGATIVE TO DATE 09/19/23 12:47 Blood Culture - Preliminary Blood NEGATIVE TO DATE A&P Assessment and plan (1) Sepsis: (2) Cellulitis of left lower leg: (3) NSTEMI (non-ST elevated myocardial infarction): (4) Hypoglycemia: (5) Acute kidney injury superimposed on CKD: (6) Type 2 diabetes mellitus: Qualifiers: Diabetes mellitus complication detail: without coma Diabetes mellitus complication status: with hypoglycemia Diabetes mellitus termite exterminator helper insulin use: with termite exterminator helper use Qualified Code(s): E11.649 - Type 2 diabetes mellitus with hypoglycemia without coma; Z79.4 - terminologist (current) use of insulin (7) History of CVA (cerebrovascular accident): Plan Left lower extremity cellulitis -With evidence of sepsis Plan -CT left lower extremity no underlying abscess, no osteomyelitis -Venous ultrasound no DVT -Vancomycin -Zosyn -Follow blood cultures -IV fluids at 100 cc an hour -Monitor hemodynamic status closely -Monitor Pro-Delonte, CRP -Further workup based upon CT and venous ultrasound findings Sepsis -Sepsis criteria met, given elevated white count, of over 20,000, creatinine 2.2, elevated Pro-Delonte, CRP, hypoglycemia, elevated troponins, sinus tachycardia source of infection left lower extremity cellulitis Hypoglycemia, resolving -Monitor blood sugars every hour -Low-dose sliding scale - GINA on CKD, IV fluids NSTEMI -No chest pain complaints -Serial EKGs, serial troponins, telemetry monitoring -Continue aspirin, statin -Cardiac echo History of CVA with residual left-sided deficits Left hip pain, CT left hip Chronic pain, hydrocodone 5-325 every 4 hours as needed Plan for today, continue IV antibiotics, CT of the left hip, moved to [facility] Attestations Medical Necessity Statement*: Patient requires hospitalization for left lower extremity cellulitis, sepsis, GINA, NSTEMI Diagnoses Sepsis A41.9 Cellulitis of left lower leg L03.116 NSTEMI (non-ST elevated myocardial infarction) I21.4 Hypoglycemia E16.2 Acute kidney injury superimposed on CKD N17.9; N18.9 Type 2 diabetes mellitus with hypoglycemia without coma, with long-term current use of insulin E11.649; Z79.4 Diabetes mellitus complication detail: without coma Diabetes mellitus complication status: with hypoglycemia Diabetes mellitus skilled nursing insulin use: with skilled nursing use History of CVA (cerebrovascular accident) Z86.73
--- NOTE | 2023-09-20 15:59 | SUR.OPER ---
Report called to [facility] on med surg. Patient and belongings taken to room 258-1. No further questions.
[2023-09-20 17:07] LABS: Glucose Point of Care 313 mg/dL (70-110)
[2023-09-20 20:35] LABS: Glucose Point of Care 317 mg/dL (70-110)
[2023-09-20] MEDS: tamsulosin 0.4 mg Capsule 0.400000000000000022 MG PO (20:37)
[2023-09-21] MEDS: HYDROcodone-acetaminophen 5-325 mg Tablet 1 TAB PO ×5 (03:03→22:21)
[2023-09-21] MEDS: vancomycin 1,250 MG/250 ML PIGGYBACK 250 MG IV (03:03)
[2023-09-21 04:00] VITALS: BP 166/90; PULSE 99; RESP 18; TEMP 36.8; O2SAT 90
[2023-09-21 05:13] LABS: Basophils # 0.1 10^3/uL (0.0-0.1); Basophils % 0.5 %; Eosinophils # 0.2 10^3/uL (0.0-0.8); Eosinophils % 1.2 %; Hematocrit 36.6 % (37-53); Lymphocytes # 1.5 10^3/uL (0.8-4.8); Lymphocytes % 7.4 %; Mean Corpuscular HGB Conc 31.7 g/dL (30-55); Mean Corpuscular Hemoglobin 30.3 pg (27-33); Mean Corpuscular Volume 95.6 fl (82-101); Mean Platelet Volume 10.8 fL (7.4-10.4); Monocytes # 1.5 10^3/uL (0.2-0.9); Monocytes % 7.4 %; Neutrophils # 16.31 10^3/uL (1.8-7.7); Neutrophils % 82.5 %; Nucleated Red Blood Cells % 0 %; Platelet Count 245 10^3/cmm (157-399); Red Blood Count 3.83 10^6/uL (3.85-5.65); White Blood Count 19.78 10^3/uL (3.29-11.43)
[2023-09-21] MEDS: pantoprazole DR 40 mg Tablet PO (05:32)
[2023-09-21] MEDS: sodium chloride 0.9% 1,000 ML 50 ML IV (05:33)
[2023-09-21 05:40] LABS: Lactate (Lactic Acid level) 0.9 mmol/L (0.5-2.2)
[2023-09-21 05:45] LABS: INR 1.14 (0.8-1.2)
[2023-09-21 05:53] LABS: Alanine Aminotransferase 52 U/L (0-41); Alkaline Phosphatase 94 U/L (40-130); Anion Gap 13.2 (5-19); Aspartate Amino Transferase 55 U/L (0-40); Blood Urea Nitrogen 25 mg/dL (8-23); Carbon Dioxide 21 mmol/L (22-29); Chloride 110 mmol/L (98-107); Globulin 3.5 g/dL (1.3-4.6); Glomerular Filtration Rate 43.7 mL/min (90-130); Glucose 194 mg/dL (65-115); Magnesium 1.8 mg/dL (1.7-2.3); Osmolality Calculated 300 mOsm/kg (285-295); Phosphorus 1.9 mg/dL (2.5-4.5); Potassium 4.2 mmol/L (3.5-5.1); Sodium 140 mmol/L (136-145); Total Bilirubin 0.5 mg/dL (0.15-1.2); Total Protein 6.5 g/dL (6.6-8.7)
[2023-09-21 05:54] LABS: Creatinine Clr Calc Pharmacy 54.8203
[2023-09-21 06:04] LABS: NT Pro B Type Natriuretic Pept 918 pg/mL (0-125); Procalcitonin 1.72 ng/mL (0-0.5)
[2023-09-21 06:26] LABS: Creatine Phosphokinase 504 U/L (39-308)
[2023-09-21 06:30] LABS: Glucose Point of Care 198 mg/dL (70-110)
[2023-09-21 07:29] VITALS: BP 153/87; PULSE 90; RESP 16; TEMP 36.7; O2SAT 92
[2023-09-21] MEDS: insulin lispro 100 unit/1 mL SUBCUT ×3 (07:43→21:15)
[2023-09-21] MEDS: piperacillin-tazobactam 3.375 GM in sodium chloride 0.9% (plus) 50 ML IV ×2 (07:44→17:48)
[2023-09-21] MEDS: citalopram 20 mg Tablet 40 MG PO (07:44)
[2023-09-21] MEDS: aspirin 81 mg EC Tablet PO (07:44)
[2023-09-21] MEDS: ALPRAZolam 0.5 mg Tablet 0.25 MG PO ×2 (08:31→17:47)
[2023-09-21] MEDS: acetaminophen 325 mg Tablet 650 MG PO ×2 (08:32→21:08)
[2023-09-21] MEDS: BuSPIRONE 10 mg Tablet 20 MG PO ×3 (08:32→21:09)
[2023-09-21] MEDS: phosphorus 250 mg Tablet PO ×2 (08:39→17:48)
[2023-09-21] MEDS: gabapentin 300 mg Capsule 600 MG PO ×4 (08:39→21:08)
[2023-09-21 11:39] LABS: Glucose Point of Care 218 mg/dL (70-110)
[2023-09-21 11:53] VITALS: BP 125/83; PULSE 79; RESP 16; TEMP 36.8; O2SAT 91
[2023-09-21 12:00] VITALS: BP 125/83; PULSE 79; RESP 16; TEMP 36.8
--- NOTE | 2023-09-21 13:52 | PM.PN ---
Subjective Subjective: patient was seen this morning, he coutinues to complain of hip pain, he tells me he wants hydrocodone 10mg, whenever he wants, i advised patient that im going to do my best to get his pain under contril he has hydrocodone 5mg which he can use every 4 hours prm for pain, denies fever, no chills Vitals/I&O/Wt Last Vital Signs Temp 98.3 F 09/21/23 12:00 Pulse 79 09/21/23 12:00 Resp 16 09/21/23 12:00 BP 125/83 09/21/23 12:00 Pulse Ox 91 09/21/23 11:53 O2 Del Method Room Air 09/21/23 11:53 O2 Flow Rate 2 09/20/23 08:00 09/20/23 09/21/23 09/21/23 22:59 06:59 14:59 Intake Total 50 / 1000 1980 / 2980 480 / 480 Output Total 900 / 1100 200 / 1300 200 / 200 Balance -850 / -100 1780 / 1680 280 / 280 Weight last 48 hrs Weight 108.59 kg Weight 106.322 kg Physical Exam Const: COMMON NORMALS: no acute distress and patient oriented x3 Resp: COMMON NORMALS: normal respiratory effort, No retractions, No use of accessory muscles and clear to auscultation bilaterally AUSCULTATION: clear to auscultation bilaterally Cardio: COMMON NORMALS: regular rate, regular rhythm, S1 normal heart sound present and S2 normal heart sound present RATE: regular rate RHYTHM: regular rhythm HEART SOUNDS: S1 normal heart sound present and S2 normal heart sound present GI: COMMON NORMALS: Normal to inspection, nondistended, normoactive bowel sounds present and non-tender Extremity: NARRATIVE EXTREMITY EXAM: left leg celluliltis and erythema improving Neuro: COMMON NORMALS: patient oriented x3 Psych: COMMON NORMALS: mental status grossly normal Data 09/21/23 05:02 09/21/23 05:02 Micro: Microbiology 09/19/23 12:47 Blood Culture - Preliminary Blood NEGATIVE TO DATE 09/19/23 12:47 Blood Culture - Preliminary Blood NEGATIVE TO DATE A&P Assessment and plan (1) Sepsis: (2) Cellulitis of left lower leg: (3) NSTEMI (non-ST elevated myocardial infarction): (4) Hypoglycemia: (5) Acute kidney injury superimposed on CKD: (6) Type 2 diabetes mellitus: Qualifiers: Diabetes mellitus complication detail: without coma Diabetes mellitus complication status: with hypoglycemia Diabetes mellitus long-term insulin use: with intermediate card tender use Qualified Code(s): E11.649 - Type 2 diabetes mellitus with hypoglycemia without coma; Z79.4 - custodial (current) use of insulin (7) History of CVA (cerebrovascular accident): Plan Left lower extremity cellulitis -With evidence of sepsis Plan -CT left lower extremity no underlying abscess, no osteomyelitis -Venous ultrasound no DVT -Vancomycin -Zosyn -Follow blood cultures -IV fluids at 50 cc an hour -Monitor hemodynamic status closely -Monitor Pro-Delonte, CRP Sepsis -Sepsis criteria met, given elevated white count, of over 20,000, creatinine 2.2, elevated Pro-Delonte, CRP, hypoglycemia, elevated troponins, sinus tachycardia source of infection left lower extremity cellulitis Hypoglycemia, resolving -Monitor blood sugars every hour -Low-dose sliding scale - GINA on CKD, IV fluids NSTEMI -No chest pain complaints -Serial EKGs, serial troponins, telemetry monitoring -Continue aspirin, statin -Cardiac echo History of CVA with residual left-sided deficits Left hip pain, CT left hip, no acute findings Chronic pain, hydrocodone 5-325 every 4 hours as needed Plan for today, continue IV antibiotics, Attestations Medical Necessity Statement*: patient requires hospitalization for cellulitis of left leg Diagnoses Sepsis A41.9 Cellulitis of left lower leg L03.116 NSTEMI (non-ST elevated myocardial infarction) I21.4 Hypoglycemia E16.2 Acute kidney injury superimposed on CKD N17.9; N18.9 Type 2 diabetes mellitus with hypoglycemia without coma, with long-term current use of insulin E11.649; Z79.4 Diabetes mellitus complication detail: without coma Diabetes mellitus complication status: with hypoglycemia Diabetes mellitus intermediate card tender insulin use: with long-term use History of CVA (cerebrovascular accident) Z86.73
[2023-09-21] MEDS: enoxaparin 40 mg/0.4 mL Syringe SUBCUT (14:08)
[2023-09-21] MEDS: nystatin powder 30 gm Btl 1 APPLIC TOPICAL (15:17)
[2023-09-21 16:00] VITALS: BP 161/94; PULSE 80; RESP 15; TEMP 36.6; O2SAT 96
[2023-09-21 16:43] LABS: Glucose Point of Care 345 mg/dL (70-110)
[2023-09-21 20:00] VITALS: BP 163/85; PULSE 70; RESP 17; TEMP 36.4; O2SAT 96
[2023-09-21] MEDS: tamsulosin 0.4 mg Capsule 0.400000000000000022 MG PO (21:08)
[2023-09-21 21:15] LABS: Glucose Point of Care 296 mg/dL (70-110)
[2023-09-22] VITALS (9 sets, daily range): BP systolic 131–155; BP diastolic 75–86; PULSE 75–88; RESP 14–18; TEMP 36.4–37; O2SAT 90–96
[2023-09-22] MEDS: sodium chloride 0.9% 1,000 ML 50 ML IV (00:37)
[2023-09-22] MEDS: ALPRAZolam 0.5 mg Tablet 0.25 MG PO ×3 (01:13→17:21)
[2023-09-22] MEDS: piperacillin-tazobactam 3.375 GM in sodium chloride 0.9% (plus) 50 ML IV ×3 (01:14→17:20)
[2023-09-22] MEDS: nystatin powder 30 gm Btl 1 APPLIC TOPICAL ×2 (01:14→14:10)
[2023-09-22] MEDS: HYDROcodone-acetaminophen 5-325 mg Tablet 1 TAB PO ×2 (04:15→08:12)
[2023-09-22] MEDS: pantoprazole DR 40 mg Tablet PO (04:15)
[2023-09-22 06:36] LABS: Glucose Point of Care 216 mg/dL (70-110)
[2023-09-22] MEDS: gabapentin 300 mg Capsule 600 MG PO ×4 (08:12→21:45)
[2023-09-22] MEDS: insulin lispro 100 unit/1 mL SUBCUT ×4 (08:12→21:44)
[2023-09-22] MEDS: phosphorus 250 mg Tablet PO ×2 (08:12→17:21)
[2023-09-22] MEDS: citalopram 20 mg Tablet 40 MG PO (08:12)
[2023-09-22] MEDS: BuSPIRONE 10 mg Tablet 20 MG PO ×3 (08:13→21:45)
[2023-09-22] MEDS: aspirin 81 mg EC Tablet PO (08:13)
--- NOTE | 2023-09-22 08:32 | PC.NURSE ---
Pt refused morning blood draw. This nurse went into room with steel detailer to discuss the importance of getting daily labs. Pt refused blood draw again and stated, I can't handle it.
[2023-09-22] MEDS: acetaminophen 325 mg Tablet 650 MG PO ×2 (09:40→19:51)
[2023-09-22] MEDS: morphine 4 mg/mL SDV 1 mL 1 MG IVP (11:15)
[2023-09-22 11:20] LABS: Glucose Point of Care 263 mg/dL (70-110)
[2023-09-22 12:15] LABS: Basophils # 0.1 10^3/uL (0.0-0.1); Basophils % 0.6 %; Eosinophils # 0.4 10^3/uL (0.0-0.8); Eosinophils % 2.6 %; Hematocrit 36.6 % (37-53); Lymphocytes # 1.5 10^3/uL (0.8-4.8); Lymphocytes % 10.8 %; Mean Corpuscular HGB Conc 32.5 g/dL (30-55); Mean Corpuscular Hemoglobin 30.4 pg (27-33); Mean Corpuscular Volume 93.6 fl (82-101); Monocytes # 1.4 10^3/uL (0.2-0.9); Monocytes % 9.6 %; Neutrophils # 10.59 10^3/uL (1.8-7.7); Neutrophils % 75.2 %; Nucleated Red Blood Cells % 0 %; Platelet Count 288 10^3/cmm (157-399); Red Blood Count 3.91 10^6/uL (3.85-5.65); Red Cell Distribution Width 14.9 % (12.1-15.1)
[2023-09-22] MEDS: HYDROcodone-acetaminophen 7.5-325 mg Tablet 1 TAB PO ×2 (12:18→18:18)
[2023-09-22 12:27] LABS: INR 1.08 (0.8-1.2)
[2023-09-22 12:35] LABS: Lactate (Lactic Acid level) 1.1 mmol/L (0.5-2.2)
[2023-09-22 12:39] LABS: Alanine Aminotransferase 55 U/L (0-41); Albumin Level 3.1 g/dL (3.5-5.2); Alkaline Phosphatase 210 U/L (40-130); Anion Gap 15.1 (5-19); Aspartate Amino Transferase 47 U/L (0-40); Blood Urea Nitrogen 22 mg/dL (8-23); Calcium 8.9 mg/dL (8.5-10.5); Carbon Dioxide 20 mmol/L (22-29); Chloride 110 mmol/L (98-107); Globulin 3.3 g/dL (1.3-4.6); Glomerular Filtration Rate 47.1 mL/min (90-130); Glucose 257 mg/dL (65-115); Magnesium 1.6 mg/dL (1.7-2.3); Osmolality Calculated 304 mOsm/kg (285-295); Phosphorus 2.1 mg/dL (2.5-4.5); Potassium 4.1 mmol/L (3.5-5.1); Sodium 141 mmol/L (136-145); Total Bilirubin 0.5 mg/dL (0.15-1.2); Total Protein 6.4 g/dL (6.6-8.7)
[2023-09-22 13:16] LABS: NT Pro B Type Natriuretic Pept 2315 pg/mL (0-125); Procalcitonin 1.12 ng/mL (0-0.5)
[2023-09-22 13:27] LABS: Creatine Phosphokinase 147 U/L (39-308)
--- NOTE | 2023-09-22 13:51 | PM.PN ---
Subjective Subjective: Patient was seen this morning, he continues to complain of severe left hip pain, denies any fevers, no chills, no cough Vitals/I&O/Wt Last Vital Signs Temp 97.8 F 09/22/23 12:00 Pulse 75 09/22/23 12:00 Resp 15 09/22/23 12:00 BP 135/75 09/22/23 12:00 Pulse Ox 93 09/22/23 11:42 O2 Del Method Room Air 09/22/23 11:42 O2 Flow Rate 2 09/20/23 08:00 09/21/23 09/22/23 09/22/23 22:59 06:59 14:59 Intake Total 290 / 820 1003.333 / 1823.333 720 / 720 Output Total 200 / 400 Balance 290 / 620 803.333 / 1423.333 720 / 720 Weight last 48 hrs Weight 108.409 kg Weight 108.59 kg Physical Exam Const: COMMON NORMALS: no acute distress and patient oriented x3 Resp: COMMON NORMALS: normal respiratory effort, No retractions, No use of accessory muscles and clear to auscultation bilaterally AUSCULTATION: clear to auscultation bilaterally Cardio: COMMON NORMALS: regular rate, regular rhythm, S1 normal heart sound present and S2 normal heart sound present RATE: regular rate RHYTHM: regular rhythm HEART SOUNDS: S1 normal heart sound present and S2 normal heart sound present GI: COMMON NORMALS: Normal to inspection, nondistended, normoactive bowel sounds present and non-tender Extremity: COMMON NORMALS: no pedal edema Neuro: COMMON NORMALS: patient oriented x3 Psych: COMMON NORMALS: mental status grossly normal Data 09/22/23 11:30 09/22/23 11:30 A&P Assessment and plan (1) Sepsis: (2) Cellulitis of left lower leg: (3) NSTEMI (non-ST elevated myocardial infarction): (4) Hypoglycemia: (5) Acute kidney injury superimposed on CKD: (6) Type 2 diabetes mellitus: Qualifiers: Diabetes mellitus complication detail: without coma Diabetes mellitus complication status: with hypoglycemia Diabetes mellitus custodial insulin use: with custodial use Qualified Code(s): E11.649 - Type 2 diabetes mellitus with hypoglycemia without coma; Z79.4 - parts counterman (current) use of insulin (7) History of CVA (cerebrovascular accident): Plan Left lower extremity cellulitis -With evidence of sepsis Plan -CT left lower extremity no underlying abscess, no osteomyelitis -Venous ultrasound no DVT -Vancomycin -Zosyn -Follow blood cultures -IV fluids at 50 cc an hour -Monitor hemodynamic status closely -Monitor Pro-Delonte, CRP Sepsis -Sepsis criteria met, given elevated white count, of over 20,000, creatinine 2.2, elevated Pro-Delonte, CRP, hypoglycemia, elevated troponins, sinus tachycardia source of infection left lower extremity cellulitis Hypoglycemia, resolving -Monitor blood sugars every hour -Low-dose sliding scale - GINA on CKD, IV fluids NSTEMI -No chest pain complaints -Serial EKGs, serial troponins, telemetry monitoring -Continue aspirin, statin -Cardiac echo History of CVA with residual left-sided deficits Left hip pain, CT left hip, no acute findings Chronic pain, hydrocodone 5-325 every 4 hours as needed Plan for today, continue IV antibiotics, pain control Attestations Medical Necessity Statement*: Patient requires hospitalization for left lower extremity cellulitis, requiring IV antibiotic recs Diagnoses Sepsis A41.9 Cellulitis of left lower leg L03.116 NSTEMI (non-ST elevated myocardial infarction) I21.4 Hypoglycemia E16.2 Acute kidney injury superimposed on CKD N17.9; N18.9 Type 2 diabetes mellitus with hypoglycemia without coma, with long-term current use of insulin E11.649; Z79.4 Diabetes mellitus complication detail: without coma Diabetes mellitus complication status: with hypoglycemia Diabetes mellitus custodial insulin use: with ad terminal makeup operator use History of CVA (cerebrovascular accident) Z86.73
[2023-09-22] MEDS: enoxaparin 40 mg/0.4 mL Syringe SUBCUT (14:11)
[2023-09-22] MEDS: magnesium lactate 84 mg Tablet PO (14:11)
[2023-09-22] MEDS: tizanidine 4 mg Tablet PO (14:13)
[2023-09-22] MEDS: vancomycin 1,250 MG/250 ML PIGGYBACK 250 MG IV (15:18)
--- NOTE | 2023-09-22 16:46 | PC.NURSE ---
Pt states that pain is uncontrolled by current pain medication. Dr. Griffin notifed. No new orders at this time.
[2023-09-22 16:52] LABS: Glucose Point of Care 241 mg/dL (70-110)
[2023-09-22] MEDS: tamsulosin 0.4 mg Capsule 0.400000000000000022 MG PO (19:51)
[2023-09-22 20:40] LABS: Glucose Point of Care 292 mg/dL (70-110)
[2023-09-23] VITALS (7 sets, daily range): BP systolic 129–188; BP diastolic 80–93; PULSE 64–97; RESP 16–19; TEMP 36.6–37.1; O2SAT 92–98
[2023-09-23] MEDS: ALPRAZolam 0.5 mg Tablet 0.25 MG PO ×4 (00:23→19:35)
[2023-09-23] MEDS: HYDROcodone-acetaminophen 7.5-325 mg Tablet 1 TAB PO ×2 (00:24→08:19)
[2023-09-23] MEDS: acetaminophen 325 mg Tablet 650 MG PO ×2 (01:47→21:18)
[2023-09-23] MEDS: magnesium lactate 84 mg Tablet PO ×2 (01:47→16:43)
[2023-09-23] MEDS: tizanidine 4 mg Tablet PO ×3 (01:47→21:18)
[2023-09-23] MEDS: piperacillin-tazobactam 3.375 GM in sodium chloride 0.9% (plus) 50 ML IV ×3 (01:48→16:42)
[2023-09-23] MEDS: nystatin powder 30 gm Btl 1 APPLIC TOPICAL ×2 (02:00→21:23)
[2023-09-23 03:13] LABS: Basophils # 0.1 10^3/uL (0.0-0.1); Basophils % 0.7 %; Eosinophils # 0.5 10^3/uL (0.0-0.8); Eosinophils % 3.9 %; Hematocrit 38.9 % (37-53); Lymphocytes # 1.5 10^3/uL (0.8-4.8); Mean Corpuscular HGB Conc 32.9 g/dL (30-55); Mean Corpuscular Hemoglobin 30.6 pg (27-33); Mean Corpuscular Volume 93.1 fl (82-101); Monocytes # 1.3 10^3/uL (0.2-0.9); Monocytes % 9.6 %; Neutrophils # 10.07 10^3/uL (1.8-7.7); Neutrophils % 73.4 %; Nucleated Red Blood Cells % 0 %; Platelet Count 359 10^3/cmm (157-399); Red Blood Count 4.18 10^6/uL (3.85-5.65); Red Cell Distribution Width 14.6 % (12.1-15.1); White Blood Count 13.71 10^3/uL (3.29-11.43)
[2023-09-23 03:38] LABS: Vancomycin Trough 14.6 ug/mL (10-15)
[2023-09-23 03:40] LABS: Alanine Aminotransferase 52 U/L (0-41); Albumin Level 3.1 g/dL (3.5-5.2); Alkaline Phosphatase 104 U/L (40-130); Anion Gap 16.8 (5-19); Aspartate Amino Transferase 33 U/L (0-40); Blood Urea Nitrogen 22 mg/dL (8-23); C Reactive Protein 151.2 mg/L (0.0-4.9); Calcium 9.4 mg/dL (8.5-10.5); Carbon Dioxide 20 mmol/L (22-29); Chloride 106 mmol/L (98-107); Creatinine Clr Calc Pharmacy 67.4123; Globulin 3.9 g/dL (1.3-4.6); Glomerular Filtration Rate 55.6 mL/min (90-130); Glucose 228 mg/dL (65-115); Magnesium 1.7 mg/dL (1.7-2.3); Osmolality Calculated 299 mOsm/kg (285-295); Phosphorus 2.3 mg/dL (2.5-4.5); Potassium 3.8 mmol/L (3.5-5.1); Sodium 139 mmol/L (136-145); Total Bilirubin 0.5 mg/dL (0.15-1.2)
[2023-09-23 03:52] LABS: NT Pro B Type Natriuretic Pept 2778 pg/mL (0-125); Procalcitonin 0.91 ng/mL (0-0.5)
[2023-09-23] MEDS: sodium chloride 0.9% 1,000 ML 50 ML IV (04:36)
[2023-09-23] MEDS: pantoprazole DR 40 mg Tablet PO (06:19)
[2023-09-23 06:31] LABS: Glucose Point of Care 258 mg/dL (70-110)
[2023-09-23] MEDS: citalopram 20 mg Tablet 40 MG PO (08:19)
[2023-09-23] MEDS: phosphorus 250 mg Tablet PO ×2 (08:20→16:43)
[2023-09-23] MEDS: insulin lispro 100 unit/1 mL SUBCUT ×4 (08:20→22:06)
[2023-09-23] MEDS: gabapentin 300 mg Capsule 600 MG PO ×4 (08:20→21:18)
[2023-09-23] MEDS: aspirin 81 mg EC Tablet PO (08:20)
[2023-09-23] MEDS: BuSPIRONE 10 mg Tablet 20 MG PO ×3 (08:20→21:19)
[2023-09-23] MEDS: amlodipine 10 mg Tablet PO (11:16)
[2023-09-23] MEDS: FUROsemide 10 mg/mL SDV 4mL 40 MG IVP (11:16)
[2023-09-23] MEDS: HYDROcodone-acetaminophen 10-325 mg Tablet 1 TAB PO ×2 (11:36→19:36)
[2023-09-23 11:39] LABS: Glucose Point of Care 298 mg/dL (70-110)
[2023-09-23 12:05] LABS: Erythrocyte Sedimentation Rate 74 mm/hr (0-10)
[2023-09-23 12:18] LABS: Creatine Phosphokinase 105 U/L (39-308)
[2023-09-23 12:26] LABS: C.Diff PCR (Lab) NEGATIVE (Negative)
--- NOTE | 2023-09-23 14:30 | PM.PN ---
Subjective Subjective: Patient was seen this morning, he continues to complain of severe pain in his left hip, pain in his left lower extremity, he tells me that he is in so much pain, he tells me to cut off his leg or euthanize him, as he cannot tolerate the pain, we discussed yesterday I had increased his dose of hydrocodone from 5 mg to 7.5, but he tells me that is not enough, I discussed my concerns for possible pain behaviors, but I understand he is in severe pain given his cellulitis, and his left hip pain, with his prior history of stroke, we discussed increasing his hydrocodone to 10 mg every 8 hours as needed, he is agreeable, he denies any active suicidal ideation, he denies any plans, denies any homicidal ideation he tells me is just in so much pain he cannot tolerated he can tells me that he is also in a lot of pain at the senior living, Vitals/I&O/Wt Last Vital Signs Temp 98.0 F 09/23/23 12:00 Pulse 85 09/23/23 12:00 Resp 16 09/23/23 12:00 BP 167/84 09/23/23 12:00 Pulse Ox 94 09/23/23 12:00 O2 Del Method Room Air 09/23/23 12:00 O2 Flow Rate 2 09/20/23 08:00 09/22/23 09/23/23 09/23/23 22:59 06:59 14:59 Intake Total 1886 / 2656 902.5 / 3558.5 480 / 480 Output Total 250 / 250 Balance 1636 / 2406 902.5 / 3308.5 480 / 480 Weight last 48 hrs Weight 108.409 kg Weight 108.409 kg Physical Exam Const: COMMON NORMALS: no acute distress and patient oriented x3 Resp: COMMON NORMALS: normal respiratory effort, No retractions, No use of accessory muscles and clear to auscultation bilaterally AUSCULTATION: clear to auscultation bilaterally Cardio: COMMON NORMALS: regular rate, regular rhythm, S1 normal heart sound present and S2 normal heart sound present RATE: regular rate RHYTHM: regular rhythm HEART SOUNDS: S1 normal heart sound present and S2 normal heart sound present GI: COMMON NORMALS: Normal to inspection, nondistended, normoactive bowel sounds present and non-tender Extremity: NARRATIVE EXTREMITY EXAM: Left lower extremity, has 1+ pitting edema, erythema, extending from mid [place]ley, down to the ankles, continues to have significant erythema, warmth Neuro: COMMON NORMALS: patient oriented x3 Psych: COMMON NORMALS: mental status grossly normal Data 09/23/23 02:58 09/23/23 02:58 A&P Assessment and plan (1) Sepsis: (2) Cellulitis of left lower leg: (3) NSTEMI (non-ST elevated myocardial infarction): (4) Hypoglycemia: (5) Acute kidney injury superimposed on CKD: (6) Type 2 diabetes mellitus: Qualifiers: Diabetes mellitus complication detail: without coma Diabetes mellitus complication status: with hypoglycemia Diabetes mellitus middle or intermediate school principal insulin use: with nursing home use Qualified Code(s): E11.649 - Type 2 diabetes mellitus with hypoglycemia without coma; Z79.4 - long term care phlebotomist (current) use of insulin (7) History of CVA (cerebrovascular accident): (8) Intractable pain: Plan Left lower extremity cellulitis -With evidence of sepsis Plan -CT left lower extremity no underlying abscess, no osteomyelitis -Venous ultrasound no DVT ? However continues to have significant erythema, swelling, tenderness and warmth in the area, has not receded much for the last 48 hours, sed rate up to 74, will order MRI left lower leg -Vancomycin -Zosyn -Follow blood cultures -IV fluids have been stopped -Monitor hemodynamic status closely -Monitor Pro-Delonte, CRP Intractable left lower extremity pain ? Will Doppler bilateral pulses, ? Arterial ultrasound given history of diabetes ? Does have a history of peripheral neuropathy is optimized on gabapentin 600 mg p.o. 4 times daily ? On hydrocodone 10 mg 1 tab every 8 hours as needed Sepsis -Sepsis criteria met, given elevated white count, of over 20,000, creatinine 2.2, elevated Pro-Delonte, CRP, hypoglycemia, elevated troponins, sinus tachycardia source of infection left lower extremity cellulitis Hypoglycemia, resolving -Monitor blood sugars every hour -Low-dose sliding scale - GINA on CKD, IV fluids NSTEMI -No chest pain complaints -Serial EKGs, serial troponins, telemetry monitoring -Continue aspirin, statin -Cardiac echo History of CVA with residual left-sided deficits Left hip pain, CT left hip, no acute findings, pain control as above Chronic pain, hydrocodone Plan for today, MRI left leg due to persistent erythema of the left leg, elevated sed rate, intractable left leg pain order arterial ultrasound, pain control continue IV antibiotics watch blood cultures, sed rate ordered elevated Attestations Medical Necessity Statement*: patient requires hospitalization for left lower extremity cellulitis with persisting cellulitis requiring further workup, with intractable pain Diagnoses Sepsis A41.9 Cellulitis of left lower leg L03.116 NSTEMI (non-ST elevated myocardial infarction) I21.4 Hypoglycemia E16.2 Acute kidney injury superimposed on CKD N17.9; N18.9 Type 2 diabetes mellitus with hypoglycemia without coma, with long-term current use of insulin E11.649; Z79.4 Diabetes mellitus complication detail: without coma Diabetes mellitus complication status: with hypoglycemia Diabetes mellitus nursing home insulin use: with nursing home use History of CVA (cerebrovascular accident) Z86.73 Intractable pain R52
--- NOTE | 2023-09-23 14:32 | USR_ITS ---
PROCEDURE INFORMATION: Exam: US Duplex Left Lower Extremity Arteries Or Arterial Bypass Grafts Exam date and time: 09/23/2023 3:18 PM Age: 63 years old Clinical indication: Pain; Leg, lower; Left; Additional info: Left lower extremity pain TECHNIQUE: Imaging protocol: Left Real-time duplex scan of the arteries or arterial bypass grafts of the left lower extremity with 2-D reeves scale, color Doppler flow and spectral waveform analysis. Images documented and saved. COMPARISON: CT hip LT wo con* [id number] 09/20/2023 4:26 PM FINDINGS: Left external iliac artery: Mildly abnormal monophasic waveform with sharp systolic upstroke and peak velocity 123 cm/s in the left external iliac artery. Left common femoral artery: Mildly abnormal monophasic waveform and peak velocity 156 cm/s in the left common femoral artery. Left superficial femoral artery: Mildly abnormal monophasic waveform with sharp systolic upstroke and peak velocity 153 cm/s in the left proximal superficial femoral artery, 109 cm/s in the mid left superficial femoral artery and 94 cm/s in the distal left superficial femoral artery. Left popliteal artery: Mildly abnormal monophasic waveform with sharp systolic upstroke in the left popliteal artery with peak velocity 170 cm/s. Left calf/foot arteries: Tardus parvus waveform with peak velocity 52 cm/s in the left distal posterior tibial artery. Mildly abnormal monophasic waveform with sharp systolic upstroke in the left dorsalis pedis artery with peak velocity 126 cm/second. US/[place] [id number] IMPRESSION: 1. No sign of hemodynamically significant stenosis to the level of the popliteal artery. 2. Abnormal waveform in the patent distal posterior tibial artery indicates hemodynamically significant upstream stenosis. 3. The dorsalis pedis artery is patent.
[2023-09-23 16:35] LABS: Glucose Point of Care 283 mg/dL (70-110)
[2023-09-23] MEDS: enoxaparin 40 mg/0.4 mL Syringe SUBCUT (16:42)
[2023-09-23] MEDS: loperamide 2 mg Capsule 4 MG PO (19:35)
[2023-09-23] MEDS: tamsulosin 0.4 mg Capsule 0.400000000000000022 MG PO (19:36)
[2023-09-23 21:17] LABS: Glucose Point of Care 340 mg/dL (70-110)
[2023-09-23] MEDS: lanolin oint 7 gm 1 APPLIC TOPICAL (21:29)
[2023-09-24] VITALS: BP 116/72; PULSE 71; RESP 18; TEMP 36.8; O2SAT 91
[2023-09-24] MEDS: piperacillin-tazobactam 3.375 GM in sodium chloride 0.9% (plus) 50 ML IV ×3 (01:09→17:10)
[2023-09-24] MEDS: magnesium lactate 84 mg Tablet PO ×2 (01:09→15:46)
[2023-09-24] MEDS: HYDROcodone-acetaminophen 10-325 mg Tablet 1 TAB PO ×4 (03:35→21:50)
[2023-09-24 04:00] VITALS: BP 178/78; PULSE 85; RESP 19; TEMP 36.6; O2SAT 95
[2023-09-24] MEDS: pantoprazole DR 40 mg Tablet PO (05:18)
[2023-09-24] MEDS: tizanidine 4 mg Tablet PO ×2 (05:19→21:11)
[2023-09-24] MEDS: vancomycin 1,250 MG/250 ML PIGGYBACK 250 MG IV (05:19)
[2023-09-24] MEDS: sodium chloride 0.9% 1,000 ML 50 ML IV ×2 (05:19→17:10)
[2023-09-24 05:58] LABS: Basophils # 0.1 10^3/uL (0.0-0.1); Basophils % 0.6 %; Eosinophils # 0.5 10^3/uL (0.0-0.8); Eosinophils % 3.8 %; Hematocrit 40.6 % (37-53); Lymphocytes # 1.5 10^3/uL (0.8-4.8); Lymphocytes % 11.1 %; Mean Corpuscular HGB Conc 32.8 g/dL (30-55); Mean Corpuscular Hemoglobin 29.9 pg (27-33); Mean Corpuscular Volume 91.2 fl (82-101); Mean Platelet Volume 10.9 fL (7.4-10.4); Monocytes # 1.5 10^3/uL (0.2-0.9); Monocytes % 11.2 %; Neutrophils # 9.47 10^3/uL (1.8-7.7); Neutrophils % 69.7 %; Nucleated Red Blood Cells % 0 %; Platelet Count 437 10^3/cmm (157-399); Red Blood Count 4.45 10^6/uL (3.85-5.65); Red Cell Distribution Width 14.6 % (12.1-15.1); White Blood Count 13.57 10^3/uL (3.29-11.43)
[2023-09-24 06:24] LABS: NT Pro B Type Natriuretic Pept 1783 pg/mL (0-125); Procalcitonin 0.75 ng/mL (0-0.5)
[2023-09-24 06:25] LABS: Alanine Aminotransferase 41 U/L (0-41); Albumin Level 3.3 g/dL (3.5-5.2); Alkaline Phosphatase 118 U/L (40-130); Anion Gap 17.3 (5-19); Aspartate Amino Transferase 20 U/L (0-40); Blood Urea Nitrogen 29 mg/dL (8-23); C Reactive Protein 135.7 mg/L (0.0-4.9); Calcium 9.5 mg/dL (8.5-10.5); Carbon Dioxide 23 mmol/L (22-29); Chloride 104 mmol/L (98-107); Globulin 3.7 g/dL (1.3-4.6); Glomerular Filtration Rate 47.1 mL/min (90-130); Glucose 316 mg/dL (65-115); Magnesium 1.8 mg/dL (1.7-2.3); Osmolality Calculated 308 mOsm/kg (285-295); Phosphorus 2.9 mg/dL (2.5-4.5); Potassium 4.3 mmol/L (3.5-5.1); Sodium 140 mmol/L (136-145); Total Bilirubin 0.4 mg/dL (0.15-1.2)
--- NOTE | 2023-09-24 06:35 | PC.NURSE ---
Patient beginning to get inappropriate with this nurse while turning the patient. The patient stated, I'm going to fall. I'm going to fall! This nurse informed the patient that he was not going to fall because there were two bed rails up on the side of the bed the patient was being turned toward and that this nurse was in between the two rails blocking the only opening. The patient stated, you're too small in which this nurse replied, I'm big enough to keep you from falling. The patient began stating, Here, let me feel you, and started to rub this nurse's arm. The patient was informed that it was inappropriate and that he needed to stop. The patient then started stating, Well, you don't have to be so rude.
[2023-09-24 06:37] LABS: Glucose Point of Care 327 mg/dL (70-110)
[2023-09-24 08:00] VITALS: BP 165/83; BP 178/78; PULSE 76; PULSE 85; RESP 16; RESP 19; TEMP 36.6; TEMP 36.9; O2SAT 93
--- NOTE | 2023-09-24 09:33 | CTR_ITS ---
PROCEDURE INFORMATION: Exam: CTA Left Lower Extremity With Contrast Exam date and time: 09/24/2023 10:18 AM Age: 63 years old Clinical indication: Cellulitis; Lower leg; Left; Additional info: CT angio left lower leg for limb ischemia. No history of recent trauma or surgery is provided. TECHNIQUE: Imaging protocol: Computed tomographic angiography of the right and left lower extremities with contrast. [id number](s) are provided. 3D rendering (Not supervised by radiologist): MIP and/or 3D reconstructed images were created by the technologist. Radiation optimization: All CT scans at this facility use at least one of these dose optimization techniques: automated exposure control; mA and/or kV adjustment per patient size (includes targeted exams where dose is matched to clinical indication); or iterative reconstruction. Contrast material: OMNI 350; Contrast volume: 100 ml; Contrast route: INTRAVENOUS (IV); COMPARISON: 1. CT hip LT wo con* [id number] 09/20/2023 4:26 PM. Ultrasound report 09/23/2023. 2. CT lower leg LT wo con* [id number] 09/19/2023 1:[address] [place] [id number] 09/12/2021 4:33 PM. No previous bilateral lower extremity runoff is currently available. RADIATION DOSE METRICS: Total DLP (mGy-cm): 674.14 FINDINGS: Left iliac arteries: The included left iliac arteries appear grossly patent overall with some chronic atherosclerotic related change. Left femoral/popliteal arteries: The left femoral and popliteal arteries appear grossly patent overall although there are areas of bulky scattered plaque contributing to some at least moderate foraminal narrowing for example at the origin on the left of the femoral artery. There is also some significant luminal narrowing with some calcified as well as noncalcified plaque of the left popliteal artery. Left infrapopliteal arteries: The left infrapopliteal arteries demonstrate small caliber overall with some bulky calcified plaque. Initial three-vessel runoff distribution is demonstrated although there are some areas of incomplete visualization of the anterior tibial with predominant two-vessel runoff along with some significant calcification contributing to luminal narrowing for example at the bifurcation of the peroneal and posterior tibial arteries. There appears to be contribution of the dorsalis pedis from the peroneal artery. Right iliac arteries: The included right iliac arteries appear grossly patent overall with some chronic atherosclerotic related change. Right femoral/popliteal arteries: The right femoral and popliteal arteries appear grossly patent overall. There are some areas of bulky calcified plaque contributing to at least moderate lumen narrowing for example at the origin of the right femoral as well as distally and popliteal. Right infrapopliteal arteries: The right infrapopliteal arteries demonstrate trifurcation with some scattered dense calcified plaque contributing to some overall luminal narrowing. There does appear to be three-vessel runoff to the ankle mortise level although minuscule caliber of the peroneal. Stomach and bowel: Some aspects of the colon are undistended. This may also be peristaltic related.There is some stool present limiting mucosal detail evaluation.The bowel gas pattern appears nonobstructive. Urinary bladder: The bladder is incompletely fluid filled for evaluation which may exagerate the wall thickness. This can also be seen with post inflammation sequela. Reproductive: There appears to be some slight prostate hypertrophy. Intraperitoneal space: No layering free air or free fluid collections are appreciated. Bones/joints: Osseous alignment is maintained. No interval displaced fracture or dislocation is appreciated.There is slightly decreased bone mineralization overall. There are some degenerative changes present overall. Soft tissues: No radiopaque foreign body or diffuse subcutaneous emphysema is appreciated. There appears to be some punctate subcutaneous air anterior abdomen and could be injection related. There appears to be some subcutaneous stranding, edema and slight swelling overall on the left. Some of the stranding is laterally predominant on the coronal sequence. Some of the edema and subcutaneous stranding is more pronounced of the left lower leg. Venous phase evaluation is overall limited. [place] [id number] IMPRESSION: Lower extremity arterial flow is overall demonstrated bilaterally. There are however some areas of bulky plaque and noncalcified plaque contributing to some areas of luminal narrowing. This correlates with some areas significant luminal plaque and narrowing on the left most pronounced of the popliteal and infrapopliteal trifurcation. If there are associated clinical symptoms then consider dedicated percutaneous conventional angiography.
[2023-09-24] MEDS: citalopram 20 mg Tablet 40 MG PO (09:35)
[2023-09-24] MEDS: amlodipine 10 mg Tablet PO (09:35)
[2023-09-24] MEDS: BuSPIRONE 10 mg Tablet 20 MG PO ×3 (09:35→21:11)
[2023-09-24] MEDS: phosphorus 250 mg Tablet PO ×2 (09:35→17:11)
[2023-09-24] MEDS: aspirin 81 mg EC Tablet PO (09:35)
[2023-09-24] MEDS: insulin lispro 100 unit/1 mL SUBCUT ×4 (09:36→21:48)
[2023-09-24] MEDS: nystatin powder 30 gm Btl 1 APPLIC TOPICAL ×2 (09:37→21:16)
[2023-09-24] MEDS: hyDRALAzine 10 mg Tablet PO ×4 (09:41→21:11)
[2023-09-24] MEDS: gabapentin 300 mg Capsule 600 MG PO ×4 (09:41→21:11)
[2023-09-24] MEDS: iohexol 350 mg/mL 500 mL Btl (per mL) IV (10:27)
[2023-09-24 11:58] LABS: Glucose Point of Care 281 mg/dL (70-110)
[2023-09-24 12:00] VITALS: BP 140/69; BP 165/83; PULSE 76; PULSE 90; RESP 16; RESP 17; TEMP 36.9; TEMP 37.2; O2SAT 92
--- NOTE | 2023-09-24 12:11 | PC.NURSE ---
At approximately 1154 patient requested another hydrocodone and telegraphic typewriter repairer educated patient on the times patient can have pain medications. Patient demanded I get him one and after more education patient stated to telegraphic typewriter repairer Do you want me to beg will that turn you on . [employer] Manager explained that was inappropriate to say.
--- NOTE | 2023-09-24 13:49 | P.PN_ITS ---
Subjective 2 Subjective: Patient was seen this morning, he is afebrile overnight he continues to complain of very severe left lower extremity pain, he tells me that the pain is in his is primarily in his left lower extremity, but also in the hip, his left foot erythema significantly improved, MRI was canceled, left lower extremity is not cool to touch, he is hypersensitive to minimal touch, he has palpable DP PT pulses although diminished, I discussed with him his arterial studies, given his persistent severe intractable pain, concern would be for limb ischemia, given his diabetes, history of stroke is hypertension, will do a CTA left lower extremity to look at the arteries, given his creatinine 1.5, discussed the risk and benefits, he voiced understanding, all questions answered, he wants to proceed as he continues to have severe pain, he tells me that the pain is unbearable will increase his hydrocodone to 04/05/2025 every 6 hours as needed, discussed with cardiology, plan on doing CTA left lower extremity, Vitals/I&O/Wt Last Vital Signs Temp 98.5 F 09/24/23 12:00 Pulse 76 09/24/23 12:00 Resp 16 09/24/23 12:00 BP 165/83 09/24/23 12:00 Pulse Ox 93 09/24/23 08:00 O2 Del Method Room Air 09/24/23 08:00 O2 Flow Rate 2 09/20/23 08:00 09/23/23 09/24/23 09/24/23 22:59 06:59 14:59 Intake Total 100.0 / 580.0 1050 / 1630.0 722 / 722 Output Total 100 / 100 350 / 450 Balance 0 / 480.0 700 / 1180.0 722 / 722 Weight last 48 hrs Weight 108.409 kg Physical Exam 2 Const: COMMON NORMALS: no acute distress and patient oriented x3 Resp: COMMON NORMALS: normal respiratory effort, No retractions, No use of accessory muscles and clear to auscultation bilaterally AUSCULTATION: clear to auscultation bilaterally Cardio: COMMON NORMALS: regular rate, regular rhythm, S1 normal heart sound present and S2 normal heart sound present RATE: regular rate RHYTHM: r egular rhythm HEART SOUNDS: S1 normal heart sound present and S2 normal heart sound present GI: COMMON NORMALS: Normal to inspection, nondistended, normoactive bowel sounds present and non-tender Extremity: NARRATIVE EXTREMITY EXAM: Area of erythema left lower extremity significantly improving retracting beyond marked borders Neuro: COMMON NORMALS: patient oriented x3 Psych: COMMON NORMALS: mental status grossly normal Data 09/24/23 05:19 09/24/23 05:19 Micro: Microbiology 09/19/23 12:47 Blood Culture - Final Blood NO GROWTH AFTER 5 DAYS 09/19/23 12:47 Blood Culture - Final Blood NO GROWTH AFTER 5 DAYS A&P Assessment and plan (1) Sepsis: (2) Cellulitis of left lower leg: (3) NSTEMI (non-ST elevated myocardial infarction): (4) Hypoglycemia: (5) Acute kidney injury superimposed on CKD: (6) Type 2 diabetes mellitus: Qualifiers: Diabetes mellitus complication detail: without coma Diabetes mellitus complication status: with hypoglycemia Diabetes mellitus terminal makeup operator insulin use: with fci use Qualified Code(s): E11.649 - Type 2 diabetes mellitus with hypoglycemia without coma; Z79.4 - joint terminal attack controller (current) use of insulin (7) History of CVA (cerebrovascular accident): (8) Intractable pain: Plan Left lower extremity cellulitis -With evidence of sepsis Plan -CT left lower extremity no underlying abscess, no osteomyelitis -Venous ultrasound no DVT ? Area of erythema significant improved, MRI canceled -Vancomycin -Zosyn -Follow blood cultures -IV fluids have been stopped -Monitor hemodynamic status closely -Monitor Pro-Delonte, CRP Intractable left lower extremity pain ? Will Doppler bilateral pulses, on palpation pulses present to left lower extremity although diminished ? Arterial ultrasound given history of diabetes US/CV arterial duplex [facility] [id number] IMPRESSION: 1. No sign of hemodynamically significant stenosis to the level of the popliteal artery. 2. Abnormal waveform in the patent distal posterior tibial artery indicates hemodynamically significant upstream stenosis. 3. The dorsalis pedis artery is patent. -Given severe intractable pain, and arterial ultrasound studies will perform CTA to assess for arterial obstruction left lower extremity, creatinine is 1.5 IV fluids before and after, discussed risk and benefits with patient, he voiced understanding, all questions answered, he agrees to proceed ? Does have a history of peripheral neuropathy is optimized on gabapentin 600 mg p.o. 4 times daily ? On hydrocodone 10 mg 1 tab every 8 hours as needed Sepsis, resolved -Sepsis criteria met, given elevated white count, of over 20,000, creatinine 2.2, elevated Pro-Delonte, CRP, hypoglycemia, elevated troponins, sinus tachycardia source of infection left lower extremity cellulitis Hypoglycemia, resolving -Monitor blood sugars every hour -Low-dose sliding scale - GINA on CKD, IV fluids NSTEMI -No chest pain complaints -Serial EKGs, serial troponins, telemetry monitoring -Continue aspirin, statin -Cardiac echo History of CVA with residual left-sided deficits Left hip pain, CT left hip, no acute findings, pain control as above Chronic pain, hydrocodone Plan for today, pain control, arterial studies left lower extremity, continue aspirin, statin, will consider adding cilostazol Attestations 2 Medical Necessity Statement*: Patient requires hospitalization for left lower extremity cellulitis, concerns for acute limb ischemia given arterial studies pursuing CTA left lower extremity with contrast spoke to patient, spoke to nursing staff spoke to cardiology and High MDM includes number and complexity of problems actively addressed during encounter, amount and/or complexity of data reviewed/ordered and described risk of complication, morbidity or mortality of management as documented Diagnoses Sepsis A41.9 Cellulitis of left lower leg L03.116 NSTEMI (non-ST elevated myocardial infarction) I21.4 Hypoglycemia E16.2 Acute kidney injury superimposed on CKD N17.9; N18.9 Type 2 diabetes mellitus with hypoglycemia without coma, with long-term current use of insulin E11.649; Z79.4 Diabetes mellitus complication detail: without coma Diabetes mellitus complication status: with hypoglycemia Diabetes mellitus terminal makeup operator insulin use: with terminal makeup operator use History of CVA (cerebrovascular accident) Z86.73 Intractable pain R52
[2023-09-24] MEDS: enoxaparin 40 mg/0.4 mL Syringe SUBCUT (15:46)
[2023-09-24 16:00] VITALS: BP 147/72; BP 165/83; PULSE 76; PULSE 90; RESP 16; RESP 17; TEMP 36.9; O2SAT 94
[2023-09-24 17:01] LABS: Glucose Point of Care 335 mg/dL (70-110)
[2023-09-24] MEDS: cilostazol 100 mg Tablet 50 MG PO (17:13)
[2023-09-24] MEDS: ALPRAZolam 0.5 mg Tablet 0.25 MG PO (17:25)
[2023-09-24 20:00] VITALS: BP 145/78; PULSE 87; RESP 18; TEMP 36.9; O2SAT 96
[2023-09-24] MEDS: tamsulosin 0.4 mg Capsule 0.400000000000000022 MG PO (21:11)
[2023-09-24 21:29] LABS: Glucose Point of Care 362 mg/dL (70-110)
[2023-09-25] VITALS: BP 121/72; PULSE 86; RESP 19; TEMP 37.1; O2SAT 93
[2023-09-25] MEDS: ALPRAZolam 0.5 mg Tablet 0.25 MG PO ×3 (02:55→17:26)
[2023-09-25] MEDS: magnesium lactate 84 mg Tablet PO ×2 (02:55→14:37)
[2023-09-25] MEDS: piperacillin-tazobactam 3.375 GM in sodium chloride 0.9% (plus) 50 ML IV ×3 (02:55→17:26)
[2023-09-25 03:48] LABS: Basophils # 0.1 10^3/uL (0.0-0.1); Basophils % 0.9 %; Eosinophils # 0.5 10^3/uL (0.0-0.8); Eosinophils % 4.2 %; Hematocrit 42.4 % (37-53); Lymphocytes # 1.7 10^3/uL (0.8-4.8); Lymphocytes % 13.6 %; Mean Corpuscular HGB Conc 31.4 g/dL (30-55); Mean Corpuscular Volume 95.7 fl (82-101); Mean Platelet Volume 10.9 fL (7.4-10.4); Monocytes # 1.6 10^3/uL (0.2-0.9); Monocytes % 13.2 %; Neutrophils # 7.91 10^3/uL (1.8-7.7); Neutrophils % 65.5 %; Nucleated Red Blood Cells % 0 %; Platelet Count 482 10^3/cmm (157-399); Red Blood Count 4.43 10^6/uL (3.85-5.65); Red Cell Distribution Width 14.6 % (12.1-15.1); White Blood Count 12.09 10^3/uL (3.29-11.43)
[2023-09-25] MEDS: sodium chloride 0.9% 1,000 ML 50 ML IV ×2 (03:59→12:11)
[2023-09-25] MEDS: HYDROcodone-acetaminophen 10-325 mg Tablet 1 TAB PO ×4 (04:00→22:04)
[2023-09-25 04:07] LABS: Alanine Aminotransferase 32 U/L (0-41); Albumin Level 3.2 g/dL (3.5-5.2); Alkaline Phosphatase 97 U/L (40-130); Aspartate Amino Transferase 16 U/L (0-40); Blood Urea Nitrogen 24 mg/dL (8-23); C Reactive Protein 124.4 mg/L (0.0-4.9); Calcium 9.3 mg/dL (8.5-10.5); Carbon Dioxide 21 mmol/L (22-29); Chloride 104 mmol/L (98-107); Creatinine Clr Calc Pharmacy 62.5972; Globulin 3.8 g/dL (1.3-4.6); Glucose 300 mg/dL (65-115); Magnesium 1.9 mg/dL (1.7-2.3); Osmolality Calculated 299 mOsm/kg (285-295); Phosphorus 2.7 mg/dL (2.5-4.5); Sodium 137 mmol/L (136-145); Total Bilirubin 0.3 mg/dL (0.15-1.2)
[2023-09-25 04:14] LABS: NT Pro B Type Natriuretic Pept 976 pg/mL (0-125); Procalcitonin 0.63 ng/mL (0-0.5)
[2023-09-25 06:50] LABS: Glucose Point of Care 394 mg/dL (70-110)
[2023-09-25] MEDS: pantoprazole DR 40 mg Tablet PO (06:53)
[2023-09-25 08:00] VITALS: BP 165/77; PULSE 85; RESP 18; TEMP 36.6; O2SAT 92
[2023-09-25] MEDS: insulin lispro 100 unit/1 mL SUBCUT ×4 (08:36→20:30)
[2023-09-25] MEDS: hyDRALAzine 10 mg Tablet PO ×4 (08:36→20:20)
[2023-09-25] MEDS: amlodipine 10 mg Tablet PO (08:36)
[2023-09-25] MEDS: phosphorus 250 mg Tablet PO ×2 (08:36→17:26)
[2023-09-25] MEDS: gabapentin 300 mg Capsule 600 MG PO ×4 (08:36→20:20)
[2023-09-25] MEDS: cilostazol 100 mg Tablet 50 MG PO ×2 (08:36→17:26)
[2023-09-25] MEDS: nystatin powder 30 gm Btl 1 APPLIC TOPICAL ×2 (08:37→20:20)
[2023-09-25] MEDS: BuSPIRONE 10 mg Tablet 20 MG PO ×3 (08:37→20:19)
[2023-09-25] MEDS: citalopram 20 mg Tablet 40 MG PO (08:37)
[2023-09-25] MEDS: aspirin 81 mg EC Tablet PO (08:37)
[2023-09-25 09:16] VITALS: BP 165/77
[2023-09-25] MEDS: cloNIDine 0.1 mg Tablet 0.100000000000000006 MG PO ×2 (09:16→17:26)
[2023-09-25 10:00] VITALS: O2SAT 93
[2023-09-25] MEDS: tizanidine 4 mg Tablet PO ×2 (11:08→19:44)
[2023-09-25 11:10] LABS: Glucose Point of Care 336 mg/dL (70-110)
[2023-09-25 11:32] VITALS: BP 137/72; PULSE 88; RESP 18; TEMP 36.7; O2SAT 91
--- NOTE | 2023-09-25 13:39 | PM.PN ---
Subjective Subjective: Patient was seen this morning, denies any fevers, chills, tells me that his leg pain is more under control but continues to bother him, area of erythema left lower extremity is improving Vitals/I&O/Wt Last Vital Signs Temp 98.0 F 09/25/23 11:32 Pulse 88 09/25/23 11:32 Resp 18 09/25/23 11:32 BP 137/72 09/25/23 11:32 Pulse Ox 91 09/25/23 11:32 O2 Del Method Room Air 09/25/23 11:32 O2 Flow Rate 2 09/20/23 08:00 09/24/23 09/25/23 09/25/23 22:59 06:59 14:59 Intake Total 1000.5 / 1890.5 780.833 / 2671.333 510 / 510 Balance 1000.5 / 1890.5 780.833 / 2671.333 510 / 510 Physical Exam Const: COMMON NORMALS: no acute distress and patient oriented x3 Resp: COMMON NORMALS: normal respiratory effort, No retractions, No use of accessory muscles and clear to auscultation bilaterally AUSCULTATION: clear to auscultation bilaterally Cardio: COMMON NORMALS: regular rate, regular rhythm, S1 normal heart sound present and S2 normal heart sound present RATE: regular rate RHYTHM: regular rhythm HEART SOUNDS: S1 normal heart sound present and S2 normal heart sound present GI: COMMON NORMALS: Normal to inspection, nondistended, normoactive bowel sounds present and non-tender Extremity: COMMON NORMALS: no pedal edema Neuro: COMMON NORMALS: patient oriented x3 Psych: COMMON NORMALS: mental status grossly normal Data 09/25/23 03:17 09/25/23 03:17 Micro: Microbiology 09/19/23 12:47 Blood Culture - Final Blood NO GROWTH AFTER 5 DAYS 09/19/23 12:47 Blood Culture - Final Blood NO GROWTH AFTER 5 DAYS A&P Assessment and plan (1) Sepsis: (2) Cellulitis of left lower leg: (3) NSTEMI (non-ST elevated myocardial infarction): (4) Hypoglycemia: (5) Acute kidney injury superimposed on CKD: (6) Type 2 diabetes mellitus: Qualifiers: Diabetes mellitus complication detail: without coma Diabetes mellitus complication status: with hypoglycemia Diabetes mellitus [facility] insulin use: with commodity supervisor use Qualified Code(s): E11.649 - Type 2 diabetes mellitus with hypoglycemia without coma; Z79.4 - financial services auditor (current) use of insulin (7) History of CVA (cerebrovascular accident): (8) Intractable pain: Plan Left lower extremity cellulitis -With evidence of sepsis Plan -CT left lower extremity no underlying abscess, no osteomyelitis -Venous ultrasound no DVT ? Area of erythema significant improved, MRI canceled -Vancomycin -Zosyn -Follow blood cultures -IV fluids have been stopped -Monitor hemodynamic status closely -Monitor Pro-Delonte, CRP Intractable left lower extremity pain ? Will Doppler bilateral pulses, on palpation pulses present to left lower extremity although diminished ? Arterial ultrasound given history of [place] US/[place] [id number] IMPRESSION: 1. No sign of hemodynamically significant stenosis to the level of the popliteal artery. 2. Abnormal waveform in the patent distal posterior tibial artery indicates hemodynamically significant upstream stenosis. 3. The dorsalis pedis artery is patent. -Given severe intractable pain, and arterial ultrasound studies will perform CTA to assess for arterial obstruction left lower extremity, creatinine is 1.5 IV fluids before and after, discussed risk and benefits with patient, he voiced understanding, all questions answered, he agrees to proceed CTA - [place] [id number] IMPRESSION: Lower extremity arterial flow is overall demonstrated bilaterally. There are however some areas of bulky plaque and noncalcified plaque contributing to some areas of luminal narrowing. This correlates with some areas significant luminal plaque and narrowing on the left most pronounced of the popliteal and infrapopliteal trifurcation. If there are associated clinical symptoms then consider dedicated percutaneous conventional angiography. -Continue aspirin, statin add cilostazol ? Does have a history of peripheral neuropathy is optimized on gabapentin 600 mg p.o. 4 times daily ? On hydrocodone 10 mg 1 tab every 8 hours as needed Sepsis, resolved -Sepsis criteria met, given elevated white count, of over 20,000, creatinine 2.2, elevated Pro-Delonte, CRP, hypoglycemia, elevated troponins, sinus tachycardia source of infection left lower extremity cellulitis Hypoglycemia, resolving -Monitor blood sugars every hour -Low-dose sliding scale - GINA on CKD, IV fluids NSTEMI -No chest pain complaints -Serial EKGs, serial troponins, telemetry monitoring -Continue aspirin, statin -Cardiac echo History of CVA with residual left-sided deficits Left hip pain, CT left hip, no acute findings, pain control as above Chronic pain, hydrocodone Plan for today, pain control, IV abx, monitor cellulitis Attestations Medical Necessity Statement*: Patient requires hospitalization for left lower extremity cellulitis, overall clinically improving requires persistent IV antibiotics due to persistent erythema downward trending CRP, Pro-Delonte, leukocytosis Diagnoses Sepsis A41.9 Cellulitis of left lower leg L03.116 NSTEMI (non-ST elevated myocardial infarction) I21.4 Hypoglycemia E16.2 Acute kidney injury superimposed on CKD N17.9; N18.9 Type 2 diabetes mellitus with hypoglycemia without coma, with long-term current use of insulin E11.649; Z79.4 Diabetes mellitus complication detail: without coma Diabetes mellitus complication status: with hypoglycemia Diabetes mellitus [facility] insulin use: with [facility] use History of CVA (cerebrovascular accident) Z86.73 Intractable pain R52
[2023-09-25] MEDS: enoxaparin 40 mg/0.4 mL Syringe SUBCUT (14:37)
[2023-09-25] MEDS: vancomycin 1,250 MG/250 ML PIGGYBACK 250 MG IV (16:07)
[2023-09-25 16:20] LABS: Glucose Point of Care 270 mg/dL (70-110)
[2023-09-25 19:41] VITALS: BP 127/76; PULSE 77; RESP 18; TEMP 37; O2SAT 97
[2023-09-25] MEDS: acetaminophen 325 mg Tablet 650 MG PO (19:44)
[2023-09-25] MEDS: tamsulosin 0.4 mg Capsule 0.400000000000000022 MG PO (20:20)
[2023-09-25 20:28] LABS: Glucose Point of Care 276 mg/dL (70-110)
[2023-09-26] VITALS: BP 123/71; PULSE 70; RESP 18; O2SAT 92
[2023-09-26] MEDS: piperacillin-tazobactam 3.375 GM in sodium chloride 0.9% (plus) 50 ML IV ×2 (01:13→08:50)
[2023-09-26] MEDS: magnesium lactate 84 mg Tablet PO (01:13)
[2023-09-26] MEDS: ALPRAZolam 0.5 mg Tablet 0.25 MG PO ×2 (01:13→08:48)
--- NOTE | 2023-09-26 03:37 | PC.NURSE ---
Pt refused am lab draw this morning, educated on why labs needed to be obtained. Will have lab retry draw later in the morning.
[2023-09-26] MEDS: HYDROcodone-acetaminophen 10-325 mg Tablet 1 TAB PO ×2 (04:14→10:38)
[2023-09-26] MEDS: tizanidine 4 mg Tablet PO ×2 (04:14→12:11)
[2023-09-26 04:42] VITALS: BP 160/62; PULSE 86; RESP 18; O2SAT 95
[2023-09-26] MEDS: pantoprazole DR 40 mg Tablet PO (05:16)
[2023-09-26 06:20] LABS: Glucose Point of Care 353 mg/dL (70-110)
[2023-09-26] MEDS: acetaminophen 325 mg Tablet 650 MG PO (06:25)
[2023-09-26 07:43] VITALS: BP 175/84; PULSE 79; RESP 20; TEMP 36.3; O2SAT 91
[2023-09-26] MEDS: insulin lispro 100 unit/1 mL SUBCUT ×2 (08:47→12:11)
[2023-09-26 08:48] VITALS: BP 175/84
[2023-09-26] MEDS: citalopram 20 mg Tablet 40 MG PO (08:48)
[2023-09-26] MEDS: cloNIDine 0.1 mg Tablet 0.100000000000000006 MG PO (08:48)
[2023-09-26] MEDS: phosphorus 250 mg Tablet PO (08:48)
[2023-09-26] MEDS: hyDRALAzine 10 mg Tablet PO ×2 (08:48→12:11)
[2023-09-26] MEDS: insulin glargine 100 units/1 mL 20 UNIT SUBCUT (08:48)
[2023-09-26] MEDS: aspirin 81 mg EC Tablet PO (08:48)
[2023-09-26] MEDS: BuSPIRONE 10 mg Tablet 20 MG PO (08:48)
[2023-09-26] MEDS: gabapentin 300 mg Capsule 600 MG PO ×2 (08:49→12:10)
[2023-09-26] MEDS: sodium chloride 0.9% 1,000 ML 50 ML IV (08:49)
[2023-09-26] MEDS: cilostazol 100 mg Tablet 50 MG PO (08:49)
[2023-09-26] MEDS: amlodipine 10 mg Tablet PO (08:49)
[2023-09-26] MEDS: nystatin powder 30 gm Btl 1 APPLIC TOPICAL (08:50)
--- NOTE | 2023-09-26 10:38 | PM.DCS ---
Discharge Providers Date of Admission: 09/19/23 13:16 Date of Discharge: September 26, 2023 Attending Provider at Admission: Aris Griffin MD Attending Provider at Discharge: Aris Griffin MD Primary Care Provider: Leonel Jolley Diagnoses at Discharge Discharge Diagnosis (1) Sepsis: Status: Acute (2) Cellulitis of left lower leg: Status: Acute (3) NSTEMI (non-ST elevated myocardial infarction): Status: Acute (4) Hypoglycemia: Status: Acute (5) Acute kidney injury superimposed on CKD: Status: Acute (6) Type 2 diabetes mellitus: Status: Chronic Qualifiers: Diabetes mellitus complication detail: without coma Diabetes mellitus complication status: with hypoglycemia Diabetes mellitus lobsterman insulin use: with mcfp use Qualified Code(s): E11.649 - Type 2 diabetes mellitus with hypoglycemia without coma; Z79.4 - manager intermediate (current) use of insulin (7) History of CVA (cerebrovascular accident): Status: Chronic (8) Intractable pain: Status: Acute Reason for Visit Reason for Visit: cellulitis Hospital Course Hospital Course Tucker Tyler is a 63 year old male with a past medical history of insulin-dependent type 2 diabetes mellitus, history of CVA with residual left-sided hemiparesis, chronic flexion contracture of left upper extremity, history of hypertension, history of CKD who presents [facility] from long-term facility due to left lower extremity swelling with complaints of fevers, chills, feeling unwell and hypoglycemia. Currently patient is alert to person, to place, not to time he follows all commands, he tells me he is here in the hospital because his left leg was swollen, he had fevers, chills, feeling unwell, with hypoglycemia. Currently he denies any chest pain, no palpitations, no shortness of breath, no abdominal pain, he has chronic left lower extremity weakness, denies any injuries, no falls, in the emergency room, he was found to have sepsis secondary to left lower extremity cellulitis, with a Pro-Delonte 4.88, CRP over 300, white count over 28,000, creatinine 2.2 troponin 108, with tachycardia has been given cefepime, Zyvox, fluid bolus, found to be hypoglycemic, given D10 Dilaudid for pain, hospice team has been called for admission Patient was admitted to [facility] for left lower extremity cellulitis with evidence of sepsis, CT with no underlying abscess no osteomyelitis, venous ultrasound negative for DVT, patient had slow clinical progress, received broad-spectrum antibiotic therapy, blood cultures so far negative, overall his inflammatory markers down trended, his cellulitis and erythema significantly improved, discharged to long-term facility on 1 week of Zyvox and Augmentin Intractable left lower extremity pain ? Bilateral pulses present on bilateral extremities ? Arterial ultrasound given history of diabetes US/[place] [id number] IMPRESSION: 1. No sign of hemodynamically significant stenosis to the level of the popliteal artery. 2. Abnormal waveform in the patent distal posterior tibial artery indicates hemodynamically significant upstream stenosis. 3. The dorsalis pedis artery is patent. -Given severe intractable pain, and arterial ultrasound studies will perform CTA to assess for arterial obstruction left lower extremity, creatinine is 1.5 IV fluids before and after, discussed risk and benefits with patient, he voiced understanding, all questions answered, he agrees to proceed CTA - CT/[place] [id number] IMPRESSION: Lower extremity arterial flow is overall demonstrated bilaterally. There are however some areas of bulky plaque and noncalcified plaque contributing to some areas of luminal narrowing. This correlates with some areas significant luminal plaque and narrowing on the left most pronounced of the popliteal and infrapopliteal trifurcation. If there are associated clinical symptoms then consider dedicated percutaneous conventional angiography. -Continue aspirin, statin add cilostazol ? Does have a history of peripheral neuropathy is optimized on gabapentin 600 mg p.o. 4 times daily ? On hydrocodone 10 mg 1 tab every 8 hours as needed -Pain was monitored, pulses bilateral extremities present, no evidence of pulselessness, poikilothermia, or blue foot -Overall patient is pain improved, discharged with close follow-up with Dr. Monroy as outpatient for consideration of peripheral angiogram based on clinical progress Sepsis resolved Type 2 diabetes mellitus, discharged on Lantus 29 subcu a.m., low-dose sliding scale Hip pain, CT left hip, no acute findings, follow-up with orthopedic service as outpatient Physical Exam Const: COMMON NORMALS: no acute distress and patient oriented x3 Resp: COMMON NORMALS: normal respiratory effort, No retractions, No use of accessory muscles and clear to auscultation bilaterally AUSCULTATION: clear to auscultation bilaterally Cardio: COMMON NORMALS: regular rate, regular rhythm, S1 normal heart sound present and S2 normal heart sound present RATE: regular rate RHYTHM: regular rhythm HEART SOUNDS: S1 normal heart sound present and S2 normal heart sound present GI: COMMON NORMALS: Normal to inspection, nondistended, normoactive bowel sounds present and non-tender Extremity: COMMON NORMALS: no pedal edema NARRATIVE EXTREMITY EXAM: Left leg cellulitis, significantly improved, minimal, minimal erythema, DP PT pulses palpable bilaterally Neuro: COMMON NORMALS: patient oriented x3 Psych: COMMON NORMALS: mental status grossly normal Discharge Data Studies Completed and Pending Completed Studies During Hospitalization Category [place] [id number] Stat Cat Scan 09/24/23 09:[address] hip LT wo con* [id number] Routine Cat Scan 09/20/23 09:[address] lower leg LT wo con* [id number] Stat Cat Scan 09/19/23 13:25 [place] [id number] Stat Ultrasound 09/23/23 14:32 [place] [id number] Stat Ultrasound 09/19/23 13:25 Completed CV. echo complete* [id number] Routine Ultrasound 09/19/23 14:50 Completed Pending at discharge Category Date Time Status C Reactive Protein AM LABS Lab 09/26/23 04:00 Ordered C Reactive Protein AM LABS Lab 09/27/23 04:00 Ordered C Reactive Protein AM LABS Lab 09/28/23 04:00 Ordered COVID [SARS Covid-2 Antigen] Routine Lab 09/26/23 10:32 Ordered Complete Blood Count w/Auto AM LABS Lab 09/26/23 04:00 Ordered Complete Blood Count w/Auto AM LABS Lab 09/27/23 04:00 Ordered Complete Blood Count w/Auto AM LABS Lab 09/28/23 04:00 Ordered Comprehensive Metabolic Panel AM LABS Lab 09/26/23 04:00 Ordered Comprehensive Metabolic Panel AM LABS Lab 09/27/23 04:00 Ordered Comprehensive Metabolic Panel AM LABS Lab 09/28/23 04:00 Ordered Magnesium AM LABS Lab 09/26/23 04:00 Ordered Magnesium AM LABS Lab 09/27/23 04:00 Ordered Magnesium AM LABS Lab 09/28/23 04:00 Ordered NT Pro B Type Natriuretic Pept QAM Lab 09/26/23 04:00 Ordered NT Pro B Type Natriuretic Pept QAM Lab 09/27/23 06:00 Ordered NT Pro B Type Natriuretic Pept QAM Lab 09/28/23 06:00 Ordered Phosphorus AM LABS Lab 09/26/23 04:00 Ordered Phosphorus AM LABS Lab 09/27/23 04:00 Ordered Phosphorus AM LABS Lab 09/28/23 04:00 Ordered Procalcitonin AM LABS Lab 09/26/23 04:00 Ordered Procalcitonin AM LABS Lab 09/27/23 04:00 Ordered Procalcitonin AM LABS Lab 09/28/23 04:00 Ordered Radiology Impressions Hip CT 09/20/23 09:03 IMPRESSION: Mild arthritic change Duplex Scan Lower Extremity Artery 09/23/23 14:32 IMPRESSION: 1. No sign of hemodynamically significant stenosis to the level of the popliteal artery. 2. Abnormal waveform in the patent distal posterior tibial artery indicates hemodynamically significant upstream stenosis. 3. The dorsalis pedis artery is patent. Lower Extremity CTA 09/24/23 09:33 IMPRESSION: Lower extremity arterial flow is overall demonstrated bilaterally. There are however some areas of bulky plaque and noncalcified plaque contributing to some areas of luminal narrowing. This correlates with some areas significant luminal plaque and narrowing on the left most pronounced of the popliteal and infrapopliteal trifurcation. If there are associated clinical symptoms then consider dedicated percutaneous conventional angiography. Laboratory Results WBC 12.09 10^3/uL (3.29-11.43) H 09/25/23 03:17 RBC 4.43 10^6/uL (3.85-5.65) 09/25/23 03:17 Hgb 13.30 g/dL (11.27-16.99) 09/25/23 03:17 Hct 42.4 % (37-53) 09/25/23 03:17 MCV 95.7 fl (82-101) 09/25/23 03:17 MCH 30.0 pg (27-33) 09/25/23 03:17 MCHC 31.4 g/dL (30-55) 09/25/23 03:17 RDW 14.6 % (12.1-15.1) 09/25/23 03:17 Plt Count 482 10^3/cmm (157-399) H 09/25/23 03:17 MPV 10.9 fL (7.4-10.4) H 09/25/23 03:17 Neut % (Auto) 65.5 % 09/25/23 03:17 Lymph % (Auto) 13.6 % 09/25/23 03:17 Castro % (Auto) 13.2 % 09/25/23 03:17 Eos % (Auto) 4.2 % 09/25/23 03:17 Baso % (Auto) 0.9 % 09/25/23 03:17 Neut # (Auto) 7.91 10^3/uL (1.8-7.7) H 09/25/23 03:17 Lymph # (Auto) 1.7 10^3/uL (0.8-4.8) 09/25/23 03:17 Castro # (Auto) 1.6 10^3/uL (0.2-0.9) H 09/25/23 03:17 Eos # (Auto) 0.5 10^3/uL (0.0-0.8) 09/25/23 03:17 Baso # (Auto) 0.1 10^3/uL (0.0-0.1) 09/25/23 03:17 Nucleated RBC % (auto) 0 % 09/25/23 03:17 Nucleated RBCs # 0.0 /100WBC 09/25/23 03:17 ESR 74 mm/hr (0-10) H 09/23/23 11:46 PT 14.40 SECONDS (12.1-14.9) 09/22/23 11:30 INR 1.08 (0.8-1.2) 09/22/23 11:30 Specimen Type Arterial 09/19/23 13:27 Sample Site Radial, right 09/19/23 13:27 ABG pH 7.34 (7.35-7.45) L 09/19/23 13:27 ABG pCO2 43.1 mmHg (35-45) 09/19/23 13:27 ABG pO2 74.7 mmHg (80.0-100.0) L 09/19/23 13:27 ABG HCO3 23.0 mmol/L (22-26) 09/19/23 13:27 ABG Base Excess -2.9 mmol/L (-2.0-2.0) L 09/19/23 13:27 Saad Test Pos 09/19/23 13:27 Hematocrit 40.6 % (42-52) L 09/19/23 13:27 O2 Delivery Device Nc 09/19/23 13:27 O2 Liters/Min 2.0 % 09/19/23 13:27 Business Services Officer ID Vanessa 09/19/23 13:27 Sodium 137 mmol/L (136-145) 09/25/23 03:17 Potassium 4.0 mmol/L (3.5-5.1) 09/25/23 03:17 Chloride 104 mmol/L (98-107) 09/25/23 03:17 Carbon Dioxide 21 mmol/L (22-29) L 09/25/23 03:17 Anion Gap 16.0 (5-19) 09/25/23 03:17 BUN 24 mg/dL (8-23) H 09/25/23 03:17 Creatinine 1.4 mg/dL (0.7-1.2) H 09/25/23 03:17 GFR Calculation 51.0 mL/min (90-130) L 09/25/23 03:17 Glucose 300 mg/dL (65-115) H 09/25/23 03:17 POC Glucose 353 mg/dL (70-110) H 09/26/23 06:17 Estimat Average Glucose 217 09/19/23 11:42 Hemoglobin A1c 9.2 % (4.0-6.0) H 09/19/23 11:42 Calculated Osmolality 299 mOsm/kg (285-295) H 09/25/23 03:17 Lactic Acid 1.9 mmol/L (0.5-2.2) 09/19/23 11:42 Lactate 1.1 mmol/L (0.5-2.2) 09/22/23 11:30 Calcium 9.3 mg/dL (8.5-10.5) 09/25/23 03:17 Phosphorus 2.7 mg/dL (2.5-4.5) 09/25/23 03:17 Magnesium 1.9 mg/dL (1.7-2.3) 09/25/23 03:17 Total Bilirubin 0.3 mg/dL (0.15-1.2) 09/25/23 03:17 AST 16 U/L (0-40) 09/25/23 03:17 ALT 32 U/L (0-41) 09/25/23 03:17 Alkaline Phosphatase 97 U/L (40-130) 09/25/23 03:17 Creatine Kinase 105 U/L (39-308) 09/23/23 11:46 Troponin T Baseline 103 ng/L (0-15) H* 09/19/23 12:47 Troponin T 120 Minute 107.5 ng/L (0-15) H 09/19/23 15:11 Delta Troponin T 4.5 ABS# (0-10) 09/19/23 15:11 Troponin T Hi Sens 6Hr 89.22 ng/L (0-15) H 09/19/23 18:55 Troponin T Hi Sens 6Hr Delta -13.78 ng/L (0-12) L 09/19/23 18:55 C-Reactive Protein 124.4 mg/L (0.0-4.9) H 09/25/23 03:17 NT-Pro-B Natriuret Pep 976 pg/mL (0-125) H 09/25/23 03:17 Total Protein 7.0 g/dL (6.6-8.7) 09/25/23 03:17 Albumin 3.2 g/dL (3.5-5.2) L 09/25/23 03:17 Globulin 3.8 g/dL (1.3-4.6) 09/25/23 03:17 Triglycerides 124 mg/dL (0-150) 09/19/23 11:42 Cholesterol 100 mg/dL (0-200) 09/19/23 11:42 LDL Cholesterol, Calc 34 mg/dL (50-129) L 09/19/23 11:42 HDL Cholesterol 41 mg/dL (60-100) L 09/19/23 11:42 LDL/HDL Ratio 0.83 RATIO (0.00-3.22) 09/19/23 11:42 Cholesterol/HDL Ratio 2.44 mg/dL (1.0-5.00) 09/19/23 11:42 Procalcitonin 0.63 ng/mL (0-0.5) H 09/25/23 03:17 TSH 1.05 uIU/mL (0.27-4.20) 09/19/23 11:42 Vancomycin Trough 14.6 ug/mL (10-15) 09/23/23 02:58 C. difficile (PCR) Negative (Negative) 09/23/23 11:30 Vitals Last Vital Signs Temp 97.4 F L 09/26/23 07:43 Pulse 79 09/26/23 07:43 Resp 20 H 09/26/23 07:43 BP 175/84 09/26/23 08:48 Pulse Ox 91 09/26/23 07:43 O2 Del Method Room Air 09/26/23 07:43 O2 Flow Rate 2 09/20/23 08:00 Discharge Plan Discharge Patient Disposition: Xfer SNF Condition: Stable Prescriptions: New hydralazine 10 mg Tablet 10 mg PO QID 30 Days Qty: 120 0RF cilostazol 100 mg Tablet 50 mg PO BID 30 Days Qty: 30 0RF clonidine HCl 0.1 mg Tablet 0.1 mg PO BID 30 Days Qty: 60 0RF amlodipine 10 mg Tablet 10 mg PO DAILY 30 Days Qty: 30 0RF Zyvox 600 mg tablet 600 mg PO Q12H 7 Days Qty: 14 0RF amoxicillin-pot clavulanate 875-125 mg tablet 1 tab PO BID 7 Days Qty: 14 0RF hydrocodone-acetaminophen 10-325 mg tablet 1 tab PO Q8H PRN (Reason: pain) 7 Days Qty: 21 0RF Continued acetaminophen 500 mg Tablet 500 mg PO Q4H PRN (Reason: Pain) Qty: 60 0RF calcium carbonate [Tums] 200 mg calcium (500 mg) Tablet,Chewable 500 mg PO Q4H PRN (Reason: INDIGESTION) Qty: 30 0RF albuterol sulfate 90 mcg/actuation Hfa Aerosol Inhaler 1 inh INHALATION Q6H PRN (Reason: Shortness Of Breath) Qty: 8.5 0RF gabapentin 600 mg Tablet 600 mg PO QID ketoconazole 2 % Shampoo See Rx Instructions .ROUTE .COMPLEX Rx Instructions: apply to scalp on shower days topically every day shift every tue Miralax 17 gram Powder In Packet 17 g PO DAILY PRN (Reason: Constipation) tizanidine 4 mg Tablet 4 mg PO Q8H PRN (Reason: Muscle Spasm) Senna-S 8.6-50 mg Tablet 1 tab PO Q12H PRN (Reason: Constipation) Xanax 0.25 mg Tablet 0.25 mg PO Q6H PRN (Reason: Anxiety) Milk of Magnesia 400 mg/5 mL Suspension 30 ml PO DAILY PRN (Reason: Constipation) bisacodyl 10 mg Suppository 10 mg [place] DAILY PRN (Reason: Constipation) nystatin 100,000 unit/gram Cream See Rx Instructions .ROUTE .COMPLEX Rx Instructions: apply to left hand topically every 12 hours as needed for redness/rash to left hand-clean hand with soap and water and dry before applying Enema Disposable 19-7 gram/118 mL Enema 118 ml [place] DAILY PRN (Reason: Constipation) benzocaine 20 % Gel 1 applic MUCOUS MEMBRANE Q8H PRN (Reason: Pain) multivitamin,tx-minerals Tablet 1 tab PO DAILY@08 Nasogel 0.9 % Gel See Rx Instructions .ROUTE .COMPLEX Rx Instructions: one application in both nostrils every 12 hours as needed for dry nose atorvastatin 80 mg tablet 80 mg PO BEDTIME@20 tamsulosin 0.4 mg capsule 0.4 mg PO BEDTIME@20 buspirone 10 mg tablet 20 mg PO TID aspirin 81 mg tablet,delayed release (DR/EC) 81 mg PO DAILY@08 pantoprazole 40 mg tablet,delayed release (DR/EC) 40 mg PO DAILY@06 Celexa 40 mg Tablet 40 mg PO DAILY@08 Changed Humalog KwikPen Insulin 100 unit/mL Insulin Pen See Rx Instructions .ROUTE .COMPLEX Qty: 15 0RF Rx Instructions: Inject, subcut, 3 times daily, after meals, based sliding scale provided Lantus Solostar U-100 Insulin 100 unit/mL (3 mL) Insulin Pen 20 unit SUBCUT QAM Qty: 15 0RF Discontinued hydrocodone-acetaminophen [Arma] 5-325 mg Tablet 1 tab PO BID insulin lispro 100 unit/mL Insulin Pen See Rx Instructions .ROUTE .COMPLEX Rx Instructions: inject subcutaneously as per sliding scale 70-149=0 units call md if cbg <50 150-199=2 units 200-249=4 units 250-299=6 units 300-349=8 units 350-399=10 units 400-449=12 units call md if cbg>450 Discharge Orders: Discharge Order (Routine); Ordered 09/26/23 Ordered By: Aris Griffin Referrals: Jas Thomas [Other] Vicente Monroy M.D [Physician] - 2 weeks (PVD) Leonel Jolley [Primary Care Provider] - Paddy Toledo DO [Physician] - 1 month (L hip pain) Discharge Diet: Diabetic Discharge Activity: Resume usual activity Patient Instructions: Opioid Safety Activity Restrictions/Additional Instructions: -Please monitor your blood sugars closely -Monitor your blood sugars 3 times daily as after meals -Please record your blood sugars, and a blood sugar log -For your NovoLog -Please inject blood sugar after meals based on sliding scale provided -Do not inject insulin if you do not eat as hypoglycemia kills -This is a NovoLog sliding scale -Insulin sliding ?fingerstick? Insulin ?141-180?0 units/sq 181-220?2 units/sq ?221-260?4 units/sq ?261-300 6 units/sq ?301-350?8 units/sq ?351-400 10 units/sq ?401-450?12 units/sq >450? 14units/sq -If your blood sugar is greater than 500 go to the emergency room -If your blood sugar is less than 60 or at anytime you feel lightheaded or dizzy or diaphoretic or have chest palpitations check your blood sugar, and eat a hard candy or drink orange juice and go immediately to the emergency room -Remember hypoglycemia kills, so if his blood sugar is less than 60 we have to increase it by taking in a sugary meal such as a hard candy or orange juice and go to the emergency room -If you have any questions please call us where here to help -Lantus 20 units subcu a.m. -Take antibiotics as prescribed -Continue to monitor cellulitis closely ? Repeat kidney function in 48 hours Discharge Attestations Time Spent in Discharge Care*: greater than 30 min Status at Discharge: Cognitive status at discharge: cognitively intact, Behavioral status at discharge: cooperative (though anxious and needs reassurance at times, refuses some care with understanding of implications), Quality Metrics Clinical Quality Measures [ No reported AMI, CVA or VTE this stay] Coding Level of Care Code 05060 Total time (in minutes) for Discharge: 45 Diagnoses Sepsis A41.9 Cellulitis of left lower leg L03.116 NSTEMI (non-ST elevated myocardial infarction) I21.4 Hypoglycemia E16.2 Acute kidney injury superimposed on CKD N17.9; N18.9 Type 2 diabetes mellitus with hypoglycemia without coma, with long-term current use of insulin E11.649; Z79.4 Diabetes mellitus complication detail: without coma Diabetes mellitus complication status: with hypoglycemia Diabetes mellitus mcfp insulin use: with lobsterman use History of CVA (cerebrovascular accident) Z86.73 Intractable pain R52
[2023-09-26 10:57] LABS: SARS Covid-2 Antigen negative (Negative)
[2023-09-26 11:36] LABS: Glucose Point of Care 334 mg/dL (70-110)
--- NOTE | 2023-09-26 12:02 | PC.NURSE ---
[facility] [place] [place] at [phone] at 1157am. Transport was called by CM at 1144 this am and should arrive within a 3 hour window.
[2023-09-26 12:12] VITALS: BP 160/80; PULSE 83; RESP 20; TEMP 36.4; O2SAT 92
== END 2023-09-26 13:52 | disposition skilled nursing facility (03) | DRG 603 ==
LOC: ER 13:28 → ER IP 13:34 → ICU 16:17 → MEDSURG 09-20 17:03
PROVIDERS: Admitting Provider Family Medicine; Emergency Provider Emergency Medicine; PCP Family Medicine; Visit Provider Family Medicine
DX: L03.116 Cellulitis of left lower limb (principal); N17.9 Acute kidney failure, unspecified; I69.354 Hemiplegia and hemiparesis following cerebral infarction affecting left non-dominant side; E11.649 Type 2 diabetes mellitus with hypoglycemia without coma; E11.42 Type 2 diabetes mellitus with diabetic polyneuropathy; Z79.4 Long term (current) use of insulin; E11.22 Type 2 diabetes mellitus with diabetic chronic kidney disease; N18.9 Chronic kidney disease, unspecified; M25.552 Pain in left hip; G89.29 Other chronic pain; Z79.891 Long term (current) use of opiate analgesic; I10 Essential (primary) hypertension; Z72.0 Tobacco use; Z79.82 Long term (current) use of aspirin; F32.A Depression, unspecified; E66.9 Obesity, unspecified; Z68.37 Body mass index [BMI] 37.0-37.9, adult
CPT/HCPCS: 36415; 36416; 36600; 73700; 73706; 80053; 80061; 80202; 82550; 82803; 82962; 83036; 83605; 83735; 83880; 84100; 84145; 84443; 84484; 85025; 85610; 85651; 86140; 87040; 87426; 87493; 93005; 93306; 93926; 93971; 94664; 96365; 96367; 96372; 96375; 99285; J0692; J1170; J1650; J1815; J1940; J2020; J2270; J2405; J2543; J3370; J7030; J7040; J7042; Q3014; Q9967

== ENCOUNTER → 2024-12-05 08:59 | Outpatient (BNVA) | payer MEDICAID, SELFPAY | PROVIDERS: PCP Family Medicine; Visit Provider Internal Medicine | DX: E78.2 Mixed hyperlipidemia (principal); E11.649 Type 2 diabetes mellitus with hypoglycemia without coma; Z79.4 Long term (current) use of insulin; Z86.73 Personal history of transient ischemic attack (TIA), and cerebral infarction without residual deficits | CPT/HCPCS: 99204 ==

== ENCOUNTER → 2025-03-06 08:50 | Outpatient (BNVA) | payer MEDICAID, SELFPAY | PROVIDERS: PCP Family Medicine; Visit Provider Internal Medicine | DX: E11.649 Type 2 diabetes mellitus with hypoglycemia without coma (principal); Z79.4 Long term (current) use of insulin; E78.2 Mixed hyperlipidemia; Z86.73 Personal history of transient ischemic attack (TIA), and cerebral infarction without residual deficits | CPT/HCPCS: 99214 ==